=== PATIENT | male | born 1985 | race Caucasian/White ===

== ENCOUNTER 2019-12-31 04:04 | Emergency (ER) | payer MEDICAID, SELFPAY ==
[2019-12-31] VITALS (24 sets, daily range): BP systolic 90–131; BP diastolic 52–70; PULSE 65–123; RESP 12–20; TEMP 36.8; O2SAT 93–98; BMI 19.8
--- NOTE | 2019-12-31 04:14 | PC.NURSE ---
EMS report: patient was combative on scene. family and patient admitted to pcp use. patient aggressive on transport and transported in pd custody. no vs due to provider safety.
--- NOTE | 2019-12-31 04:25 | PC.NURSE ---
SECURITY AT BEDSIDE, PT WANDED TO CHECK FOR CONTRABAND NO CONTRABAND FOUND. PT CALM AT THIS TIME AWAITING MD ROSSI.
[2019-12-31] MEDS: Haloperidol Lactate 5 MG/ML VIAL IM (05:08)
[2019-12-31] MEDS: diphenhydrAMINE HCL 50 MG/ML VIAL IM (05:08)
[2019-12-31] MEDS: LORazepam 2 MG/ML VIAL IM (05:08)
--- NOTE | 2019-12-31 05:18 | ED.OVERDOSE ---
HPI - Overdose General Chief Complaint: ETOH/Substance Use Stated Complaint: CRISIS,? PCP USE Time Seen by Provider: 12/31/19 04:46 Source: EMS Mode of arrival: EMS Limitations: no limitations History of Present Illness HPI Narrative: This is a 34-year-old male who is brought in by EMS after they were called by patient's brother for patient taking PCP and being disruptive at his mother's house. On arrival, patient denies any shortness of breath, chest pain, GI symptoms such as nausea or vomiting, and denies any urinary symptoms. Otherwise, he is altered due to PCP intoxication. Related Data Allergies Allergy/AdvReac Type Severity Reaction Status Date / Time No Known Allergies Allergy Verified 12/31/19 05:48 Review of Systems Review of Systems: Pertinent positives and negatives as stated in HPI 10 point review systems is otherwise negative. PMFSH Past Medical History Source: nursing notes reviewed Medical History No known health problems Social History Social History Alcohol intake: unknown Smoking Status: Unknown if ever smoked Use of substances other than those prescribed or required for medical reasons: Yes Substance Use Type: Unknown Substance Use Type Other:: pcp Advance Directives: No Advance Directives Information Provided: No Physical Exam Vital Signs and I&O and Narrative: Vital Signs and I&O: Vital Signs Temp 98.2 F 12/31/19 04:20 Pulse 98 12/31/19 07:40 Resp 16 12/31/19 07:40 BP 97/56 L 12/31/19 06:41 Pulse Ox 98 12/31/19 06:41 Intake & Output 12/30/19 12/31/19 12/31/19 18:59 06:59 18:59 Weight 55.868 kg Body Mass Index 19.8 VITAL SIGNS: Reviewed. GENERAL: Well developed, well nourished, altered with aggression and yelling. HEAD: Normocephalic/atraumatic, EYES: PERRLA, EOMI intact without pain, no nystagmus/pallor/icterus noted EARS: Ext canals without abnormality, TMs non-bulging and non-erythematous NOSE: Nares patent bilateral OROPHARYNX: no oral lesions noted, posterior pharynx clear and non-erythematous without noted tonsillar enlargement/erythema/exudates NECK: Supple, no adenopathy LUNGS: Normal breath sounds. No adventitious sounds or accessory muscle use. SpO2< 98%> CARDIOVASCULAR: Regular rate and rhythm without noted murmurs, no JVD or lower extremity edema. ABDOMEN: Soft, non-tender, non-distended with bowel sounds. No rigidity. No guarding. No palpable masses or hernias noted MUSCULOSKELETAL: No tenderness, deformities, or effusions noted on gross inspection. EXTREMITIES: No cyanosis, clubbing or edema. SKIN: Inspection of the skin reveals no rashes, ulcerations, jaundice, pallor, or petechiae. NEUROLOGIC: Alert and oriented x 4. Strength and sensation to light touch were grossly intact x 4. Course Course Course Narrative: This is a 34-year-old male with history and clinical presentation consistent with drug intoxication and currently undergoing hallucinations that result in significant yelling with some physical attempts at leaving and not being cooperative with current plan for observation posing a harm to himself. 0508: Patient required medications to prevent potential harm to himself or staff members trying to help the patient. Repeated attempts were made to deescalate the situation by negotiating with beverages, food, as well as future plans of discharge. Unfortunately, despite best efforts the decision was made to administer chemical restraints with complete de-escalation of behavior. Reevaluation(s) Reevaluation #1: patient re-evaluated in a [id number] after having received chemical restraint and found to be in a calm state and no longer a risk of harm to himself or anyone else. Time: 06:08 Reevaluation #2: Patient is resting comfortably and may be discharged to home when clinically sober Discharge Plan Discharge Clinical Impression: PCP abuse Patient Disposition: Home, Self-Care Instructions: Polysubstance Abuse (ED) Additional Instructions: The patient and/or family acknowledge understanding of results (as applicable), diagnosis, treatment plan, need for follow up, and symptoms that should prompt a return to the emergency room. Referrals: Physician,Unknown [Primary Care Provider] - 2 days
--- NOTE | 2019-12-31 06:40 | MHC.PIE ---
P: Agitated and uncooperative to care upon arrival. I: Moved to close to nursing station, Food and drink given. verbal reassurance given. Staffs at bedside to de-escalate pt. Pt still agitated, and uncooperative to care. Per MD, medication restraint to be done. E: Haldol 5 mg, Ativan 2 mg, and Benadryl 50 mg IM at given at 0508 with good effect. VS monitored q15 minutes. Will continue to monitor. Pt currently sleeping. NAD.
--- NOTE | 2019-12-31 13:13 | PC.NURSE ---
PT AWAKE. AMBULATED TO BR WITH UNSTEADY GAIT. PT FED A HAM SANDWICH AND ORANGE JUICE. PT CURRENTLY REFUSING A CONSULT WITH A SUBSTANCE ABUSE COUNSELOR.
== END 2019-12-31 14:02 | disposition home or self-care (01) ==
PROVIDERS: Emergency Provider Student in an Organized Health Care Education/Training Program
DX: R44.3 Hallucinations, unspecified (principal); F16.10 Hallucinogen abuse, uncomplicated; Z71.51 Drug abuse counseling and surveillance of drug abuser
CPT/HCPCS: 96372; 99284; 99285; J1200; J2060

== ENCOUNTER 2020-09-26 13:55 | Emergency (ER) | payer MEDICAID, SELFPAY ==
[2020-09-26 14:33] VITALS: BP 113/76; PULSE 76; RESP 18; TEMP 36.6; O2SAT 99; BMI 20.7
--- NOTE | 2020-09-26 14:53 | ED.WOUNDLAC ---
HPI - Wound/Laceration General Chief Complaint: Wound/Laceration Stated Complaint: Check head Time Seen by Provider: 09/26/20 14:53 Source: patient and family Mode of arrival: ambulatory Limitations: no limitations History of Present Illness HPI narrative: 35-year-old male presenting to the ED with complaints of his old laceration to his scalp opening and having blood yesterday he is unsure if a pimple popped. Reports that he does not have any bleeding today. Denies any head injury or any other symptoms complaints or concerns at this time. Related Data Previous Rx's Medication Instructions Recorded cephalexin 500 mg PO BID 10 Days #20 cap 09/26/20 doxycycline monohydrate 100 mg PO BID 10 Days #20 cap 09/26/20 Allergies Allergy/AdvReac Type Severity Reaction Status Date / Time No Known Allergies Allergy Verified 12/31/19 05:48 Review of Systems Review of Systems: Constitutional : No Fever, No Chills, Cardiovascular : No Chest Pain, No SOB Respiratory : No Dyspnea Gastrointestinal : No abdominal pain Musculoskeletal : No Joint Swelling Skin : positive old healing scar, No lacerations, No Foreign bodies, No rash, No surrounding erythema Neuro : No Weakness, No Numbness/tingling Psych : No SI/HI/thoughts of self injury Yes all other systems are reviewed and are negative [facility] Past Medical History Attestation statement: The following information was validated with the patient. Medical History No known health problems Social History Social History Alcohol intake: unknown Substance Use Type: Unknown Advance Directives: No Advance Directives Information Provided: No Physical Exam Vital Signs: Vital Signs: Last Vital Signs Temp 98 F 09/26/20 14:33 Pulse 76 09/26/20 14:33 Resp 18 09/26/20 14:33 BP 113/76 09/26/20 14:33 Pulse Ox 99 09/26/20 14:33 Body Mass Index 20.7 vital signs have been reviewed as normal and appeared to be correct. Blood pressure normal. Heart rate normal. Respiration rate normal. Temperature normal. Oxygen saturation normal. Appearance: Alert. Oriented X3. No acute distress. Head: Normal external exam. Normocephalic. Atraumatic. No [place] signs noted. No raccoon eyes noted To scalp patient has an old scar with mild erythema and abrasion on top. Otherwise no foreign bodies /fluctuance/induration. Eyes: PERRLA. EOMI. Conjunctiva and sclera normal. Eyelids normal. ENT: Pharynx normal. Uvula midline. Moist mucous membranes. Neck: Normal inspection. Neck supple. FROM. No adenopathy. Thyroid Normal. No meningeal signs. No neck mass noted. CVS: Normal heart rate and rhythm. Respiratory: No respiratory distress. Painless inspiration. Back: Full range of motion noted. No rashes/lesion/induration/fluctuance or signs of infection noted. Skin: Skin warm and dry. Normal skin color. Normal skin turgor. No rashes/lesions/lacerations noted. Extremities: Extremities exhibit normal range of motion. Extremities nontender. Neuro: Oriented X 3. No motor deficit. No sensory deficit. Reflexes normal. Normal steady gait. No focal neuro deficits noted. Discharge Plan Discharge Clinical Impression: Abrasion, Cellulitis of head or scalp Patient Disposition: Home, Self-Care Instructions: Cellulitis (ED), Abrasion (ED) Prescriptions: New doxycycline monohydrate 100 mg capsule 100 mg PO BID 10 Days Qty: 20 RF: 0 cephalexin 500 mg capsule 500 mg PO BID 10 Days Qty: 20 RF: 0 Referrals: [facility] [Primary Care Provider] - 2 days Print Language: Georgian
== END 2020-09-26 15:03 | disposition home or self-care (01) ==
PROVIDERS: Emergency Provider Emergency Medicine
DX: S00.01XD Abrasion of scalp, subsequent encounter (principal); X58.XXXD Exposure to other specified factors, subsequent encounter; L03.811 Cellulitis of head [any part, except face]
CPT/HCPCS: 99283

== ENCOUNTER 2021-07-23 05:45 | Emergency (ER) | payer MEDICAID, SELFPAY ==
[2021-07-23] MEDS: diphenhydrAMINE HCL 25 MG TABLET 50 MG PO (06:12)
--- NOTE | 2021-07-23 06:18 | ED.OVERDOSE ---
HPI - Overdose General Stated Complaint: pt on pcp Time Seen by Provider: 07/23/21 05:58 Source: patient Mode of arrival: EMS History of Present Illness HPI Narrative: 35-year-old male was brought in by EMS and reportedly has used PCP. Patient initially wanting to go home and denies any acute complaints such as fever, chills, shortness of breath, chest pain/palpitations. Related Data Previous Rx's Medication Instructions Recorded cephalexin 500 mg capsule 500 mg PO BID 10 Days #20 cap 09/26/20 doxycycline monohydrate 100 mg 100 mg PO BID 10 Days #20 cap 09/26/20 capsule Allergies Allergy/AdvReac Type Severity Reaction Status Date / Time No Known Allergies Allergy Verified 12/31/19 05:48 Review of Systems Review of Systems: Pertinent positives and negatives as stated in HPI 10 point review of systems is otherwise negative. PMFSH Past Medical History Source: nursing notes reviewed Medical History No known health problems Social History Social History Alcohol intake: unknown Substance Use Type: Unknown Physical Exam Vital Signs: Vital Signs: VITAL SIGNS: Reviewed. GENERAL: Well developed, well nourished, in no acute distress. HEAD: Normocephalic/atraumatic EYES: PERRLA, EOMI EARS: Ext canals without abnormality OROPHARYNX: no oral lesions noted, posterior pharynx clear LUNGS: Normal breath sounds. CARDIOVASCULAR: Regular rate and rhythm without noted murmurs ABDOMEN: Soft, non-tender, non-distended with bowel sounds. SKIN: Inspection of the skin reveals no rashes NEUROLOGIC: Alert and oriented x 3. Strength and sensation to light touch were grossly intact x 4. PSYCH: Substance use Course Course Course Narrative: 35-year-old male with history and clinical presentation consistent with substance use, suspect PCP, redirectable and currently calm and cooperative. Will provide KAITLYN eval. Reevaluation(s) Reevaluation #1: Patient placed in physician observation because the patient needed more time for KAITLYN eval. At the time observation was started the patient's vital signs were stable, patient is alert and oriented but slightly agitated, neuro: Nonfocal, CV RRR, lungs clear Time: 06:26 Discharge Plan Discharge Clinical Impression: Substance use disorder Patient Disposition: Still a Patient Prescriptions: No Action doxycycline monohydrate 100 mg capsule 100 mg PO BID 10 Days Qty: 20 0RF cephalexin 500 mg capsule 500 mg PO BID 10 Days Qty: 20 0RF
[2021-07-23 06:23] VITALS: BP 101/68; PULSE 123; RESP 16; O2SAT 99; BMI 25.9
[2021-07-23] MEDS: LORazepam 2 MG/ML VIAL IM (06:42)
[2021-07-23] MEDS: OLANZapine 10 MG VIAL 5 MG IM (06:43)
[2021-07-23] MEDS: Haloperidol Lactate 5 MG/ML VIAL IM (06:58)
[2021-07-23] MEDS: LORazepam 2 MG/ML VIAL 1 MG IM (06:58)
[2021-07-23 08:00] VITALS: PULSE 77; RESP 16; O2SAT 99
[2021-07-23 10:00] VITALS: PULSE 83; RESP 12; O2SAT 99
--- NOTE | 2021-07-23 13:45 | MHC.RECOVSUP ---
Recovery Support note: Patient is a 35 year old Gambian speaking male who presented to [facility] ED due to altered mental status. Patient has a history of PCP use however tox screen has not been completed at this time. Patient denies all substance use however appears confused and is unable to engage in conversation. Patient attempted to get up from the bed and was very unsteady. Patient redirected to bed. Discussed case with ED provider. Recovery Team will attempt to re-engage with patient later today.
[2021-07-23 15:10] LABS: Amphetamine Screen Urine Not Detected (Not Detect); Barbiturates, Urine Not Detected (Not Detect); Benzodiazepines Screen Urine Not Detected (Not Detect); Cannabinoid Screen Urine POSITIVE (Not Detect); Cocaine Screen Urine Not Detected (Not Detect); Fentanyl, urine Not Detected (Not Detect); Opiate Screen Urine Not Detected (Not Detect); Phencyclidine Screen Urine POSITIVE (Not Detect)
== END 2021-07-23 17:39 | disposition home or self-care (01) ==
PROVIDERS: Emergency Provider Student in an Organized Health Care Education/Training Program
DX: F16.19 Hallucinogen abuse with unspecified hallucinogen-induced disorder (principal); Z79.899 Other long term (current) drug therapy
CPT/HCPCS: 80307; 96372; 99284; J2060; Q0163

== ENCOUNTER 2021-07-26 23:30 | Emergency (ER) | payer MEDICAID, SELFPAY ==
[2021-07-26 23:31] VITALS: BP 113/76; PULSE 73; O2SAT 97
[2021-07-26 23:36] VITALS: RESP 16; BMI 23.8
--- NOTE | 2021-07-26 23:45 | ED.ALCOHOL ---
HPI - Alcohol General Chief Complaint: ETOH/Substance Use Stated Complaint: pcp use Time Seen by Provider: 07/26/21 23:42 Source: patient Mode of arrival: EMS History of Present Illness HPI narrative: Patient drinking heavy using PCP with marijuana brought by EMS for altered sensorium no history of head injury or fall while in the ambulance patient was acting normally slightly intoxicated denies any suicidal ideation Related Data Home Medications Medication Instructions Recorded Confirmed No Known Home Meds 07/26/21 07/26/21 Allergies Allergy/AdvReac Type Severity Reaction Status Date / Time No Known Allergies Allergy Verified 12/31/19 05:48 Review of Systems Review of Systems: Yes all other systems are reviewed and are negative [facility] Past Medical History Medical History No known health problems Social History Social History Alcohol intake: unknown Use of substances other than those prescribed or required for medical reasons: Yes Substance Use Type: Other Substance Use Type Other:: pcp Substance Use Frequency: Chronic Longstanding Last Used Substance: Just Prior to Admission Advance Directives: No Physical Exam ED Vital Signs: Vital Signs - 24 hr 07/26/21 23:36 07/27/21 00:05 07/27/21 02:29 Temperature 97.8 F Pulse Rate 70 75 Respiratory Rate 16 18 18 Blood Pressure 123/80 105/70 Pulse Oximetry 98 98 BMI result Body Mass Index 23.8 Appearance: Alert. Oriented X3. No acute distress. etoh+ Eyes: PERRLA, No Nystagmus HEENT: Pharynx normal. Oral Mucosa moist atraumatic normocephalic Neck: Normal inspection. Neck supple. CVS: Normal heart rate and rhythm. Pulses normal. Respiratory: No respiratory distress. Equal air entry bilateral, no wheezing/rales/rhonchi Abdomen: Soft and nontender. Bowel sounds are present, no mass palpable, no CVA tenderness Skin: Skin warm and dry. Normal skin color. Normal skin turgor. Extremities: No lower extremity edema. No calf tenderness Neuro: Oriented X 3. No motor deficit. MDM - Alcohol MDM Narrative Medical decision making narrative: 4 am patient alert and awake ambulatory and steady gait does not want any detox home will discharge Lab Data Attestation: I reviewed the patient's lab results. Labs: Lab Results 07/27/21 07/27/21 07/27/21 Range/Units 00:14 00:14 00:14 Urine Opiates Screen Not Detected (Not Detect) Urine Fentanyl Screen Not Detected (Not Detect) Ur Barbiturates Screen Not Detected (Not Detect) Ur Phencyclidine Scrn POSITIVE H (Not Detect) Ur Amphetamines Screen Not Detected (Not Detect) U Benzodiazepines Scrn Not Detected (Not Detect) Urine Cocaine Screen POSITIVE H (Not Detect) U Marijuana (THC) Screen POSITIVE H (Not Detect) Ethyl Alcohol 92 mg/dL COVID-19 (TAD) Negative (Negative) COVID-19 Clin Com See Note Discharge Plan Discharge Clinical Impression: Alcoholic intoxication, Polysubstance abuse Patient Disposition: Home, Self-Care Instructions: Abuse of Alcohol (ED), Polysubstance Abuse (ED) Additional Instructions: Stop drinking alcohol stop using PCP and cocaine Follow-up with detox Prescriptions: No Action No Known Home Meds 0RF Interventions: ED Discharge Assessment Last Done: 07/27/21 04:13 Discharge Date/Time: 07/27/21 04:14
[2021-07-27 00:05] VITALS: BP 123/80; PULSE 70; RESP 18; TEMP 36.6; O2SAT 98
[2021-07-27 00:33] LABS: Ethanol 92 mg/dL
[2021-07-27 00:36] LABS: Amphetamine Screen Urine Not Detected (Not Detect); Barbiturates, Urine Not Detected (Not Detect); Benzodiazepines Screen Urine Not Detected (Not Detect); Cannabinoid Screen Urine POSITIVE (Not Detect); Cocaine Screen Urine POSITIVE (Not Detect); Fentanyl, urine Not Detected (Not Detect); Opiate Screen Urine Not Detected (Not Detect); Phencyclidine Screen Urine POSITIVE (Not Detect)
[2021-07-27 00:37] LABS: COVID-19 Test Negative (Negative); IDNOW Serial# 55D5AD1C
--- NOTE | 2021-07-27 01:39 | PC.NURSE ---
pt sleeping in HW bed. no behaviors or uncooperation on this shift
[2021-07-27 02:29] VITALS: BP 105/70; PULSE 75; RESP 18; O2SAT 98
== END 2021-07-27 04:14 | disposition home or self-care (01) ==
PROVIDERS: Emergency Provider Internal Medicine
DX: F10.129 Alcohol abuse with intoxication, unspecified (principal); Y90.4 Blood alcohol level of 80-99 mg/100 ml; F16.10 Hallucinogen abuse, uncomplicated; F12.10 Cannabis abuse, uncomplicated; Z20.822 Contact with and (suspected) exposure to COVID-19
CPT/HCPCS: 36415; 80307; 82077; 87635; 99283; 99285

== ENCOUNTER 2022-08-16 22:05 | Emergency (ER) | payer MEDICAID, SELFPAY ==
[2022-08-16 22:15] VITALS: BP 113/68; PULSE 110; O2SAT 100
[2022-08-16 22:19] VITALS: BP 124/80; PULSE 82; RESP 14; TEMP 36.5; O2SAT 97; BMI 23.8
--- NOTE | 2022-08-16 22:28 | MHC.EDTECH ---
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
[2022-08-16 22:30] VITALS: BP 124/80; PULSE 82; RESP 14; TEMP 36.5; O2SAT 97
--- NOTE | 2022-08-16 22:33 | PC.NURSE ---
Pt presented to ER by EMS after being found on the side of the road. Pt consumed an known amount of hard alcohol and endorses smoking marijuana. Pt is Alert and oriented but slightly confused with slurred words. Pt is calm and cooperative, did void 900mL of clear urine. Vitals were obtained and pt was positioned comfortably in bed at this time. Waiting ED provider.
--- NOTE | 2022-08-16 22:42 | ED_ITS ---
HPI - Alcohol General Chief Complaint: ETOH/Substance Use Stated Complaint: ETOH Time Seen by Provider: 08/16/22 22:38 Source: patient Mode of arrival: EMS Limitations: no limitations History of Present Illness HPI narrative: Previous history of PCP use and alcohol was found on the side of the road drunk says that he had too many drinks today no signs of injury ambulated in the ER history of same in the past Related Data Home Medications Medication Instructions Recorded Confirmed No Known Home Meds 07/26/21 07/26/21 Allergies Allergy/AdvReac Type Severity Reaction Status Date / Time No Known Allergies Allergy Verified 12/31/19 05:48 Review of Systems Review of Systems: Yes all other systems are reviewed and are negative [facility] Past Medical History Medical History No known health problems Social History Social History Alcohol intake: current Alcohol intake frequency: 3 or more drinks per day Use of substances other than those prescribed or required for medical reasons: Yes Substance Use Type: Marijuana Advance Directives: No Advance Directives Information Provided: Yes Physical Exam ED Vital Signs: Vital Signs - 24 hr 08/16/22 22:19 08/16/22 22:30 Temperature 97.7 F 97.7 F Pulse Rate 82 82 Respiratory Rate 14 14 Blood Pressure 124/80 124/80 Pulse Oximetry 97 97 Oxygen Delivery Method Room Air Room Air BMI result Body Mass Index 23.8 Appearance: Sleeping. No acute distress. Intoxicated Eyes: PERRLA, No Nystagmus ENT: Pharynx normal. Oral Mucosa moist AT NC Neck: Normal inspection. Neck supple. CVS: Normal heart rate and rhythm. Pulses normal. Respiratory: No respiratory distress. Equal air entry bilateral, no wheezing/rales/rhonchi Abdomen: Soft and nontender. Bowel sounds are present, Skin: Skin warm and dry. Normal skin color. Normal skin turgor. Extremities: No lower extremity edema. No calf tenderness Neuro: Intoxicated arousable to painful and verbal stimuli. No motor deficit. No sensory deficit Medical Decision Making Medical Decision Making [facility] Narrative: 0120 am patient more alert and awake having p.o. fluids still slightly intoxicated with PCP will discharge him home once sober patient refused any help Lab Data [facility] Lab Attestation statement: I reviewed the patient's lab results. Labs: Lab Results 08/16/22 08/16/22 Range/Units 22:57 22:57 Urine Color Yellow Urine Appearance Clear Urine pH 6.0 (5.0-9.0) Ur Specific [place] <= 1.005 (1.005-1.025) Urine Protein Negative (Neg-Trace) mg/dL Urine Glucose (UA) Negative (Negative) mg/dL Urine Ketones Negative (Negative) mg/dL Urine Blood Negative (Negative) Urine Nitrite Negative (Negative) Ur Leukocyte Esterase Negative (Negative) Urine Opiates Screen Not Detected (Not Detect) Urine Fentanyl Screen Not Detected (Not Detect) Ur Barbiturates Screen Not Detected (Not Detect) Ur Phencyclidine Scrn POSITIVE H (Not Detect) Ur Amphetamines Screen Not Detected (Not Detect) U Benzodiazepines Scrn Not Detected (Not Detect) Urine Cocaine Screen Not Detected (Not Detect) U Marijuana (THC) Screen Not Detected (Not Detect) Discharge Plan Discharge Clinical Impression: Alcoholic intoxication, PCP (phencyclidine) abuse Patient Disposition: Home, Self-Care Instructions: Polysubstance Abuse (ED) Additional Instructions: Stop drinking alcohol and using PCP Follow up detox Prescriptions: No Action No Known Home Meds
--- OUTSIDE RECORDS SUMMARY | 2022-08-16 22:43 | XMS_ITS | Continuity of Care Document ---
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 Role Phone Doyle DALY, Carol Ynu Primary Care Physician Encounter [facility] Date(s): 07/31/19 - 08/01/[address] [id number]- [facility] Encounter Diagnosis Drug intoxication(Final) - 07/31/19 Discharge Disposition: A-D/C Home Attending Physician: Cori Roy DO Admitting Physician: Cori Roy DO Referring Physician: Not on Staff, Referring MD Allergies, Adverse Reactions, Alerts No Known Medication Allergies Vital Signs Most recent to oldest [Reference Range]: 1 2 3 Oxygen Saturation [94-100 %] 98 % (07/31/19 11:35 PM) 97 % (07/31/19 8:57 PM) 100 % (07/31/19 8:07 PM) Pulse Rate [55-90 bpm] 85 bpm (07/31/19 11:35 PM) 85 bpm (07/31/19 8:57 PM) 128 bpm *H* (07/31/19 8:07 PM) Blood Pressure [90-138/55-84 mm Hg] 104/77mm Hg (07/31/19 11:35 PM) 104/61mm Hg (07/31/19 8:07 PM) 94/58mm Hg (07/31/19 5:57 PM) Respiratory Rate [16-30 br/min] 18 br/min (07/31/19 11:35 PM) 16 br/min (07/31/19 8:57 PM) 18 br/min (07/31/19 8:07 PM) Temperature [96.8-100.4 DegF] 98.4 DegF (07/31/19 11:35 PM) 98.8 DegF (07/31/19 4:27 PM) Mode of Delivery (Oxygen) Room air (07/31/19 11:35 PM) Room air (07/31/19 8:57 PM) Room air (07/31/19 8:07 PM) Blood pressure sites Arm, right (07/31/19 5:57 PM) Arm, right (07/31/19 4:27 PM) Temperature Route Oral (07/31/19 11:35 PM) Oral (07/31/19 4:27 PM)
[2022-08-16 23:20] LABS: Appearance Urine Clear; Color Urine Yellow; Glucose Urine UA Negative (Negative); Leukocyte Esterase Urine Negative (Negative); Nitrite Urine Negative (Negative); Specific Gravity - Urine <= 1.005 (1.005-1.025); Urine Blood Negative (Negative); Urine Ketones Negative (Negative); Urine Protein Negative (Neg-Trace)
[2022-08-16 23:22] LABS: Amphetamine Screen Urine Not Detected (Not Detect); Barbiturates, Urine Not Detected (Not Detect); Benzodiazepines Screen Urine Not Detected (Not Detect); Cannabinoid Screen Urine Not Detected (Not Detect); Cocaine Screen Urine Not Detected (Not Detect); Opiate Screen Urine Not Detected (Not Detect); Phencyclidine Screen Urine POSITIVE (Not Detect)
[2022-08-16 23:24] LABS: Fentanyl, urine Not Detected (Not Detect)
--- NOTE | 2022-08-17 01:27 | PC.NURSE ---
Pt awake and alert. Steady on his feet. I assisted pt with the urinal and gave a sandwich and water. Pt is sitting on the end of his bed at this time.
== END 2022-08-17 01:56 | disposition home or self-care (01) ==
PROVIDERS: Emergency Provider Internal Medicine
DX: F16.10 Hallucinogen abuse, uncomplicated (principal); F10.220 Alcohol dependence with intoxication, uncomplicated; Y90.9 Presence of alcohol in blood, level not specified
CPT/HCPCS: 80307; 81003; 99285

== ENCOUNTER 2022-12-28 15:05 | Emergency (ER) | payer MEDICAID, SELFPAY ==
[2022-12-28] VITALS (9 sets, daily range): BP systolic 92–135; BP diastolic 54–87; PULSE 61–140; RESP 12–22; TEMP 36.3–37.8; O2SAT 93–99; BMI 23.6
--- NOTE | 2022-12-28 15:19 | ED.PSYCH ---
HPI - Psych General Chief Complaint: ETOH/Substance Use Stated Complaint: NARCOTIC USE Time Seen by Provider: 12/28/22 15:19 Source: EMS and police Mode of arrival: EMS Limitations: altered mental status History of Present Illness HPI Narrative: 37-year-old male brought in by EMS and with [place] police for evaluation of change in mental status, continual use of PCP and other drug and protective custody for narcotic use. Information came from paramedics and the police apparently the family has been concerned that the patient was using drugs. The patient has been using PCP for at least 3 years. For the past 4 days he has been confused and today he was screaming in his room. The family called the police. Patient was altered, diaphoretic and uncooperative. The police were concerned that patient was using narcotics and placed him in protective custody for transport. The patient had to be restrained to the shipping assistant stretcher. The patient is not on a Section 12 for Section 35. On presentation the patient is diaphoretic, he is staring off into space, he is not answering questions, he was fighting the restraints in trying to get up the shipping assistant stretcher. Patient was brought to a room. We initially transferred him to a stretcher and try to redirect him and calling down however he refused to get undressed, he was trying to get off the stretcher, he then became combative and needed to be restrained by security, nursing on the police. At this time a concerned that the patient is experiencing psychosis from his drug use. He was also chemically restrained with Haldol 10 mg IM, Ativan 2 mg IM and Benadryl 50 mg IM. The patient has been seen here in the past and in reviewing his drug urine screen is, he has been positive for PCP, cocaine, marijuana. Related Data Home Medications Medication Instructions Recorded Confirmed No Known Home Meds 07/26/21 07/26/21 Allergies Allergy/AdvReac Type Severity Reaction Status Date / Time No Known Allergies Allergy Verified 12/31/19 05:48 Review of Systems Review of Systems: Yes Unobtainable due to mental status [facility] Past Medical History [facility] Narrative: Past medical history: Alcohol use disorder, polysubstance use disorder (PCP, cocaine, marijuana, alcohol) Medical History No known health problems Social History Social History Alcohol intake: current Alcohol intake frequency: 3 or more drinks per day Substance Use Type: Marijuana Advance Directives: No Advance Directives Information Provided: Yes Physical Exam Vital Signs: Vital Signs: Last Vital Signs Temp 97.4 F 12/28/22 18:00 Pulse 61 12/28/22 18:00 Resp 13 12/28/22 18:00 BP 111/63 12/28/22 18:00 Pulse Ox 98 12/28/22 18:00 O2 Del Method Room Air 12/28/22 18:00 O2 Flow Rate 2 12/28/22 16:40 BMI result Body Mass Index 23.6 Exam General: Awake, staring off into space, nonverbal, diaphoretic, uncooperative, refusing to stay on stretcher Head: Normocephalic, atraumatic EENT: PERRL, Lids normal, sclera normal, conjunctiva normal, nose normal , ears normal, throat without erythema or exudates Neck: Supple, no adenopathy, trachea midline and nontender Lung: breath sounds symmetric, no wheezing, rales or rhonchi Chest: symmetric movement, nontender Heart: Tachycardia with a regular rhythm, normal S1, S2 no murmurs or rubs Abdomen: soft, non-tender, nondistended, normal bowel sounds Extremities: no deformities, moves all extremities symmetrically Skin: no rashes, no lesion, normal color and warmth Neuro: Awake but staring off into space, does not follow simple commands, moves all extremities normally with good strength Medications Administered Discontinued Medications Generic Name Dose Route Start Last Admin Trade Name Brisa PRN Reason Stop Dose Admin Diphenhydramine HCl 50 mg 12/28/22 15:28 12/28/22 15:25 Diphenhydramine Hcl 50 Mg/Ml Vial IM 12/28/22 15:29 50 mg ONCE ONE Administration Haloperidol Lactate 10 mg 12/28/22 15:19 12/28/22 15:25 Haloperidol Lactate 5 Mg/Ml Vial IM 12/28/22 15:20 10 mg STAT STA Administration Sodium Chloride 1,000 mls @ 999 mls/hr 12/28/22 15:19 12/28/22 17:00 Ns IV 12/28/22 16:19 Infused .Q1H1M STA Infusion Sodium Chloride 1,000 mls @ 999 mls/hr 12/28/22 16:42 12/28/22 17:57 Ns IV 12/28/22 17:42 Infused .Q1H1M STA Infusion Lorazepam 2 mg 12/28/22 15:19 12/28/22 15:25 Lorazepam 2 Mg/Ml Vial IM 12/28/22 15:20 2 mg STAT STA Administration Medical Decision Making Medical Decision Making [facility] Narrative: 37-year-old male with a history of polysubstance abuse (alcohol, PCP, cocaine, marijuana) , according to paramedics is been using PCP for at least 4 days, today he was screaming in his room and this concerned the family so they called 911. Patient was altered, are cooperative and the police put the patient in protective custody possible narcotic use so that the patient could be transported to the emergency department. The patient needed to be transported in restraints. When he got to the emergency department the patient was uncooperative, he was trying to get off the stretcher, we were unable to redirect him therefore he needed to be placed in physical restraints and given chemical restraint with Haldol 10 mg IM, Benadryl 50 mg IM and Ativan 2 mg IM. I ordered the following evaluation: CBC, CMP, PT/INR, CK, troponin lipase, urinalysis, ethanol level, urine drug screen, COVID-19, influenza. Patient will also be given normal saline IV x1 L. 18:17 Start physician observation Patient's laboratory evaluation was unremarkable, urine tox screen is pending. The patient has been taken out of 4 point restraints, he is sleeping and resting comfortably. At the end of my shift, patient's care was turned over to my colleague, Dr. Monteiro. Differential Diagnosis Differential Diagnoses: The differential diagnosis associated with the presentation includes Differential diagnosis includes was not limited to psychosis secondary to polysubstance use, electrolyte abnormalities, anemia, rhabdomyolysis Admission/Observation Consideration of admission/observation: Escalation of care including admission/observation considered Lab Data [facility] Lab Attestation statement: I reviewed the patient's lab results. My interpretation patient's laboratory evaluation is as follows: CBC was normal. Coags were normal. CMP was normal except for elevated alk phos 124. CK minimally elevated 272. Troponin below detectable limits. Lipase normal. Alcohol was below detectable limits. COVID, influenza negative. 12/28/22 15:57 12/28/22 15:57 Labs: Lab Results 12/28/22 Range/Units 15:57 WBC 7.6 (4.8-10.8) X10*3/uL RBC 4.34 L (4.60-5.80) X10*6/uL Hgb 13.9 L (14.0-18.0) g/dl Hct 40.7 L (42.0-52.0) % MCV 93.8 (80.0-98.0) fL MCH 32.0 (27.0-33.0) pg MCHC 34.2 (31.0-36.0) g/dl RDW 12.8 (11.0-16.0) % Plt Count 251 (160-400) X10*3/uL MPV 10.4 (9.4-12.4) fL Immature Gran % (Auto) 0.3 (0.0-0.4) % Neut % (Auto) 81.9 H (45-73) % Lymph % (Auto) 12.8 L (20-40) % [place] % (Auto) 4.3 (2-11) % Eos % (Auto) 0.3 (0-4) % Baso % (Auto) 0.4 (0-2) % Lymph # (Auto) 1.0 L (1.2-4.9) X10*3/uL [place] # (Auto) 0.3 (0.1-1.2) X10*3/uL Eos # (Auto) 0.0 (0.0-0.4) X10*3/uL Baso # (Auto) 0.0 (0.0-0.2) X10*3/uL Abs Immat Gran (auto) 0.02 (0.00-0.03) X10*3/uL Absolute Neuts (auto) 6.3 (2.0-8.3) x10*3/uL Absolute Nucleated RBC 0.000 (0.0-0.012) X10*3/uL Nucleated RBC % (auto) 0.0 (0.0-0.2) /100WBC PT 12.0 (11.1-13.3) SEC INR 1.0 (0.9-1.1) APTT 24.7 L (26.0-36.4) SEC Sodium 142 (135-145) mmol/L Potassium 3.6 (3.3-5.1) mmol/L Chloride 109 H (96-108) mmol/L Carbon Dioxide 20 L (22-29) mmol/L Anion Gap 17 (12-20) BUN 13 (9-16) mg/dL Creatinine 1.07 (0.5-1.4) mg/dL Estim Creat Clear Calc 93.6 Estimated GFR > 60 Random Glucose 98 (60-115) mg/dL Calcium 9.3 (8.4-10.2) mg/dL Total Bilirubin 0.4 (0.0-1.0) mg/dL AST 17 (5-37) U/L ALT 13 (0-40) U/L Alkaline Phosphatase 124 H (39-117) U/L Total Creatine Kinase 272 H (38-174) U/L Troponin I High Sens < 2.7 (<3.5-35.0) ng/L Total Protein 6.9 (6.5-8.0) g/dL Albumin 4.3 (3.5-5.0) g/dL Lipase 10 (8-78) U/L Ethyl Alcohol < 10 mg/dL COVID-19 (TAD) Negative (Negative) COVID-19 Clin Com See Note Influenza Type A ([facility]) Negative (Negative) Influenza Type B ([facility]) Negative (Negative) Influenza A & B Note See Note Critical Care Time Critical Care Time Critical Care Time: Yes Total Critical Care Time: 30 Attestation: Critical Care: The patient was critically ill with a high probability of imminent or life threatening deterioration. I spent greater than 30 minutes of discontinuous time evaluating the patient,delivering critical care at the bedside, discussing and evaluating pertinent data with consultants. Critical care time does not include time spent performing separately billable procedures or teaching. Total time spent performing critical care was 30 minutes. Discharge Plan Discharge Clinical Impression: Delirium, Polysubstance (excluding opioids) dependence Patient Disposition: Still a Patient Prescriptions: No Action No Known Home Meds
--- NOTE | 2022-12-28 15:25 | PC.NURSE ---
pt alert but appears extremely altered/confused/not following simple commands/ attempting to escape from the ed family extremely concern for pt's well being, possible use of pcp pt physical restrained and chemically restrained per md orders
--- NOTE | 2022-12-28 16:10 | PC.NURSE ---
pt continuos on sleeping, respirations even and unlabored, but oxygen saturation dropped down to 89% on room air an pt put on 2l via nasal cannual and sating at 97% pt's right leg removed sitter in place
--- NOTE | 2022-12-28 16:25 | PC.NURSE ---
pt sleeping, calm and cooperative, left lower leg and right arm removed
--- NOTE | 2022-12-28 16:40 | PC.NURSE ---
all restrains removed at this time
[2022-12-29 00:30] VITALS: BP 96/52; PULSE 57; RESP 12; TEMP 36.7; O2SAT 96
[2022-12-29 00:54] VITALS: BP 97/60; PULSE 59; RESP 14; O2SAT 98
[2022-12-29 01:38] VITALS: BP 104/65; PULSE 62; RESP 10; O2SAT 97
--- NOTE | 2022-12-29 02:15 | PC.NURSE ---
Patient is awake, alert and oriented x5. VSS. Patient denies any pain at this time. CIWA score 0. Patient ambulated to the restroom with a steady gait. Urine specimen collected and sent to the lab for processing. Patient was given a ham sandwich with francisco shania, tolerated well, no nausea/vomiting. Patient requesting to be discharged. Dr. Villalta notified.
== END 2022-12-29 04:11 | disposition home or self-care (01) ==
PROVIDERS: Emergency Provider Emergency Medicine Emergency Medical Services
DX: F19.221 Other psychoactive substance dependence with intoxication delirium (principal); F91.8 Other conduct disorders; Z11.52 Encounter for screening for COVID-19; Z78.1 Physical restraint status
CPT/HCPCS: 36415; 80053; 80307; 81003; 82550; 83690; 84484; 85025; 85610; 85730; 87502; 87635; 93005; 96360; 96361; 96372; 99285; J1200; J2060

== ENCOUNTER 2023-03-21 15:46 | Emergency (ER) | payer MEDICAID, SELFPAY ==
[2023-03-21 16:00] VITALS: BP 115/90; PULSE 113; O2SAT 98
[2023-03-21 16:07] VITALS: BP 122/80; PULSE 93; RESP 16; TEMP 37.1; O2SAT 98; BMI 24.7
--- NOTE | 2023-03-21 16:12 | ED_ITS ---
HPI - General Adult General Chief complaint: General Medical Stated complaint: possible UI, patient is calm but confused Time Seen by Provider: 03/21/23 16:06 History of Present Illness HPI narrative: The patient was brought to the hospital by ambulance after he had been found roaming around the street and seemed confused. He was brought to the hospital for an evaluation of his health. The patient is awake but drowsy and denies any complaints. He says that he is here ?to check to make sure everybody hears okay. ?. He does not offer any other history or any other complaints. Patient has a history of previous visits for substance use and altered mental status related to substance use problems. He seems to have history of using PCP and cocaine. Related Data Home Medications Medication Instructions Recorded Confirmed No Known Home Meds 07/26/21 07/26/21 Allergies Allergy/AdvReac Type Severity Reaction Status Date / Time No Known Allergies Allergy Verified 12/31/19 05:48 Review of Systems 2 Review of Systems: Yes Unobtainable due to mental status PMFSH Past Medical History Medical History No known health problems Social History Social History Alcohol intake: current Alcohol intake frequency: 3 or more drinks per day Substance Use Type: Amphetamines Advance Directives: No Advance Directives Information Provided: No Physical Exam ED Vital Signs: Vital Signs - 24 hr 03/21/23 16:07 Temperature 98.7 F Pulse Rate 93 Respiratory Rate 16 Blood Pressure 122/80 Pulse Oximetry 98 Oxygen Delivery Method Room Air BMI result Body Mass Index 24.7 Const Other: The patient has the appearance of a not nearly healthy 37-year-old male. He is reasonably well groomed. He seems drowsy and has a very vague affect. When asked questions he just smiles are says that he is here to check on everybody also make sure everyone HENMT Other: Face is symmetrical. Mucous membranes moist. Airway clear. Eyes Other: Pupils are round equal, conjunctivae are clear, extraocular movements intact Neck Other: Moving his neck easily, no swelling, no stridor, no JVD Resp Other: Lungs are clear bilaterally, no signs of respiratory distress Cardio Other: The patient has regular rate and rhythm with no murmur. GI Other: Abdomen is soft nontender Skin Other: Skin is dry and unremarkable Neuro Other: The patient is awake but drowsy. He smiles easily. He does not seem up to 100 but he does seem intoxicated. Face is symmetrical. Speech is without dysarthria or aphasia. He moves his extremities symmetrically. No obvious focal finding. Extrem Other: No peripheral edema. Medical Decision Making Medical Decision Making MDM Narrative: The patient is a 37-year-old male who has a history of PCP use in the past. He was brought to the hospital after being found wandering around in a very vague manner. He seemed intoxicated but not on pleasantly so. He had a normal EKG. His vital signs were unremarkable. He was observed until he seemed more coherent at which point he requested discharge. He denies any suicidal or homicidal intent and was eager to be discharged. He said he would be going home after leaving the hospital. Lab Data 03/21/23 17:41 03/21/23 17:41 Discharge Plan Discharge Clinical Impression: PCP intoxication Patient Disposition: Home, Self-Care Additional Instructions: Please avoid any drugs or other intoxicating substances. Please follow-up with the [facility]. Return to the emergency room if worse. Prescriptions: No Action No Known Home Meds Referrals: [facility] [Primary Care Provider] - (PCP use) Interventions: ED Discharge Assessment Last Done: 03/21/23 18:31 Discharge Date/Time: 03/21/23 18:31
--- NOTE | 2023-03-21 16:28 | ECG_ITS ---
Test Reason : INGESTION Blood Pressure : / mmHG Vent. Rate : 098 BPM Atrial Rate : 098 BPM P-R Int : 128 ms QRS Dur : 078 ms QT Int : 342 ms P-R-T Axes : 075 073 067 degrees QTc Int : 436 ms Normal sinus rhythm with sinus arrhythmia Normal ECG When compared with ECG of 28-DEC-2022 15:49, No significant change was found Referred By: Caio Vinson Electronically Signed By:LIZ LOBATO
[2023-03-21 18:50] LABS: MANUAL DIFF FLAG NO
[2023-03-21 19:06] LABS: Alanine Aminotransferase 20 U/L (0-40); Albumin Level 4.7 g/dL (3.5-5.0); Alkaline Phosphatase 146 U/L (39-117); Anion Gap 13 (12-20); Aspartate Amino Transferase 17 U/L (5-37); Bilirubin Direct < 0.2 mg/dL (0.0-0.5); Bilirubin Total 0.2 mg/dL (0.0-1.0); Blood Urea Nitrogen 10 mg/dL (9-16); Calcium 9.4 mg/dL (8.4-10.2); Carbon Dioxide 26 mmol/L (22-29); Chloride 106 mmol/L (96-108); Creatinine Clr Calc Pharmacy 93.1; Estimated Glomerular Filt Rate > 60; Ethanol 82 mg/dL; Glucose Random 68 mg/dL (60-115); Potassium 3.4 mmol/L (3.3-5.1); Sodium 142 mmol/L (135-145); Total Protein 7.6 g/dL (6.5-8.0)
[2023-03-21 19:10] LABS: Basophils Absolute Auto 0.1 X10*3/uL (0.0-0.2); Basophils Percent Auto 0.5 % (0-2); Eosinophils Absolute Auto 0.1 X10*3/uL (0.0-0.4); Eosinophils Percent Auto 0.7 % (0-4); Hematocrit 44.2 % (42.0-52.0); Hemoglobin 15.1 g/dl (14.0-18.0); Imm Gran Abs Auto 0.04 X10*3/uL (0.00-0.03); Imm Gran Pct Auto 0.3 % (0.0-0.4); Lymphocytes Absolute Auto 1.5 X10*3/uL (1.2-4.9); Lymphocytes Percent Auto 11.8 % (20-40); Mean Corpuscular HGB Conc 34.2 g/dl (31.0-36.0); Mean Corpuscular Hemoglobin 31.9 pg (27.0-33.0); Mean Corpuscular Volume 93.4 fL (80.0-98.0); Mean Platelet Volume 10.6 fL (9.4-12.4); Monocytes Absolute Auto 0.7 X10*3/uL (0.1-1.2); Monocytes Percent Auto 5.6 % (2-11); Neutrophils Percent Auto 81.1 % (45-73); Platelet Count 272 X10*3/uL (160-400); Red Blood Count 4.73 X10*6/uL (4.60-5.80); Red Cell Distribution Width 13.2 % (11.0-16.0); White Blood Count 12.3 X10*3/uL (4.8-10.8)
== END 2023-03-21 18:31 | disposition home or self-care (01) ==
PROVIDERS: Emergency Provider Emergency Medicine
DX: F16.129 Hallucinogen abuse with intoxication, unspecified (principal); R41.0 Disorientation, unspecified
CPT/HCPCS: 36415; 80048; 80076; 80307; 85025; 93005; 99283

== ENCOUNTER → 2023-03-21 16:28 | Outpatient (BNV) | payer MEDICAID, SELFPAY | PROVIDERS: Emergency Provider Emergency Medicine; Visit Provider Internal Medicine | DX: F16.929 Hallucinogen use, unspecified with intoxication, unspecified (principal) | CPT/HCPCS: 93010 ==

== ENCOUNTER 2023-08-17 11:56 | Emergency (ER) | payer MEDICAID, SELFPAY ==
[2023-08-17 12:40] VITALS: BP 100/66; PULSE 74; RESP 16; TEMP 36.8; O2SAT 98; BMI 21.8
--- NOTE | 2023-08-17 12:42 | ED_ITS ---
HPI - General Adult General Chief complaint: Eye Problems Stated complaint: Swelling R eye Time Seen by Provider: 08/17/23 21:34 Source: patient Mode of arrival: ambulatory Limitations: no limitations History of Present Illness ED Provider: Dr. Andreas Rosas HPI narrative: 38-year-old male with no significant past medical history who presents emergency department for evaluation of right eye swelling and discharge. He states that on Friday (3 days prior to evaluation) he noticed and itchiness of his eye. He states the next day his eye was swollen. He states that today when he woke up his eye was crusted shut any had a discharge. He also states that his lower eyelid was swollen he had redness around the skin of his eye. The patient denied fever, chills, rhinorrhea, sore throat, cough or change in vision. Related Data Previous Rx's ?Medication ?Instructions ?Recorded amoxicillin 500 mg capsule 500 mg PO TID 5 days #15 caps 08/17/23 erythromycin 5 mg/gram (0.5 %) eye 0.5 inch ophthalmic (eye) TID 7 08/17/23 ointment days #3.5 grams prednisone 20 mg tablet 40 mg (2 x 20 mg) PO DAILY 5 days 08/17/23 #10 tabs Allergies Allergy/AdvReac Type Severity Reaction Status Date / Time No Known Allergies Allergy Verified 08/17/23 12:41 Review of Systems 2 Review of Systems: Yes all other systems are reviewed and are negative [facility] Past Medical History Medical History No known health problems Social History Social History Alcohol intake: current Alcohol intake frequency: 3 or more drinks per day Substance Use Type: Amphetamines Advance Directives: No Advance Directives Information Provided: No Physical Exam ED Vital Signs: Vital Signs - 24 hr 08/17/23 12:40 Temperature 98.3 F Pulse Rate 74 Respiratory Rate 16 Blood Pressure 100/66 Pulse Oximetry 98 Oxygen Delivery Method Room Air BMI result Body Mass Index 21.8 Vital signs were normal Exam: General: Awake, alert in no distress Head: Normocephalic, atraumatic EENT: Patient's pupils were equal round reactive light, the patient's right sclera and conjunctiva are injected and there is a clear discharge from his eye, the lower eyelid is swollen, he has periauricular redness with no increased warmth, there has no tenderness with palpation over the orbital rim Neck: Supple, no adenopathy Psych: Pleasant, cooperative Course Course Course Narrative: RME- 38-year-old male presents for evaluation of right eye redness, swelling and drainage. Symptoms started 2 days ago and he reports significantly were swelling today. On exam the patient has right periorbital edema with mild erythema and conjunctival injection. Pupils equal round reactive to light and accommodation. Extraocular motion intact Medical Decision Making Medical Decision Making [facility] Narrative: 38-year-old male with no significant past medical history presents emergency department for evaluation of 3 days of right eye swelling, discharge, periorbital erythema. Patient has had no other systemic symptoms and no change in his vision. Vital signs were normal. Physical examination revealed injected sclera and conjunctiva with clear discharge swelling of the lower lip and periorbital erythema with no significant tenderness with palpation over the orbital rim. Differential diagnosis: ?Includes but is not limited to conjunctivitis (bacterial, viral, allergic), periorbital cellulitis Patient was initially treated with the following: Amoxicillin 500 mg orall, prednisone 40 mg orally and erythromycin ophthalmic ointment Course: Patient's exam is consistent with right eye conjunctivitis with possible early periorbital cellulitis. Patient was given prescriptions for amoxicillin 500 mg 3 times a day for 5 days, prednisone 40 mg once a day for 5 days and erythromycin ophthalmic ointment 3 times a day for 7 days. He was given printed and verbal instructions and discharged home. My interpretation patient's laboratory evaluation is as follows: CBC was normal. CMP was normal. Lactic acid was elevated 2.6. Repeat lactic acid was elevated 2.3. Admission/Observation Consideration of admission/observation: Escalation of care including admission/observation considered Lab Data [facility] Lab Attestation statement: I reviewed the patient's lab results. 08/17/23 18:38 08/17/23 18:38 Labs: Lab Results 08/17/23 08/17/23 Range/Units 18:38 21:11 WBC 9.9 (4.8-10.8) X10*3/uL RBC 4.48 L (4.60-5.80) X10*6/uL Hgb 14.4 (14.0-18.0) g/dl Hct 43.2 (42.0-52.0) % MCV 96.4 (80.0-98.0) fL MCH 32.1 (27.0-33.0) pg MCHC 33.3 (31.0-36.0) g/dl RDW 13.8 (11.0-16.0) % Plt Count 239 (160-400) X10*3/uL MPV 10.9 (9.4-12.4) fL Immature Gran % (Auto) 0.4 (0.0-0.4) % Neut % (Auto) 69.1 (45-73) % Lymph % (Auto) 23.0 (20-40) % [place] % (Auto) 5.4 (2-11) % Eos % (Auto) 1.5 (0-4) % Baso % (Auto) 0.6 (0-2) % Lymph # (Auto) 2.3 (1.2-4.9) X10*3/uL [place] # (Auto) 0.5 (0.1-1.2) X10*3/uL Eos # (Auto) 0.2 (0.0-0.4) X10*3/uL Baso # (Auto) 0.1 (0.0-0.2) X10*3/uL Abs Immat Gran (auto) 0.04 H (0.00-0.03) X10*3/uL Absolute Neuts (auto) 6.9 (2.0-8.3) x10*3/uL Absolute Nucleated RBC 0.000 (0.0-0.012) X10*3/uL Nucleated RBC % (auto) 0.0 (0.0-0.2) /100WBC Sodium 142 (135-145) mmol/L Potassium 4.9 (3.3-5.1) mmol/L Chloride 103 (96-108) mmol/L Carbon Dioxide 30 H (22-29) mmol/L Anion Gap 14 (12-20) BUN 11 (9-16) mg/dL Creatinine 0.80 (0.5-1.4) mg/dL Estim Creat Clear Calc 100.8 Estimated GFR > 60 Random Glucose 84 (60-115) mg/dL Lactic Acid 2.6 H* (0.5-2.0) mmol/L Lactic Acid F/U @ 2Hr 2.3 H* (0.5-2.0) mmol/L Calcium 9.8 (8.4-10.2) mg/dL Prescription Management I considered prescription management with: Antibiotic and Other (Anti- inflammatory steroids) Discharge Plan Discharge Clinical Impression: Conjunctivitis of right eye Patient Disposition: Home, Self-Care Instructions: Conjunctivitis (ED) Additional Instructions: Your findings are consistent with pinkeye (conjunctivitis) of your right eye. This can sometimes be caused by a bacteria, a virus or reaction secondary to pollen. You also have redness around your eye which could be an infection of the skin surrounding your eye. Use the erythromycin eye ointment 3 times a day (every 6 hours while you are awake) for 1 week. Take prednisone 40 mg once a day for 5 days-this is an anti-inflammatory steroid that should reduce the inflammation and swelling around your eye. Take amoxicillin 500 mg pills, 1 pill 3 times a day (every 6 hours while you are awake) for 5 days. Follow-up with your doctor in 2 days. Please return to the emergency department if your symptoms get worse or if you develop any symptoms that are concerning to you. Your blood work was unremarkable. Prescriptions: New amoxicillin 500 mg capsule 500 mg PO TID 5 Days Qty: 15 0RF prednisone 20 mg tablet 40 mg PO DAILY 5 Days Qty: 10 0RF erythromycin 5 mg/gram (0.5 %) ointment 0.5 inch ophthalmic (eye) TID 7 Days Qty: 3.5 0RF Print Language: Vincentian
[2023-08-17 18:46] LABS: MANUAL DIFF FLAG NO
[2023-08-17 19:03] LABS: Anion Gap 14 (12-20); Basophils Absolute Auto 0.1 X10*3/uL (0.0-0.2); Basophils Percent Auto 0.6 % (0-2); Blood Urea Nitrogen 11 mg/dL (9-16); Calcium 9.8 mg/dL (8.4-10.2); Carbon Dioxide 30 mmol/L (22-29); Chloride 103 mmol/L (96-108); Creatinine Clr Calc Pharmacy 100.8; Eosinophils Absolute Auto 0.2 X10*3/uL (0.0-0.4); Eosinophils Percent Auto 1.5 % (0-4); Estimated Glomerular Filt Rate > 60; Glucose Random 84 mg/dL (60-115); Hematocrit 43.2 % (42.0-52.0); Hemoglobin 14.4 g/dl (14.0-18.0); Imm Gran Abs Auto 0.04 X10*3/uL (0.00-0.03); Imm Gran Pct Auto 0.4 % (0.0-0.4); Lymphocytes Absolute Auto 2.3 X10*3/uL (1.2-4.9); Mean Corpuscular HGB Conc 33.3 g/dl (31.0-36.0); Mean Corpuscular Hemoglobin 32.1 pg (27.0-33.0); Mean Corpuscular Volume 96.4 fL (80.0-98.0); Mean Platelet Volume 10.9 fL (9.4-12.4); Monocytes Absolute Auto 0.5 X10*3/uL (0.1-1.2); Monocytes Percent Auto 5.4 % (2-11); Neutrophils Absolute Auto 6.9 x10*3/uL (2.0-8.3); Neutrophils Percent Auto 69.1 % (45-73); Platelet Count 239 X10*3/uL (160-400); Potassium 4.9 mmol/L (3.3-5.1); Red Blood Count 4.48 X10*6/uL (4.60-5.80); Red Cell Distribution Width 13.8 % (11.0-16.0); Sodium 142 mmol/L (135-145); White Blood Count 9.9 X10*3/uL (4.8-10.8)
[2023-08-17 19:24] LABS: Lactic Acid 2.6 mmol/L (0.5-2.0)
[2023-08-17 20:44] LABS: Reflex Lactate? Lactic Acid Added
[2023-08-17 21:37] LABS: ~Lactic Acid-LAB USE ONLY 2.3 mmol/L (0.5-2.0)
[2023-08-17] MEDS: Amoxicillin 500 MG CAPSULE PO (21:56)
[2023-08-17] MEDS: predniSONE 20 MG TABLET 40 MG PO (21:56)
[2023-08-17] MEDS: Erythromycin Base 0.5% Oph Oin 1 GM TUBE 1 CM EYE-RIGHT (21:57)
[2023-08-17 21:59] VITALS: BP 96/67; PULSE 58; RESP 18; TEMP 36.6; O2SAT 99
[2023-08-17 23:14] LABS: Reflex Lactate? 2 Y
== END 2023-08-17 22:00 | disposition home or self-care (01) ==
PROVIDERS: Physician Assistant; Emergency Provider Emergency Medicine Emergency Medical Services
DX: H10.31 Unspecified acute conjunctivitis, right eye (principal); H02.842 Edema of right lower eyelid; L29.9 Pruritus, unspecified
CPT/HCPCS: 36415; 80048; 83605; 85025; 87040; 99282; 99283

== ENCOUNTER 2024-06-02 11:44 | Outpatient (REF) | payer MEDICAID, SELFPAY ==
--- OUTSIDE RECORDS SUMMARY | 2024-06-02 13:50 | XMS_ITS | Clinical Summary ---
Author Organization [employer] Address [address] [facility] 7[address] [place] [address] Care Team Providers Care Mobile Equipment Mechanic Name Role Phone Viri Reyes MD Primary Care Provider [phone] Allergies No known active allergies Medications amoxicillin (Amoxil) 500 MG capsule Take 1 capsule by mouth every 6 (six) hours during the day. 08/18/2023 Active erythromycin (Romycin) 5 MG/GM ophthalmic ointment APPLY 1/2 INCH INTO THE EYE(S) 3 TIMES A DAY FOR 7 DAYS 08/18/2023 Active predniSONE (Deltasone) 20 MG tablet Take 2 tablets by mouth Once per day. 08/18/2023 Active sertraline (Zoloft) 50 MG tablet Take 1 tablet (50 mg) by mouth Once per day. 90 tablet 1 06/02/2024 5 Active famotidine (Pepcid) 20 MG tablet Take 1 tablet (20 mg) by mouth 2 times daily. 180 tablet 3 06/02/2024 6 Active Active Problems Problem Noted Date Diagnosed Date Backache 10/04/2011 Depressive disorder 09/11/2011 Gastroesophageal reflux disease 09/11/2011 Otitis media 09/11/2011 Syncope and collapse 09/11/2011 Underweight 09/11/2011 Encounters Date Type Department Care Team Description 06/02/2024 11:00 AM EDT Office Visit [facility] [address] [place] [phone] Viri Reyes MD Gastroesophageal reflux disease, unspecified whether esophagitis present (Primary Dx); Overweight 06/02/2024 Travel 05/26/2024 Patient Outreach [facility] [address] [place] [address] Viri Reyes MD Pre-visit Planning ((Unable to reach for PVP screening, LVM)) 03/19/2024 Telephone [facility] [address] [place] [id number] Colin Kirkland MD New patient appt. from Last 3 Months Immunizations Name Administration Dates Next Due DTaP 11/14/1989, 7,09/28/1985,1985,03/31/1985 Hep B, Adolescent or Pediatric 2,12/19/1998,11/06/1995,1988 Hib (HbO) 01/27/2007,10/18/1988 IPV 11/14/1989, 7,08/29/1985,1985 Influenza injectable quadriv alent preservative free 03/04/2018,01/25/2016 Influenza, Split (incl. john paul fied surface antigen) 12/19/2011 MMR 11/06/1995,12/10/1985 TD (adult), 2 Lf tetanus tox oid, preservative free, adsorbed 08/08/2017 Tdap 02/19/2011 Social History Tobacco Use Types Packs/Day Years Used Date Smoking Tobacco: Every Day Cigarettes Smokeless Tobacco: Never Tobacco Cessation:Ready to Q uit: Not Asked; Counseling Given: Not Answered Alcohol Use Standard Drinks/Week Comments Yes 0 (1 standard drink = 0.6 oz pur e alcohol) socially Alcohol Answer Date Recorded How often do you have a drink containing alcohol ? 2 06/02/2024 How many drinks containing a lcohol do you have on a typical day when you are drinking? 1 06/02/2024 How often do you have six or more drinks on one occasion? 1 06/02/2024 Depression Answer Date Recorded Patient Health Questionnaire-9 Score 5 06/02/2024 Patient Health Questionnaire-9 Score 5 06/02/2024 Last PHQ-9: Questionnaire Data Not on file 0 06/02/2024 Housing Stability Answer Date Recorded What is your housing situation today? I have matt gonzalez 06/02/[address] you li ve. Do you have problems with any of the following? None of the above 06/02/2024 Food Insecurity Answer Date Recorded Within the past 12 months, y ou worried that your food would run out before you got money to buy more: Never True 06/02/2024 Within the past 12 months,th e food you bought just didn't last and you didn't have enough money to get more: Never True 02/2025 Transportation Answer Date Recorded In the past 12 months, has l ack of transportation kept you from medical appts, meetings, work or from getting things needed for daily living? No 06/02/2024 Utilities Answer Date Recorded In the past 12 months, has t he electric, gas, oil or water company threatened to shut off services in your home? No 06/02/2024 Depression Answer Date Recorded Patient Health Questionnaire-2 Score 4 06/02/2024 Internet Access Answer Date Recorded Internet Access Q1 Yes 06/02/2024 Internet Access Q2 Not on file 06/02/2024 Sex and Gender Information Value Date Recorded Sex Assigned at Male 01/21/2022 10:15 AM EDT Legal Sex Male 10:15 AM EDT Gender Identity Male 06/01/2024 10:51 AM EDT Sexual Orientation Don't know 06/01/2024 1: 58 PM EDT Last Filed Vital Signs Vital Sign Reading Time Taken Comments Blood Pressure 145/96 06/02/2024 10:37 AM EDT Pulse 100 06/02/2024 10:37 AM EDT Temperature 37.1 ??C (98.7 ??F) 06/02/2024 10:37 AM E DT Respiratory Rate 17 06/02/2024 10:37 AM EDT Oxygen Saturation 98% 06/02/2024 10:37 AM EDT Inhaled Oxygen Concentration - - Weight 78.9 kg (174 lb) 06/02/2024 10:37 AM EDT Height 167.4 cm (5' 5.91 ) 06/02/2024 10:37 AM E DT Body Mass Index 28.16 06/02/2024 10:37 AM EDT Plan of Treatment Upcoming Encounters Date Type Department Care Team (Late st Contact Info) Description 07/08/2024 1:30 PM EDT Office Visit [facility] [address] [place], [place] [phone] Luis Chase DDS [address] [place], [place] [phone] Health Maintenance Due Date Last Done Comments HIV Screening 1984 Lipid Panel 1984 Family Planning (PISQ) 08/14/1999 Hepatitis C Screening 2002 Pneumococcal Vaccine: Pediatrics (0 to 5 Years) and At-Risk Patients (6 to 49) Years) (1 of 2 - PCV) 08/14/2003 COVID-19 Vaccine (1 - 2023- season) 2023 Influenza Vaccine (#1) 2023 8, 01/25/2016, 12/19/2011 Alcohol/Substance Use Screening 06/02/2025 06/02/2024 Depression Screening 06/02/2025 06/02/2024, 06/03/19 SDOH Screening 06/02/2025 06/02/2024 Tobacco Screening 06/02/2025 06/02/2024 DTaP/Tdap/Td Vaccines (8 - Td or Tdap) 08/09/2027 08/08/2017, 02/19/2011, 11/14/1989, Additional history exists Zoster Vaccines (1 of 2) 2034 RSV Patients and Patients Aged 60 years or older (1 - 1-dose 75+ series) 08/14/2059 IPV Vaccines Completed 11/14/1989, 04/1986, 08/29/1985, Additional history exists Hepatitis B Vaccines Completed 10/23/2001, 12/19/1998, 11/06/1995, Additional history exists HIB Vaccines Completed 01/27/2007, 10/18/1988 HPV Vaccines Aged Out No longer eligi ble based on patient's age to complete this topic Hepatitis A Vaccines Aged Out No long er eligible based on patient's age to complete this topic Meningococcal Vaccine Aged Out No noreen paul eligible based on patient's age to complete this topic RSV under 20 months Aged Out No longe r eligible based on patient's age to complete this topic Rotavirus Vaccines Aged Out No longer eligible based on patient's age to complete this topic Insurance [facility] C3 [facility]ENT[facility] MEDICAID STAND ADULT Care Teams Mobile Equipment Mechanic Relationship Specialty Start Date End Date Viri Reyes MD [address] [place] [id number] PCP - General Family Medicine 06/02/24
--- OUTSIDE RECORDS SUMMARY | 2024-06-02 13:50 | XMS_ITS | Encounter Summary ---
Author Organization [employer] Address [address] [facility] [address] [place] [address] Care Team Providers Care Co Founder And Chief Strategy Officer Name Role Phone Viri Reyes MD Primary Care Provider [phone] Encounter Details Date Type Department Care Team (Latest Contact Info) Description 06/02/2024 Travel Social History Tobacco Use Types Packs/Day Years Used Date Smoking Tobacco: Every Day Cigarettes Smokeless Tobacco: Never Alcohol Use Standard Drinks/Week Comments Yes 0 [...] Don't know 06/01/2024 1: 58 PM EDT documented as of this encounter Plan of Treatment Upcoming Encounters Date Type Department Care Team (Late st Contact Info) Description 07/08/2024 1:30 PM EDT Office Visit [facility] [address] [place] [address] Luis Chase DDS [address] [place] [address] documented as of this encounter Visit Diagnoses Not on filedocumented in this encounter Additional Health Concerns Assessment Noted Time PHQ-9 Depression Total Score: 5 06/03/19 10:42 AM EDT documented as of this encounter Care Teams Co Founder And Chief Strategy Officer Relationship Specialty Start Date End Date Viri Reyes MD [address] [place] [address] PCP - General Family Medicine 06/02/24 documented as of this encounter
--- OUTSIDE RECORDS SUMMARY | 2024-06-02 13:50 | XMS_ITS | Encounter Summary ---
Author Organization [employer] [facility] Address [address] [facility] [address] [place] [address] Care Team Providers Care Chaplain Name Role Phone Unavailable Primary Care Provider Unavailabl e Reason for Visit * Reason Comments Pre-visit Planning (Unable to reach for PVP screening, LVM) Encounter Details Date Type Department Care Team (Late st Contact Info) Description 05/26/2024 Patient Outreach [facility] [address] [place] [address] Viri Reyes MD [address] [place] [address] Pre-visit Planning ((Unable to reach for PVP screening, LVM)) Social History Tobacco Use Types Packs/Day Years Used Date Smoking Tobacco: Never Assessed Sex and Gender Information Value Date Recorded Sex Assigned at Male 01/21/2022 10:15 AM EDT Legal Sex Male 10:15 AM EDT Gender Identity Male 06/01/2024 10:51 AM EDT Sexual Orientation Don't know 06/01/2024 1: 58 PM EDT documented as of this encounter Progress Notes * Verona Polk - 05/26/2024 10:18 AM EST NIKKI Rhoades. Placed outbound call to patient to complete pre-visit planning. No answer at this time. Patient name and were not confirmed. CC left voicemail requesting return call. Direct contact information provided. documented in this encounter Plan of Treatment Upcoming Encounters Date Type Department Care Team (Late st Contact Info) Description 07/08/2024 1:30 PM EDT Office Visit [facility] [address] [place] [address] Luis Chase, ELSA [address] [place] [address] documented as of this encounter Visit Diagnoses Not on filedocumented in this encounter
--- OUTSIDE RECORDS SUMMARY | 2024-06-02 13:50 | XMS_ITS | Encounter Summary ---
Author Organization [employer] Address [address] [facility] [address] [place] [address] Care Team Providers Care Manufacturing Baker Name Role Phone Viri Reyes MD Primary Care Provider [phone] Reason for Visit * Reason Comments New patient Encounter Details Date Type Department Care Team (Latest Contact Info) Description 06/02/2024 11:00 AM EDT Office Visit [facility] [address] [place], [place] [phone] Viri Reyes MD [address] [place] [address] Gastroesophageal reflux disease, unspecified whether esophagitis present (Primary Dx); Overweight Social History Tobacco Use Types Packs/Day Years [...] PM EDT documented as of this encounter Last Filed Vital Signs Vital Sign Reading [...] Mass Index 28.16 06/02/2024 10:37 AM EDT documented in this encounter Plan of Treatment Upcoming Encounters Date Type Department Care Team (Late st Contact Info) Description 07/08/2024 1:30 PM EDT Office Visit [facility] [address] [place] [address] Luis Chase DDS [address] [place] [address] Scheduled Orders Name Type Priority Associated Diagnoses Orde r Schedule Lipid Panel, Standard Lab Routine Overweight Expected: 06/02/2024 (Approximate), Expires: 06/02/2025 Comprehensive Metabolic Panel Lab Routine Overweight Expected: 06/02/2024 (Approximate), Expires: 06/02/2025 Hemoglobin A1c Lab Routine Overweight Expected: 06/02/2024 (Approximate), Expires: 06/02/2025 CBC auto differential Lab Routine Overweight Expected: 06/02/2024 (Approximate), Expires: 06/02/2025 documented as of this encounter Visit Diagnoses Diagnosis Gastroesophageal reflux disease, unspecified whether esophagitis present- Primary Overweight documented in this encounter Additional Health Concerns Assessment Noted Time PHQ-9 Depression Total Score: 5 06/03/19 25 10:42 AM EDT documented as of this encounter Care Teams Manufacturing Baker Relationship Specialty Start Date End Date Viri Reyes MD [address] [place] [address] PCP - General Family Medicine 06/02/24 documented as of this encounter
[2024-06-02 13:55] LABS: MANUAL DIFF FLAG NO
[2024-06-02 14:01] LABS: Basophils Percent Auto 0.5 % (0-2); Eosinophils Absolute Auto 0.2 X10*3/uL (0.0-0.4); Eosinophils Percent Auto 2.6 % (0-4); Hemoglobin 14.7 g/dl (14.0-18.0); Imm Gran Abs Auto 0.04 X10*3/uL (0.00-0.03); Imm Gran Pct Auto 0.5 % (0.0-0.4); Lymphocytes Absolute Auto 1.8 X10*3/uL (1.2-4.9); Lymphocytes Percent Auto 22.8 % (20-40); Mean Corpuscular HGB Conc 34.2 g/dl (31.0-36.0); Mean Corpuscular Hemoglobin 32.1 pg (27.0-33.0); Mean Corpuscular Volume 93.9 fL (80.0-98.0); Mean Platelet Volume 10.2 fL (9.4-12.4); Monocytes Absolute Auto 0.6 X10*3/uL (0.1-1.2); Monocytes Percent Auto 7.5 % (2-11); Neutrophils Absolute Auto 5.3 x10*3/uL (2.0-8.3); Neutrophils Percent Auto 66.1 % (45-73); Platelet Count 264 X10*3/uL (160-400); Red Blood Count 4.58 X10*6/uL (4.60-5.80); Red Cell Distribution Width 13.1 % (11.0-16.0)
[2024-06-02 14:25] LABS: Alanine Aminotransferase 23 U/L (0-40); Albumin Level 4.4 g/dL (3.5-5.0); Alkaline Phosphatase 149 U/L (39-117); Anion Gap 11 (12-20); Aspartate Amino Transferase 25 U/L (5-37); Bilirubin Total 0.5 mg/dL (0.0-1.0); Blood Urea Nitrogen 11 mg/dL (9-16); Calcium 9.2 mg/dL (8.4-10.2); Carbon Dioxide 25 mmol/L (22-29); Chloride 108 mmol/L (96-108); Cholesterol 187 mg/dL (<200); Estimated Glomerular Filt Rate > 60; Glucose Random 105 mg/dL (60-115); HDL Cholesterol 51 mg/dL (>40); LDL Cholesterol Calculated 116 mg/dL (<100); Potassium 4.2 mmol/L (3.3-5.1); Sodium 140 mmol/L (135-145); Total Protein 7.9 g/dL (6.5-8.0); Triglycerides 100 mg/dL (<150)
[2024-06-02 14:29] LABS: Estimated Average Glucose 120 mg/dL; Hemoglobin A1c % 5.8 % (<6.0); Total Hemoglobin (HGBA1C) 3872.5838 umol/L
== END 2024-06-02 11:45 | disposition home or self-care (01) ==
LOC: HO.HHCL 11:44
PROVIDERS: Visit Provider General Practice
DX: E66.3 Overweight (principal)
CPT/HCPCS: 36415; 80053; 80061; 83036; 85025

== ENCOUNTER 2024-06-30 21:17 | Emergency (ER) | payer MEDICAID, SELFPAY ==
[2024-06-30 21:27] VITALS: BP 124/85; BP 152/108; PULSE 118; PULSE 98; RESP 20; TEMP 36.4; O2SAT 98; O2SAT 99; BMI 22.5
--- NOTE | 2024-06-30 21:42 | ED_ITS ---
HPI - Overdose General Chief Complaint: ETOH/Substance Use Stated Complaint: OD, 4mg narcan given Time Seen by Provider: 06/30/24 21:23 Source: patient and EMS Mode of arrival: EMS Limitations: no limitations History of Present Illness ED Provider: Dr. Mary Villalta HPI Narrative: Patient comes to the emergency room by ambulance. Patient was found unresponsive in an alley by bystanders who gave him 4 mg of intranasal Narcan. Patient became awake and alert. Patient admits to using alcohol and smoke marijuana as well. Patient denies any falls, denies any pain. Patient is adamant that he is not suicidal or homicidal. At this time, patient states that he feels back to baseline. Related Data Previous Rx's ?Medication ?Instructions ?Recorded amoxicillin 500 mg capsule 500 mg PO TID 5 days #15 caps 08/17/23 erythromycin 5 mg/gram (0.5 %) eye 0.5 inch ophthalmic (eye) TID 7 08/17/23 ointment days #3.5 grams prednisone 20 mg tablet 40 mg (2 x 20 mg) PO DAILY 5 days 08/17/23 #10 tabs Allergies Allergy/AdvReac Type Severity Reaction Status Date / Time No Known Allergies Allergy Verified 06/30/24 21:30 Review of Systems Review of Systems: Constitutional : No Weight loss, No Fever, No Chills, No Night Sweats, No Fatigue, No Malaise ENT/Mouth : No Hearing loss, No Ear Pain, No Nasal Congestion, No Sinus Pain, No Hoarseness, No sore throat, No Rhinorrhea, No Swallowing Difficulty Eyes: No Eye Pain, No Swelling, No Redness, No Foreign Body, No Discharge, No Vision Changes Cardiovascular : No Chest Pain, No SOB, No Dyspnea on Exertion, No Orthopnea, No Edema, No Palpitations Respiratory : No Cough, No Sputum, No Wheezing, No Smoke Exposure, No Dyspnea Gastrointestinal : No Nausea, No Vomiting, No Diarrhea, No Constipation, No abdominal Pain, No Hematochezia, No Melena Genitourinary : no irregular bleeding, No Dysuria, No Urinary Frequency, No Hematuria, No Urinary Incontinence, No Urgency, No Flank Pain, No Urinary Flow Changes, No Hesitancy Musculoskeletal : No joint pain, No Myalgias, No Joint Swelling Skin : No Skin Lesions, No rash Neuro : No Weakness, No Numbness, No Paresthesias, No Loss of Consciousness, No Dizziness, No Headache Psych : No Anxiety/Panic, No Depression, No SI/HI/AH/VH, admits to polysubstance abuse and alcohol abuse Heme/Lymph: No Bruising, No Bleeding,No Lymphadenopathy Endocrine : No Polyuria, No Polydipsia, No Temperature Intolerance PMF Past Medical History Medical History (Updated 07/01/24 @ 00:00 by Mary Villalta MD) PCP (phencyclidine) abuse Alcohol abuse Polysubstance abuse Social History Social History Alcohol intake: current Alcohol intake frequency: 3 or more drinks per day Substance Use Type: Amphetamines Advance Directives: No Advance Directives Information Provided: No Physical Exam Vital Signs: Vital Signs: Last Vital Signs Temp 97.6 F 06/30/24 21:27 Pulse 98 06/30/24 21:27 Resp 20 06/30/24 21:27 BP 124/85 06/30/24 21:27 Pulse Ox 98 06/30/24 21:27 O2 Del Method Room Air 06/30/24 21:27 BMI result Body Mass Index 22.5 Const: Other: Appearance: Alert. Oriented X3. No acute distress. Eyes: Pupils equal, round and reactive to light. ENT: Pharynx normal. Neck: Normal inspection. Neck supple. No lymph nodes noted. No crepitus CVS: Normal heart rate and rhythm. Pulses normal. Normal S1 and S2 Respiratory: No respiratory distress. Breath sounds normal. No Wheezing. No rales Abdomen: Soft and nontender. No rigidity. No distention. Skin: Skin warm and dry. Normal skin color. Normal skin turgor. Extremities: No lower extremity edema. No Lacerations. No Rash Neuro: Oriented X 3. No motor deficit. No sensory deficit. Moving all extremities. No slurred speech. CN 2 through 12 grossly intact Psych: calm, cooperative, normal affect Course Course Course Narrative: On arrival, patient is awake, alert and oriented x3 calm and cooperative and coherent Vitals stable Plan: Observation and then if patient remains stable and clinically sober, patient may be discharged. Patient agrees with plan Medical Decision Making Medical Decision Making MDM Narrative: Patient remains awake, alert and oriented x3. By the time that patient was going to be discharged, patient reported chest pain. EKG and basic labs including troponin pending Differential Diagnosis Differential Diagnoses: The differential diagnosis associated with the presentation includes (Polysubstance abuse, alcohol abuse) Admission/Observation Consideration of admission/observation: Escalation of care including admission/observation considered (Patient is under physician observation, ) Discharge Plan Discharge Clinical Impression: Alcohol abuse, Atypical chest pain Patient Disposition: Still a Patient Prescriptions: No Action amoxicillin 500 mg capsule 500 mg PO TID 5 Days Qty: 15 0RF prednisone 20 mg tablet 40 mg PO DAILY 5 Days Qty: 10 0RF erythromycin 5 mg/gram (0.5 %) ointment 0.5 inch ophthalmic (eye) TID 7 Days Qty: 3.5 0RF Print Language: South Korean
--- NOTE | 2024-06-30 23:58 | ECG_ITS ---
Test Reason : CHEST PAIN Blood Pressure : */* mmHG Vent. Rate : 78 BPM Atrial Rate : 78 BPM P-R Int : 122 ms QRS Dur : 84 ms QT Int : 364 ms P-R-T Axes : 50 56 51 degrees QTcB Int : 414 ms Normal sinus rhythm Normal ECG When compared with ECG of 21-Mar-2023 16:49, No significant change was found Referred By: Mary Villalta Electronically Signed By: Duke Hernandez
[2024-07-01 00:09] VITALS: BP 121/79; PULSE 83; RESP 20; TEMP 36.8; O2SAT 95
[2024-07-01 00:28] LABS: MANUAL DIFF FLAG NO
[2024-07-01 00:31] LABS: Basophils Absolute Auto 0.1 X10*3/uL (0.0-0.2); Basophils Percent Auto 0.5 % (0-2); Eosinophils Absolute Auto 0.1 X10*3/uL (0.0-0.4); Eosinophils Percent Auto 0.7 % (0-4); Hematocrit 43.4 % (42.0-52.0); Imm Gran Abs Auto 0.15 X10*3/uL (0.00-0.03); Imm Gran Pct Auto 1.2 % (0.0-0.4); Lymphocytes Absolute Auto 1.1 X10*3/uL (1.2-4.9); Lymphocytes Percent Auto 9.1 % (20-40); Mean Corpuscular HGB Conc 34.6 g/dl (31.0-36.0); Mean Corpuscular Hemoglobin 32.9 pg (27.0-33.0); Mean Corpuscular Volume 95.2 fL (80.0-98.0); Mean Platelet Volume 9.9 fL (9.4-12.4); Monocytes Absolute Auto 0.4 X10*3/uL (0.1-1.2); Neutrophils Absolute Auto 10.7 x10*3/uL (2.0-8.3); Neutrophils Percent Auto 85.5 % (45-73); Platelet Count 263 X10*3/uL (160-400); Red Blood Count 4.56 X10*6/uL (4.60-5.80); Red Cell Distribution Width 14.3 % (11.0-16.0); White Blood Count 12.5 X10*3/uL (4.8-10.8)
[2024-07-01 00:42] LABS: Alanine Aminotransferase 64 U/L (0-40); Albumin Level 4.3 g/dL (3.5-5.0); Alkaline Phosphatase 151 U/L (39-117); Anion Gap 13 (12-20); Aspartate Amino Transferase 53 U/L (5-37); Bilirubin Total 0.2 mg/dL (0.0-1.0); Blood Urea Nitrogen 9 mg/dL (9-16); Calcium 9.5 mg/dL (8.4-10.2); Carbon Dioxide 26 mmol/L (22-29); Chloride 108 mmol/L (96-108); Creatinine Clr Calc Pharmacy 103.4; Estimated Glomerular Filt Rate > 60; Glucose Random 89 mg/dL (60-115); Potassium 4.3 mmol/L (3.3-5.1); Sodium 143 mmol/L (135-145); Total Protein 7.2 g/dL (6.5-8.0)
[2024-07-01 00:50] LABS: Troponin-I High Sensitivity < 2.7 ng/L (<3.5-35.0)
[2024-07-01 03:06] VITALS: BP 117/82; PULSE 78; RESP 14; TEMP 37; O2SAT 98
[2024-07-01 05:39] VITALS: BP 117/82; PULSE 78; RESP 14; TEMP 37; O2SAT 98
== END 2024-07-01 05:39 | disposition home or self-care (01) ==
PROVIDERS: Emergency Provider Emergency Medicine
DX: F10.10 Alcohol abuse, uncomplicated (principal); R40.4 Transient alteration of awareness; F12.10 Cannabis abuse, uncomplicated; R07.89 Other chest pain; Z79.899 Other long term (current) drug therapy
CPT/HCPCS: 36415; 80053; 84484; 85025; 93005; 99283; 99284

== ENCOUNTER → 2024-06-30 23:58 | Outpatient (BNV) | payer MEDICAID, SELFPAY | PROVIDERS: Emergency Provider Emergency Medicine; Visit Provider Internal Medicine Cardiovascular Disease | DX: R07.9 Chest pain, unspecified (principal) | CPT/HCPCS: 93010 ==

== ENCOUNTER 2024-09-27 20:52 | Emergency (ER) | payer MEDICAID, SELFPAY ==
--- NOTE | 2024-09-27 21:01 | ECG_ITS ---
Test Reason : TACHYCARDIA Blood Pressure : */* mmHG Vent. Rate : 121 BPM Atrial Rate : 121 BPM P-R Int : 114 ms QRS Dur : 86 ms QT Int : 318 ms P-R-T Axes : 55 52 58 degrees QTcB Int : 451 ms Sinus tachycardia Otherwise normal ECG When compared with ECG of 01-Jul-2024 00:08, Vent. rate has increased by 43 bpm Referred By: Mary Villalta Electronically Signed By: Duke Hernandez
[2024-09-27 21:02] VITALS: BP 130/76; PULSE 140; O2SAT 95
[2024-09-27 21:09] VITALS: BP 108/58; PULSE 122; RESP 14; TEMP 36.6; O2SAT 95; BMI 23.7
--- NOTE | 2024-09-27 21:11 | PC.NURSE ---
pt changed over by security into [facility] attire as unable to ask SI/HI questions at time of triage. pt is refusing to answer questions at this time. belongings secured by security. call [facility] within reach.
[2024-09-27 21:13] VITALS: BP 108/58; PULSE 131; RESP 20; O2SAT 95
--- NOTE | 2024-09-27 21:14 | ED_ITS ---
HPI - Psych General Chief Complaint: Behavioral Concerns Stated Complaint: intoxicated pcp intake, etoh , nonverbal Time Seen by Provider: 09/27/24 21:00 Source: EMS Mode of arrival: EMS Limitations: altered mental status History of Present Illness ED Provider: Dr. Mary Villalta HPI Narrative: Patient comes to the emergency room via EMS accompanied by police department. According to EMS, the family reported that patient has been drinking alcohol and patient is known to use PCP. According to EMS, they found the patient eating grass from the neighbor's backyard. Patient refusing to answer any questions. According to PD, they know the patient, they picked him up multiple times for PCP use and erratic behavior. Related Data Previous Rx's ?Medication ?Instructions ?Recorded amoxicillin 500 mg capsule 500 mg PO TID 5 days #15 ca ps 08/17/23 erythromycin 5 mg/gram (0.5 %) eye 0.5 inch ophthalmic (eye) TID 7 08/17/23 ointment days #3.5 grams prednisone 20 mg tablet 40 mg (2 x 20 mg) PO DAILY 5 days 08/17/23 #10 tabs Allergies Allergy/AdvReac Type Severity Reaction Status Date / Time No Known Allergies Allergy Verified 09/27/24 21:10 Review of Systems 2 Review of Systems: Yes Unobtainable due to mental status PMFSH Past Medical History Medical History PCP (phencyclidine) abuse Alcohol abuse Polysubstance abuse Social History Social History Alcohol intake: current Alcohol intake frequency: 3 or more drinks per day Smoked in Last 30 Days: Yes Use of substances other than those prescribed or required for medical reasons: Yes Substance Use Type: Amphetamines Substance Use Type Other:: pcp Advance Directives: No Advance Directives Information Provided: No Do you have a plan to hurt others: No Plan Physical Exam 2 Vital Signs: Vital Signs: Last Vital Signs Temp 98.3 F 09/27/24 22:27 Pulse 114 H 09/27/24 22:27 Resp 20 09/27/24 22:27 BP 116/79 09/27/24 22:27 Pulse Ox 95 09/27/24 22:27 O2 Del Method Room Air 09/27/24 22:27 BMI result Body Mass Index 23.7 Const: Other: Appearance: Somnolent, easily arousable but falls back asleep immediately. Eyes: Pupils equal, round and reactive to light. Bilateral conjunctival injection ENT: Pharynx normal. Neck: Normal inspection. Neck supple. No lymph nodes noted. No crepitus CVS: Normal heart rate and rhythm. Pulses normal. Normal S1 and S2 Respiratory: No respiratory distress. Breath sounds normal. No Wheezing. No rales Abdomen: Soft and nontender. No rigidity. No distention. Skin: Skin warm and dry. Normal skin color. Normal skin turgor. Extremities: No lower extremity edema. No Lacerations. No Rash Neuro: very somnolent to participating cranial nerve assessment Psych: calm, somnolent Medical Decision Making Medical Decision Making [facility] Narrative: My interpretation of labs: No significant abnormality in patient's hematology and chemistry, patient's ETOH 195. At this time, 01:14, patient is awake, alert, ambulating, still a bit confused, asking what happened. patient states that he is feeling much better and he would like to be discharged shortly. Patient declined any help for polysubstance abuse. physician observation being stopped at this time. Patient ready for discharge Differential Diagnosis Differential Diagnoses: The differential diagnosis associated with the presentation includes ( polysubstance abuse, alcohol abuse) Admission/Observation Consideration of admission/observation: Escalation of care including admission/observation considered ( given patient's initial presentation, observation was considered) Lab Data [facility] Lab Attestation statement: I reviewed the patient's lab results. 09/27/24 21:25 09/27/24 21:25 Labs: Lab Results 09/27/24 09/27/24 Range/Units 21:25 22:42 WBC 8.9 (4.8-10.8) X10*3/uL RBC 5.18 (4.60-5.80) X10*6/uL Hgb 16.9 (14.0-18.0) g/dl Hct 48.2 (42.0-52.0) % MCV 93.1 (80.0-98.0) fL MCH 32.6 (27.0-33.0) pg MCHC 35.1 (31.0-36.0) g/dl RDW 13.3 (11.0-16.0) % Plt Count 280 (160-400) X10*3/uL MPV 10.1 (9.4-12.4) fL Immature Gran % (Auto) 0.3 (0.0-0.4) % Neut % (Auto) 69.8 (45-73) % Lymph % (Auto) 22.2 (20-40) % Storey % (Auto) 5.7 (2-11) % Eos % (Auto) 1.3 (0-4) % Baso % (Auto) 0.7 (0-2) % Lymph # (Auto) 2.0 (1.2-4.9) X10*3/uL Storey # (Auto) 0.5 (0.1-1.2) X10*3/uL Eos # (Auto) 0.1 (0.0-0.4) X10*3/uL Baso # (Auto) 0.1 (0.0-0.2) X10*3/uL Abs Immat Gran (auto) 0.03 (0.00-0.03) X10*3/uL Absolute Neuts (auto) 6.2 (2.0-8.3) x10*3/uL Absolute Nucleated RBC 0.000 (0.0-0.012) X10*3/uL Nucleated RBC % (auto) 0.0 (0.0-0.2) /100WBC Sodium 140 (135-145) mmol/L Potassium 3.8 (3.3-5.1) mmol/L Chloride 105 (96-108) mmol/L Carbon Dioxide 17 L (22-29) mmol/L Anion Gap 22 H (12-20) BUN 12 (9-16) mg/dL Creatinine 1.09 (0.5-1.4) mg/dL Estim Creat Clear Calc 81.2 Estimated GFR > 60 Random Glucose 69 (60-115) mg/dL Calcium 9.0 (8.4-10.2) mg/dL Magnesium 2.6 (1.6-2.6) mg/dL Total Bilirubin 0.4 (0.0-1.0) mg/dL Direct Bilirubin 0.2 (0.0-0.5) mg/dL AST 28 (5-37) U/L ALT 31 (0-40) U/L Alkaline Phosphatase 182 H (39-117) U/L Troponin I High Sens < 2.7 (<3.5-35.0) ng/L Total Protein 7.8 (6.5-8.0) g/dL Albumin 4.8 (3.5-5.0) g/dL Urine Opiates Screen Not Detected (Not Detect) Ur Buprenorphine Scrn Not Detected (Not Detect) ng/mL Ur Oxycodone Screen Not Detected (Not Detect) ng/mL Urine Methadone Screen Not Detected (Not Detect) ng/mL Urine Fentanyl Screen Not Detected (Not Detect) Ur Barbiturates Screen Not Detected (Not Detect) Ur Phencyclidine Scrn POSITIVE H (Not Detect) Ur Amphetamines Screen Not Detected (Not Detect) U Benzodiazepines Scrn Not Detected (Not Detect) Urine Cocaine Screen Not Detected (Not Detect) U Marijuana (THC) Screen Not Detected (Not Detect) Ethyl Alcohol 195 mg/dL Critical Care Time Critical Care Time Critical Care Time: Yes Total Critical Care Time: 35 Attestation: I have personally provided critical care time. Time includes review of lab data, radiology results, discussion with consultants, and monitoring for potential decompensation. Intervention performed as documented. Discharge Plan Discharge Clinical Impression: Acute psychosis, PCP (phencyclidine) abuse, Alcohol abuse Patient Disposition: Home, Self-Care Instructions: Abuse of Alcohol (ED), Polysubstance Use Disorder (ED) Additional Instructions: Alcohol use disorder You were seen in the Emergency Department today for treatment of alcohol use disorder.? You may have been given medications to help with your withdrawal symptoms.? Please do not drink alcohol with them. This is very dangerous and can cause respiratory depression or other adverse reactions depending on the medication. If you would like to cut down or stop your alcohol use please consider calling our outpatient Addiction Treatment office:? [facility] (M-F [id number]) [address] ? You have also been given a list of treatment providers in the area that can assist as well.? If you experience seizures, vomiting blood, black stools, falls, severe headache, chest pain, fevers, trouble breathing, hallucinations or any other concerns you need to call 911 or seek immediate care. Please stay hydrated. Prescriptions: No Action amoxicillin 500 mg capsule 500 mg PO TID 5 Days Qty: 15 0RF prednisone 20 mg tablet 40 mg PO DAILY 5 Days Qty: 10 0RF erythromycin 5 mg/gram (0.5 %) ointment 0.5 inch ophthalmic (eye) TID 7 Days Qty: 3.5 0RF Print Language: Thai
[2024-09-27 21:38] LABS: MANUAL DIFF FLAG NO
[2024-09-27 21:55] LABS: Hematocrit 48.2 % (42.0-52.0); Hemoglobin 16.9 g/dl (14.0-18.0); Imm Gran Abs Auto 0.03 X10*3/uL (0.00-0.03); Imm Gran Pct Auto 0.3 % (0.0-0.4); Lymphocytes Absolute Auto 2.0 X10*3/uL (1.2-4.9); Mean Corpuscular HGB Conc 35.1 g/dl (31.0-36.0); Mean Corpuscular Hemoglobin 32.6 pg (27.0-33.0); Mean Corpuscular Volume 93.1 fL (80.0-98.0); NRBC Abs Auto 0.000 X10*3/uL (0.0-0.012); NRBC Pct Auto 0.0 /100WBC (0.0-0.2); Platelet Count 280 X10*3/uL (160-400); Red Blood Count 5.18 X10*6/uL (4.60-5.80); White Blood Count 8.9 X10*3/uL (4.8-10.8)
[2024-09-27 21:57] LABS: Alanine Aminotransferase 31 U/L (0-40); Albumin Level 4.8 g/dL (3.5-5.0); Alkaline Phosphatase 182 U/L (39-117); Anion Gap 22 (12-20); Aspartate Amino Transferase 28 U/L (5-37); Blood Urea Nitrogen 12 mg/dL (9-16); Calcium 9.0 mg/dL (8.4-10.2); Carbon Dioxide 17 mmol/L (22-29); Chloride 105 mmol/L (96-108); Creatinine Clr Calc Pharmacy 81.2; Estimated Glomerular Filt Rate > 60; Magnesium 2.6 mg/dL (1.6-2.6); Potassium 3.8 mmol/L (3.3-5.1); Sodium 140 mmol/L (135-145); Total Protein 7.8 g/dL (6.5-8.0)
[2024-09-27 22:04] LABS: Troponin-I High Sensitivity < 2.7 ng/L (<3.5-35.0)
[2024-09-27 22:27] VITALS: BP 116/79; PULSE 114; RESP 20; TEMP 36.8; O2SAT 95
--- NOTE | 2024-09-27 22:34 | PC.NURSE ---
pt is axox4 ambulated with steady gait to bathroom and back to room. provided urine sample. denies si/hi. pt stated he did not remember what happened prior to coming in and started laughing when explained. pt is pleasant calm/cooperative at this time. requested to leave but in agreement to stay at this time after speaking with MD Villalta.
[2024-09-27 23:19] LABS: Cannabinoid Screen Urine Not Detected (Not Detect)
--- NOTE | 2024-09-28 01:31 | PC.NURSE ---
Reviewed discharge instructions with pt, pt verbalized understanding,belonging returned to pt. Notified RN Maxi
[2024-09-28 01:40] VITALS: BP 116/79; PULSE 114; RESP 20; TEMP 36.8; O2SAT 95
== END 2024-09-28 01:41 | disposition home or self-care (01) ==
PROVIDERS: Emergency Provider Emergency Medicine
DX: F10.129 Alcohol abuse with intoxication, unspecified (principal); Y90.6 Blood alcohol level of 120-199 mg/100 ml; F23 Brief psychotic disorder; R00.0 Tachycardia, unspecified; F16.10 Hallucinogen abuse, uncomplicated; Z51.81 Encounter for therapeutic drug level monitoring; Z79.899 Other long term (current) drug therapy
CPT/HCPCS: 36415; 80048; 80076; 80307; 83735; 84484; 85025; 93005; 99284

== ENCOUNTER → 2024-09-27 21:01 | Outpatient (BNV) | payer MEDICAID, SELFPAY | PROVIDERS: Emergency Provider Emergency Medicine; Visit Provider Internal Medicine Cardiovascular Disease | DX: R00.0 Tachycardia, unspecified (principal) | CPT/HCPCS: 93010 ==

== ENCOUNTER 2024-10-13 09:47 | Inpatient (IN) | payer MEDICAID, SELFPAY ==
[2024-10-13] VITALS (10 sets, daily range): BP systolic 106–127; BP diastolic 62–91; PULSE 58–88; RESP 12–22; TEMP 36.4–36.9; O2SAT 96–100; BMI 21.2
--- NOTE | ~2024-10-13 | IR_ITS ---
PROCEDURE: IR INSERTION OF TUNNEL CATHETER CLINICAL INFORMATION: Permacath not needed. COMPARISON: None available. TECHNIQUE: Following explaining removal of permacatheter procedure, benefits and risk, a written consent was obtained. Patient was placed supine on angiography table and area around the right permacath insertion was cleaned and draped in usual sterile manner. 1% lidocaine was injected puncture site. Using blunt dissection the cuff around the permacath was loosened and pulled. The The entire 23 cm long permacath removed. The area was cleaned and aseptic manner and 3 0 absorbable sutures were placed and the suture was closed. Sterile dressing applied post procedure. Patient tolerated procedure well. No conscious sedation was utilized. All elements of maximal sterile barrier technique followed including use of cap, mask, sterile gown, sterile gloves, a sterile full body drape and hand hygiene. Also followed skin preparation with 2% chlorhexidine for cutaneous antisepsis, and sterile ultrasound preparation with sterile gel and probe cover when applicable. FINDINGS/ IR/IR cvc insert central tunnel IMPRESSION: Successful removal of right permacatheter under local anesthesia. There were no immediate complications. Electronically signed by: Matthew Tineo MD 10/27/2024 01:02 PM EDT
--- NOTE | ~2024-10-13 | US_ITS ---
EXAMINATION: US SCROTUM WITH DOPPLER COMPLETE HISTORY: scrotal swelling. COMPARISON: There are no prior studies available for comparison. FINDINGS: Real-time grayscale ultrasound imaging of the scrotum was performed. Color and spectral Doppler analysis was also performed. RIGHT TESTICLE: The right testis measures 4.1 x 3.0 x 3.2 cm and demonstrates normal homogeneous echotexture. No masses are seen. The right testis demonstrates normal arterial and venous color Doppler and spectral waveforms. RIGHT EPIDIDYMIS: Normal in size, shape, and vascularity. There is a 4 x 5 x 7 mm epididymal head cyst. LEFT TESTICLE: The left testis measures 4.2 x 3.2 x 3.2 cm and demonstrates normal homogeneous echotexture. No masses are seen. The left testis demonstrates normal arterial and venous color Doppler and spectral waveforms. LEFT EPIDIDYMIS: Normal in size, shape, and vascularity. VARICOCELE: None. HYDROCELE: No significant hydrocele is seen. OTHER COMMENTS: There is marked scrotal edema and skin thickening. US/US scrotum IMPRESSION: Marked scrotal edema and skin thickening. 7 mm right epididymal head cyst. Otherwise unremarkable scrotal ultrasound. Electronically signed by: Lebron Hernandez MD 10/18/2024 11:11 AM EDT
--- NOTE | ~2024-10-13 | US_ITS ---
EXAMINATION: US SCROTUM WITH DOPPLER COMPLETE HISTORY: scrotal swelling. COMPARISON: There are no prior studies available for comparison. FINDINGS: Real-time grayscale ultrasound imaging of the scrotum was performed. Color and spectral Doppler analysis was also performed. RIGHT TESTICLE: The right testis measures 4.1 x 3.0 x 3.2 cm and demonstrates normal homogeneous echotexture. No masses are seen. The right testis demonstrates normal arterial and venous color Doppler and spectral waveforms. RIGHT EPIDIDYMIS: Normal in size, shape, and vascularity. There is a 4 x 5 x 7 mm epididymal head cyst. LEFT TESTICLE: The left testis measures 4.2 x 3.2 x 3.2 cm and demonstrates normal homogeneous echotexture. No masses are seen. The left testis demonstrates normal arterial and venous color Doppler and spectral waveforms. LEFT EPIDIDYMIS: Normal in size, shape, and vascularity. VARICOCELE: None. HYDROCELE: No significant hydrocele is seen. OTHER COMMENTS: There is marked scrotal edema and skin thickening. US/US scrotum doppler IMPRESSION: Marked scrotal edema and skin thickening. 7 mm right epididymal head cyst. Otherwise unremarkable scrotal ultrasound. Electronically signed by: Lebron Hernandez MD 10/18/2024 11:11 AM EDT RP
--- NOTE | ~2024-10-13 | XR_ITS ---
EXAMINATION: XR SACRUM AND COCCYX CLINICAL INFORMATION: pain COMPARISON: None available. TECHNIQUE: AP and lateral views. FINDINGS: No acute cortical disruption. No gross lytic or blastic lesions. No gross malalignment. XR/XR sacrum coccyx min 2V IMPRESSION: No acute fracture. Electronically signed by: Elie Noel MD 10/13/2024 11:19 AM EDT
--- NOTE | ~2024-10-13 | IR_ITS ---
PROCEDURE: IR INSERTION OF CENTRAL VENOUS CATHETER CLINICAL INFORMATION: Acute renal failure COMPARISON: None available. TECHNIQUE: Following explaining ultrasound fluoroscopy guided placement of a right temporal dialysis catheter procedure, benefits and risk, a written consent was obtained from the patient. Within the ultrasound imaging was obtained through a right neck and optimal site was selected. The site was marked on the skin, cleaned and draped in usual sterile manner. 1% lidocaine was injected puncture site. Under sterile ultrasound guidance a singlewall needle was advanced and right jugular vein was punctured. After obtaining venous return a thin guidewire was advanced and needle withdrawn. Over the guidewire a 5 [place] dilator was inserted and guidewire removed. A 0.035 J-wire was inserted over the dilator under fluoroscopy and placed in IVC. The dilator was removed and tract was dilated with 8 Finnish and a 12 Finnish dilator. Dilator was removed and 12.5 [place] debris dialysis catheter was inserted over the guidewire. The needle was withdrawn and a single image was obtained or the chest documenting the tip of the needle in mid to distal SVC. The catheter was anchored to the skin with 230 nonabsorbable nylon sutures. Sterile dressing applied post procedure. Patient tolerated procedure extremely well. Conscious sedation was utilized during exam and patient monitored by IR nurse and IR radiologist during exam. All elements of maximal sterile barrier technique followed including use of cap, mask, sterile gown, sterile gloves, a sterile full body drape and hand hygiene. Also followed skin preparation with 2% chlorhexidine for cutaneous antisepsis, and sterile ultrasound preparation with sterile gel and probe cover when applicable. FINDINGS: On preliminary ultrasound imaging there is widely patent right jugular vein. A 12.5 [place] 20 cm long temporary dialysis catheter/Gustavokar was inserted through the right jugular vein with its tip in the distal SVC. The catheter is ready for dialysis use. IR/IR cvc insert non tunnel IMPRESSION: Successful ultrasound and fluoroscopy-guided placement of right talar temporary dialysis catheter with its tip in the SVC. Fluoroscopy time: 2 minutes. Dose: 2.968 mGy/cm. Sedation: 15 minutes Electronically signed by: Matthew Tineo MD 10/19/2024 05:09 PM EDT
--- NOTE | ~2024-10-13 | IR_ITS ---
EXAMINATION: Removal of tunneled central line placement. CLINICAL INDICATION: Right permacatheter not needed anymore. FINDINGS/ IR/IR cvc remov tunnel wo prt/pollution control chemist IMPRESSION: Following cleaning the entry site in aseptic manner, blunt dissection was performed around the entry site. Using hemostats the cuff around the catheter was loosened and the catheter was pulled out safely. No hemorrhage visualized. Simple dressing applied post procedure. No sedation was utilized. Electronically signed by: Matthew Tineo MD 11/10/2024 10:50 AM EDT
--- NOTE | ~2024-10-13 | CT_ITS ---
EXAMINATION: CT ABDOMEN PELVIS WITHOUT IV CONTRAST HISTORY: elevated kidney function COMPARISON: There are no prior studies available for comparison. TECHNIQUE: CT scan of the abdomen and pelvis was performed without contrast using standard departmental protocol. Coronal and sagittal reformatted images were generated and reviewed. Oral contrast material was not administered per department protocol. This CT exam was performed with one or more of the following dose reduction techniques: automated exposure control, adjustment of the mA and/or kV according to patient size, use of iterative reconstruction technique. DLP: 334 mGy-cm FINDINGS: The examination is limited by respiratory motion artifact. LOWER CHEST: The visualized lung bases are clear. There is no pleural effusion. CARDIOVASCULATURE: The heart is normal in size. There is no pericardial effusion. LIVER: The liver is normal in size and contour. The liver has an unremarkable unenhanced appearance. GALLBLADDER / BILE DUCTS: The gallbladder is unremarkable. There is no intra or extrahepatic biliary ductal dilatation. SPLEEN: The spleen is normal in size and has an unremarkable unenhanced appearance. PANCREAS: The pancreas has an unremarkable unenhanced appearance. ADRENAL GLANDS: Unremarkable. KIDNEYS/RETROPERITONEUM: No renal calculi are identified. There is no hydronephrosis. LYMPH NODES: No retroperitoneal lymphadenopathy is identified in the abdomen or pelvis. VASCULATURE: The abdominal aorta is normal in caliber. MESENTERY/PERITONEUM: No free fluid. No masses. There is no free intraperitoneal gas. STOMACH: The stomach is collapsed, limiting evaluation. SMALL BOWEL: The small bowel is normal in caliber. COLON: The colon is unremarkable. APPENDIX: The appendix is not seen, however no inflammatory changes are seen adjacent to the cecum. URINARY BLADDER/PELVIC ORGANS: The urinary bladder is collapsed, limiting evaluation. The prostate is normal in size. BONES / SOFT TISSUES: No suspicious bony or soft tissue abnormalities. CT/CT abdomen pelvis wo IV con IMPRESSION: Limited examination due to patient respiratory motion artifact. No evidence of nephrolithiasis or ureteral obstruction. Electronically signed by: Lebron Hernandez MD 10/13/2024 11:56 AM EDT
--- NOTE | ~2024-10-13 | XR_ITS ---
EXAMINATION: XR LUMBOSACRAL SPINE CLINICAL INFORMATION: pain COMPARISON: None available. TECHNIQUE: AP and lateral views FINDINGS: No acute cortical disruption or malalignment. No lytic or blastic lesions. Small marginal osteophyte formation and mild endplate sclerosis throughout the axial skeleton. Abundant stool without intestinal obstruction pattern. XR/XR lumbar spine 2-3V IMPRESSION: No acute fracture or listhesis. Electronically signed by: Elie Noel MD 10/13/2024 11:19 AM EDT
--- NOTE | 2024-10-13 09:59 | ED_ITS ---
HPI - General Adult General Chief complaint: General Medical Stated complaint: LIYA LOWER BACK PAIN Time Seen by Provider: 10/13/24 09:58 Source: patient and RN notes reviewed Mode of arrival: ambulatory Limitations: no limitations History of Present Illness ED Provider: Maddie Adams PA-C [facility] narrative: This is a 39-year-old male who presents emergency department with concerns of back pain that started approximately 3-4 days ago. No recent trauma, injury or heavy lifting. He has been taking ibuprofen without any relief. Last dose was yesterday. He also endorses some nausea. Denies any dizziness, lightheadedness, shortness of breath, chest pain. He denies any urinary urgency, frequency, hematuria, urinary retention or incontinence, bowel retention or incontinence. No saddle anesthesia. Patient denies any history of IVDA however patient has been here multiple times for polysubstance abuse, unable to appreciate history of IVDA on these visits. No other complaints or concerns at this time. MD complaint: Back pain Onset (ago): day(s) Quality: aching Pain Consistency: constant Relieving factors: none Exacerbating factors: none Associated symptoms: denies other symptoms Treatments prior to arrival: none Related Data Previous Rx's ?Medication ?Instructions ?Recorded amoxicillin 500 mg capsule 500 mg PO TID 5 days #15 ca ps 08/17/23 erythromycin 5 mg/gram (0.5 %) eye 0.5 inch ophthalmic (eye) TID 7 08/17/23 ointment days #3.5 grams prednisone 20 mg tablet 40 mg (2 x 20 mg) PO DAILY 5 days 08/17/23 #10 tabs Allergies Allergy/AdvReac Type Severity Reaction Status Date / Time No Known Allergies Allergy Verified 10/13/24 09:54 Review of Systems 2 Review of Systems: Yes all other systems are reviewed and are negative Constitutional: Constitutional: Reports as per [facility] Past Medical History Medical History PCP (phencyclidine) abuse Alcohol abuse Polysubstance abuse Social History Social History Alcohol intake: current Alcohol intake frequency: 3 or more drinks per day Alcohol type: beer and hard liquor Smoked in Last 30 Days: Yes Use of substances other than those prescribed or required for medical reasons: No Substance Use Type: Amphetamines Substance Use Type Other:: PCP Substance Use Frequency: Occasionally Advance Directives: No Advance Directives Information Provided: Yes Do you have a plan to hurt others: No Plan Physical Exam ED Vital Signs: Vital Signs - 24 hr 10/13/24 09:53 10/13/24 09:58 10/13/24 11:49 Temperature 98.5 F 98.5 F Pulse Rate 81 81 Respiratory Rate 16 16 20 Blood Pressure 127/79 127/79 Pulse Oximetry 99 99 Oxygen Delivery Method Room Air Room Air 10/13/24 12:18 Temperature Pulse Rate 88 Respiratory Rate 20 Blood Pressure 120/84 Pulse Oximetry 100 Oxygen Delivery Method Room Air BMI result Body Mass Index 21.2 Const General: cooperative, comfortable and no acute distress Orientation/consciousness: patient oriented x3 Limitations: no limitations HENMT Head: Yes normal to inspection, Yes normocephalic and Yes atraumatic Ears: hearing grossly normal bilaterally General nose exam: Normal external nose present Face and sinus: Yes normal facial exam Mouth: Normal oral and palatal mucosa present, oropharynx normal and moist mucous membranes Throat: Yes posterior oropharynx normal Eyes General: appearance normal, both eyes and all related structures Eyelids: Yes eyelids normal Conjunctivae: conjunctivae normal Sclerae: sclerae normal Pupils: Equal, round and reactive pupils present EOM: EOMs intact bilaterally Neck Neck: Yes normal visual inspection, Yes full ROM and Yes no lymphadenopathy Lymphatic: no lymphadenopathy noted Chest Chest palpation & inspection: normal inspection of the chest Resp Effort & Inspection: normal respiratory effort and able to speak in complete sentences Auscultation: clear to auscultation bilaterally, no crackles, no rales, no rhonchi and no wheezes Cardio Rate: regular rate Rhythm: regular rhythm Heart sounds: S1 normal heart sound present and S2 normal heart sound present GI Other: Abdomen is soft, nontender, nondistended Inspection: Yes normal to inspection Back/Spine/Pelvis Other: Tenderness palpation along the lumbar paraspinous muscles and midline spine tenderness. Negative straight leg raise. Skin General skin exam: no rashes or lesions noted Trauma: no lacerations or abrasions Wounds: no wounds Neuro General: patient oriented x3 and moves all extremities Cranial nerves: Yes Equal, round and reactive pupils present Extrem General: Yes normal to inspection Right upper extremity: normal to inspection Left upper extremity: normal to inspection Right lower extremity: normal to inspection Left lower extremity: normal to inspection Medications Administered Generic Name Dose Route Start Last Admin Trade Name Freq PRN Reason Stop Dose Admin Lactated Ringer's 1,000 mls @ 999 mls/hr 10/13/24 13:08 10/13/24 13:29 Lr IV 10/13/24 14:08 999 mls/hr .Q1H1M ONE Administration Discontinued Medications Generic Name Dose Route Start Last Admin Trade Name Freq PRN Reason Stop Dose Admin Acetaminophen 1,000 mg in 100 mls @ 400 mls/hr 10/13/24 10:15 10/13/24 10:57 Ofirmev IV 10/13/24 10:29 Infused ONCE ONE Infusion Sodium Chloride 1,000 mls @ 999 mls/hr 10/13/24 10:16 10/13/24 11:59 Ns IV 10/13/24 11:16 Infused .Q1H1M ONE Infusion Sodium Chloride 1,000 mls @ 999 mls/hr 10/13/24 11:22 10/13/24 11:49 Ns IV 10/13/24 12:22 999 mls/hr .Q1H1M ONE Administration Ketorolac Tromethamine 15 mg 10/13/24 10:15 10/13/24 10:38 Ketorolac Tromethamine 15 Mg/Ml Vial IVPUSH 10/13/24 10:16 15 mg ONCE ONE Administration Metoclopramide HCl 10 mg 10/13/24 11:34 10/13/24 11:49 Metoclopramide Hcl 10 Mg/2 Ml Vial IVPUSH 10/13/24 11:35 10 mg ONCE ONE Administration Morphine Sulfate 4 mg 10/13/24 11:34 10/13/24 11:49 Morphine Sulfate 4 Mg/Ml Cartridge IVPUSH 10/13/24 11:35 4 mg ONCE ONE Administration Protocol Ondansetron HCl 4 mg 10/13/24 10:15 10/13/24 10:38 Ondansetron Hcl 4 Mg/2 Ml Vial IVPUSH 10/13/24 10:16 4 mg ONCE ONE Administration Medical Decision Making Medical Decision Making MDM Narrative: This is a 39-year-old male who presents emergency department with complaints of back pain. No trauma, injury, or heavy lifting.On arrival, vital signs within normal limits, he is speaking full sentences under no acute distress. No red flag back symptoms. He does have a history of PCP abuse, listed as polysubstance abuse, he denies any history of IVDA. Will obtain labs, inflammatory markers. He is here with his mother. X-rays also ordered. Will medicate with IV Tylenol, Toradol, and IV fluids as well as IV antiemetics. Course 1101 - received critical creatinine of 8.85. Other labs returned, he has a leukocytosis at 11.9k, chemistry revealing low CO2, anion gap of 26, BUN of 57 creatinine of 8.85. Magnesium is elevated at 3.5. AST ALT elevated at 647, 175, alk phos of 124, CRP elevated at 2.8, ESR within normal limits. Given significantly elevated creatinine, he is receiving IV fluids - [address] L ordered[address] obtain [address] abdomen and pelvis to rule out any acute obstructive pathology. Also added on VBG, CPK, troponin, EKG. Given elevated LFTs, also ordered hepatitis panel. First troponin is 32.2. Will repeat. Discussed case with my attending physician, Dr. Rosas. 1238 - abdomen and pelvis CT revealing no evidence of nephrolithiasis or ureteral obstruction. 1328 - discussed case with Dr. De La Fuente who recommends IV bicarb 3 amps 1 L D5 at 150/hr. Discussed case with hospitalist, Dr. Correa, transfer of care initiated. 1335 - went to go update patient in regards to admission, patient breathing heavily, with for family members in the room, patient breathing quickly, his oxygen and vitals are within normal limits. Patient appears to be having panic attack, when family left room, T is speaking, he states that he is feeling very anxious. Will medicate with IV Versed. Differential Diagnosis Differential Diagnoses: The differential diagnosis associated with the presentation includes See above Admission/Observation Consideration of admission/observation: Escalation of care including admission/observation considered Consult Healthcare Provider Management of the patient was discussed with: Hospitalist and Motor[employer] Dr. De La Fuente Lab Data MDM Lab Attestation statement: I reviewed the patient's lab results. See MDM and course 10/13/24 10:26 10/13/24 10:26 Labs: Lab Results 10/13/24 10/13/24 10/13/24 Range/Units 10:26 11:57 12:04 WBC 11.9 H (4.8-10.8) X10*3/uL RBC 4.36 L (4.60-5.80) X10*6/uL Hgb 14.2 (14.0-18.0) g/dl Hct 40.5 L (42.0-52.0) % MCV 92.9 (80.0-98.0) fL MCH 32.6 (27.0-33.0) pg MCHC 35.1 (31.0-36.0) g/dl RDW 13.2 (11.0-16.0) % Plt Count 182 D (160-400) X10*3/uL MPV 10.5 (9.4-12.4) fL Immature Gran % (Auto) 0.5 H (0.0-0.4) % Neut % (Auto) 87.7 H (45-73) % Lymph % (Auto) 6.3 L (20-40) % [place] % (Auto) 5.0 (2-11) % Eos % (Auto) 0.2 (0-4) % Baso % (Auto) 0.3 (0-2) % Lymph # (Auto) 0.8 L (1.2-4.9) X10*3/uL [place] # (Auto) 0.6 (0.1-1.2) X10*3/uL Eos # (Auto) 0.0 (0.0-0.4) X10*3/uL Baso # (Auto) 0.0 (0.0-0.2) X10*3/uL Abs Immat Gran (auto) 0.06 H (0.00-0.03) X10*3/uL Absolute Neuts (auto) 10.4 H (2.0-8.3) x10*3/uL Absolute Nucleated RBC 0.000 (0.0-0.012) X10*3/uL Nucleated RBC % (auto) 0.0 (0.0-0.2) /100WBC ESR 14 (0-15) MM/HR VBG pH 7.22 L (7.32-7.43) VBG pCO2 15 mmHg VBG pO2 82 mmHg VBG HCO3 6 L (22-26) mmol/L VBG O2 Saturation 96.0 % VBG Base Excess -18.8 mmol/L Sodium 135 (135-145) mmol/L Potassium 4.1 (3.3-5.1) mmol/L Chloride 100 (96-108) mmol/L Carbon Dioxide 13 L (22-29) mmol/L Anion Gap 26 H (12-20) BUN 57 H (9-16) mg/dL Creatinine 8.85 H* (0.5-1.4) mg/dL Estim Creat Clear Calc 10.2 Estimated GFR 7 Random Glucose 85 (60-115) mg/dL Lactic Acid 0.6 (0.5-2.0) mmol/L Calcium 6.1 L D (8.4-10.2) mg/dL Magnesium 3.5 H* (1.6-2.6) mg/dL Total Bilirubin 0.2 (0.0-1.0) mg/dL Direct Bilirubin < 0.2 (0.0-0.5) mg/dL AST 647 H (5-37) U/L ALT 175 H (0-40) U/L Alkaline Phosphatase 124 H (39-117) U/L Total Creatine Kinase > 54559 H (38-174) U/L Troponin I High Sens 32.2 D (<3.5-35.0) ng/L C-Reactive Protein 2.84 H (< or = 0.50) mg/dL Total Protein 6.3 L (6.5-8.0) g/dL Albumin 3.8 (3.5-5.0) g/dL Urine Color Urine Appearance Urine pH (5.0-9.0) Ur Specific [place] (1.005-1.025) Urine Protein (Neg-Trace) mg/dL Urine Glucose (UA) (Negative) mg/dL Urine Ketones (Negative) mg/dL Urine Blood (Negative) Urine Nitrite (Negative) Ur Leukocyte Esterase (Negative) Urine RBC (0-2) /HPF Urine WBC (0-5) /HPF Ur Squamous Epith Cells (0-2) /HPF Urine Bacteria (None Seen) Hyaline Casts (0-2) /LPF Ur Random Sodium mmol/L Urine Creatinine mg/dL Urine Opiates Screen (Not Detect) Ur Buprenorphine Scrn (Not Detect) ng/mL Ur Oxycodone Screen (Not Detect) ng/mL Urine Methadone Screen (Not Detect) ng/mL Urine Fentanyl Screen (Not Detect) Ur Barbiturates Screen (Not Detect) Ur Phencyclidine Scrn (Not Detect) Ur Amphetamines Screen (Not Detect) U Benzodiazepines Scrn (Not Detect) Urine Cocaine Screen (Not Detect) U Marijuana (THC) Screen (Not Detect) Ethyl Alcohol < 10 mg/dL Hepatitis A IgM Ab Nonreactive (Nonreactive) Hep Bs Antigen Negative (Negative) Hep Bs Antibody REACTIVE (Nonreactive) Hep B Core Total Ab Nonreactive (Nonreactive) Hepatitis C Ab (EIA) Nonreactive (Nonreactive) 10/13/24 Range/Units 12:47 WBC (4.8-10.8) X10*3/uL RBC (4.60-5.80) X10*6/uL Hgb (14.0-18.0) g/dl Hct (42.0-52.0) % MCV (80.0-98.0) fL MCH (27.0-33.0) pg MCHC (31.0-36.0) g/dl RDW (11.0-16.0) % Plt Count (160-400) X10*3/uL MPV (9.4-12.4) fL Immature Gran % (Auto) (0.0-0.4) % Neut % (Auto) (45-73) % Lymph % (Auto) (20-40) % [place] % (Auto) (2-11) % Eos % (Auto) (0-4) % Baso % (Auto) (0-2) % Lymph # (Auto) (1.2-4.9) X10*3/uL [place] # (Auto) (0.1-1.2) X10*3/uL Eos # (Auto) (0.0-0.4) X10*3/uL Baso # (Auto) (0.0-0.2) X10*3/uL Abs Immat Gran (auto) (0.00-0.03) X10*3/uL Absolute Neuts (auto) (2.0-8.3) x10*3/uL Absolute Nucleated RBC (0.0-0.012) X10*3/uL Nucleated RBC % (auto) (0.0-0.2) /100WBC ESR (0-15) MM/HR VBG pH (7.32-7.43) VBG pCO2 mmHg VBG pO2 mmHg VBG HCO3 (22-26) mmol/L VBG O2 Saturation % VBG Base Excess mmol/L Sodium (135-145) mmol/L Potassium (3.3-5.1) mmol/L Chloride (96-108) mmol/L Carbon Dioxide (22-29) mmol/L Anion Gap (12-20) BUN (9-16) mg/dL Creatinine (0.5-1.4) mg/dL Estim Creat Clear Calc Estimated GFR Random Glucose (60-115) mg/dL Lactic Acid (0.5-2.0) mmol/L Calcium (8.4-10.2) mg/dL Magnesium (1.6-2.6) mg/dL Total Bilirubin (0.0-1.0) mg/dL Direct Bilirubin (0.0-0.5) mg/dL AST (5-37) U/L ALT (0-40) U/L Alkaline Phosphatase (39-117) U/L Total Creatine Kinase (38-174) U/L Troponin I High Sens (<3.5-35.0) ng/L C-Reactive Protein (< or = 0.50) mg/dL Total Protein (6.5-8.0) g/dL Albumin (3.5-5.0) g/dL Urine Color Yellow Urine Appearance Clear Urine pH 5.5 (5.0-9.0) Ur Specific [place] 1.015 (1.005-1.025) Urine Protein 300 (3+) H (Neg-Trace) mg/dL Urine Glucose (UA) 100 H (Negative) mg/dL Urine Ketones Trace (Negative) mg/dL Urine Blood Large (3+) H (Negative) Urine Nitrite Negative (Negative) Ur Leukocyte Esterase Negative (Negative) Urine RBC 0-2 (0-2) /HPF Urine WBC 0-5 (0-5) /HPF Ur Squamous Epith Cells 3-5 (0-2) /HPF Urine Bacteria None Seen (None Seen) Hyaline Casts 0-2 (0-2) /LPF Ur Random Sodium 64.0 mmol/L Urine Creatinine 142.09 mg/dL Urine Opiates Screen Not Detected (Not Detect) Ur Buprenorphine Scrn Not Detected (Not Detect) ng/mL Ur Oxycodone Screen Not Detected (Not Detect) ng/mL Urine Methadone Screen Not Detected (Not Detect) ng/mL Urine Fentanyl Screen Not Detected (Not Detect) Ur Barbiturates Screen Not Detected (Not Detect) Ur Phencyclidine Scrn POSITIVE H (Not Detect) Ur Amphetamines Screen Not Detected (Not Detect) U Benzodiazepines Scrn Not Detected (Not Detect) Urine Cocaine Screen Not Detected (Not Detect) U Marijuana (THC) Screen Not Detected (Not Detect) Ethyl Alcohol mg/dL Hepatitis A IgM Ab (Nonreactive) Hep Bs Antigen (Negative) Hep Bs Antibody (Nonreactive) Hep B Core Total Ab (Nonreactive) Hepatitis C Ab (EIA) (Nonreactive) Independent Interpretation I performed an independent interpretation of an: EKG Interpretation: EKG normal sinus rhythm, prolonged QT at 426/482, no STEMI. Radiology Impression Discussion of test interpretation with radiology: I have reviewed the radiologist's reading. Radiologist Impression: FINDINGS: No acute cortical disruption or malalignment. No lytic or blastic lesions. Small marginal osteophyte formation and mild endplate sclerosis throughout the axial skeleton. Abundant stool without intestinal obstruction pattern. XR/XR lumbar spine 2-3V IMPRESSION: No acute fracture or listhesis. Electronically signed by: Elie Noel MD 10/13/2024 11:19 AM EDT RP Dictated By: Elie Alfaro MD COMPARISON: None available. TECHNIQUE: AP and lateral views. FINDINGS: No acute cortical disruption. No gross lytic or blastic lesions. No gross malalignment. XR/XR sacrum coccyx min 2V IMPRESSION: No acute fracture. Electronically signed by: Elie oNel MD 10/13/2024 11:19 AM EDT RP Dictated By: Elie Alfaro MD FINDINGS: The examination is limited by respiratory motion artifact. LOWER CHEST: The visualized lung bases are clear. There is no pleural effusion. CARDIOVASCULATURE: The heart is normal in size. There is no pericardial effusion. LIVER: The liver is normal in size and contour. The liver has an unremarkable unenhanced appearance. GALLBLADDER / BILE DUCTS: The gallbladder is unremarkable. There is no intra or extrahepatic biliary ductal dilatation. SPLEEN: The spleen is normal in size and has an unremarkable unenhanced appearance. PANCREAS: The pancreas has an unremarkable unenhanced appearance. ADRENAL GLANDS: Unremarkable. KIDNEYS/RETROPERITONEUM: No renal calculi are identified. There is no hydronephrosis. LYMPH NODES: No retroperitoneal lymphadenopathy is identified in the abdomen or pelvis. VASCULATURE: The abdominal aorta is normal in caliber. MESENTERY/PERITONEUM: No free fluid. No masses. There is no free intraperitoneal gas. STOMACH: The stomach is collapsed, limiting evaluation. SMALL BOWEL: The small bowel is normal in caliber. COLON: The colon is unremarkable. APPENDIX: The appendix is not seen, however no inflammatory changes are seen adjacent to the cecum. URINARY BLADDER/PELVIC ORGANS: The urinary bladder is collapsed, limiting evaluation. The prostate is normal in size. BONES / SOFT TISSUES: No suspicious bony or soft tissue abnormalities. CT/CT abdomen pelvis wo IV con IMPRESSION: Limited examination due to patient respiratory motion artifact. No evidence of nephrolithiasis or ureteral obstruction. Electronically signed by: Lebron Hernandez MD 10/13/2024 11:56 AM EDT Dictated By: Lebron Hernandez MD Critical Care Time Critical Care Time Critical Care Time: Yes Total Critical Care Time: 72 Attestation: I have personally provided critical care time exclusive of time spent on separately billable procedures. Time includes review of lab data, radiology results, discussion with consultants, and monitoring for potential decompensation. Intervention performed as documented. Discharge Plan Discharge Clinical Impression: Acute renal failure, Rhabdomyolysis Patient Disposition: Admitted As Inpatient Print Language: [place]
[2024-10-13 10:33] LABS: MANUAL DIFF FLAG NO
[2024-10-13 10:35] LABS: Hematocrit 40.5 % (42.0-52.0); Hemoglobin 14.2 g/dl (14.0-18.0); Imm Gran Abs Auto 0.06 X10*3/uL (0.00-0.03); Imm Gran Pct Auto 0.5 % (0.0-0.4); Lymphocytes Absolute Auto 0.8 X10*3/uL (1.2-4.9); Mean Corpuscular HGB Conc 35.1 g/dl (31.0-36.0); Mean Corpuscular Hemoglobin 32.6 pg (27.0-33.0); Mean Corpuscular Volume 92.9 fL (80.0-98.0); NRBC Abs Auto 0.000 X10*3/uL (0.0-0.012); NRBC Pct Auto 0.0 /100WBC (0.0-0.2); Platelet Count 182 X10*3/uL (160-400); Red Blood Count 4.36 X10*6/uL (4.60-5.80); White Blood Count 11.9 X10*3/uL (4.8-10.8)
--- NOTE | 2024-10-13 10:54 | PC.NURSE ---
Pt was roomed and changed- VSS A&O X4 Pt c/o severe low back pain and nausea. No other complaints. Awaiting imaging.
[2024-10-13 10:56] LABS: Alanine Aminotransferase 175 U/L (0-40); Albumin Level 3.8 g/dL (3.5-5.0); Alkaline Phosphatase 124 U/L (39-117); Anion Gap 26 (12-20); Aspartate Amino Transferase 647 U/L (5-37); Blood Urea Nitrogen 57 mg/dL (9-16); Carbon Dioxide 13 mmol/L (22-29); Chloride 100 mmol/L (96-108); Potassium 4.1 mmol/L (3.3-5.1); Sodium 135 mmol/L (135-145); Total Protein 6.3 g/dL (6.5-8.0)
[2024-10-13 11:00] LABS: Calcium 6.1 mg/dL (8.4-10.2)
[2024-10-13 11:01] LABS: Creatinine Clr Calc Pharmacy 10.2; Estimated Glomerular Filt Rate 7
--- OUTSIDE RECORDS SUMMARY | 2024-10-13 11:20 | XMS_ITS | Clinical Summary ---
Author Organization [employer] Address [address] [place] [address] Care Team Providers Care Microbiological Analyst Name Role Phone Viri Reyes MD Primary Care Provider [phone] Allergies No known active allergies Medications amoxicillin (Amoxil) 500 MG capsule Take 1 capsule by mouth every 6 (six) hours during the day. 4 Active erythromycin (Romycin) 5 MG/GM ophthalmic ointment APPLY 1/2 INCH INTO THE EYE(S) 3 TIMES A DAY FOR 7 DAYS 4 Active predniSONE (Deltasone) 20 MG tablet Take 2 tablets by mouth Once per day. 4 Active sertraline (Zoloft) 50 MG tablet Take 1 tablet (50 mg) by mouth Once per day. 90 tablet 1 5 11/30/19 25 Active Additional Information Patient not taking.Reported on 08/20/2024 famotidine (Pepcid) 20 MG tablet Take 1 tablet (20 mg) by mouth 2 times daily. 180 tablet 3 5 06/03/19 26 Active Additional Information Patient not taking.Reported on 08/20/2024 Multiple Vitamins-Minera ls (PreserVision AREDS) tablet Take 1 tablet by mouth Once per day. 90 tablet 3 5 Active Additional Information Patient not taking.Reported on 08/20/2024 Active Problems Problem Noted Date Diagnosed Date Dental caries 08/20/2024 Tooth impaction 07/08/2024 Missing teeth, acquired 07/08/2024 Dental calculus 07/08/2024 Gingival recession, localized 07/08/2024 Overweight 06/02/2024 Backache 10/04/2011 Depressive disorder 09/11/2011 Gastroesophageal reflux disease 09/11/2011 Syncope and collapse 09/11/2011 Underweight 09/11/2011 Resolved Problems Problem Noted Date Diagnosed Date Resolved Date Otitis media 09/11/2011 06/02/2024 Encounters Date Type Department Care Team Description 08/20/2024 3:00 PM EDT Office Visit [facility] [address] [place] [address] Luis Chase DDS Dental caries (Primary Dx) from Last 3 Months Immunizations Immunization Administration Dates Next Due DTaP 11/14/1989, 7,09/28/1985,1985,03/31/1985 [...] Sign Reading Time Taken Comments Blood Pressure 116/68 08/20/2024 2:30 PM EDT Pulse 62 07/08/2024 1:43 PM EDT Temperature 37.1 C (98.7 F) 06/02/2024 10:37 AM EDT Respiratory Rate 17 06/02/2024 10:37 AM EDT Oxygen Saturation 98% 06/02/2024 10:37 AM EDT Inhaled Oxygen Concentration - - Weight 78.9 kg (174 lb) 06/02/2024 10:37 AM EDT Height 167.4 cm (5' 5.91 ) 06/02/2024 10:37 AM E DT Body Mass Index 28.16 06/02/2024 10:37 AM EDT Plan of Treatment Upcoming Encounters Date Type Department Care Team (Late st Contact Info) Description 01/06/2025 8:00 AM EDT Office Visit [facility] [address] [place] [address] Melanie Lyons Health Maintenance Due Date Last Done Comments HIV Screening 1984 Disability Screening 1984 HPV Vaccines (1 - Male 3-dose series) 08/14/1999 Hepatitis C Screening 2002 Pneumococcal Vaccine: Pediatrics (0 to 5 Years) and At-Risk Patients (6 to 49) Years (1 of 2 - PCV) 08/14/2003 Dental Prophylaxis 09/06/2008 03/07/2008 Dental Oral Exam 07/22/2013 01/20/2013 COVID-19 Vaccine ( - 2023- season) 2023 Influenza Vaccine (#1) 2024 8, 01/25/2016, 12/19/2011 Alcohol/Substance Use Screening 06/02/2025 06/02/2024 Depression Screening 06/02/2025 06/02/2024, 06/03/19 Diabetes: Hemoglobin A1C 06/02/2025 06/02/2024 Family Planning (PISQ) 06/02/2025 06/02/2024 SDOH Screening 06/02/2025 06/02/2024 Dental X-Ray: Bitewings 07/09/2025 07/08/2024 Tobacco Screening 08/20/2025 08/20/2024 Dental X-Ray: Full Mouth 07/10/2027 07/08/2024, 12/22 DTaP/Tdap/Td Vaccines (8 - Td or Tdap) 08/09/2027 08/08/2017, 02/19/2011, 11/14/1989, Additional history exists Lipid Panel 06/02/2029 06/02/2024 Zoster Vaccines (1 of 2) 2034 RSV Patients and Patients Aged 60 years or older (1 - 1-dose 75+ series) 08/14/2059 IPV Vaccines Completed 11/14/1989, 04/1986, 08/29/1985, Additional history exists Hepatitis B Vaccines Completed 10/23/2001, 12/19/1998, 11/06/1995, Additional history exists HIB Vaccines Completed 01/27/2007, 10/18/1988 Hepatitis A Vaccines Aged Out No long er eligible based on patient's age to complete this topic Meningococcal B Vaccine Aged Out No l onger eligible based on patient's age to complete this topic Meningococcal Vaccine Aged Out No noreen paul eligible based on patient's age to complete this topic RSV under 20 months Aged Out No longe r eligible based on patient's age to complete this topic Rotavirus Vaccines Aged Out No longer eligible based on patient's age to complete this topic Procedures Procedure Name Priority Date/Time Associated Diagnosis Comments SED RATE BY MODIFIED WESTERGREN Routine 10/13/2024 10:26 AM EDT C-REACTIVE PROTEIN Routine 10/13/2024 10 :26 AM EDT BASIC METABOLIC PANEL Routine 10/13/2024 10:26 AM EDT HEPATIC FUNCTION PANEL Routine 10/13/2024 10:26 AM EDT CBC WITH AUTO DIFFERENTIAL Routine 10/13/2024 10:26 AM EDT DRUG MONITOR, PANEL 1, SCREEN, URINE Routine 09/27/2024 10:42 PM EDT HIGH SENSITIVITY TROPONIN I Routine 09/27/2024 9:25 PM EDT ETHANOL Routine 09/27/2024 9:25 PM EDT MAGNESIUM Routine 09/27/2024 9:25 PM EDT BASIC METABOLIC PANEL Routine 09/27/2024 9:25 PM EDT HEPATIC FUNCTION PANEL Routine 09/27/2024 9:25 PM EDT CBC WITH AUTO DIFFERENTIAL Routine 09/27/2024 9:25 PM EDT CASE PRESENTATION, DETAILED AND EXTENSIVE TREATMENT PLANNING Routine 08/20/2024 3:00 PM EDT 7 L RESIN-BASED COMPOSITE - 1 SURF, ANTERIOR Routine 08/20/2024 3:00 PM EDT 14 M RESIN-BASED COMPOSITE - 1 SURF, POSTERIOR Routine 08/20/2024 3:00 PM EDT INTRAORAL - COMPLETE SERIES OF RADIOGRAPHIC IMAGES Routine 07/08/2024 1:30 PM EDT HEMOGLOBIN A1C Routine 06/02/2024 11:46 AM EDT Overweight LIPID PANEL, STANDARD Routine 06/02/2024 11:46 AM EDT Overweight PERIODIC ORAL EVALUATION - ESTABLISHED PATIENT Routine 01/20/2013 12:00 AM EDT PROPHYLAXIS - ADULT Routine 03/07/2008 1 2:00 AM EST from Last 3 Months or Most Recently Relevant to Health Maintenance Results * (ABNORMAL) CBC auto differential (10/13/2024 10:26 AM EDT) Only the most recent of2 resultswithin the time period is included. White Blood Count 11.9(H) 4.8 - 10.8 X10*3/uL [facility] Red Blood Count 4.36(L) 4.60 - 5.80 X10*6/uL [facility] Hemoglobin 14.2 14.0 - 18.0 g/dl [facility] Hematocrit 40.5(L) 42.0 - 52.0 % [facility] Mean Corpuscular Volume 92.9 80.0 - 98.0 fL [facility] Mean Corpuscular Hemoglobin 32.6 27.0 - 33.0 pg [facility] Mean Corpuscular HGB Conc 35.1 31.0 - 36.0 g/dl [facility] Red Cell Distribution Width 13.2 11.0 - 16.0 % [facility] Platelet Count 182 160 - 400 X10*3/uL [facility] Mean Platelet Volume 10.5 9.4 - 12.4 fL [facility] Neutrophils Percent Auto 87.7(H) 45 - 73 % [facility] Imm Gran Pct Auto 0.5(H) 0.0 - 0.4 % [facility] Lymphocytes Percent Auto 6.3(L) 20 - 40 % [facility] Monocytes Percent Auto 5.0 2 - 11 % [facility] Eosinophils Percent Auto 0.2 0 - 4 % [facility] Basophils Percent Auto 0.3 0 - 2 % [facility] NRBC Pct Auto 0.0 0.0 - 0.2 /100WBC [facility] Neutrophils Absolute Auto 10.4(H) 2.0 - 8.3 x10*3/uL [facility] Imm Gran Abs Auto 0.06(H) 0.00 - 0.03 X10*3/uL [facility] Lymphocytes Absolute Auto 0.8(L) 1.2 - 4.9 X10*3/uL [facility] Monocytes Absolute Auto 0.6 0.1 - 1.2 X10*3/uL [facility] Eosinophils Absolute Auto 0.0 0.0 - 0.4 X10*3/uL [facility] Basophils Absolute Auto 0.0 0.0 - 0.2 X10*3/uL [facility] NRBC Abs Auto 0.000 0.0 - 0.012 X10*3/uL [facility] 10/13/2024 10:2 6 AM EDT 10/13/2024 10:31 AM EDT us Generic External Data Provider LAB BLOOD ORDERAB LES Final Result Performing Organization Address City/[facility]/ZIP Co de Phone Number [facility] [address] [place] [phone] * Sed Rate by Modified Agueda (10/13/2024 10:26 AM EDT) Erythrocyte Sedimentation Rate 14 0 - 15 MM/HR [facility] Comment:Patients with polycy themia and many hemoglobin abnormalitiesmay have depressed sed rates whereas patients with anemiamay have elevated sed rates. 10/13/2024 10:2 6 AM EDT 10/13/2024 10:31 AM EDT us Generic External Data Provider LAB BLOOD ORDERAB LES Final Result Performing Organization Address [facility]/ZIP Co de Phone Number [facility] [address] [place] [phone] * (ABNORMAL) C-reactive Protein (10/13/2024 10:26 AM EDT) C Reactive Protein 2.84(H) < or = 0.50 mg/dL [facility] 10/13/2024 10:2 6 AM EDT 10/13/2024 10:31 AM EDT Generic External Data Provider LAB BLOOD ORDERAB LES Final Result Performing Organization Address City/[facility] Co de Phone Number [facility] [address] [place] [address] [phone] * (ABNORMAL) Hepatic Function Panel (10/13/2024 10:26 AM EDT) Only the most recent of2 resultswithin the time period is included. Bilirubin, Total 0.2 0.0 - 1.0 mg/dL [facility] Bilirubin, Direct <0.2 0.0 - 0.5 mg/dL [facility] Aspartate Amino Transferase 647(H) 5 - 37 U/L [facility] Alanine Aminotransferase 175(H) 0 - 40 U/L [facility] Total Protein 6.3(L) 6.5 - 8.0 g/dL [facility] Albumin Level 3.8 3.5 - 5.0 g/dL [facility] Alkaline Phosphatase 124(H) 39 - 117 U/L [facility] 10/13/2024 10:2 6 AM EDT 10/13/2024 10:31 AM EDT [employer] External Data Provider LAB BLOOD ORDERAB LES Final Result Performing Organization Address [facility] Co de Phone Number [facility] [address] [place] [address] [phone] * (ABNORMAL) Basic Metabolic Panel (10/13/2024 10:26 AM EDT) Only the most recent of2 resultswithin the time period is included. Sodium 135 135 - 145 mmol/L [facility] Potassium 4.1 3.3 - 5.1 mmol/L [facility] Chloride 100 96 - 108 mmol/L [facility] Carbon Dioxide 13(L) 22 - 29 mmol/L [facility] Anion Gap 26(H) 12 - 20 [facility] Urea Nitrogen (BUN) 57(H) 9 - 16 mg/dL [facility] Creatinine, Serum 8.85(HH) 0.5 - 1.4 mg/dL [facility] Comment:Critical value for C REAT: Results called to and read backby: KAELA Person calling: CANDIDO Date: 10/13/24 Time: 1101 Creatinine Clr Calc Pharmacy 10.2 [facility] Comment:eGFR (calculated fro m the MDRD study equation) and eCrCl(calculated from the Cockcroft-Gault equation) are based ondifferent parameters and may not yield comparable results.If eCrCl result is absurd, please check patient'sheight/weight. Estimated Glomerular Filt Rate 7 [facility] Comment:Chronic Kidney Disea se: Estimated GFR < 60 mL/min/1.94b2Npkkmt Kidney Disease: Estimated GFR < 15 mL/min/1.73m2 Glucose 85 60 - 115 mg/dL [facility] Calcium 6.1(L) 8.4 - 10.2 mg/dL [facility] 10/13/2024 10:2 6 AM EDT 10/13/2024 10:31 AM EDT us Generic External Data Provider LAB BLOOD ORDERAB LES Final Result [facility] [address] [place] [phone] * (ABNORMAL) Drug Monitoring, Panel 1, Screen, Urine (09/27/2024 10:42 PM EDT) Opiate Screen Urine Not Detected Not Detect [facility] Comment:Opiate cut-off is 30 0 ng/mL.Positive results are unconfirmed and should not be used fornon-medical purposes. Barbiturates, Urine Not Detected Not Detect [facility] Comment:Barbiturate cut-off is 200 ng/mL.Positive results are unconfirmed and should not be used fornon-medical purposes. Phencyclidine Screen Urine POSITIVE(A) Not Detect [facility] Comment:Phencyclidine cut-of f is 25 ng/mL.Positive results are unconfirmed and should not be used fornon-medical purposes. Amphetamine Screen Urine Not Detected Not Detect [facility] Comment:Amphetamine cut-off is 1000 ng/mL.Positive results are unconfirmed and should not be used fornon-medical purposes. Benzodiazepines Screen Urine Not Detected Not Detect [facility] Comment:Benzodiazepine cut-o ff is 200 ng/mL.Positive results are unconfirmed and should not be used fornon-medical purposes. Cocaine Screen Urine Not Detected Not Detect [facility] Comment:Cocaine cut-off is 3 00 ng/mL.Positive results are unconfirmed and should not be used fornon-medical purposes. Cannabinoid Screen Urine Not Detected Not Detect [facility] Comment:Cannabinoid cut-off is 50 ng/mL.Positive results are unconfirmed and should not be used fornon-medical purposes. Methadone Screen, Urine Not Detected Not Detect ng/mL [facility] Comment:Methadone cut-off is 300 ng/mL.Positive results are unconfirmed and should not be used fornon-medical purposes. FENTANYL URINE Not Detected Not Detect [facility] Comment:Fentanyl cut-off is 1 ng/mL.Positive results are unconfirmed and should not be used fornon-medical purposes. Oxycodone Urine Screen Not Detected Not Detect ng/mL [facility] Comment:Oxycodone cut-off is 100 ng/mL.Positive results are unconfirmed and should not be used fornon-medical purposes. Buprenorphine Screen Not Detected Not Detect ng/mL [facility] Comment:Buprenorphine cut-of f is 5 ng/mL.Positive results are unconfirmed and should not be used fornon-medical purposes. 09/27/2024 10:4 2 PM EDT 09/27/2024 11:06 PM EDT Generic External Data Provider LAB URINE ORDERAB LES Final Result Performing Organization Address [facility] de Phone Number [facility] [address] [place] [address] [phone] * High Sensitivity Troponin I (09/27/2024 9:25 PM EDT) TROPONIN I HIGH SENSITIVITY <2.7 <3.5 - 35.0 ng/L [facility] Comment:The Lee high sens itivity Troponin-I results should beused in conjunction with other diagnostic information suchas ECG, clinical observations and information, and patientsymptoms to aid in the diagnosis of [place]. 09/27/2024 9:25 PM EDT 09/27/2024 9:37 PM EDT Generic External Data Provider LAB BLOOD ORDERAB LES Final Result Performing Organization Address [facility] Phone Number [facility] [address] [place] [address] [phone] * Ethanol (09/27/2024 9:25 PM EDT) ETHANOL (MG/DL) IN SER/PLAS 195 mg/dL [facility] Comment:Serum/plasma ethanol results are to be used formedical/treatment purposes only. 09/27/2024 9:25 PM EDT 09/27/2024 9:37 PM EDT Generic External Data Provider LAB BLOOD ORDERAB LES Final Result Performing Organization Address [facility] de Phone Number [facility] [address] [place] [address] [phone] * Magnesium (09/27/2024 9:25 PM EDT) Magnesium 2.6 1.6 - 2.6 mg/dL [facility] 09/27/2024 9:25 PM EDT 09/27/2024 9:37 PM EDT us Generic External Data Provider LAB BLOOD ORDERAB LES Final Result Performing Organization Address [facility]/ZIP Co de Phone Number [facility] [address] [place] [address] [phone] * Hemoglobin A1c (06/02/2024 11:46 AM EDT) Hemoglobin A1c 5.8 <6.0 % [facility] Comment:Hemoglobin A1C Refer ence Range Adults: 4.8 - 6.0 % Non diabetic: < 6.0 % Goal: < 7.0 %Additional Action Suggested: > 8.0 %Note: Hemoglobin A1c results are invalid for patients with abnormal amounts of HbF. Blood transfusions may impact the HbA1c concentration in the patient sample. Estimated Average Glucose 120 mg/dL [facility] Comment:eAG = Estimated ave rage glucose which is %A1C expressed asaverage glucose, using the formula of the R0C-JkmozsuVmrfqlz Glucose study (ADAG), Diabetes Care, Vol.31,#8,Oct. 2007 Blood Venous blood specimen / Unknown 06/02/2024 11:46 AM EDT 06/02/2024 1:50 PM EDT us Viri Reyes MD LAB BLOOD ORDERABLES Final Res ult Performing Organization Address [facility]/ZIP Co de Phone Number [facility] [address] [place] [address] [phone] * (ABNORMAL) Lipid Panel, Standard (06/02/2024 11:46 AM EDT) Triglycerides 100 <150 mg/dL [facility] Comment:Desirable Triglyceri de: less than 150 mg/dLBorderline High Triglyceride 150-199 mg/dLHigh Triglyceride: 200-499 mg/dLVery High Triglyceride: greater than or equal to 5OO mg/dL Cholesterol 187 <200 mg/dL [facility] Comment:Desirable Cholestero l: less than 200 mg/dLBorderline High Cholesterol: 200-239 mg/dLHigh Cholesterol: greater than 239 mg/dL LDL Cholesterol Calculated 116(H) <100 mg/dL [facility] Comment:Desirable LDL: less than 100 mg/dLNear Optimal/Above Optimal LDL: 110- 129 mg/dLBorderline High LDL: 130-159 mg/dLHigh LDL: 160-189 mg/dLVery High LDL: greater than or equal to 190 mg/dL HDL Cholesterol 51 >40 mg/dL [facility] Comment:Desirable HDL: great er than 40 mg/dL Note: This HDL assay may give artificially low results in patients with liver disease. Blood Venous blood specimen / Unknown 06/02/2024 11:46 AM EDT 06/02/2024 1:50 PM EDT us Viri Reyes MD LAB BLOOD ORDERABLES Final Res ult [facility] [address] [place] [phone] from Last 3 Months or Most Recently Relevant to Health Maintenance [place] [place] [address] C[facility] MEDICAID STAND ADULT Care Teams Microbiological Analyst Relationship Specialty Start Date End Date Viri Reyes MD [address] [place] [phone] PCP - General Family Medicine 06/02/24
[2024-10-13 11:42] LABS: Magnesium 3.5 mg/dL (1.6-2.6)
--- NOTE | 2024-10-13 11:53 | ECG_ITS ---
Test Reason : drug use Blood Pressure : */* mmHG Vent. Rate : 79 BPM Atrial Rate : 79 BPM P-R Int : 130 ms QRS Dur : 82 ms QT Int : 432 ms P-R-T Axes : 87 65 71 degrees QTcB Int : 495 ms Normal sinus rhythm Prolonged QT Abnormal ECG When compared with ECG of 27-Sep-2024 20:58, Vent. rate has decreased by 42 bpm Referred By: Maddie Adams Electronically Signed By:
[2024-10-13 12:05] LABS: Venous Blood Gas Refer to POC result
[2024-10-13 12:08] LABS: VBG HCO3 6 mmol/L (22-26); VBG O2 % Saturation 96.0 %
[2024-10-13 12:25] LABS: Troponin-I High Sensitivity 32.2 ng/L (<3.5-35.0)
[2024-10-13 12:44] LABS: HBS Num1 764.42 mIU/mL (0-7.99); HBc Num1 0.08 S/CO (0.00-0.79); HBsAGNum1 0.87 S/CO (0.00-0.99); Hepatitis A Antibody IgM 0.17 Index (0-0.79); Hepatitis B Surface Antigen Negative (Negative); ~HepC Num1 0.06 S/CO (0.00-0.79); ~Hepatitis A Antibody IgM Nonreactive (Nonreactive); ~Hepatitis B Surface Antibody REACTIVE (Nonreactive); ~Hepatitis C Antibody Nonreactive (Nonreactive)
[2024-10-13 12:59] LABS: Appearance Urine Clear; Glucose Urine UA 100 mg/dL (Negative); PH 5.5 (5.0-9.0); Specific Gravity - Urine 1.015 (1.005-1.025); UMIC TRIGGER UACC YES
[2024-10-13 13:08] LABS: Cannabinoid Screen Urine Not Detected (Not Detect)
[2024-10-13] MEDS: Lactated Ringers 1,000 ML 999 ML IV (13:29)
--- NOTE | 2024-10-13 13:31 | ECG_ITS ---
Test Reason : unresponsive Blood Pressure : */* mmHG Vent. Rate : 75 BPM Atrial Rate : 75 BPM P-R Int : 122 ms QRS Dur : 86 ms QT Int : 424 ms P-R-T Axes : 72 60 65 degrees QTcB Int : 473 ms Normal sinus rhythm Normal ECG When compared with ECG of 13-Oct-2024 12:34, No significant change was found Referred By: Mary Loja Electronically Signed By: Duke Hernandez
--- NOTE | 2024-10-13 14:04 | PM.CNNEP ---
History of Present Illness Reason for Consult Consult date: 10/13/24 Chief Complaint Chief complaint: acute kidney injury, metabolic acidosis History of Present Illness Narrative: 39 y/o male with history of polysubstance use, known PCP use. He presented 10/13 with back pain x3-4 days, no recent trauma or heavy lifting. Has been taking ibuprofen regularly without relief. Nephrology consulted for WILL. Creatinine 8.85 (previous creatinine 1.09 ~2 weeks ago), serum bicarb is 13 CK >42,000 CRP 2.84, AST/ALT 647/175 patient is sedated at bedside- per ED PA at bedside, pt was just given versed for agitation/panic. Mother is at bedside as well. Review of Systems Review of Systems Yes Unobtainable due to mental status PMFSH Past Medical History Medical History PCP (phencyclidine) abuse Alcohol abuse Polysubstance abuse Social History Social History Alcohol intake: current Alcohol intake frequency: 3 or more drinks per day Alcohol type: beer and hard liquor Smoked in Last 30 Days: Yes Use of substances other than those prescribed or required for medical reasons: No Substance Use Type: Amphetamines Substance Use Type Other:: PCP Substance Use Frequency: Occasionally Advance Directives: No Advance Directives Information Provided: Yes Do you have a plan to hurt others: No Plan Meds Allergies Allergy/AdvReac Type Severity Reaction Status Date / Time No Known Allergies Allergy Verified 10/13/24 09:54 Active Medications: Current Medications Acetaminophen (Acetaminophen 325 Mg Tablet) 975 mg PO Q6H PRN PRN Reason: Pain, Mild 1-3,fever,headache Heparin Sodium (Porcine) (Heparin Sodium,Porcine 5,000 Unit/Ml Vial) 5,000 unit SUBCUT Q12H CHRISTOPHER Lactated Ringer's (Lr) 1,000 mls @ 999 mls/hr IV .Q1H1M ONE Stop: 10/13/24 14:08 Last Admin: 10/13/24 13:29 Dose: 999 mls/hr Sodium Bicarbonate 150 meq/ (Dextrose) 1,000 mls @ 150 mls/hr IV .Q6H40M ONE Stop: 10/13/24 19:59 Magnesium Hydroxide (Milk Of Magnesia 30 Ml Oral.Susp) 30 ml PO DAILY PRN PRN Reason: Constipation Melatonin (Melatonin 3 Mg Tablet) 6 mg PO BEDTIME PRN PRN Reason: Insomnia Sodium Chloride (0.9 % Sodium Chloride Flush 3 Ml Syringe) 3 ml IVFLUSH QSHIFT CHRISTOPHER Physical Exam Vital Signs: Last Vital Signs Temp 98.5 F 10/13/24 09:58 Pulse 88 10/13/24 12:18 Resp 20 10/13/24 12:18 BP 120/84 10/13/24 12:18 Pulse Ox 100 10/13/24 12:18 O2 Del Method Room Air 10/13/24 12:18 BMI result Body Mass Index 21.2 Const General: other (sedated, recently given versed for agitation) Resp Effort & Inspection: normal respiratory effort Auscultation: clear to auscultation bilaterally Cardio Rate: regular rate Rhythm: regular rhythm Heart sounds: S1 normal heart sound present and S2 normal heart sound present GI Palpation (GI): Soft to palpation and nontender Skin Rashes: no rashes Extrem General: No edema Results Lab Results 10/13/24 10:26 10/13/24 10:26 Lab results: Chemistry 10/13/24 10:26 Sodium 135 Potassium 4.1 Carbon Dioxide 13 L BUN 57 H Creatinine 8.85 H* Calcium 6.1 L D Hematology 10/13/24 10:26 WBC 11.9 H Hgb 14.2 Plt Count 182 D Urinalysis 10/13/24 12:47 Urine Color Yellow Urine Appearance Clear Urine pH 5.5 Ur Specific [place] 1.015 Urine Protein 300 (3+) H Urine Glucose (UA) 100 H Urine Ketones Trace Urine Blood Large (3+) H Urine Nitrite Negative Ur Leukocyte Esterase Negative Urine RBC 0-2 Urine WBC 0-5 Ur Squamous Epith Cells 3-5 Hyaline Casts 0-2 Urine Studies 10/13/24 12:47 Urine Osmolality 259 L Urine Creatinine 142.09 Assessment and Plan (1) Acute renal failure: Qualifiers: Acute renal failure type: unspecified Qualified Code(s): N17.9 - Acute kidney failure, unspecified Status: Acute (2) Rhabdomyolysis: Qualifiers: Rhabdomyolysis type: non-traumatic Qualified Code(s): M62.82 - Rhabdomyolysis Status: Acute Plan Acute renal failure likely secondary to rhabdomolysis from drug abuse. recommend switching IVF to sodium bicarb at 150ml/hr recommend avoiding nephrotoxins recommend daily renal function and electrolyte studies recommend close I&O mointoring no immediate indication for renal replacement at this time Discussed with Dr De La Fuente Procedures Date of Service Date of Service: 10/13/24
[2024-10-13] MEDS: Sodium Bicarbonate 8.4% 150 MEQ in Dextrose 5 % 850 ML IV (14:24)
--- NOTE | 2024-10-13 14:36 | PHA.MEDREC ---
Pharmacy Consult ? Medication Reconciliation Pharmacy has completed the medication reconciliation. pt states he takes no medications.
--- NOTE | 2024-10-13 15:38 | PM.IMHP ---
History of Present Illness Date of Service: 10/13/24 Attending physician on admission: Mary Loja Chief Complaint: Back pain Bert English is a 39 years old man with past medical history significant for PCP abuse presents to the emergency department complaining of lower back pain over the last 3 days associated with nausea and vomiting. He also has some shortness on breath. She denied headache, chest pain, fever, chills or diarrhea. Reported dark urine. She also drinks alcohol every day -5 nips hard liquor. Patient is family was at bedside. Patient denied taking medications everyday. However, ED provider commented that patient told her that he takes NSAIDs but they were not very specific about the quantity and how frequent. In the ED, he was found to have normal vital signs. Blood workup is remarkable for leukocytosis. There is no lactic acidosis. Hemoglobin is 14.2 and platelets 182. Creatinine is 8.85 and BUN 57 (per hour essentially normal). LFTs are elevated with normal bilirubin. Total CK is 42,607. Troponin is 32.2 and C-reactive protein 2.84. Urinalysis showed proteinuria 3+, glucosuria, blood 3+ with normal RBCs. WBC 0-5. Urine osmolarity is 259. Urine sodium and creatinine are 64 and 142.09, respectively. Urine drug screen is positive for PCP. ETOH level is <10. Hepatitis panel due for hep Bs antibody. Abdominal pelvis CT scan without contrast showed no evidence of nephrolithiasis or ureteral obstruction. Lumbar, sacrum and coccyx x-rays showed no fractures. ECG showed NSR, HR 75 bpm, without acute ischemic changes. NS: NS 2 L bolus, LR 1 L IV, morphine 4 mg IV, Ketorolac 15 mg IV, morphine 4 mg IV, acetaminophen 1 g IV, Zofran 4 mg IV, Versed 4 mg IV, bicarb IV infusion Review of Systems Review of Systems: All 12 systems were reviewed and normal except as noted in HPI. [facility] Medical History PCP (phencyclidine) abuse Alcohol abuse Polysubstance abuse Social History Alcohol intake: current Alcohol intake frequency: 3 or more drinks per day Alcohol type: beer and hard liquor Patient Tobacco Use Status: Current everyday Tobacco user Smoked in Last 30 Days: Yes Use of substances other than those prescribed or required for medical reasons: No Substance Use Type: Amphetamines Substance Use Type Other:: PCP Substance Use Frequency: Occasionally Advance Directives: No Advance Directives Information Provided: Yes Do you have a plan to hurt others: No Plan Meds Allergies Allergy/AdvReac Type Severity Reaction Status Date / Time No Known Allergies Allergy Verified 10/13/24 09:54 Active Medications: Current Medications Acetaminophen (Acetaminophen 325 Mg Tablet) 975 mg PO Q6H PRN PRN Reason: Pain, Mild 1-3,fever,headache Diazepam (Diazepam 10 Mg/2 Ml Cartridge) 5 mg IVPUSH Q6H PRN PRN Reason: Anxiety Folic Acid (Folic Acid 1 Mg Tablet) 1 mg PO DAILY CHRISTOPHER Heparin Sodium (Porcine) (Heparin Sodium,Porcine 5,000 Unit/Ml Vial) 5,000 unit SUBCUT Q12H CHRISTOPHER Hydromorphone HCl (Hydromorphone Hcl 0.5 Mg/0.5 Ml Syringe) 0.5 mg IVPUSH Q4H PRN; Protocol PRN Reason: Pain, Severe (Pain Scale 7-10) Sodium Bicarbonate 150 meq/ (Dextrose) 1,000 mls @ 150 mls/hr IV .Q6H40M ONE Stop: 10/13/24 19:59 Last Admin: 10/13/24 14:24 Dose: 150 mls/hr Thiamine HCl 100 mg/ Sodium (Chloride) 101 mls @ 202 mls/hr IV DAILY CHRISTOPHER Magnesium Hydroxide (Milk Of Magnesia 30 Ml Oral.Susp) 30 ml PO DAILY PRN PRN Reason: Constipation Melatonin (Melatonin 3 Mg Tablet) 6 mg PO BEDTIME PRN PRN Reason: Insomnia Sodium Chloride (0.9 % Sodium Chloride Flush 3 Ml Syringe) 3 ml IVFLUSH QSHIFT CHRISTOPHER Physical Exam Vital Signs and Narrative: Vital Signs: Last Vital Signs Temp 98.5 F 10/13/24 09:58 Pulse 83 10/13/24 14:47 Resp 18 10/13/24 14:47 BP 119/82 10/13/24 14:47 Pulse Ox 100 10/13/24 14:47 O2 Del Method Room Air 10/13/24 14:47 BMI result Body Mass Index 21.2 Constitutional - Awake and Alert. Looks in distress. HEENT - PERRLA, EOMI Heart - RRR, No murmurs Lungs - Normal lung expansion, Normal respiratory effort, No respiratory distress, CTA bilaterally Abdominal - NT / ND; +BS; No rebound or guarding Extremities - no calf tenderness bilaterally, no swelling Musculoskeletal - Normal inspection, normal ROM. Skin - Warm/Dry Neurological - Alert & oriented x3. Moving all extremities spontaneously. Repetitive speech. Bizarre behavior. Psychological - Appropriate affect Results Labs 10/13/24 10:26 10/13/24 10: Labs: Laboratory Results - last 24 hr 10/13/24 10/13/24 10/13/24 10: 11:57 12:04 MCV 92.9 MCH 32.6 MCHC 35.1 RDW 13.2 Plt Count 182 D MPV 10.5 Immature Gran % (Auto) 0.5 H Neut % (Auto) 87.7 H Lymph % (Auto) 6.3 L [place] % (Auto) 5.0 Eos % (Auto) 0.2 Baso % (Auto) 0.3 Lymph # (Auto) 0.8 L [place] # (Auto) 0.6 Eos # (Auto) 0.0 Baso # (Auto) 0.0 Abs Immat Gran (auto) 0.06 H Absolute Neuts (auto) 10.4 H Absolute Nucleated RBC 0.000 Nucleated RBC % (auto) 0.0 ESR 14 VBG pH 7.22 L VBG pCO2 15 VBG pO2 82 VBG HCO3 6 L VBG O2 Saturation 96.0 VBG Base Excess -18.8 Anion Gap 26 H Estim Creat Clear Calc 10.2 Estimated GFR 7 Random Glucose 85 Lactic Acid 0.6 Calcium 6.1 L D Magnesium 3.5 H* Total Bilirubin 0.2 Direct Bilirubin < 0.2 AST 647 H ALT 175 H Alkaline Phosphatase 124 H Total Creatine Kinase > 26210 H C-Reactive Protein 2.84 H Total Protein 6.3 L Albumin 3.8 Urine Color Urine Appearance Urine pH Ur Specific [place] Urine Protein Urine Glucose (UA) Urine Ketones Urine Blood Urine Nitrite Ur Leukocyte Esterase Urine RBC Urine WBC Ur Squamous Epith Cells Urine Bacteria Hyaline Casts Urine Osmolality Ur Random Sodium Urine Creatinine Urine Opiates Screen Ur Buprenorphine Scrn Ur Oxycodone Screen Urine Methadone Screen Urine Fentanyl Screen Ur Barbiturates Screen Ur Phencyclidine Scrn Ur Amphetamines Screen U Benzodiazepines Scrn Urine Cocaine Screen U Marijuana (THC) Screen Ethyl Alcohol < 10 Hepatitis A IgM Ab Nonreactive Hep Bs Antigen Negative Hep Bs Antibody REACTIVE Hep B Core Total Ab Nonreactive Hepatitis C Ab (EIA) Nonreactive 10/13/24 12:47 MCV MCH MCHC RDW Plt Count MPV Immature Gran % (Auto) Neut % (Auto) Lymph % (Auto) [place] % (Auto) Eos % (Auto) Baso % (Auto) Lymph # (Auto) [place] # (Auto) Eos # (Auto) Baso # (Auto) Abs Immat Gran (auto) Absolute Neuts (auto) Absolute Nucleated RBC Nucleated RBC % (auto) ESR VBG pH VBG pCO2 VBG pO2 VBG HCO3 VBG O2 Saturation VBG Base Excess Anion Gap Estim Creat Clear Calc Estimated GFR Random Glucose Lactic Acid Calcium Magnesium Total Bilirubin Direct Bilirubin AST ALT Alkaline Phosphatase Total Creatine Kinase C-Reactive Protein Total Protein Albumin Urine Color Yellow Urine Appearance Clear Urine pH 5.5 Ur Specific [place] 1.015 Urine Protein 300 (3+) H Urine Glucose (UA) 100 H Urine Ketones Trace Urine Blood Large (3+) H Urine Nitrite Negative Ur Leukocyte Esterase Negative Urine RBC 0-2 Urine WBC 0-5 Ur Squamous Epith Cells 3-5 Urine Bacteria None Seen Hyaline Casts 0-2 Urine Osmolality 259 L Ur Random Sodium 64.0 Urine Creatinine 142.09 Urine Opiates Screen Not Detected Ur Buprenorphine Scrn Not Detected Ur Oxycodone Screen Not Detected Urine Methadone Screen Not Detected Urine Fentanyl Screen Not Detected Ur Barbiturates Screen Not Detected Ur Phencyclidine Scrn POSITIVE H Ur Amphetamines Screen Not Detected U Benzodiazepines Scrn Not Detected Urine Cocaine Screen Not Detected U Marijuana (THC) Screen Not Detected Ethyl Alcohol Hepatitis A IgM Ab Hep Bs Antigen Hep Bs Antibody Hep B Core Total Ab Hepatitis C Ab (EIA) Imaging Radiologist's Impressions: Impressions Lumbar Spine X-Ray 10/13/24 10:09 IMPRESSION: No acute fracture or listhesis. Electronically signed by: Elie Noel MD 10/13/2024 11:19 AM EDT RP Sacrum and Coccyx X-Ray 10/13/24 10:10 IMPRESSION: No acute fracture. Electronically signed by: Elie Noel MD 10/13/2024 11:19 AM EDT RP Abdomen/Pelvis CT 07/23/25 10:34 IMPRESSION: Limited examination due to patient respiratory motion artifact. No evidence of nephrolithiasis or ureteral obstruction. Electronically signed by: Lebron Hernandez MD 10/13/2024 11:56 AM EDT Assessment and Plan (1) WILL (acute kidney injury): Status: Acute (2) Rhabdomyolysis: Qualifiers: Rhabdomyolysis type: non-traumatic Qualified Code(s): M62.82 - Rhabdomyolysis Status: Acute (3) High anion gap metabolic acidosis: Status: Acute Plan Bert English is a 39 y/o man admitted with: Acute kidney injury secondary to rhabdomyolysis due to PCP abuse, FeNa = 2.95% + high anion gap metabolic acidosis. Telemetry. Continue bicarb infusion. Received 3L bolus (NS/LR). Continue to monitor total CK, blood pH, CO2, electrolytes, AST/ALT/alk-phos. Check uric acid. Continue to monitor urine output. Avoid nephrotoxins. Nephrology and addiction medicine consult. Alcohol abuse. CIWA every 4 hours. Thiamine 100 mg IV now then daily. Folic acid and multivitamins. Social work consult. PCP abuse. Monitor for withdrawal symptoms. Valium 5 mg IV every 6 hour as needed anxiety/agitation Plan discussed with family and agreed. DVT prophylaxis: Heparin Code status: Full Patient with hospitalization for at least 2 midnights for continuous cardiac monitoring, bicarb IV infusion, close monitoring of electrolytes/blood pH and evaluation by subspecialty. Quality Stroke Does the patient have a stroke diagnosis?: No VTE Prior VTE?: No VTE Risk Level:: Medical - moderate - high VTE Device Contraindication: Treatment Not Indicated VTE Drug Contraindication: N/A - Med Ordered
[2024-10-13] MEDS: Thiamine HCL 100 MG in 0.9 % Sodium Chloride 100 ML 202 MG IV (17:31)
[2024-10-13] MEDS: diazePAM 10 MG/2 ML CARTRIDGE 5 MG IVPUSH ×2 (17:35→22:51)
[2024-10-13 19:52] LABS: VBG HCO3 23 mmol/L (22-26); VBG O2 % Saturation 92.0 %
[2024-10-13 19:53] LABS: Venous Blood Gas Refer to POC result
[2024-10-13 20:04] LABS: Magnesium 2.5 mg/dL (1.6-2.6); Uric Acid 15.4 mg/dL (3.4-7.0)
--- NOTE | 2024-10-13 20:24 | PM.EVENT ---
Event Note Date of Service: 10/13/24 Event Note: 8:16 PM - Contacted by lab notify critical results: Glucose 550, calcium 4.6, 7.69. I am suspecting these results are not accurate, especially, the glucose and calcium levels. Will check BG now and recheck labs from the arm that does not have the bicarb drip running and reject prior labs. Time Spent With Patient Time: Total time managing care of this patient today ____ minutes.
[2024-10-13 21:06] LABS: Alanine Aminotransferase 151 U/L (0-40); Albumin Level 3.2 g/dL (3.5-5.0); Alkaline Phosphatase 102 U/L (39-117); Anion Gap 20 (12-20); Aspartate Amino Transferase 475 U/L (5-37); Blood Urea Nitrogen 55 mg/dL (9-16); Calcium 5.4 mg/dL (8.4-10.2); Carbon Dioxide 17 mmol/L (22-29); Chloride 100 mmol/L (96-108); Creatinine Clr Calc Pharmacy 10.2; Estimated Glomerular Filt Rate 7; Potassium 3.9 mmol/L (3.3-5.1); Sodium 133 mmol/L (135-145); Total Protein 5.6 g/dL (6.5-8.0)
[2024-10-13] MEDS: Calcium Gluconate/NaCl,Iso-Osm 2 GM/100 ML PLAST..BAG IV (22:00)
--- NOTE | 2024-10-13 22:29 | PC.NURSE ---
per hospitalist, patient can get valium dose early
[2024-10-14] VITALS (10 sets, daily range): BP systolic 102–132; BP diastolic 65–86; PULSE 55–79; RESP 16–18; TEMP 36.3–36.7; O2SAT 96–99
[2024-10-14] MEDS: 0.9 % Sodium Chloride Flush 3 ML SYRINGE IVFLUSH ×2 (00:01→21:28)
[2024-10-14 04:48] LABS: MANUAL DIFF FLAG NO
[2024-10-14 04:49] LABS: Hematocrit 33.8 % (42.0-52.0); Hemoglobin 12.1 g/dl (14.0-18.0); Imm Gran Abs Auto 0.04 X10*3/uL (0.00-0.03); Imm Gran Pct Auto 0.4 % (0.0-0.4); Lymphocytes Absolute Auto 1.6 X10*3/uL (1.2-4.9); Mean Corpuscular HGB Conc 35.8 g/dl (31.0-36.0); Mean Corpuscular Hemoglobin 32.3 pg (27.0-33.0); Mean Corpuscular Volume 90.1 fL (80.0-98.0); NRBC Abs Auto 0.000 X10*3/uL (0.0-0.012); NRBC Pct Auto 0.0 /100WBC (0.0-0.2); Platelet Count 143 X10*3/uL (160-400); Red Blood Count 3.75 X10*6/uL (4.60-5.80); White Blood Count 9.8 X10*3/uL (4.8-10.8)
[2024-10-14 05:09] LABS: Alanine Aminotransferase 142 U/L (0-40); Albumin Level 3.1 g/dL (3.5-5.0); Alkaline Phosphatase 103 U/L (39-117); Anion Gap 20 (12-20); Aspartate Amino Transferase 383 U/L (5-37); Blood Urea Nitrogen 56 mg/dL (9-16); Calcium 5.8 mg/dL (8.4-10.2); Carbon Dioxide 18 mmol/L (22-29); Chloride 98 mmol/L (96-108); Creatinine Clr Calc Pharmacy 9.3; Estimated Glomerular Filt Rate 6; Magnesium 2.7 mg/dL (1.6-2.6); Potassium 3.4 mmol/L (3.3-5.1); Sodium 133 mmol/L (135-145); Total Protein 5.1 g/dL (6.5-8.0)
[2024-10-14 05:14] LABS: Parathyroid Hormone Intact 906.4 pg/mL (8.7-77.1)
--- NOTE | 2024-10-14 07:40 | HO.PM.IMPN ---
Subjective Subjective Date of Service: 10/14/24 Interval History: f/u on severe WILL due to Rhabdomylosis Cr is higher today, acidosis is better and he feels better than yesterday Physical Exam Vital Signs: Vital Signs: Last Vital Signs Temp 97.9 F 10/14/24 07:35 Pulse 67 10/14/24 07:35 Resp 18 10/14/24 07:35 BP 102/70 10/14/24 07:35 Pulse Ox 97 10/14/24 07:35 O2 Del Method Room Air 10/14/24 07:35 BMI result Body Mass Index 21.2 Const: Other: General: AO X 3, no acute distress Resp: CTA bilateral CVS: S1,S2,RRR GI: +BS, NT, no distention Skin: No rash Neuro: motor grossly intact Psych: appropriate affect Objective Data Active Medications Acetaminophen (Acetaminophen 325 Mg Tablet) 975 mg PO Q6H PRN PRN Reason: Pain, Mild 1-3,fever,headache Diazepam (Diazepam 10 Mg/2 Ml Cartridge) 5 mg IVPUSH Q6H PRN PRN Reason: Anxiety Last Admin: 10/13/24 22:51 Dose: 5 mg Documented By: LANA Folic Acid (Folic Acid 1 Mg Tablet) 1 mg PO DAILY [facility] Heparin Sodium (Porcine) (Heparin Sodium,Porcine 5,000 Unit/Ml Vial) 5,000 unit SUBCUT Q12H [facility] Last Admin: 10/13/24 21:57 Dose: 5,000 unit Documented By: LANA Hydromorphone HCl (Hydromorphone Hcl 0.5 Mg/0.5 Ml Syringe) 1 mg IVPUSH Q4H PRN; Protocol PRN Reason: Pain, Severe (Pain Scale 7-10) Thiamine HCl 100 mg/ Sodium (Chloride) 101 mls @ 202 mls/hr IV DAILY [facility] Last Infusion: 10/13/24 17:53 Dose: Infused Documented By: PAL Magnesium Hydroxide (Milk Of Magnesia 30 Ml Oral.Susp) 30 ml PO DAILY PRN PRN Reason: Constipation Melatonin (Melatonin 3 Mg Tablet) 6 mg PO BEDTIME PRN PRN Reason: Insomnia Sodium Chloride (0.9 % Sodium Chloride Flush 3 Ml Syringe) 3 ml IVFLUSH QSHIFT [facility] Last Admin: 10/14/24 00:01 Dose: 3 ml Documented By: MANSI Labs 10/14/24 04:36 10/14/24 04:36 Labs: Laboratory Results - last 24 hr 10/13/24 10/13/24 10/13/24 10:26 11:57 12:04 MCV 92.9 MCH 32.6 MCHC 35.1 RDW 13.2 Plt Count 182 D MPV 10.5 Immature Gran % (Auto) 0.5 H Neut % (Auto) 87.7 H Lymph % (Auto) 6.3 L [place] % (Auto) 5.0 Eos % (Auto) 0.2 Baso % (Auto) 0.3 Lymph # (Auto) 0.8 L [place] # (Auto) 0.6 Eos # (Auto) 0.0 Baso # (Auto) 0.0 Abs Immat Gran (auto) 0.06 H Absolute Neuts (auto) 10.4 H Absolute Nucleated RBC 0.000 Nucleated RBC % (auto) 0.0 ESR 14 VBG pH 7.22 L VBG pCO2 15 VBG pO2 82 VBG HCO3 6 L VBG O2 Saturation 96.0 VBG Base Excess -18.8 Anion Gap 26 H Estim Creat Clear Calc 10.2 Estimated GFR 7 Random Glucose 85 Lactic Acid 0.6 Uric Acid Calcium 6.1 L D Phosphorus Magnesium 3.5 H* Total Bilirubin 0.2 Direct Bilirubin < 0.2 AST 647 H ALT 175 H Alkaline Phosphatase 124 H Total Creatine Kinase > 24863 H C-Reactive Protein 2.84 H Total Protein 6.3 L Albumin 3.8 PTH Intact Urine Color Urine Appearance Urine pH Ur Specific Campus Urine Protein Urine Glucose (UA) Urine Ketones Urine Blood Urine Nitrite Ur Leukocyte Esterase Urine RBC Urine WBC Ur Squamous Epith Cells Urine Bacteria Hyaline Casts Urine Osmolality Ur Random Sodium Urine Creatinine Urine Opiates Screen Ur Buprenorphine Scrn Ur Oxycodone Screen Urine Methadone Screen Urine Fentanyl Screen Ur Barbiturates Screen Ur Phencyclidine Scrn Ur Amphetamines Screen U Benzodiazepines Scrn Urine Cocaine Screen U Marijuana (THC) Screen Ethyl Alcohol < 10 Hepatitis A IgM Ab Nonreactive Hep Bs Antigen Negative Hep Bs Antibody REACTIVE Hep B Core Total Ab Nonreactive Hepatitis C Ab (EIA) Nonreactive 10/13/24 10/13/24 10/13/24 12:47 19:44 19:48 MCV MCH MCHC RDW Plt Count MPV Immature Gran % (Auto) Neut % (Auto) Lymph % (Auto) [place] % (Auto) Eos % (Auto) Baso % (Auto) Lymph # (Auto) [place] # (Auto) Eos # (Auto) Baso # (Auto) Abs Immat Gran (auto) Absolute Neuts (auto) Absolute Nucleated RBC Nucleated RBC % (auto) ESR VBG pH 7.35 VBG pCO2 41 VBG pO2 64 VBG HCO3 23 VBG O2 Saturation 92.0 VBG Base Excess -1.7 Anion Gap Estim Creat Clear Calc Estimated GFR Random Glucose Lactic Acid Uric Acid 15.4 H Calcium Phosphorus 6.8 H Magnesium 2.5 Total Bilirubin Direct Bilirubin AST ALT Alkaline Phosphatase Total Creatine Kinase C-Reactive Protein Total Protein Albumin PTH Intact Urine Color Yellow Urine Appearance Clear Urine pH 5.5 Ur Specific Campus 1.015 Urine Protein 300 (3+) H Urine Glucose (UA) 100 H Urine Ketones Trace Urine Blood Large (3+) H Urine Nitrite Negative Ur Leukocyte Esterase Negative Urine RBC 0-2 Urine WBC 0-5 Ur Squamous Epith Cells 3-5 Urine Bacteria None Seen Hyaline Casts 0-2 Urine Osmolality 259 L Ur Random Sodium 64.0 Urine Creatinine 142.09 Urine Opiates Screen Not Detected Ur Buprenorphine Scrn Not Detected Ur Oxycodone Screen Not Detected Urine Methadone Screen Not Detected Urine Fentanyl Screen Not Detected Ur Barbiturates Screen Not Detected Ur Phencyclidine Scrn POSITIVE H Ur Amphetamines Screen Not Detected U Benzodiazepines Scrn Not Detected Urine Cocaine Screen Not Detected U Marijuana (THC) Screen Not Detected Ethyl Alcohol Hepatitis A IgM Ab Hep Bs Antigen Hep Bs Antibody Hep B Core Total Ab Hepatitis C Ab (EIA) 10/13/24 10/14/24 20:41 04:36 MCV 90.1 MCH 32.3 MCHC 35.8 RDW 12.9 Plt Count 143 L MPV 11.0 Immature Gran % (Auto) 0.4 Neut % (Auto) 74.3 H Lymph % (Auto) 16.3 L [place] % (Auto) 7.3 Eos % (Auto) 1.4 Baso % (Auto) 0.3 Lymph # (Auto) 1.6 [place] # (Auto) 0.7 Eos # (Auto) 0.1 Baso # (Auto) 0.0 Abs Immat Gran (auto) 0.04 H Absolute Neuts (auto) 7.3 Absolute Nucleated RBC 0.000 Nucleated RBC % (auto) 0.0 ESR VBG pH VBG pCO2 VBG pO2 VBG HCO3 VBG O2 Saturation VBG Base Excess Anion Gap 20 20 Estim Creat Clear Calc 10.2 9.3 Estimated GFR 7 6 Random Glucose 158 H 104 Lactic Acid Uric Acid Calcium 5.4 L* D 5.8 L* D Phosphorus 7.8 H Magnesium 2.7 H Total Bilirubin 0.2 0.2 Direct Bilirubin AST 475 H 383 H ALT 151 H 142 H Alkaline Phosphatase 102 103 Total Creatine Kinase C-Reactive Protein Total Protein 5.6 L 5.1 L Albumin 3.2 L 3.1 L PTH Intact 906.4 H Urine Color Urine Appearance Urine pH Ur Specific Campus Urine Protein Urine Glucose (UA) Urine Ketones Urine Blood Urine Nitrite Ur Leukocyte Esterase Urine RBC Urine WBC Ur Squamous Epith Cells Urine Bacteria Hyaline Casts Urine Osmolality Ur Random Sodium Urine Creatinine Urine Opiates Screen Ur Buprenorphine Scrn Ur Oxycodone Screen Urine Methadone Screen Urine Fentanyl Screen Ur Barbiturates Screen Ur Phencyclidine Scrn Ur Amphetamines Screen U Benzodiazepines Scrn Urine Cocaine Screen U Marijuana (THC) Screen Ethyl Alcohol Hepatitis A IgM Ab Hep Bs Antigen Hep Bs Antibody Hep B Core Total Ab Hepatitis C Ab (EIA) Assessment and Plan (1) WILL (acute kidney injury): Status: Acute (2) High anion gap metabolic acidosis: Status: Acute (3) Rhabdomyolysis: Status: Acute Plan 40/m with substance use here with WILL, rhabdom and metabolic acidosis WILL d/t pigment nephropathy from rhabdomylosis, Cr 8.8 -->9.67 3L of NS and 1 bicab yesterday IV fluid with Bicab Insert Stokes--if agreable Nephrology to further advise, may need dialysis Avoid Nephrotoxins Rhabdomylosis, CPK was > 42K, recheck IVF with Bicab as above Alcohol abuse. CIWA per protocol Thiamine 100 mg IV now then daily. Folic acid and multivitamins. Addiction med consult PCP abuse. Monitor for withdrawal symptoms. Valium 5 mg IV every 6 hour as needed anxiety/agitation DVT prophylaxis: Heparin Code status: Full Quality Stroke Does the patient have a stroke diagnosis?: No VTE Prior VTE?: No VTE Risk Level:: Medical - moderate - high VTE Device Contraindication: Treatment Not Indicated VTE Drug Contraindication: N/A - Med Ordered
[2024-10-14] MEDS: Sodium Bicarbonate 8.4% 150 MEQ in Dextrose 5 % 850 ML IV ×3 (08:57→21:23)
[2024-10-14] MEDS: Lactated Ringers 1,000 ML 200 ML IVCONT ×3 (08:57→21:11)
--- NOTE | 2024-10-14 09:44 | MHC.CM.PN ---
Patient lives in an apartment with his Mother. Patient's PCP is from [facility]. Patient is independent and home/self care is the goal. CM has initiated and will follow for dc planning.
[2024-10-14] MEDS: Thiamine HCL 100 MG in 0.9 % Sodium Chloride 100 ML 202 MG IV (09:56)
--- NOTE | 2024-10-14 10:05 | PM.PNNEP ---
Subjective Subjective Date of Service: 10/14/24 Interval history: following for acute renal failure in setting of rhabdomyolisis creatinine has increased to 9.67 from 8.84, UOP only 100mL since yesterday. fluids were stopped overnight. patient reports he is feeling better since yesterday- states lower back pain he has had for a few weeks has improved. Denies other concerns/complaints. Denies chest pain, shortness of breath, abdominal/flank pain, urinary symptoms, lower extremity swelling, rash. Denies pruritus, muscle cramping, nasuea/vomiting, confusion/brain fog. Physical Exam Vital Signs: Vital Signs: Last Vital Signs Temp 97.9 F 10/14/24 07:35 Pulse 67 10/14/24 07:35 Resp 18 10/14/24 07:35 BP 102/70 10/14/24 07:35 Pulse Ox 97 10/14/24 07:35 O2 Del Method Room Air 10/14/24 07:35 BMI result Body Mass Index 21.2 Const: General: no acute distress, alert and awake Resp: Effort & Inspection: normal respiratory effort and able to speak in complete sentences Auscultation: clear to auscultation bilaterally Cardio: Rate: regular rate Rhythm: regular rhythm Heart sounds: S1 normal heart sound present and S2 normal heart sound present GI: Palpation (GI): Soft to palpation and nontender : General: Yes no CVA tenderness Back/Spine/Pelvis: Back: no CVA tenderness Skin: Rashes: no rashes Neuro: Other: no asterixis, no tremor Extrem: General: No edema Objective Data Labs 10/14/24 04:36 10/14/24 04:36 Labs: Laboratory Results - last 24 hr 10/13/24 10/13/24 10/13/24 10:26 11:57 12:04 WBC 11.9 H RBC 4.36 L Hgb 14.2 Hct 40.5 L MCV 92.9 MCH 32.6 MCHC 35.1 RDW 13.2 Plt Count 182 D MPV 10.5 Immature Gran % (Auto) 0.5 H Neut % (Auto) 87.7 H Lymph % (Auto) 6.3 L [place] % (Auto) 5.0 Eos % (Auto) 0.2 Baso % (Auto) 0.3 Lymph # (Auto) 0.8 L [place] # (Auto) 0.6 Eos # (Auto) 0.0 Baso # (Auto) 0.0 Abs Immat Gran (auto) 0.06 H Absolute Neuts (auto) 10.4 H Absolute Nucleated RBC 0.000 Nucleated RBC % (auto) 0.0 ESR 14 VBG pH 7.22 L VBG pCO2 15 VBG pO2 82 VBG HCO3 6 L VBG O2 Saturation 96.0 VBG Base Excess -18.8 Sodium 135 Potassium 4.1 Chloride 100 Carbon Dioxide 13 L Anion Gap 26 H BUN 57 H Creatinine 8.85 H* Estim Creat Clear Calc 10.2 Estimated GFR 7 Random Glucose 85 Lactic Acid 0.6 Uric Acid Calcium 6.1 L D Phosphorus Magnesium 3.5 H* Total Bilirubin 0.2 Direct Bilirubin < 0.2 AST 647 H ALT 175 H Alkaline Phosphatase 124 H Total Creatine Kinase > 05234 H Troponin I High Sens 32.2 D C-Reactive Protein 2.84 H Total Protein 6.3 L Albumin 3.8 PTH Intact Urine Color Urine Appearance Urine pH Ur Specific [place] Urine Protein Urine Glucose (UA) Urine Ketones Urine Blood Urine Nitrite Ur Leukocyte Esterase Urine RBC Urine WBC Ur Squamous Epith Cells Urine Bacteria Hyaline Casts Urine Osmolality Ur Random Sodium Urine Creatinine Urine Opiates Screen Ur Buprenorphine Scrn Ur Oxycodone Screen Urine Methadone Screen Urine Fentanyl Screen Ur Barbiturates Screen Ur Phencyclidine Scrn Ur Amphetamines Screen U Benzodiazepines Scrn Urine Cocaine Screen U Marijuana (THC) Screen Ethyl Alcohol < 10 Hepatitis A IgM Ab Nonreactive Hep Bs Antigen Negative Hep Bs Antibody REACTIVE Hep B Core Total Ab Nonreactive Hepatitis C Ab (EIA) Nonreactive 10/13/24 10/13/24 10/13/24 12:47 19:44 19:48 WBC RBC Hgb Hct MCV MCH MCHC RDW Plt Count MPV Immature Gran % (Auto) Neut % (Auto) Lymph % (Auto) [place] % (Auto) Eos % (Auto) Baso % (Auto) Lymph # (Auto) [place] # (Auto) Eos # (Auto) Baso # (Auto) Abs Immat Gran (auto) Absolute Neuts (auto) Absolute Nucleated RBC Nucleated RBC % (auto) ESR VBG pH 7.35 VBG pCO2 41 VBG pO2 64 VBG HCO3 23 VBG O2 Saturation 92.0 VBG Base Excess -1.7 Sodium Potassium Chloride Carbon Dioxide Anion Gap BUN Creatinine Estim Creat Clear Calc Estimated GFR Random Glucose Lactic Acid Uric Acid 15.4 H Calcium Phosphorus 6.8 H Magnesium 2.5 Total Bilirubin Direct Bilirubin AST ALT Alkaline Phosphatase Total Creatine Kinase Troponin I High Sens C-Reactive Protein Total Protein Albumin PTH Intact Urine Color Yellow Urine Appearance Clear Urine pH 5.5 Ur Specific [place] 1.015 Urine Protein 300 (3+) H Urine Glucose (UA) 100 H Urine Ketones Trace Urine Blood Large (3+) H Urine Nitrite Negative Ur Leukocyte Esterase Negative Urine RBC 0-2 Urine WBC 0-5 Ur Squamous Epith Cells 3-5 Urine Bacteria None Seen Hyaline Casts 0-2 Urine Osmolality 259 L Ur Random Sodium 64.0 Urine Creatinine 142.09 Urine Opiates Screen Not Detected Ur Buprenorphine Scrn Not Detected Ur Oxycodone Screen Not Detected Urine Methadone Screen Not Detected Urine Fentanyl Screen Not Detected Ur Barbiturates Screen Not Detected Ur Phencyclidine Scrn POSITIVE H Ur Amphetamines Screen Not Detected U Benzodiazepines Scrn Not Detected Urine Cocaine Screen Not Detected U Marijuana (THC) Screen Not Detected Ethyl Alcohol Hepatitis A IgM Ab Hep Bs Antigen Hep Bs Antibody Hep B Core Total Ab Hepatitis C Ab (EIA) 10/13/24 10/14/24 20:41 04:36 WBC 9.8 RBC 3.75 L Hgb 12.1 L Hct 33.8 L MCV 90.1 MCH 32.3 MCHC 35.8 RDW 12.9 Plt Count 143 L MPV 11.0 Immature Gran % (Auto) 0.4 Neut % (Auto) 74.3 H Lymph % (Auto) 16.3 L [place] % (Auto) 7.3 Eos % (Auto) 1.4 Baso % (Auto) 0.3 Lymph # (Auto) 1.6 [place] # (Auto) 0.7 Eos # (Auto) 0.1 Baso # (Auto) 0.0 Abs Immat Gran (auto) 0.04 H Absolute Neuts (auto) 7.3 Absolute Nucleated RBC 0.000 Nucleated RBC % (auto) 0.0 ESR VBG pH VBG pCO2 VBG pO2 VBG HCO3 VBG O2 Saturation VBG Base Excess Sodium 133 L 133 L Potassium 3.9 3.4 Chloride 100 98 Carbon Dioxide 17 L 18 L Anion Gap 20 20 BUN 55 H 56 H Creatinine 8.84 H* 9.67 H* Estim Creat Clear Calc 10.2 9.3 Estimated GFR 7 6 Random Glucose 158 H 104 Lactic Acid Uric Acid Calcium 5.4 L* D 5.8 L* D Phosphorus 7.8 H Magnesium 2.7 H Total Bilirubin 0.2 0.2 Direct Bilirubin AST 475 H 383 H ALT 151 H 142 H Alkaline Phosphatase 102 103 Total Creatine Kinase > 60154 H Troponin I High Sens C-Reactive Protein Total Protein 5.6 L 5.1 L Albumin 3.2 L 3.1 L PTH Intact 906.4 H Urine Color Urine Appearance Urine pH Ur Specific [place] Urine Protein Urine Glucose (UA) Urine Ketones Urine Blood Urine Nitrite Ur Leukocyte Esterase Urine RBC Urine WBC Ur Squamous Epith Cells Urine Bacteria Hyaline Casts Urine Osmolality Ur Random Sodium Urine Creatinine Urine Opiates Screen Ur Buprenorphine Scrn Ur Oxycodone Screen Urine Methadone Screen Urine Fentanyl Screen Ur Barbiturates Screen Ur Phencyclidine Scrn Ur Amphetamines Screen U Benzodiazepines Scrn Urine Cocaine Screen U Marijuana (THC) Screen Ethyl Alcohol Hepatitis A IgM Ab Hep Bs Antigen Hep Bs Antibody Hep B Core Total Ab Hepatitis C Ab (EIA) Procedures Date of Service Date of Service: 10/14/24 Assessment & Plan Assessment and plan (1) Acute renal failure: Status: Acute (2) Rhabdomyolysis: Status: Acute Plan Acute renal failure secondary to rhabdomyolysis of unclear etiology, ?drug abuse. recommend re-starting fluids, IV sodium bicarb at 150ml/hr CK remains >42K Given oliguria, will get temporary HD line placement and initiate dialysis today- will run patient even. If his blood pressures are soft during or post HD, can give more fluid. Discussed with patient and his family (mother, girlfriend also at bedside). Patient and family are in agreement with catheter placement and dialysis for treatment of renal failure. recommend avoiding nephrotoxins recommend daily renal function and electrolyte studies recommend close I&O mointoring Discussed with Dr De La Fuente Time Spent With Patient Time: Total time managing care of this patient today ____ minutes. Progress Note: Quality Stroke Does the patient have a stroke diagnosis?: No
--- NOTE | 2024-10-14 11:47 | PC.NURSE ---
Received reprt and assumed care, no contact w/ pt. Pt currently at IR
--- NOTE | 2024-10-14 12:52 | PC.NURSE ---
Pt returned from IR, pt immediately to dialysis
[2024-10-15] MEDS: Lactated Ringers 1,000 ML 200 ML IVCONT ×3 (02:24→16:31)
[2024-10-15 03:13] VITALS: BP 133/80; PULSE 82; RESP 18; TEMP 36.6; O2SAT 95
[2024-10-15] MEDS: Sodium Bicarbonate 8.4% 150 MEQ in Dextrose 5 % 850 ML IV ×3 (04:07→21:07)
[2024-10-15 07:07] VITALS: BP 151/85; PULSE 76; RESP 18; TEMP 36.4; O2SAT 96
[2024-10-15 09:33] LABS: Hematocrit 34.4 % (42.0-52.0); Hemoglobin 12.4 g/dl (14.0-18.0); Mean Corpuscular HGB Conc 36.0 g/dl (31.0-36.0); Mean Corpuscular Hemoglobin 32.1 pg (27.0-33.0); Mean Corpuscular Volume 89.1 fL (80.0-98.0); NRBC Abs Auto 0.000 X10*3/uL (0.0-0.012); NRBC Pct Auto 0.0 /100WBC (0.0-0.2); Platelet Count 143 X10*3/uL (160-400); Red Blood Count 3.86 X10*6/uL (4.60-5.80); White Blood Count 7.8 X10*3/uL (4.8-10.8)
--- NOTE | 2024-10-15 09:52 | HO.PM.IMPN ---
Subjective Subjective Date of Service: 10/15/24 Interval History: f/u on severe WILL due to Rhabdomylosis Seen in dialysis, c/o generalized pain, CPK remains critically high, BMP pending Physical Exam Vital Signs: Vital Signs: Last Vital Signs Temp 97.5 F 10/15/24 07:07 Pulse 76 10/15/24 07:07 Resp 18 10/15/24 07:07 BP 151/85 H 10/15/24 07:07 Pulse Ox 96 10/15/24 07:07 O2 Del Method Room Air 10/15/24 07:07 BMI result Body Mass Index 21.2 Const: Other: General: AO X 3, no acute distress Resp: CTA bilateral CVS: S1,S2,RRR GI: +BS, NT, no distention Skin: no rash : scrotal edema Neuro: motor grossly intact Psych: appropriate affect Objective Data Active Medications Acetaminophen (Acetaminophen 325 Mg Tablet) 975 mg PO Q6H PRN PRN Reason: Pain, Mild 1-3,fever,headache Diazepam (Diazepam 10 Mg/2 Ml Cartridge) 5 mg IVPUSH Q6H PRN PRN Reason: Anxiety Last Admin: 10/13/24 22:51 Dose: 5 mg Documented By: LANA Folic Acid (Folic Acid 1 Mg Tablet) 1 mg PO DAILY [facility] Last Admin: 10/14/24 09:55 Dose: 1 mg Documented By: TERESE Heparin Sodium (Porcine) (Heparin Sodium,Porcine 5,000 Unit/Ml Vial) 5,000 unit SUBCUT Q12H [facility] Last Admin: 10/14/24 21:19 Dose: 5,000 unit Documented By: PAMELA Heparin Sodium (Porcine) (Heparin Sodium,Porcine 5,000 Unit/Ml Vial) 5,000 unit INTRACATH ONCE ONE Stop: 10/15/24 12:01 Heparin Sodium (Porcine) (Heparin Sodium,Porcine 5,000 Unit/Ml Vial) 5,000 unit INTRACATH ONCE ONE Stop: 10/16/24 12:01 Hydromorphone HCl (Hydromorphone Hcl 0.5 Mg/0.5 Ml Syringe) 1 mg IVPUSH Q4H PRN; Protocol PRN Reason: Pain, Severe (Pain Scale 7-10) Last Admin: 10/15/24 07:17 Dose: 1 mg Documented By: AGATHA Thiamine HCl 100 mg/ Sodium (Chloride) 101 mls @ 202 mls/hr IV DAILY [facility] Last Infusion: 10/14/24 10:30 Dose: Infused Documented By: EMMANUEL Lactated Ringer's (Lr) 1,000 mls @ 200 mls/hr IVCONT .Q5H [facility] Last Admin: 10/15/24 07:17 Dose: 200 mls/hr Documented By: AGATHA Sodium Bicarbonate 150 meq/ (Dextrose) 1,000 mls @ 150 mls/hr IV .Q6H40M [facility] Last Admin: 10/15/24 04:07 Dose: 150 mls/hr Documented By: EVENS-DESJOAQUINA Magnesium Hydroxide (Milk Of Magnesia 30 Ml Oral.Susp) 30 ml PO DAILY PRN PRN Reason: Constipation Melatonin (Melatonin 3 Mg Tablet) 6 mg PO BEDTIME PRN PRN Reason: Insomnia Sodium Chloride (0.9 % Sodium Chloride Flush 3 Ml Syringe) 3 ml IVFLUSH QSHIFT [facility] Last Admin: 10/15/24 07:18 Dose: Not Given Documented By: AGATHA Non-Admin Reason: IV Running Labs 10/15/24 09:16 10/16/24 06:12 Labs: Laboratory Results - last 24 hr 10/15/24 10/15/24 06:37 09:16 MCV 89.1 MCH 32.1 MCHC 36.0 RDW 12.7 Plt Count 143 L MPV 11.0 Absolute Nucleated RBC 0.000 Nucleated RBC % (auto) 0.0 Total Creatine Kinase > 80756 H Microbiology Microbiology Results: Microbiology 10/13/24 12:13 Blood Culture - Preliminary Blood - Venous No growth after 24 hours. 10/13/24 11:57 Blood Culture - Preliminary Blood - Venous No growth after 24 hours. Assessment and Plan (1) WILL (acute kidney injury): Status: Acute (2) High anion gap metabolic acidosis: Status: Acute (3) Rhabdomyolysis: Status: Acute Plan 39/m with substance use here with WILL, rhabdom and metabolic acidosis WILL d/t pigment nephropathy from rhabdomylosis, Cr 8.8 -->9.67-->7 continue IVF with Bic Dialysis per Nephrology Follow BMP daily Avoid Nephrotoxins Rhabdomylosis, CPK was > 42K, recheck IVF with Bicab as above Alcohol abuse. No sings of withdrawal CIWA per protocol Thiamine 100 mg IV now then daily. Folic acid and multivitamins. Addiction med consult PCP abuse. Monitor for withdrawal symptoms. Valium 5 mg IV every 6 hour as needed anxiety/agitation DVT prophylaxis: Heparin Code status: Full Quality Stroke Does the patient have a stroke diagnosis?: No VTE Prior VTE?: No VTE Risk Level:: Medical - moderate - high VTE Device Contraindication: Treatment Not Indicated VTE Drug Contraindication: N/A - Med Ordered
--- NOTE | 2024-10-15 10:36 | P.PNNPD_ITS ---
Subjective Subjective Date of Service: 10/15/24 This patient was seen during dialysis. Interval history: Here with rhabdomyolysis. Following for acute renal failure requiring dialysis. received dialysis yesterday, currently in second HD treatment this a.m. CK remains >42K this a.m., BMP pending. Patient reports he feels some improvement from yesterday, though he states ongoing back pain is worsening across lower back. Also reports swollen scrotum. No chest pain, shortness of breath or other new symptoms. Physical Exam Vital Signs: Vital Signs: Last Vital Signs Temp 97.5 F 10/15/24 07:07 Pulse 76 10/15/24 07:07 Resp 18 10/15/24 07:07 BP 151/85 H 10/15/24 07:07 Pulse Ox 96 10/15/24 07:07 O2 Del Method Room Air 10/15/24 07:07 BMI result Body Mass Index 21.2 Const: General: no acute distress, alert and awake Resp: Effort & Inspection: normal respiratory effort and able to speak in complete sentences Auscultation: clear to auscultation bilaterally Cardio: Rate: regular rate Rhythm: regular rhythm Heart sounds: S1 normal heart sound present and S2 normal heart sound present GI: Palpation (GI): Soft to palpation and nontender : General: Yes no CVA tenderness Back/Spine/Pelvis: Back: no CVA tenderness Skin: Rashes: no rashes Neuro: Other: no asterixis, no tremor Extrem: General: Yes edema (trace LE edema. scrotal edema. ) Assessment & Plan Assessment and plan (1) Acute renal failure: Status: Acute (2) Rhabdomyolysis: Status: Acute Plan Acute renal failure secondary to rhabdomyolysis of unclear etiology, ?drug abuse. CK remains >42K Right permcath in place and functioning well without erythema or drainage H&H 12.4 &34.4 - no indication for procrit at this time K is 2.9, pt is on 3K bath, replace with oral 40meq KCl x2 today. no metabolic acidosis creatinine has improved from 9.67 to 7.49; CK remains elevated at >42K, will dialyze again tomorrow calcium remains low though improved to 6.6 today from 5.8 yesterday; will do 3.0 Ca bath tomorrow patient will receive dialysis again tomorrow, 10/16, Friday off, then will re- evaluate need for repeat dialysis Friday recommend avoiding nephrotoxins recommend daily renal function and electrolyte studies recommend close I&O monitoring Discussed with Dr De La Fuente Time Spent With Patient Time: Total time managing care of this patient today ____ minutes. Procedures Date of Service Date of Service: 10/15/24
[2024-10-15 10:44] LABS: Anion Gap 15 (12-20); Blood Urea Nitrogen 37 mg/dL (9-16); Carbon Dioxide 30 mmol/L (22-29); Chloride 92 mmol/L (96-108); Sodium 134 mmol/L (135-145)
--- NOTE | 2024-10-15 10:46 | P.CDIM_ITS ---
PROVIDER RESPONSE TEXT: To clarify, the appropriate diagnosis supported by the clinical indicators: Acute renal failure QUERY TEXT: PHYSICIAN'S DOCUMENTATION REQUEST Date of Query: 10/15/2024 09:43 AM EDT Patient Name: Bert English Admit Date: 10/13/2024 Dear Zackary Dominguez MD, A review of the medical record indicates additional documentation may be needed. Please review below and update the documentation accordingly. Clinical Indicators: sodium urine 64.0 creatinine 9.67 Acute renal failure, oliguria Please clarify which of the following accurately represents the patient's renal status: Acute renal failure Acute renal failure with suspected ATN Acute renal failure with other pathology (medullary, papillary, or cortical necrosis) Acute renal failure (with type, appropriate) on Chronic Kidney Disease (CKD) Acute kidney injury (non-traumatic) CKD, please provide stage ESRD - CKD V now requiring permanent dialysis and/or transplant Other (explain) Clinically unable to determine (explain) Thank you, Lorelei Dubon RN Use of terms such as suspected, likely, concern for, or probable (associated with a specific diagnosis that is being evaluated, monitored, or treated as if it exists) are acceptable and can be coded in the inpatient setting, when documented at the time of discharge. Please use your independent medical judgment in providing your response. THIS QUERY IS PART OF THE PERMANENT MEDICAL RECORD
[2024-10-15 10:49] LABS: Creatinine Clr Calc Pharmacy 12.0; Estimated Glomerular Filt Rate 8; Potassium 2.9 mmol/L (3.3-5.1)
[2024-10-15 10:58] LABS: Calcium 6.6 mg/dL (8.4-10.2)
[2024-10-15] MEDS: Thiamine HCL 100 MG in 0.9 % Sodium Chloride 100 ML 202 MG IV (11:10)
[2024-10-15 11:17] VITALS: BP 131/92; PULSE 84; RESP 18; TEMP 36.7; O2SAT 94
[2024-10-15] MEDS: Potassium Chloride ER 20 MEQ TAB.ER.PRT 40 MEQ PO ×2 (13:51→21:30)
--- NOTE | 2024-10-15 14:22 | PC.NURSE ---
Contacted dr Dominguez re: pt swollen scrotum. Bladder scan 49mL, Stokes cath in place, pt not in pain but uncomfortable.
[2024-10-15 15:25] VITALS: BP 134/90; PULSE 84; RESP 18; TEMP 37.1; O2SAT 96
[2024-10-15 15:32] LABS: Calcium, Ionized 3.5 mg/dL (4.7-5.5)
[2024-10-15] MEDS: 0.9 % Sodium Chloride Flush 3 ML SYRINGE IVFLUSH (16:36)
--- NOTE | 2024-10-15 16:52 | MHC.CM.PN ---
EMR reviewed and per MD rounds, pt is not medically cleared for discharge due to management of WILL/rhabdomylosis.
[2024-10-15 19:45] VITALS: BP 147/86; PULSE 85; RESP 17; TEMP 37; O2SAT 96
[2024-10-16] VITALS (7 sets, daily range): BP systolic 131–166; BP diastolic 80–105; PULSE 73–90; RESP 16–18; TEMP 36.6–37.1; O2SAT 92–98
[2024-10-16] MEDS: 0.9 % Sodium Chloride Flush 3 ML SYRINGE IVFLUSH ×2 (00:45→16:54)
[2024-10-16] MEDS: Sodium Bicarbonate 8.4% 150 MEQ in Dextrose 5 % 850 ML IV (03:36)
[2024-10-16 07:56] LABS: Anion Gap 12 (12-20); Blood Urea Nitrogen 28 mg/dL (9-16); Calcium 7.2 mg/dL (8.4-10.2); Carbon Dioxide 33 mmol/L (22-29); Chloride 94 mmol/L (96-108); Creatinine Clr Calc Pharmacy 13.3; Estimated Glomerular Filt Rate 9; Potassium 3.4 mmol/L (3.3-5.1); Sodium 136 mmol/L (135-145)
[2024-10-16] MEDS: Thiamine HCL 100 MG in 0.9 % Sodium Chloride 100 ML 101 MG IV (08:40)
--- NOTE | 2024-10-16 11:30 | HO.PM.IMPN ---
Subjective Subjective Date of Service: 10/16/24 Interval History: CPK is down to 21K Creatine down to 6 He is very edematous everwhere but saysis he feels better in general Urine output is good Physical Exam Vital Signs: Vital Signs: Last Vital Signs Temp 98.4 F 10/16/24 06:59 Pulse 74 10/16/24 11:17 Resp 18 10/16/24 11:17 BP 166/105 H 10/16/24 11:17 Pulse Ox 95 10/16/24 06:59 O2 Del Method Room Air 10/16/24 06:59 BMI result Body Mass Index 21.2 Const: Other: General: AO X 3, no acute distress Resp: CTA bilateral CVS: S1,S2,RRR, generalized edema in hand legs, scrotum GI: +BS, NT, no distention Skin: no rash : scrotal edema Neuro: motor grossly intact Psych: appropriate affect Objective Data Active Medications Acetaminophen (Acetaminophen 325 Mg Tablet) 975 mg PO Q6H PRN PRN Reason: Pain, Mild 1-3,fever,headache Diazepam (Diazepam 10 Mg/2 Ml Cartridge) 5 mg IVPUSH Q6H PRN PRN Reason: Anxiety Last Admin: 10/13/24 22:51 Dose: 5 mg Documented By: LANA Folic Acid (Folic Acid 1 Mg Tablet) 1 mg PO DAILY [facility] Last Admin: 10/16/24 08:41 Dose: 1 mg Documented By: ABDULAZIZ Heparin Sodium (Porcine) (Heparin Sodium,Porcine 5,000 Unit/Ml Vial) 5,000 unit SUBCUT Q12H [facility] Last Admin: 10/16/24 08:40 Dose: 5,000 unit Documented By: ABDULAZIZ Heparin Sodium (Porcine) (Heparin Sodium,Porcine 5,000 Unit/Ml Vial) 5,000 unit INTRACATH ONCE ONE Stop: 10/16/24 12:01 Last Admin: 10/15/24 21:30 Dose: 5,000 unit Documented By: YOSHI Hydromorphone HCl (Hydromorphone Hcl 0.5 Mg/0.5 Ml Syringe) 1 mg IVPUSH Q4H PRN; Protocol PRN Reason: Pain, Severe (Pain Scale 7-10) Last Admin: 10/16/24 08:38 Dose: 1 mg Documented By: ABDULAZIZ Thiamine HCl 100 mg/ Sodium (Chloride) 101 mls @ 202 mls/hr IV DAILY [facility] Last Infusion: 10/16/24 09:10 Dose: 0 mls/hr Documented By: ABDULAZIZ Magnesium Hydroxide (Milk Of Magnesia 30 Ml Oral.Susp) 30 ml PO DAILY PRN PRN Reason: Constipation Melatonin (Melatonin 3 Mg Tablet) 6 mg PO BEDTIME PRN PRN Reason: Insomnia Sodium Chloride (0.9 % Sodium Chloride Flush 3 Ml Syringe) 3 ml IVFLUSH QSHIFT [facility] Last Admin: 10/16/24 09:03 Dose: Not Given Documented By: ABDULAZIZ Non-Admin Reason: IV Running Labs 10/15/24 09:16 10/16/24 06:12 Labs: Laboratory Results - last 24 hr 10/14/24 10/16/24 04:36 06:12 Hold Purple Top SEE NOTE Anion Gap 12 Estim Creat Clear Calc 13.3 Estimated GFR 9 Random Glucose 97 Calcium 7.2 L D Ionized Calcium 3.5 L Total Creatine Kinase 00547 H Microbiology Microbiology Results: Microbiology 10/13/24 12:13 Blood Culture - Preliminary Blood - Venous No growth after 48 hours. 10/13/24 11:57 Blood Culture - Preliminary Blood - Venous No growth after 48 hours. 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 No sings of withdrawal CIWA per protocol Thiamine 100 mg IV now then daily. Folic acid and multivitamins. Addiction med consult PCP abuse. Monitor for withdrawal symptoms. Valium 5 mg IV every 6 hour as needed anxiety/agitation DVT prophylaxis: Heparin Code status: Full Quality Stroke Does the patient have a stroke diagnosis?: No VTE Prior VTE?: No VTE Risk Level:: Medical - moderate - high VTE Device Contraindication: Treatment Not Indicated VTE Drug Contraindication: N/A - Med Ordered
[2024-10-17] MEDS: 0.9 % Sodium Chloride Flush 3 ML SYRINGE IVFLUSH ×4 (00:01→20:51)
[2024-10-17 03:46] VITALS: BP 163/97; PULSE 80; RESP 16; TEMP 36.8; O2SAT 95
[2024-10-17 07:09] VITALS: BP 162/98; PULSE 78; RESP 16; TEMP 36.7; O2SAT 95
[2024-10-17 07:58] LABS: Anion Gap 14 (12-20); Blood Urea Nitrogen 28 mg/dL (9-16); Calcium 7.9 mg/dL (8.4-10.2); Carbon Dioxide 29 mmol/L (22-29); Chloride 97 mmol/L (96-108); Creatinine Clr Calc Pharmacy 14.3; Estimated Glomerular Filt Rate 10; Potassium 3.8 mmol/L (3.3-5.1); Sodium 136 mmol/L (135-145)
[2024-10-17] MEDS: Thiamine HCL 100 MG in 0.9 % Sodium Chloride 100 ML 200 MG IV (07:59)
[2024-10-17] MEDS: Milk of Magnesia 30 ML ORAL.SUSP PO (08:09)
[2024-10-17 08:19] LABS: MANUAL DIFF FLAG NO
[2024-10-17 08:26] LABS: Hematocrit 36.4 % (42.0-52.0); Hemoglobin 12.6 g/dl (14.0-18.0); Imm Gran Abs Auto 0.10 X10*3/uL (0.00-0.03); Imm Gran Pct Auto 1.1 % (0.0-0.4); Lymphocytes Absolute Auto 1.1 X10*3/uL (1.2-4.9); Mean Corpuscular HGB Conc 34.6 g/dl (31.0-36.0); Mean Corpuscular Hemoglobin 32.0 pg (27.0-33.0); Mean Corpuscular Volume 92.4 fL (80.0-98.0); NRBC Abs Auto 0.000 X10*3/uL (0.0-0.012); NRBC Pct Auto 0.0 /100WBC (0.0-0.2); Platelet Count 153 X10*3/uL (160-400); Red Blood Count 3.94 X10*6/uL (4.60-5.80); White Blood Count 9.3 X10*3/uL (4.8-10.8)
--- NOTE | 2024-10-17 10:34 | HO.PM.IMPN ---
Subjective Subjective Date of Service: 10/17/24 Interval History: CPK is down to 9K from 21K yesterday Creatine slightly lower at 6.31 He is very edematous everywhere, including marked scrotal edema Urine output is improving Physical Exam Vital Signs: Vital Signs: Last Vital Signs Temp 98.0 F 10/17/24 07:09 Pulse 78 10/17/24 07:09 Resp 16 10/17/24 07:09 BP 162/98 H 10/17/24 07:09 Pulse Ox 95 10/17/24 07:09 O2 Del Method Room Air 10/17/24 07:09 BMI result Body Mass Index 21.2 Const: Other: General: AO X 3, no acute distress Resp: CTA bilateral CVS: S1,S2,RRR, generalized edema in hand legs, scrotum GI: +BS, NT, no distention Skin: no rash : scrotal edema Neuro: motor grossly intact Psych: appropriate affect Objective Data Active Medications Acetaminophen (Acetaminophen 325 Mg Tablet) 975 mg PO Q6H PRN PRN Reason: Pain, Mild 1-3,fever,headache Diazepam (Diazepam 10 Mg/2 Ml Cartridge) 5 mg IVPUSH Q6H PRN PRN Reason: Anxiety Last Admin: 10/13/24 22:51 Dose: 5 mg Documented By: LANA Folic Acid (Folic Acid 1 Mg Tablet) 1 mg PO DAILY [facility] Last Admin: 10/17/24 08:07 Dose: 1 mg Documented By: ABDULAZIZ Heparin Sodium (Porcine) (Heparin Sodium,Porcine 5,000 Unit/Ml Vial) 5,000 unit SUBCUT Q12H [facility] Last Admin: 10/17/24 09:35 Dose: 5,000 unit Documented By: ABDULAZIZ Hydromorphone HCl (Hydromorphone Hcl 0.5 Mg/0.5 Ml Syringe) 1 mg IVPUSH Q4H PRN; Protocol PRN Reason: Pain, Severe (Pain Scale 7-10) Last Admin: 10/17/24 08:08 Dose: 1 mg Documented By: ABDULAZIZ Thiamine HCl 100 mg/ Sodium (Chloride) 101 mls @ 202 mls/hr IV DAILY [facility] Last Infusion: 10/17/24 08:30 Dose: Infused Documented By: ABDULAZIZ Magnesium Hydroxide (Milk Of Magnesia 30 Ml Oral.Susp) 30 ml PO DAILY PRN PRN Reason: Constipation Last Admin: 10/17/24 08:09 Dose: 30 ml Documented By: ABDULAZIZ Magnesium Hydroxide (Milk Of Magnesia 30 Ml Oral.Susp) 30 ml PO DAILY PRN PRN Reason: Constipation Melatonin (Melatonin 3 Mg Tablet) 6 mg PO BEDTIME PRN PRN Reason: Insomnia Polyethylene Glycol (Polyethylene Glycol 3350 17 Gm Powd.Pack) 17 gm PO DAILY PRN PRN Reason: Constipation Sodium Chloride (0.9 % Sodium Chloride Flush 3 Ml Syringe) [facility] Last Admin: 10/17/24 09:40 Dose: 3 ml Documented By: ABDULAZIZ Labs 10/17/24 06:32 10/17/24 06:32 Labs: Laboratory Results - last 24 hr 10/17/24 06:32 MCV 92.4 MCH 32.0 MCHC 34.6 RDW 13.1 Plt Count 153 L MPV 11.3 Immature Gran % (Auto) 1.1 H Neut % (Auto) 73.7 H Lymph % (Auto) 12.2 L [place] % (Auto) 7.1 Eos % (Auto) 5.5 H Baso % (Auto) 0.4 Lymph # (Auto) 1.1 L [place] # (Auto) 0.7 Eos # (Auto) 0.5 H Baso # (Auto) 0.0 Abs Immat Gran (auto) 0.10 H Absolute Neuts (auto) 6.8 Absolute Nucleated RBC 0.000 Nucleated RBC % (auto) 0.0 Hold Purple Top SEE NOTE Anion Gap 14 Estim Creat Clear Calc 14.3 Estimated GFR 10 Random Glucose 86 Calcium 7.9 L D Total Creatine Kinase 9367 H Microbiology Microbiology Results: Microbiology 10/13/24 12:13 Blood Culture - Preliminary Blood - Venous No growth after 48 hours. 10/13/24 11:57 Blood Culture - Preliminary Blood - Venous No growth after 48 hours. 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 No sings of withdrawal CIWA per protocol Thiamine 100 and folic acid Addiction med consult PCP abuse. Monitor for withdrawal symptoms. Valium 5 mg IV every 6 hour as needed anxiety/agitation DVT prophylaxis: Heparin Code status: Full Quality Stroke Does the patient have a stroke diagnosis?: No VTE Prior VTE?: No VTE Risk Level:: Medical - moderate - high VTE Device Contraindication: Treatment Not Indicated VTE Drug Contraindication: N/A - Med Ordered
[2024-10-17 11:09] VITALS: BP 136/84; PULSE 86; RESP 18; TEMP 36.6; O2SAT 95
--- NOTE | 2024-10-17 14:46 | MHC.RECOVRN ---
Pt declined to meet with the ACS team.
[2024-10-17 15:17] VITALS: BP 150/100; PULSE 71; RESP 18; TEMP 36.6; O2SAT 95
[2024-10-17] MEDS: diazePAM 10 MG/2 ML CARTRIDGE 5 MG IVPUSH ×2 (15:48→22:22)
[2024-10-17 20:00] VITALS: PULSE 80; RESP 20; TEMP 36.9; O2SAT 97
[2024-10-17 23:58] VITALS: BP 150/99; PULSE 78; RESP 20; TEMP 36.5; O2SAT 96
[2024-10-18 03:49] VITALS: BP 155/99; PULSE 84; RESP 20; TEMP 36.8; O2SAT 96
[2024-10-18 07:04] VITALS: BP 146/91; PULSE 81; RESP 18; TEMP 36.6; O2SAT 95
[2024-10-18 07:42] LABS: Anion Gap 13 (12-20); Blood Urea Nitrogen 33 mg/dL (9-16); Calcium 8.0 mg/dL (8.4-10.2); Carbon Dioxide 27 mmol/L (22-29); Chloride 95 mmol/L (96-108); Creatinine Clr Calc Pharmacy 11.6; Estimated Glomerular Filt Rate 8; Potassium 3.9 mmol/L (3.3-5.1); Sodium 131 mmol/L (135-145)
--- NOTE | 2024-10-18 09:19 | PM.UROCN ---
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 patient refused Patient Tobacco Use Status: Current everyday Tobacco user Tobacco use type: Cigarette Cigarettes Per Day: 10 e-Cigarette/Vaping Use: Never Used Substance Use Type: Amphetamines service: No Meds Allergies Allergy/AdvReac Type Severity Reaction Status Date / Time No Known Allergies Allergy Verified 10/13/24 09:54 Active Medications: Current Medications Acetaminophen (Acetaminophen 325 Mg Tablet) 975 mg PO Q6H PRN PRN Reason: Pain, Mild 1-3,fever,headache Diazepam (Diazepam 10 Mg/2 Ml Cartridge) 5 mg IVPUSH Q6H PRN PRN Reason: Anxiety Last Admin: 10/17/24 22:22 Dose: 5 mg Folic Acid (Folic Acid 1 Mg Tablet) 1 mg PO DAILY [facility] Last Admin: 10/17/24 08:07 Dose: 1 mg Heparin Sodium (Porcine) (Heparin Sodium,Porcine 5,000 Unit/Ml Vial) 5,000 unit SUBCUT Q12H [facility] Last Admin: 10/17/24 20:36 Dose: 5,000 unit Hydromorphone HCl (Hydromorphone Hcl 0.5 Mg/0.5 Ml Syringe) 1 mg IVPUSH Q4H PRN; Protocol PRN Reason: Pain, Severe (Pain Scale 7-10) Last Admin: 10/18/24 04:25 Dose: 1 mg Magnesium Hydroxide (Milk Of Magnesia 30 Ml Oral.Susp) 30 ml PO DAILY PRN PRN Reason: Constipation Last Admin: 10/17/24 08:09 Dose: 30 ml Magnesium Hydroxide (Milk Of Magnesia 30 Ml Oral.Susp) 30 ml PO DAILY PRN PRN Reason: Constipation Melatonin (Melatonin 3 Mg Tablet) 6 mg PO BEDTIME PRN PRN Reason: Insomnia Polyethylene Glycol (Polyethylene Glycol 3350 17 Gm Powd.Pack) 17 gm PO DAILY PRN PRN Reason: Constipation Last Admin: 10/17/24 14:02 Dose: 17 gm Sodium Chloride (0.9 % Sodium Chloride Flush 3 Ml Syringe) 3 ml IVFLUSH QSHIFT [facility] Last Admin: 10/17/24 20:51 Dose: 3 ml Thiamine HCl (Thiamine Hcl 100 Mg Tablet) 100 mg PO DAILY [facility] Stop: 10/20/24 09:01 Physical Exam Vital Signs: Vital Signs: Last Vital Signs Temp 97.8 F 10/18/24 07:04 Pulse 81 10/18/24 07:04 Resp 18 10/18/24 07:04 BP 146/91 H 10/18/24 07:04 Pulse Ox 95 10/18/24 07:04 O2 Del Method Room Air 10/18/24 07:04 BMI result Body Mass Index 21.2 Results Labs 10/17/24 06:32 10/18/24 07:18 Labs: Abnormal lab results 10/18/24 Range/Units 07:18 Sodium 131 L (135-145) mmol/L Chloride 95 L (96-108) mmol/L BUN 33 H (9-16) mg/dL Creatinine 7.75 H* (0.5-1.4) mg/dL Calcium 8.0 L (8.4-10.2) mg/dL Total Creatine Kinase 4621 H (38-174) U/L BMP 10/18/24 07:18 Sodium 131 L Potassium 3.9 Chloride 95 L Carbon Dioxide 27 BUN 33 H Creatinine 7.75 H* Calcium 8.0 L Cardiac Enzymes 10/18/24 Range/Units 07:18 Total Creatine Kinase 4621 H (38-174) U/L Urine 10/13/24 Range/Units 12:47 Urine Color Yellow Urine Appearance Clear Urine pH 5.5 (5.0-9.0) Ur Specific [place] 1.015 (1.005-1.025) Urine Protein 300 (3+) H (Neg-Trace) mg/dL Urine Glucose (UA) 100 H (Negative) mg/dL All other labs normal. Assessment and Plan (1) Scrotal edema: Status: Acute Plan Scrotal US Procedures Date of Service Date of Service: 10/18/24
[2024-10-18] MEDS: 0.9 % Sodium Chloride Flush 3 ML SYRINGE IVFLUSH (09:32)
[2024-10-18 11:29] VITALS: BP 142/82; PULSE 79; RESP 16; TEMP 36.7; O2SAT 96
--- NOTE | 2024-10-18 12:03 | MHC.CM.PN ---
PER MD ROUNDS, PT NOT MEDICALLY CLEAR AND WILL LIKELY BE HERE SEVERAL DAYS DCP: HOME VIA PRIVATE TRANSPORT
--- NOTE | 2024-10-18 12:08 | P.PNNP_ITS ---
Subjective Subjective Date of Service: 10/18/24 Interval history: following for acute renal failure in setting of rhabdomyolisis creatinine remains signfiicantly elevated though urine output has improved, urine output improving- 450ml/last 24 hours. CK with significant improvement, now below 5,000. Pt denies shortness of breath today but reports he feels swelling in arms and legs. Denies other changes/new symptoms. Physical Exam 2 Vital Signs: Vital Signs: Last Vital Signs Temp 98.1 F 10/18/24 11:29 Pulse 79 10/18/24 11:29 Resp 16 10/18/24 11:29 BP 142/82 H 10/18/24 11:29 Pulse Ox 96 10/18/24 11:29 O2 Del Method Room Air 10/18/24 11:29 BMI result Body Mass Index 21.2 Const: General: no acute distress, alert and awake Resp: Effort & Inspection: normal respiratory effort and able to speak in complete sentences Auscultation: clear to auscultation bilaterally Cardio: Rate: regular rate Rhythm: regular rhythm Heart sounds: S1 normal heart sound present and S2 normal heart sound present GI: Palpation (GI): Soft to palpation and nontender : General: Yes no CVA tenderness Back/Spine/Pelvis: Back: no CVA tenderness Skin: Rashes: no rashes Neuro: Other: no asterixis, no tremor Extrem: General: Yes edema (+1 bilateral upper and lower extremity edema. ) Objective Data Labs 10/17/24 06:32 10/18/24 07:18 Labs: Laboratory Results - last 24 hr 10/18/24 07:18 Sodium 131 L Potassium 3.9 Chloride 95 L Carbon Dioxide 27 Anion Gap 13 BUN 33 H Creatinine 7.75 H* Estim Creat Clear Calc 11.6 Estimated GFR 8 Random Glucose 85 Calcium 8.0 L Total Creatine Kinase 4621 H Microbiology Microbiology Results: Microbiology 10/13/24 12:13 Blood - Venous Blood Culture - Preliminary No growth after 48 hours. 10/13/24 11:57 Blood - Venous Blood Culture - Preliminary No growth after 48 hours. Procedures Date of Service Date of Service: 10/18/24 Assessment & Plan Assessment and plan (1) Acute renal failure: Status: Acute (2) Rhabdomyolysis: Status: Acute Plan Acute renal failure secondary to rhabdomyolysis of unclear etiology, ?drug abuse. CK significantly improved, now just below 5,000. Urine output is improving, however, patient appears fluid overloaded today so will get additional session of HD today. Right permcath in place and functioning well without erythema or drainage H&H 12.6 &36 - no indication for procrit at this time K is 3.9 no metabolic acidosis calcium is improving, 8.0 today. no metabolic acidosis at this time recommend avoiding nephrotoxins recommend daily renal function and electrolyte studies recommend close I&O monitoring Discussed with Dr Post Time Spent With Patient Time: Total time managing care of this patient today ____ minutes. Progress Note: Quality Stroke Does the patient have a stroke diagnosis?: No
--- NOTE | 2024-10-18 13:38 | HO.PM.IMPN ---
Subjective Subjective Date of Service: 10/18/24 Interval History: CPK is down to 4K Creatine slightly lower at 6.31 Perssitent swelling everwhere Physical Exam Vital Signs: Vital Signs: Last Vital Signs Temp 98.1 F 10/18/24 11:29 Pulse 79 10/18/24 11:29 Resp 16 10/18/24 11:29 BP 142/82 H 10/18/24 11:29 Pulse Ox 96 10/18/24 11:29 O2 Del Method Room Air 10/18/24 11:29 BMI result Body Mass Index 21.2 Const: Other: General: AO X 3, no acute distress Resp: CTA bilateral CVS: S1,S2,RRR, generalized edema in hand legs, scrotum GI: +BS, NT, no distention Skin: no rash : scrotal edema Neuro: motor grossly intact Psych: appropriate affect Objective Data Active Medications Acetaminophen (Acetaminophen 325 Mg Tablet) 975 mg PO Q6H PRN PRN Reason: Pain, Mild 1-3,fever,headache Diazepam (Diazepam 10 Mg/2 Ml Cartridge) 5 mg IVPUSH Q6H PRN PRN Reason: Anxiety Last Admin: 10/17/24 22:22 Dose: 5 mg Documented By: FREDERIC Folic Acid (Folic Acid 1 Mg Tablet) 1 mg PO DAILY [facility] Last Admin: 10/18/24 09:32 Dose: 1 mg Documented By: JANINE Heparin Sodium (Porcine) (Heparin Sodium,Porcine 5,000 Unit/Ml Vial) 5,000 unit SUBCUT Q12H [facility] Last Admin: 10/18/24 09:33 Dose: 5,000 unit Documented By: JANINE Hydromorphone HCl (Hydromorphone Hcl 0.5 Mg/0.5 Ml Syringe) 1 mg IVPUSH Q4H PRN; Protocol PRN Reason: Pain, Severe (Pain Scale 7-10) Last Admin: 10/18/24 13:05 Dose: 1 mg Documented By: CHICA Magnesium Hydroxide (Milk Of Magnesia 30 Ml Oral.Susp) 30 ml PO DAILY PRN PRN Reason: Constipation Last Admin: 10/17/24 08:09 Dose: 30 ml Documented By: ABDULAZIZ Magnesium Hydroxide (Milk Of Magnesia 30 Ml Oral.Susp) 30 ml PO DAILY PRN PRN Reason: Constipation Melatonin (Melatonin 3 Mg Tablet) 6 mg PO BEDTIME PRN PRN Reason: Insomnia Polyethylene Glycol (Polyethylene Glycol 3350 17 Gm Powd.Pack) 17 gm PO DAILY PRN PRN Reason: Constipation Last Admin: 10/17/24 14:02 Dose: 17 gm Documented By: ABDULAZIZ Sodium Chloride (0.9 % Sodium Chloride Flush 3 Ml Syringe) 3 ml IVFLUSH QSHIFT [facility] Last Admin: 10/18/24 09:32 Dose: 3 ml Documented By: JANINE Thiamine HCl (Thiamine Hcl 100 Mg Tablet) 100 mg PO DAILY [facility] Stop: 10/20/24 09:01 Last Admin: 10/18/24 09:32 Dose: 100 mg Documented By: JANINE Labs 10/17/24 06:32 10/18/24 07:18 Labs: Laboratory Results - last 24 hr 10/18/24 07:18 Anion Gap 13 Estim Creat Clear Calc 11.6 Estimated GFR 8 Random Glucose 85 Calcium 8.0 L Total Creatine Kinase 4621 H Microbiology Microbiology Results: Microbiology 10/13/24 12:13 Blood Culture - Preliminary Blood - Venous No growth after 48 hours. 10/13/24 11:57 Blood Culture - Preliminary Blood - Venous No growth after 48 hours. 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 No sings of withdrawal CIWA per protocol Thiamine 100 and folic acid Addiction med consult Scrotal edema related to renal failure and IVF [place] in, conservative management uro consult elevated scrotum PCP abuse. Monitor for withdrawal symptoms. Valium 5 mg IV every 6 hour as needed anxiety/agitation DVT prophylaxis: Heparin Code status: Full Quality Stroke Does the patient have a stroke diagnosis?: No VTE Prior VTE?: No VTE Risk Level:: Medical - moderate - high VTE Device Contraindication: Treatment Not Indicated VTE Drug Contraindication: N/A - Med Ordered
--- NOTE | 2024-10-18 15:35 | P.CDIM_ITS ---
PROVIDER RESPONSE TEXT: To clarify, the appropriate diagnosis supported by the clinical indicators: Acute QUERY TEXT: PHYSICIAN'S DOCUMENTATION REQUEST Date of Query: 10/18/2024 01:45 PM EDT Patient Name: Bert English Admit Date: 10/13/2024 Dear Zackary Dominguez MD, A review of the medical record indicates additional documentation may be needed. Please review below and update the documentation accordingly. Clinical Indicators: metabolic acidosis per progress note treated for WILL and Rhabdo Clarify which of the following accurately represents the acuity of the (insert diagnosis). Possible options might include: Acute Acute on chronic Compensated Chronic stable condition Remission Other (explain) Clinically unable to determine (explain) Thank you, Lorelei Dubon RN Use of terms such as suspected, likely, concern for, or probable (associated with a specific diagnosis that is being evaluated, monitored, or treated as if it exists) are acceptable and can be coded in the inpatient setting, when documented at the time of discharge. Please use your independent medical judgment in providing your response. THIS QUERY IS PART OF THE PERMANENT MEDICAL RECORD
[2024-10-18 19:34] VITALS: BP 136/81; PULSE 86; RESP 16; TEMP 37.2; O2SAT 95
[2024-10-18] MEDS: diazePAM 10 MG/2 ML CARTRIDGE 5 MG IVPUSH (20:52)
[2024-10-18 23:17] VITALS: BP 139/79; PULSE 82; RESP 18; TEMP 36.9; O2SAT 96
[2024-10-19 03:24] VITALS: BP 146/87; PULSE 87; RESP 16; TEMP 36.7; O2SAT 96
[2024-10-19 07:00] VITALS: BP 133/85; PULSE 77; RESP 16; TEMP 36.7; O2SAT 96
[2024-10-19 07:51] LABS: Anion Gap 10 (12-20); Blood Urea Nitrogen 33 mg/dL (9-16); Calcium 7.9 mg/dL (8.4-10.2); Carbon Dioxide 29 mmol/L (22-29); Chloride 96 mmol/L (96-108); Creatinine Clr Calc Pharmacy 12.8; Estimated Glomerular Filt Rate 9; Potassium 4.2 mmol/L (3.3-5.1); Sodium 131 mmol/L (135-145)
[2024-10-19] MEDS: 0.9 % Sodium Chloride Flush 3 ML SYRINGE IVFLUSH (08:42)
[2024-10-19] MEDS: Milk of Magnesia 30 ML ORAL.SUSP PO (08:43)
[2024-10-19] MEDS: diazePAM 10 MG/2 ML CARTRIDGE 5 MG IVPUSH ×2 (08:56→20:45)
--- NOTE | 2024-10-19 10:17 | HO.PM.IMPN ---
Subjective Subjective Date of Service: 10/19/24 Interval History: CPK is down to 2K Creatine 7, essentially unchanged Perssitent swelling everwhere Physical Exam Vital Signs: Vital Signs: Last Vital Signs Temp 98.1 F 10/19/24 07:00 Pulse 77 10/19/24 07:00 Resp 16 10/19/24 07:00 BP 133/85 10/19/24 07:00 Pulse Ox 96 10/19/24 07:00 O2 Del Method Room Air 10/19/24 07:00 BMI result Body Mass Index 21.2 Const: Other: General: AO X 3, no acute distress, anasarca Resp: CTA bilateral CVS: S1,S2,RRR, generalized edema in hand legs, scrotum GI: +BS, NT, no distention Skin: no rash : scrotal edema Neuro: motor grossly intact Psych: appropriate affect Objective Data Active Medications Acetaminophen (Acetaminophen 325 Mg Tablet) 975 mg PO Q6H PRN PRN Reason: Pain, Mild 1-3,fever,headache Last Admin: 10/19/24 08:57 Dose: 975 mg Documented By: JORGE ALBERTO Diazepam (Diazepam 10 Mg/2 Ml Cartridge) 5 mg IVPUSH Q6H PRN PRN Reason: Anxiety Last Admin: 10/19/24 08:56 Dose: 5 mg Documented By: JORGE ALBERTO Comments: Folic Acid (Folic Acid 1 Mg Tablet) 1 mg PO DAILY [facility] Last Admin: 10/19/24 08:42 Dose: 1 mg Documented By: JORGE ALBERTO Heparin Sodium (Porcine) (Heparin Sodium,Porcine 5,000 Unit/Ml Vial) 5,000 unit SUBCUT Q12H [facility] Last Admin: 10/19/24 08:43 Dose: 5,000 unit Documented By: JORGE ALBERTO Magnesium Hydroxide (Milk Of Magnesia 30 Ml Oral.Susp) 30 ml PO DAILY PRN PRN Reason: Constipation Last Admin: 10/19/24 08:43 Dose: 30 ml Documented By: JORGE ALBERTO Magnesium Hydroxide (Milk Of Magnesia 30 Ml Oral.Susp) 30 ml PO DAILY PRN PRN Reason: Constipation Melatonin (Melatonin 3 Mg Tablet) 6 mg PO BEDTIME PRN PRN Reason: Insomnia Polyethylene Glycol (Polyethylene Glycol 3350 17 Gm Powd.Pack) 17 gm PO DAILY PRN PRN Reason: Constipation Last Admin: 10/17/24 14:02 Dose: 17 gm Documented By: ABDULAZIZ Sodium Chloride (0.9 % Sodium Chloride Flush 3 Ml Syringe) 3 ml IVFLUSH QSHIFT [facility] Last Admin: 10/19/24 08:42 Dose: 3 ml Documented By: JORGE ALBERTO Thiamine HCl (Thiamine Hcl 100 Mg Tablet) 100 mg PO DAILY [facility] Stop: 10/20/24 09:01 Last Admin: 10/19/24 08:43 Dose: 100 mg Documented By: JORGE ALBERTO Labs 10/17/24 06:32 10/19/24 06:46 Labs: Laboratory Results - last 24 hr 10/19/24 06:46 Anion Gap 10 L Estim Creat Clear Calc 12.8 Estimated GFR 9 Random Glucose 135 H Calcium 7.9 L Total Creatine Kinase 2758 H Microbiology Microbiology Results: Microbiology 10/13/24 12:13 Blood Culture - Final Blood - Venous No growth after 5 days. 10/13/24 11:57 Blood Culture - Final Blood - Venous No growth after 5 days. 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 No sings of withdrawal CIWA per protocol can be stopped Thiamine 100 and folic acid Addiction med consult Scrotal edema related to renal failure and IVF [place] in, conservative management uro consult elevated scrotum PCP abuse. Monitor for withdrawal symptoms. Valium 5 mg IV every 6 hour as needed anxiety/agitation DVT prophylaxis: Heparin Code status: Full Quality Stroke Does the patient have a stroke diagnosis?: No VTE Prior VTE?: No VTE Risk Level:: Medical - moderate - high VTE Device Contraindication: Treatment Not Indicated VTE Drug Contraindication: N/A - Med Ordered
[2024-10-19 11:18] VITALS: BP 125/80; PULSE 87; RESP 16; TEMP 36.8
--- NOTE | 2024-10-19 11:44 | P.PNNP_ITS ---
Subjective Subjective Date of Service: 10/19/24 Interval history: following for acute renal failure in setting of rhabdomyolisis creatinine remains significantly elevated though urine output continues to improve- 500ml/last 24 hours. CK with significant improvement, now 2758. Pt continues to have some swelling in extremities. Physical Exam 2 Vital Signs: Vital Signs: Last Vital Signs Temp 98.3 F 10/19/24 11:18 Pulse 87 10/19/24 11:18 Resp 16 10/19/24 11:18 BP 125/80 10/19/24 11:18 Pulse Ox 96 10/19/24 07:00 O2 Del Method Room Air 10/19/24 11:18 BMI result Body Mass Index 21.2 Const: General: no acute distress, alert and awake Resp: Effort & Inspection: normal respiratory effort and able to speak in complete sentences Auscultation: clear to auscultation bilaterally Cardio: Rate: regular rate Rhythm: regular rhythm Heart sounds: S1 normal heart sound present and S2 normal heart sound present GI: Palpation (GI): Soft to palpation and nontender : General: Yes no CVA tenderness Back/Spine/Pelvis: Back: no CVA tenderness Skin: Rashes: no rashes Neuro: Other: no asterixis, no tremor Extrem: General: Yes edema (+1 bilateral upper and lower extremity edema. ) Objective Data Labs 10/17/24 06:32 10/19/24 06:46 Labs: Laboratory Results - last 24 hr 10/19/24 06:46 Sodium 131 L Potassium 4.2 Chloride 96 Carbon Dioxide 29 Anion Gap 10 L BUN 33 H Creatinine 7.04 H* Estim Creat Clear Calc 12.8 Estimated GFR 9 Random Glucose 135 H Calcium 7.9 L Total Creatine Kinase 2758 H Microbiology Microbiology Results: Microbiology 10/13/24 12:13 Blood - Venous Blood Culture - Final No growth after 5 days. 10/13/24 11:57 Blood - Venous Blood Culture - Final No growth after 5 days. Procedures Date of Service Date of Service: 10/19/24 Assessment & Plan Assessment and plan (1) Acute renal failure: Status: Acute (2) Rhabdomyolysis: Status: Acute Plan Acute renal failure secondary to ATN from rhabdomyolysis of unclear etiology, ?drug abuse. CK significantly improved. Urine output is improving, however, patient appears fluid overloaded today and creatinine has not improved significantly since dialysis- will plan for HD tomorrow. Will check BMP pre and post dialysis to assess clearance Right permcath in place without erythema or drainage H&H 12.6 &36 - no indication for procrit at this time K is 4.2 no metabolic acidosis calcium 7.9 today. no metabolic acidosis at this time recommend avoiding nephrotoxins recommend daily renal function and electrolyte studies recommend close I&O monitoring Discussed with Dr Post Time Spent With Patient Time: Total time managing care of this patient today ____ minutes. Progress Note: Quality Stroke Does the patient have a stroke diagnosis?: No
[2024-10-19 15:23] VITALS: BP 127/89; PULSE 66; RESP 17; TEMP 36.7; O2SAT 97
[2024-10-19 19:14] VITALS: BP 138/93; PULSE 80; RESP 16; TEMP 37.1; O2SAT 97
[2024-10-20 03:10] VITALS: BP 132/86; PULSE 80; RESP 16; TEMP 36.5; O2SAT 94
[2024-10-20 07:15] LABS: Anion Gap 12 (12-20); Blood Urea Nitrogen 41 mg/dL (9-16); Calcium 8.1 mg/dL (8.4-10.2); Carbon Dioxide 27 mmol/L (22-29); Chloride 94 mmol/L (96-108); Creatinine Clr Calc Pharmacy 10.9; Estimated Glomerular Filt Rate 7; Potassium 4.4 mmol/L (3.3-5.1); Sodium 129 mmol/L (135-145)
[2024-10-20 10:16] VITALS: BP 134/81; PULSE 91; RESP 18; TEMP 36.4; O2SAT 97
--- NOTE | 2024-10-20 10:23 | HO.PM.IMPN ---
Subjective Subjective Date of Service: 10/20/24 Interval History: CPK is down to 2K Creatine is up to 8 from 7 prior day Perssitent swelling everwhere Physical Exam Vital Signs: Vital Signs: Last Vital Signs Temp 97.5 F 10/20/24 10:16 Pulse 91 10/20/24 10:16 Resp 18 10/20/24 10:16 BP 134/81 10/20/24 10:16 Pulse Ox 97 10/20/24 10:16 O2 Del Method Room Air 10/20/24 10:16 BMI result Body Mass Index 21.2 Const: Other: General: AO X 3, no acute distress, anasarca Resp: CTA bilateral CVS: S1,S2,RRR, generalized edema in hand legs, scrotum GI: +BS, NT, no distention Skin: no rash : scrotal edema Neuro: motor grossly intact Psych: appropriate affect Objective Data Active Medications Acetaminophen (Acetaminophen 325 Mg Tablet) 975 mg PO Q6H PRN PRN Reason: Pain, Mild 1-3,fever,headache Last Admin: 10/19/24 20:49 Dose: 975 mg Documented By: FRANCISCO Diazepam (Diazepam 10 Mg/2 Ml Cartridge) 5 mg IVPUSH Q6H PRN PRN Reason: Anxiety Last Admin: 10/19/24 20:45 Dose: 5 mg Documented By: FRANCISCO Folic Acid (Folic Acid 1 Mg Tablet) 1 mg PO DAILY [facility] Last Admin: 10/19/24 08:42 Dose: 1 mg Documented By: JORGE ALBERTO Heparin Sodium (Porcine) (Heparin Sodium,Porcine 5,000 Unit/Ml Vial) 5,000 unit SUBCUT Q12H [facility] Last Admin: 10/20/24 00:03 Dose: 5,000 unit Documented By: FRANCISCO Magnesium Hydroxide (Milk Of Magnesia 30 Ml Oral.Susp) 30 ml PO DAILY PRN PRN Reason: Constipation Last Admin: 10/19/24 08:43 Dose: 30 ml Documented By: JORGE ALBERTO Magnesium Hydroxide (Milk Of Magnesia 30 Ml Oral.Susp) 30 ml PO DAILY PRN PRN Reason: Constipation Melatonin (Melatonin 3 Mg Tablet) 6 mg PO BEDTIME PRN PRN Reason: Insomnia Last Admin: 10/19/24 20:48 Dose: 6 mg Documented By: FRANCISCO Polyethylene Glycol (Polyethylene Glycol 3350 17 Gm Powd.Pack) 17 gm PO DAILY PRN PRN Reason: Constipation Last Admin: 10/17/24 14:02 Dose: 17 gm Documented By: ABDULAZIZ Sodium Chloride (0.9 % Sodium Chloride Flush 3 Ml Syringe) 3 ml IVFLUSH QSHIFT [facility] Last Admin: 10/20/24 01:13 Dose: Not Given Documented By: FRANCISCO Non-Admin Reason: flushed RIJ with 10cc Labs 10/17/24 06:32 10/20/24 06:31 Labs: Laboratory Results - last 24 hr 10/20/24 06:31 Hold Purple Top SEE NOTE Anion Gap 12 Estim Creat Clear Calc 10.9 Estimated GFR 7 Random Glucose 83 Calcium 8.1 L Total Creatine Kinase 1810 H Microbiology Microbiology Results: Microbiology 10/13/24 12:13 Blood Culture - Final Blood - Venous No growth after 5 days. 10/13/24 11:57 Blood Culture - Final Blood - Venous No growth after 5 days. 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 No sings of withdrawal CIWA per protocol can be stopped Thiamine 100 and folic acid Addiction med consult Scrotal edema related to renal failure and IVF [place] in, conservative management uro consult elevated scrotum PCP abuse. Monitor for withdrawal symptoms. Valium 5 mg IV every 6 hour as needed anxiety/agitation DVT prophylaxis: Heparin Code status: Full Quality Stroke Does the patient have a stroke diagnosis?: No VTE Prior VTE?: No VTE Risk Level:: Medical - moderate - high VTE Device Contraindication: Treatment Not Indicated VTE Drug Contraindication: N/A - Med Ordered
[2024-10-20 10:30] LABS: Anion Gap 13 (12-20); Blood Urea Nitrogen 20 mg/dL (9-16); Calcium 8.0 mg/dL (8.4-10.2); Carbon Dioxide 28 mmol/L (22-29); Chloride 98 mmol/L (96-108); Creatinine Clr Calc Pharmacy 19.3; Estimated Glomerular Filt Rate 14; Potassium 3.6 mmol/L (3.3-5.1); Sodium 135 mmol/L (135-145)
[2024-10-20] MEDS: 0.9 % Sodium Chloride Flush 3 ML SYRINGE IVFLUSH ×2 (10:48→15:32)
[2024-10-20] MEDS: diazePAM 10 MG/2 ML CARTRIDGE 5 MG IVPUSH ×2 (10:49→23:45)
--- NOTE | 2024-10-20 11:55 | P.PNNP_ITS ---
Subjective Subjective Date of Service: 10/20/24 Interval history: following for acute renal failure in setting of rhabdomyolisis creatinine remains significantly elevated though urine output continues to improve- 500ml/last 24 hours. CK with significant improvement, now 1810. Pt continues to have some swelling in extremities. Dialysis this a.m., pt reports he feels ok but has significant swelling in his extremities. He states he has been drinking a lot of water. per girlfriend at bedside, pt was smoking embalming fluid prior to admission. Physical Exam 2 Vital Signs: Vital Signs: Last Vital Signs Temp 97.5 F 10/20/24 10:16 Pulse 91 10/20/24 10:16 Resp 18 10/20/24 10:16 BP 134/81 10/20/24 10:16 Pulse Ox 97 10/20/24 10:16 O2 Del Method Room Air 10/20/24 10:16 BMI result Body Mass Index 21.2 Const: General: no acute distress, alert and awake Resp: Effort & Inspection: normal respiratory effort and able to speak in complete sentences Auscultation: clear to auscultation bilaterally Cardio: Rate: regular rate Rhythm: regular rhythm Heart sounds: S1 normal heart sound present and S2 normal heart sound present GI: Palpation (GI): Soft to palpation and nontender : General: Yes no CVA tenderness Back/Spine/Pelvis: Back: no CVA tenderness Skin: Rashes: no rashes Neuro: Other: no asterixis, no tremor Extrem: General: Yes edema (+2 bilateral upper and lower extremity edema. ) Objective Data Labs 10/17/24 06:32 10/20/24 10:00 Labs: Laboratory Results - last 24 hr 10/20/24 10/20/24 06:31 10:00 Hold Purple Top SEE NOTE Sodium 129 L 135 Potassium 4.4 3.6 Chloride 94 L 98 Carbon Dioxide 27 28 Anion Gap 12 13 BUN 41 H 20 H Creatinine 8.27 H* 4.67 H* Estim Creat Clear Calc 10.9 19.3 Estimated GFR 7 14 Random Glucose 83 85 Calcium 8.1 L 8.0 L Total Creatine Kinase 1810 H Microbiology Microbiology Results: Microbiology 10/13/24 12:13 Blood - Venous Blood Culture - Final No growth after 5 days. 10/13/24 11:57 Blood - Venous Blood Culture - Final No growth after 5 days. Procedures Date of Service Date of Service: 10/20/24 Assessment & Plan Assessment and plan (1) Acute renal failure: Status: Acute (2) Rhabdomyolysis: Status: Acute Plan Acute renal failure secondary to ATN from rhabdomyolysis of unclear etiology, ?drug abuse- utox +PCP. CK significantly improved. Pt continues to make urine. However, patient appears fluid overloaded today and creatinine remains elevated- will plan for HD again on Friday, break over the weekend and will assess for permcath on Friday- will place order now for tentative permcath placement Friday. URR today is low at 43% Right temporary catheter in place without erythema or drainage H&H 12.6 &36 - no indication for procrit at this time K is 3.6 no metabolic acidosis calcium 8.0 today. no metabolic acidosis at this time Recommend low sodium diet and fluid restriction of 1.5L/24 hours- discussed with patient. recommend avoiding nephrotoxins recommend daily renal function and electrolyte studies recommend close I&O monitoring Discussed with Dr Post Time Spent With Patient Time: Total time managing care of this patient today ____ minutes. Progress Note: Quality Stroke Does the patient have a stroke diagnosis?: No
--- NOTE | 2024-10-20 15:03 | MHC.CM.PN ---
EMR REVIEWED, PER NEPHRO PLAN FOR HD AGAIN ON FRIDAY W/BREAK OVER W/E AND WILL REASSESS FOR PERMACATH ON FRIDAY, CM WILL CONT TO FOLLOW DC NEEDS.
[2024-10-20 15:28] VITALS: BP 119/71; PULSE 92; RESP 18; TEMP 36.4; O2SAT 95
[2024-10-20 19:26] VITALS: BP 128/82; PULSE 81; RESP 20; TEMP 36.7; O2SAT 96
[2024-10-20 23:59] VITALS: BP 131/86; PULSE 82; RESP 18; TEMP 36.6; O2SAT 97
[2024-10-21 03:36] VITALS: BP 136/85; PULSE 86; RESP 18; TEMP 36.5; O2SAT 97
[2024-10-21 07:15] LABS: Hematocrit 32.2 % (42.0-52.0); Hemoglobin 11.3 g/dl (14.0-18.0); Mean Corpuscular HGB Conc 35.1 g/dl (31.0-36.0); Mean Corpuscular Hemoglobin 32.1 pg (27.0-33.0); Mean Corpuscular Volume 91.5 fL (80.0-98.0); NRBC Abs Auto 0.000 X10*3/uL (0.0-0.012); NRBC Pct Auto 0.0 /100WBC (0.0-0.2); Platelet Count 154 X10*3/uL (160-400); Red Blood Count 3.52 X10*6/uL (4.60-5.80); White Blood Count 9.3 X10*3/uL (4.8-10.8)
[2024-10-21 07:24] VITALS: BP 124/77; PULSE 82; RESP 17; TEMP 36.4; O2SAT 97
[2024-10-21 07:31] LABS: Anion Gap 13 (12-20); Blood Urea Nitrogen 38 mg/dL (9-16); Calcium 8.0 mg/dL (8.4-10.2); Carbon Dioxide 27 mmol/L (22-29); Chloride 101 mmol/L (96-108); Creatinine Clr Calc Pharmacy 10.8; Estimated Glomerular Filt Rate 7; Potassium 4.7 mmol/L (3.3-5.1); Sodium 136 mmol/L (135-145)
--- NOTE | 2024-10-21 10:14 | P.PNIM_ITS ---
Subjective Subjective Date of Service: 10/21/24 Interval History: CPK is down to 1333 Creatine remains 8 Perssitent swelling everwhere Physical Exam 2 Vital Signs: Vital Signs: Last Vital Signs Temp 97.5 F 10/21/24 07:24 Pulse 82 10/21/24 07:24 Resp 17 10/21/24 07:24 BP 124/77 10/21/24 07:24 Pulse Ox 97 10/21/24 07:24 O2 Del Method Room Air 10/21/24 07:24 BMI result Body Mass Index 21.2 Const: Other: General: AO X 3, no acute distress, anasarca Resp: CTA bilateral CVS: S1,S2,RRR, generalized edema in hand legs, scrotum GI: +BS, NT, no distention Skin: no rash : scrotal edema Neuro: motor grossly intact Psych: appropriate affect Objective Data Active Medications Acetaminophen (Acetaminophen 325 Mg Tablet) 975 mg PO Q6H PRN PRN Reason: Pain, Mild 1-3,fever,headache Last Admin: 10/20/24 23:56 Dose: 975 mg Documented By: ROYA Diazepam (Diazepam 10 Mg/2 Ml Cartridge) 5 mg IVPUSH Q6H PRN PRN Reason: Anxiety Last Admin: 10/20/24 23:45 Dose: 5 mg Documented By: ROYA Folic Acid (Folic Acid 1 Mg Tablet) 1 mg PO DAILY [facility] Last Admin: 10/20/24 10:43 Dose: 1 mg Documented By: JORGE ALBERTO Heparin Sodium (Porcine) (Heparin Sodium,Porcine 5,000 Unit/Ml Vial) 5,000 unit SUBCUT Q12H [facility] Last Admin: 10/20/24 20:36 Dose: 5,000 unit Documented By: ROYA Heparin Sodium (Porcine) (Heparin Sodium,Porcine 5,000 Unit/Ml Vial) 5,000 unit INTRACATH ONCE ONE Stop: 10/22/24 10:01 Magnesium Hydroxide (Milk Of Magnesia 30 Ml Oral.Susp) 30 ml PO DAILY PRN PRN Reason: Constipation Last Admin: 10/19/24 08:43 Dose: 30 ml Documented By: JORGE ALBERTO Melatonin (Melatonin 3 Mg Tablet) 6 mg PO BEDTIME PRN PRN Reason: Insomnia Last Admin: 10/19/24 20:48 Dose: 6 mg Documented By: FRANCISCO Polyethylene Glycol (Polyethylene Glycol 3350 17 Gm Powd.Pack) 17 gm PO DAILY PRN PRN Reason: Constipation Last Admin: 10/17/24 14:02 Dose: 17 gm Documented By: ABDULAZIZ Sodium Chloride (0.9 % Sodium Chloride Flush 3 Ml Syringe) 3 ml IVFLUSH QSHIFT [facility] Last Admin: 10/21/24 00:00 Dose: Not Given Documented By: ROYA Non-Admin Reason: Flushed with 10mL NS Labs 10/21/24 06:52 10/21/24 06:52 Labs: Laboratory Results - last 24 hr 10/20/24 10/21/24 10:00 06:52 MCV 91.5 MCH 32.1 MCHC 35.1 RDW 13.7 Plt Count 154 L MPV 10.0 Absolute Nucleated RBC 0.000 Nucleated RBC % (auto) 0.0 Anion Gap 13 13 Estim Creat Clear Calc 19.3 10.8 Estimated GFR 14 7 Random Glucose 85 89 Calcium 8.0 L 8.0 L Phosphorus 4.4 Total Creatine Kinase 1333 H Microbiology Microbiology Results: Microbiology 10/13/24 12:13 Blood Culture - Final Blood - Venous No growth after 5 days. 10/13/24 11:57 Blood Culture - Final Blood - Venous No growth after 5 days. 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 No sings of withdrawal CIWA per protocol can be stopped Thiamine 100 and folic acid Addiction med consult Scrotal edema related to renal failure and IVF [place] in, conservative management uro consult elevated scrotum PCP abuse. Monitor for withdrawal symptoms. Valium 5 mg IV every 6 hour as needed anxiety/agitation DVT prophylaxis: Heparin Code status: Full Quality Stroke Does the patient have a stroke diagnosis?: No VTE Prior VTE?: No VTE Risk Level:: Medical - moderate - high VTE Device Contraindication: Treatment Not Indicated VTE Drug Contraindication: N/A - Med Ordered
--- NOTE | 2024-10-21 10:45 | P.PNNP_ITS ---
Subjective Subjective Date of Service: 10/21/24 Interval history: Following for WILL from rhabdo. Creatinine remains elevated, rising in between HD sessions. Patient reports he feels ok at bedside. His extremities remain swollen, though some improvement (now on fluid restriction). He is making urine, 1350 over previous 24 hours. Physical Exam 2 Vital Signs: Vital Signs: Last Vital Signs Temp 98.7 F 10/21/24 11:39 Pulse 75 10/21/24 11:39 Resp 18 10/21/24 11:39 BP 138/83 10/21/24 11:39 Pulse Ox 97 10/21/24 11:39 O2 Del Method Room Air 10/21/24 11:39 BMI result Body Mass Index 21.2 Const: General: no acute distress, alert and awake Resp: Effort & Inspection: normal respiratory effort and able to speak in complete sentences Auscultation: clear to auscultation bilaterally Cardio: Rate: regular rate Rhythm: regular rhythm Heart sounds: S1 normal heart sound present and S2 normal heart sound present GI: Palpation (GI): Soft to palpation and nontender : General: Yes no CVA tenderness Back/Spine/Pelvis: Back: no CVA tenderness Skin: Rashes: no rashes Neuro: Other: no asterixis, no tremor Extrem: General: Yes edema (+1 bilateral upper and lower extremity edema. ) Objective Data Labs 10/21/24 06:52 10/21/24 06:52 Labs: Laboratory Results - last 24 hr 10/21/24 06:52 WBC 9.3 RBC 3.52 L Hgb 11.3 L Hct 32.2 L MCV 91.5 MCH 32.1 MCHC 35.1 RDW 13.7 Plt Count 154 L MPV 10.0 Absolute Nucleated RBC 0.000 Nucleated RBC % (auto) 0.0 Sodium 136 Potassium 4.7 D Chloride 101 Carbon Dioxide 27 Anion Gap 13 BUN 38 H Creatinine 8.33 H* Estim Creat Clear Calc 10.8 Estimated GFR 7 Random Glucose 89 Calcium 8.0 L Phosphorus 4.4 Total Creatine Kinase 1333 H Microbiology Microbiology Results: Microbiology 10/13/24 12:13 Blood - Venous Blood Culture - Final No growth after 5 days. 10/13/24 11:57 Blood - Venous Blood Culture - Final No growth after 5 days. Procedures Date of Service Date of Service: 10/21/24 Assessment & Plan Assessment and plan (1) Acute renal failure: Status: Acute (2) Rhabdomyolysis: Status: Acute Plan Acute renal failure secondary to ATN from rhabdomyolysis of unclear etiology, ?drug abuse- utox +PCP. CK significantly improved. Pt continues to make urine. However, patient remains fluid overloaded and creatinine is still increasing significantly between HD treatments- will plan for HD again on Friday and order is in for permcath placement. Will start process of arranging for outpatient dialysis. Right temporary catheter in place without erythema or drainage H&H 11.3 &32.2 - no indication for procrit at this time K is 4.7 no metabolic acidosis calcium 8.0, phosphorous 4.4 no metabolic acidosis at this time Recommend low sodium diet and fluid restriction of 1.5L/24 hours- discussed with patient. recommend avoiding nephrotoxins recommend daily renal function and electrolyte studies recommend close I&O monitoring Discussed with Dr Post Time Spent With Patient Time: Total time managing care of this patient today ____ minutes. Progress Note: Quality Stroke Does the patient have a stroke diagnosis?: No
[2024-10-21 11:39] VITALS: BP 138/83; PULSE 75; RESP 18; TEMP 37.1; O2SAT 97
[2024-10-21] MEDS: 0.9 % Sodium Chloride Flush 3 ML SYRINGE IVFLUSH ×3 (11:51→23:55)
[2024-10-21 14:58] VITALS: BP 135/85; PULSE 88; RESP 18; TEMP 36.4; O2SAT 98
[2024-10-21 19:48] VITALS: BP 129/86; PULSE 97; RESP 18; TEMP 36.7; O2SAT 98
[2024-10-21 23:52] VITALS: BP 139/85; PULSE 87; RESP 16; TEMP 36.9; O2SAT 96
[2024-10-21] MEDS: diazePAM 10 MG/2 ML CARTRIDGE 5 MG IVPUSH (23:52)
[2024-10-22 04:00] VITALS: BP 148/64; PULSE 88; RESP 16; TEMP 36.8
[2024-10-22 07:15] VITALS: BP 130/79; PULSE 83; RESP 16; TEMP 36.8; O2SAT 95
[2024-10-22 08:26] LABS: Anion Gap 13 (12-20); Blood Urea Nitrogen 50 mg/dL (9-16); Calcium 8.2 mg/dL (8.4-10.2); Carbon Dioxide 27 mmol/L (22-29); Chloride 103 mmol/L (96-108); Creatinine Clr Calc Pharmacy 9.5; Estimated Glomerular Filt Rate 6; Potassium 5.1 mmol/L (3.3-5.1); Sodium 138 mmol/L (135-145)
[2024-10-22] MEDS: 0.9 % Sodium Chloride Flush 3 ML SYRINGE IVFLUSH ×3 (08:33→20:34)
--- NOTE | 2024-10-22 11:15 | P.PNIM_ITS ---
Subjective Subjective Date of Service: 10/22/24 Interval History: CPK has been signficantly down, yet Creatine is getting worse despite regular dialysis Persistent anasarca Physical Exam 2 Vital Signs: Vital Signs: Last Vital Signs Temp 98.2 F 10/22/24 07:15 Pulse 83 10/22/24 07:15 Resp 16 10/22/24 07:15 BP 130/79 10/22/24 07:15 Pulse Ox 95 10/22/24 07:15 O2 Del Method Room Air 10/22/24 07:15 O2 Flow Rate 98 10/22/24 04:00 BMI result Body Mass Index 21.2 Const: Other: General: AO X 3, no acute distress, anasarca Resp: CTA bilateral CVS: S1,S2,RRR, generalized edema in hand legs, scrotum GI: +BS, NT, no distention Skin: no rash : scrotal edema Neuro: motor grossly intact Psych: appropriate affect Objective Data Active Medications Acetaminophen (Acetaminophen 325 Mg Tablet) 975 mg PO Q6H PRN PRN Reason: Pain, Mild 1-3,fever,headache Last Admin: 10/21/24 23:51 Dose: 975 mg Documented By: PAMELA Diazepam (Diazepam 10 Mg/2 Ml Cartridge) 5 mg IVPUSH Q6H PRN PRN Reason: Anxiety Last Admin: 10/21/24 23:52 Dose: 5 mg Documented By: PAMELA Folic Acid (Folic Acid 1 Mg Tablet) 1 mg PO DAILY [facility] Last Admin: 10/22/24 08:24 Dose: 1 mg Documented By: SADAF Heparin Sodium (Porcine) (Heparin Sodium,Porcine 5,000 Unit/Ml Vial) 5,000 unit SUBCUT Q12H [facility] Last Admin: 10/22/24 08:25 Dose: 5,000 unit Documented By: SADAF Magnesium Hydroxide (Milk Of Magnesia 30 Ml Oral.Susp) 30 ml PO DAILY PRN PRN Reason: Constipation Last Admin: 10/19/24 08:43 Dose: 30 ml Documented By: JORGE ALBERTO Melatonin (Melatonin 3 Mg Tablet) 6 mg PO BEDTIME PRN PRN Reason: Insomnia Last Admin: 10/19/24 20:48 Dose: 6 mg Documented By: FRANCISCO Polyethylene Glycol (Polyethylene Glycol 3350 17 Gm Powd.Pack) 17 gm PO DAILY PRN PRN Reason: Constipation Last Admin: 10/17/24 14:02 Dose: 17 gm Documented By: ABDULAZIZ Sodium Chloride (0.9 % Sodium Chloride Flush 3 Ml Syringe) 3 ml IVFLUSH QSHIFT [facility] Last Admin: 10/22/24 08:33 Dose: 3 ml Documented By: TUYETCIAV Labs 10/21/24 06:52 10/22/24 07:15 Labs: Laboratory Results - last 24 hr 10/22/24 07:15 Hold Purple Top SEE NOTE Anion Gap 13 Estim Creat Clear Calc 9.5 Estimated GFR 6 Random Glucose 83 Calcium 8.2 L Microbiology Microbiology Results: Microbiology 10/13/24 12:13 Blood Culture - Final Blood - Venous No growth after 5 days. 10/13/24 11:57 Blood Culture - Final Blood - Venous No growth after 5 days. 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 No sings of withdrawal No need for CIWAS anymore Thiamine 100 and folic acid Addiction med consult Scrotal edema related to renal failure and IVF [place] in, conservative management uro consult elevated scrotum PCP abuse. Monitor for withdrawal symptoms. Valium 5 mg IV every 6 hour as needed anxiety/agitation DVT prophylaxis: Heparin Code status: Full Quality Stroke Does the patient have a stroke diagnosis?: No VTE Prior VTE?: No VTE Risk Level:: Medical - moderate - high VTE Device Contraindication: Treatment Not Indicated VTE Drug Contraindication: N/A - Med Ordered
--- NOTE | 2024-10-22 12:00 | P.PNNPD_ITS ---
Subjective Subjective Date of Service: 10/22/24 This patient was seen during dialysis. Interval history: CPK continues to trend down. Creatinine continues to rise significantly in between dialysis sessions. Patient is making good amount of urine- almost 2 liters over previous 24 hours. Patient is currently receiving treatment of dialysis. Denies new concerns/complaints. Physical Exam Vital Signs: Vital Signs: Last Vital Signs Temp 98.2 F 10/22/24 07:15 Pulse 83 10/22/24 07:15 Resp 16 10/22/24 07:15 BP 130/79 10/22/24 07:15 Pulse Ox 95 10/22/24 07:15 O2 Del Method Room Air 10/22/24 07:15 O2 Flow Rate 98 10/22/24 04:00 BMI result Body Mass Index 21.2 Const: General: no acute distress, alert and awake Resp: Effort & Inspection: normal respiratory effort and able to speak in complete sentences Auscultation: clear to auscultation bilaterally Cardio: Rate: regular rate Rhythm: regular rhythm Heart sounds: S1 normal heart sound present and S2 normal heart sound present GI: Palpation (GI): Soft to palpation and nontender : General: Yes no CVA tenderness Back/Spine/Pelvis: Back: no CVA tenderness Skin: Rashes: no rashes Neuro: Other: no asterixis, no tremor Extrem: General: Yes edema (+1 bilateral upper and lower extremity edema. ) Assessment & Plan Assessment and plan (1) Acute renal failure: Status: Acute (2) Rhabdomyolysis: Status: Acute Plan Acute renal failure secondary to ATN from rhabdomyolysis of unclear etiology, ?drug abuse- utox +PCP. Per significant other, pt smokes embalming fluid. CK significantly improved. Pt continues to make urine. However, patient remains fluid overloaded and creatinine is still increasing significantly between HD treatments- will need continued dialysis and outpatient placement. Plan for permcath placement on Friday. Plan to start outpatient treatment for HD at [facility] in [place]- referral placed. Pateint reports he does not have a car or other means of transportation to dialysis. Will place care management consultation, may coordinate with [facility] on [facility] in [place] (phone # [phone]). Right temporary catheter in place without erythema or drainage H&H 11.3 &32.2 - no indication for procrit at this time K is 5.1 no metabolic acidosis calcium 8.2, phosphorous 4.4 no metabolic acidosis at this time Recommend low sodium diet and fluid restriction of 1.5L/24 hours- discussed with patient. recommend avoiding nephrotoxins recommend daily renal function and electrolyte studies recommend close I&O monitoring Discussed with Dr Post Time Spent With Patient Time: Total time managing care of this patient today ____ minutes. Procedures Date of Service Date of Service: 10/22/24
[2024-10-22 13:25] VITALS: BP 134/86; PULSE 93; RESP 18; TEMP 36.8; O2SAT 98
--- NOTE | 2024-10-22 14:32 | MHC.CM.PN ---
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
[2024-10-22 15:38] VITALS: BP 127/76; PULSE 83; RESP 18; TEMP 36.7; O2SAT 98
[2024-10-22 19:32] VITALS: BP 130/82; PULSE 87; RESP 20; TEMP 37.4; O2SAT 97
[2024-10-22] MEDS: diazePAM 10 MG/2 ML CARTRIDGE 5 MG IVPUSH (23:24)
[2024-10-23] VITALS (7 sets, daily range): BP systolic 121–146; BP diastolic 67–82; PULSE 82–91; RESP 16–20; TEMP 36.3–37.2; O2SAT 96–98
[2024-10-23 08:30] LABS: Anion Gap 14 (12-20); Blood Urea Nitrogen 39 mg/dL (9-16); Calcium 8.2 mg/dL (8.4-10.2); Carbon Dioxide 27 mmol/L (22-29); Chloride 106 mmol/L (96-108); Creatinine Clr Calc Pharmacy 11.6; Estimated Glomerular Filt Rate 8; Potassium 4.7 mmol/L (3.3-5.1); Sodium 142 mmol/L (135-145)
[2024-10-23] MEDS: 0.9 % Sodium Chloride Flush 3 ML SYRINGE IVFLUSH ×3 (08:33→23:46)
--- NOTE | 2024-10-23 11:10 | P.PNIM_ITS ---
Subjective Subjective Date of Service: 10/23/24 Interval History: He feels better, swelling is going down in legs, arms and crotum Physical Exam 2 Vital Signs: Vital Signs: Last Vital Signs Temp 97.3 F 10/23/24 07:13 Pulse 89 10/23/24 07:13 Resp 18 10/23/24 07:13 BP 141/67 H 10/23/24 07:13 Pulse Ox 98 10/23/24 07:13 O2 Del Method Room Air 10/23/24 07:13 O2 Flow Rate 98 10/22/24 04:00 BMI result Body Mass Index 21.2 Const: Other: General: AO X 3, no acute distress, anasarca Resp: CTA bilateral CVS: S1,S2,RRR, generalized edema in hand legs, scrotum--overall better GI: +BS, NT, no distention Skin: no rash : scrotal edema Neuro: motor grossly intact Psych: appropriate affect Objective Data Active Medications Acetaminophen (Acetaminophen 325 Mg Tablet) 975 mg PO Q6H PRN PRN Reason: Pain, Mild 1-3,fever,headache Last Admin: 10/22/24 20:24 Dose: 975 mg Documented By: PAMELA Diazepam (Diazepam 10 Mg/2 Ml Cartridge) 5 mg IVPUSH Q6H PRN PRN Reason: Anxiety Last Admin: 10/22/24 23:24 Dose: 5 mg Documented By: PAMELA Folic Acid (Folic Acid 1 Mg Tablet) 1 mg PO DAILY [facility] Last Admin: 10/23/24 08:33 Dose: 1 mg Documented By: MARTINA Heparin Sodium (Porcine) (Heparin Sodium,Porcine 5,000 Unit/Ml Vial) 5,000 unit SUBCUT Q12H [facility] Last Admin: 10/23/24 08:34 Dose: 5,000 unit Documented By: AMRTINA Magnesium Hydroxide (Milk Of Magnesia 30 Ml Oral.Susp) 30 ml PO DAILY PRN PRN Reason: Constipation Last Admin: 10/19/24 08:43 Dose: 30 ml Documented By: JORGE ALBERTO Melatonin (Melatonin 3 Mg Tablet) 6 mg PO BEDTIME PRN PRN Reason: Insomnia Last Admin: 10/22/24 23:28 Dose: 6 mg Documented By: PAMELA Polyethylene Glycol (Polyethylene Glycol 3350 17 Gm Powd.Pack) 17 gm PO DAILY PRN PRN Reason: Constipation Last Admin: 10/17/24 14:02 Dose: 17 gm Documented By: ABDULAZIZ Sodium Chloride (0.9 % Sodium Chloride Flush 3 Ml Syringe) 3 ml IVFLUSH QSHIFT [facility] Last Admin: 10/23/24 08:33 Dose: 3 ml Documented By: MARTINA Labs 10/21/24 06:52 10/23/24 08:00 Labs: Laboratory Results - last 24 hr 10/23/24 08:00 Hold Purple Top SEE NOTE Anion Gap 14 Estim Creat Clear Calc 11.6 Estimated GFR 8 Random Glucose 88 Calcium 8.2 L Assessment and Plan (1) WILL (acute kidney injury): Status: Acute Plan 39/m with substance use here with WILL, rhabdom and metabolic acidosis 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 No sings of withdrawal No need for CIWAS anymore Thiamine 100 and folic acid Addiction med consult Scrotal edema related to renal failure and IVF Stokes in, conservative management uro consult elevated scrotum PCP abuse. Monitor for withdrawal symptoms. Valium 5 mg IV every 6 hour as needed anxiety/agitation DVT prophylaxis: Heparin Code status: Full Quality Stroke Does the patient have a stroke diagnosis?: No VTE Prior VTE?: No VTE Risk Level:: Medical - moderate - high VTE Device Contraindication: Treatment Not Indicated VTE Drug Contraindication: N/A - Med Ordered
[2024-10-23] MEDS: diazePAM 10 MG/2 ML CARTRIDGE 5 MG IVPUSH (23:44)
[2024-10-24 03:52] VITALS: BP 141/88; PULSE 81; RESP 20; TEMP 37; O2SAT 95
[2024-10-24 08:00] VITALS: BP 140/86; PULSE 84; RESP 16; TEMP 37.2; O2SAT 96
[2024-10-24] MEDS: 0.9 % Sodium Chloride Flush 3 ML SYRINGE IVFLUSH ×2 (08:15→19:34)
--- NOTE | 2024-10-24 09:25 | HO.PM.IMPN ---
Subjective Subjective Date of Service: 10/24/24 Interval History: Swelling continues to go down, mirza removed yesterday and voiding on his own labs pending this morning Physical Exam Vital Signs: Vital Signs: Last Vital Signs Temp 99 F 10/24/24 08:00 Pulse 84 10/24/24 08:00 Resp 16 10/24/24 08:00 BP 140/86 H 10/24/24 08:00 Pulse Ox 96 10/24/24 08:00 O2 Del Method Room Air 10/24/24 08:00 O2 Flow Rate 98 10/22/24 04:00 BMI result Body Mass Index 21.2 Const: Other: General: AO X 3, no acute distress, anasarca Resp: CTA bilateral CVS: S1,S2,RRR, generalized edema in hand legs, scrotum--overall better GI: +BS, NT, no distention Skin: no rash : scrotal edema Neuro: motor grossly intact Psych: appropriate affect Objective Data Active Medications Acetaminophen (Acetaminophen 325 Mg Tablet) 975 mg PO Q6H PRN PRN Reason: Pain, Mild 1-3,fever,headache Last Admin: 10/23/24 18:28 Dose: 975 mg Documented By: MARTINA Diazepam (Diazepam 10 Mg/2 Ml Cartridge) 5 mg IVPUSH Q6H PRN PRN Reason: Anxiety Last Admin: 10/23/24 23:44 Dose: 5 mg Documented By: MICHAEL Folic Acid (Folic Acid 1 Mg Tablet) 1 mg PO DAILY [facility] Last Admin: 10/24/24 08:14 Dose: 1 mg Documented By: JORGE ALBERTO Heparin Sodium (Porcine) (Heparin Sodium,Porcine 5,000 Unit/Ml Vial) 5,000 unit SUBCUT Q12H [facility] Last Admin: 10/24/24 08:14 Dose: 5,000 unit Documented By: JORGE ALBERTO Magnesium Hydroxide (Milk Of Magnesia 30 Ml Oral.Susp) 30 ml PO DAILY PRN PRN Reason: Constipation Last Admin: 10/19/24 08:43 Dose: 30 ml Documented By: JORGE ALBERTO Melatonin (Melatonin 3 Mg Tablet) 6 mg PO BEDTIME PRN PRN Reason: Insomnia Last Admin: 10/23/24 23:43 Dose: 6 mg Documented By: MICHAEL Polyethylene Glycol (Polyethylene Glycol 3350 17 Gm Powd.Pack) 17 gm PO DAILY PRN PRN Reason: Constipation Last Admin: 10/17/24 14:02 Dose: 17 gm Documented By: ABDULAZIZ Sodium Chloride (0.9 % Sodium Chloride Flush 3 Ml Syringe) 3 ml IVFLUSH QSHIFT [facility] Last Admin: 10/24/24 08:15 Dose: 3 ml Documented By: JORGE ALBERTO Labs 10/21/24 06:52 10/23/24 08:00 Labs: Laboratory Results - last 24 hr 10/24/24 08:27 Hold Purple Top SEE NOTE Assessment and Plan (1) WILL (acute kidney injury): Status: Acute Plan 39/m with substance use here with WILL, rhabdom and metabolic acidosis 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 No sings of withdrawal No need for CIWAS anymore Thiamine 100 and folic acid Addiction med consult Scrotal edema related to renal failure and IVF Mirza in, conservative management uro consult elevated scrotum PCP abuse. Monitor for withdrawal symptoms. Valium 5 mg IV every 6 hour as needed anxiety/agitation DVT prophylaxis: Heparin Code status: Full Quality Stroke Does the patient have a stroke diagnosis?: No VTE Prior VTE?: No VTE Risk Level:: Medical - moderate - high VTE Device Contraindication: Treatment Not Indicated VTE Drug Contraindication: N/A - Med Ordered
[2024-10-24 09:30] LABS: Anion Gap 15 (12-20); Blood Urea Nitrogen 45 mg/dL (9-16); Calcium 8.4 mg/dL (8.4-10.2); Carbon Dioxide 25 mmol/L (22-29); Chloride 109 mmol/L (96-108); Creatinine Clr Calc Pharmacy 11.2; Estimated Glomerular Filt Rate 7; Potassium 4.9 mmol/L (3.3-5.1); Sodium 144 mmol/L (135-145)
[2024-10-24 17:00] VITALS: BP 134/85; PULSE 90; RESP 20; TEMP 37.2; O2SAT 96
[2024-10-24 19:37] VITALS: BP 144/85; PULSE 83; RESP 18; TEMP 36.8; O2SAT 98
[2024-10-24] MEDS: diazePAM 10 MG/2 ML CARTRIDGE 5 MG IVPUSH (22:58)
[2024-10-25] VITALS (8 sets, daily range): BP systolic 127–160; BP diastolic 75–95; PULSE 60–89; RESP 14–19; TEMP 36.2–36.9; O2SAT 96–98
[2024-10-25 07:31] LABS: Anion Gap 13 (12-20); Blood Urea Nitrogen 44 mg/dL (9-16); Calcium 8.6 mg/dL (8.4-10.2); Carbon Dioxide 27 mmol/L (22-29); Chloride 110 mmol/L (96-108); Creatinine Clr Calc Pharmacy 11.8; Estimated Glomerular Filt Rate 8; Potassium 5.4 mmol/L (3.3-5.1); Sodium 145 mmol/L (135-145)
--- NOTE | 2024-10-25 08:24 | HO.PM.IMPN ---
Subjective Subjective Date of Service: 10/25/24 Interval History: Swelling continues to go down and he feels better, Creatine is slightly down today Physical Exam Vital Signs: Vital Signs: Last Vital Signs Temp 98.4 F 10/25/24 07:32 Pulse 87 10/25/24 07:32 Resp 15 10/25/24 07:32 BP 134/84 10/25/24 07:32 Pulse Ox 96 10/25/24 07:32 O2 Del Method Room Air 10/25/24 07:32 O2 Flow Rate 98 10/22/24 04:00 BMI result Body Mass Index 21.2 Const: Other: General: AO X 3, no acute distress, anasarca Resp: CTA bilateral CVS: S1,S2,RRR, generalized edema in hand legs, scrotum--better GI: +BS, NT, no distention Skin: no rash : scrotal edema Neuro: motor grossly intact Psych: appropriate affect Objective Data Active Medications Acetaminophen (Acetaminophen 325 Mg Tablet) 975 mg PO Q6H PRN PRN Reason: Pain, Mild 1-3,fever,headache Last Admin: 10/24/24 19:31 Dose: 975 mg Documented By: MIGUEL Diazepam (Diazepam 10 Mg/2 Ml Cartridge) 5 mg IVPUSH Q6H PRN PRN Reason: Anxiety Last Admin: 10/24/24 22:58 Dose: 5 mg Documented By: MIGUEL Folic Acid (Folic Acid 1 Mg Tablet) 1 mg PO DAILY [facility] Last Admin: 10/24/24 08:14 Dose: 1 mg Documented By: JORGE ALBERTO Heparin Sodium (Porcine) (Heparin Sodium,Porcine 5,000 Unit/Ml Vial) 5,000 unit SUBCUT Q12H [facility] Last Admin: 10/24/24 19:31 Dose: 5,000 unit Documented By: MIGUEL Magnesium Hydroxide (Milk Of Magnesia 30 Ml Oral.Susp) 30 ml PO DAILY PRN PRN Reason: Constipation Last Admin: 10/19/24 08:43 Dose: 30 ml Documented By: JORGE ALBERTO Melatonin (Melatonin 3 Mg Tablet) 6 mg PO BEDTIME PRN PRN Reason: Insomnia Last Admin: 10/23/24 23:43 Dose: 6 mg Documented By: MICHAEL Polyethylene Glycol (Polyethylene Glycol 3350 17 Gm Powd.Pack) 17 gm PO DAILY PRN PRN Reason: Constipation Last Admin: 10/17/24 14:02 Dose: 17 gm Documented By: ABDULAZIZ Sodium Chloride (0.9 % Sodium Chloride Flush 3 Ml Syringe) 3 ml IVFLUSH QSHIFT [facility] Last Admin: 10/24/24 19:34 Dose: 3 ml Documented By: MIGUEL Labs 10/21/24 06:52 10/25/24 05:33 Labs: Laboratory Results - last 24 hr 10/24/24 10/25/24 08:27 05:33 Hold Purple Top SEE NOTE SEE NOTE Anion Gap 15 13 Estim Creat Clear Calc 11.2 11.8 Estimated GFR 7 8 Random Glucose 85 78 Calcium 8.4 8.6 Phosphorus 5.4 H Assessment and Plan (1) WILL (acute kidney injury): Status: Acute Plan 39/m with substance use here with WILL, rhabdom and metabolic acidosis 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 No sings of withdrawal No need for CIWAS anymore Thiamine 100 and folic acid Addiction med consult Scrotal edema related to renal failure and IVF Stokes in, conservative management uro consult elevated scrotum PCP abuse. Monitor for withdrawal symptoms. Valium 5 mg IV every 6 hour as needed anxiety/agitation DVT prophylaxis: Heparin Code status: Full Quality Stroke Does the patient have a stroke diagnosis?: No VTE Prior VTE?: No VTE Risk Level:: Medical - moderate - high VTE Device Contraindication: Treatment Not Indicated VTE Drug Contraindication: N/A - Med Ordered
--- NOTE | 2024-10-25 12:51 | PM.PNNEP ---
Subjective Subjective Date of Service: 10/25/24 Interval history: Following for WILL from rhabdo. Creatinine remains elevated. Patient reports he feels ok at bedside. His extremities remain swollen, though some improvement (now on fluid restriction). He is making urine, over 2L daily. Physical Exam Vital Signs: Vital Signs: Last Vital Signs Temp 97.1 F 10/25/24 10:35 Pulse 64 10/25/24 10:35 Resp 15 10/25/24 10:35 BP 160/95 H 10/25/24 10:35 Pulse Ox 98 10/25/24 10:35 O2 Del Method Room Air 10/25/24 10:35 O2 Flow Rate 98 10/22/24 04:00 BMI result Body Mass Index 21.2 Const: General: no acute distress, alert and awake Resp: Effort & Inspection: normal respiratory effort and able to speak in complete sentences Auscultation: clear to auscultation bilaterally Cardio: Rate: regular rate Rhythm: regular rhythm Heart sounds: S1 normal heart sound present and S2 normal heart sound present GI: Palpation (GI): Soft to palpation and nontender : General: Yes no CVA tenderness Back/Spine/Pelvis: Back: no CVA tenderness Skin: Rashes: no rashes Neuro: Other: no asterixis, no tremor Extrem: General: Yes edema (+1 bilateral upper and lower extremity edema- improving.) Objective Data Labs 10/21/24 06:52 10/25/24 05:33 Labs: Laboratory Results - last 24 hr 10/25/24 05:33 Hold Purple Top SEE NOTE Sodium 145 Potassium 5.4 H Chloride 110 H Carbon Dioxide 27 Anion Gap 13 BUN 44 H Creatinine 7.61 H* Estim Creat Clear Calc 11.8 Estimated GFR 8 Random Glucose 78 Calcium 8.6 Phosphorus 5.4 H Microbiology Microbiology Results: Microbiology 10/13/24 12:13 Blood - Venous Blood Culture - Final No growth after 5 days. 10/13/24 11:57 Blood - Venous Blood Culture - Final No growth after 5 days. Procedures Date of Service Date of Service: 10/25/24 Assessment & Plan Assessment and plan (1) Acute renal failure: Status: Acute (2) Rhabdomyolysis: Status: Acute Plan Acute renal failure secondary to ATN from rhabdomyolysis of unclear etiology, ?drug abuse- utox +PCP. Per significant other, pt smokes embalming fluid. CK has normalized. Pt continues to make urine. However, patient remains fluid overloaded and creatinine trending up between treatments- will need continued dialysis and outpatient placement. Permcath placed today. Patient was referred to multiple [facility] locations but unfortunately they do not have chairs available. Have placed referral to [facility], waiting to hear back about availability. Patient reports he does not have a car or other means of transportation to dialysis. Consultation to care management placed as will need to coordinate transportation and other needs with dialysis facility- pt states he does not have a car. Right temporary catheter in place without erythema or drainage H&H 11.3 &32.2 - no indication for procrit at this time K is 5.4 no metabolic acidosis calcium 8.6, phosphorous 5.4 no metabolic acidosis at this time Recommend low sodium, low phosphorus, low potassium diet and fluid restriction of 1.5L/24 hours- discussed with patient. recommend avoiding nephrotoxins recommend daily renal function and electrolyte studies recommend close I&O monitoring Discussed with Dr Tam. Time Spent With Patient Time: Total time managing care of this patient today ____ minutes. Progress Note: Quality Stroke Does the patient have a stroke diagnosis?: No
--- NOTE | 2024-10-25 15:28 | MHC.CM.PN ---
per rounds pt will be ready in 1 to 2 days
[2024-10-26 03:25] VITALS: BP 137/81; PULSE 97; RESP 18; TEMP 36.4; O2SAT 96
[2024-10-26 06:45] LABS: Anion Gap 12 (12-20); Blood Urea Nitrogen 31 mg/dL (9-16); Calcium 8.5 mg/dL (8.4-10.2); Carbon Dioxide 28 mmol/L (22-29); Chloride 106 mmol/L (96-108); Creatinine Clr Calc Pharmacy 18.6; Estimated Glomerular Filt Rate 13; Potassium 4.8 mmol/L (3.3-5.1); Sodium 141 mmol/L (135-145)
[2024-10-26 07:10] VITALS: BP 115/81; PULSE 92; RESP 14; TEMP 36.7; O2SAT 96
--- NOTE | 2024-10-26 08:23 | P.PNIM_ITS ---
Subjective Subjective Date of Service: 10/26/24 Interval History: Swelling continues to go down and he feels better, Creatine is lowest since admission perm cath placed yesterday Physical Exam 2 Vital Signs: Vital Signs: Last Vital Signs Temp 98.1 F 10/26/24 07:10 Pulse 92 10/26/24 07:10 Resp 14 10/26/24 07:10 BP 115/81 10/26/24 07:10 Pulse Ox 96 10/26/24 07:10 O2 Del Method Room Air 10/26/24 07:10 O2 Flow Rate 98 10/22/24 04:00 BMI result Body Mass Index 21.2 Const: Other: General: AO X 3, no acute distress, anasarca Resp: CTA bilateral CVS: S1,S2,RRR, generalized edema is way better GI: +BS, NT, no distention Skin: no rash : scrotal edema Neuro: motor grossly intact Psych: appropriate affect Objective Data Active Medications Acetaminophen (Acetaminophen 325 Mg Tablet) 975 mg PO Q6H PRN PRN Reason: Pain, Mild 1-3,fever,headache Last Admin: 10/25/24 18:31 Dose: 975 mg Documented By: HUDSON Diazepam (Diazepam 10 Mg/2 Ml Cartridge) 5 mg IVPUSH Q6H PRN PRN Reason: Anxiety Last Admin: 10/24/24 22:58 Dose: 5 mg Documented By: MIGUEL Folic Acid (Folic Acid 1 Mg Tablet) 1 mg PO DAILY [facility] Last Admin: 10/25/24 11:06 Dose: 1 mg Documented By: HUDSON Heparin Sodium (Porcine) (Heparin Sodium,Porcine 5,000 Unit/Ml Vial) 5,000 unit SUBCUT Q12H [facility] Last Admin: 10/25/24 20:51 Dose: 5,000 unit Documented By: ARUNA Heparin Sodium (Porcine) (Heparin Sodium,Porcine 5,000 Unit/Ml Vial) 5,000 unit INTRACATH MOWEFR@1645 [facility] Last Admin: 10/25/24 17:57 Dose: Not Given Documented By: HUDSON Non-Admin Reason: for dialysis only Magnesium Hydroxide (Milk Of Magnesia 30 Ml Oral.Susp) 30 ml PO DAILY PRN PRN Reason: Constipation Last Admin: 10/19/24 08:43 Dose: 30 ml Documented By: JORGE ALBERTO Melatonin (Melatonin 3 Mg Tablet) 6 mg PO BEDTIME PRN PRN Reason: Insomnia Last Admin: 10/23/24 23:43 Dose: 6 mg Documented By: MICHAEL Polyethylene Glycol (Polyethylene Glycol 3350 17 Gm Powd.Pack) 17 gm PO DAILY PRN PRN Reason: Constipation Last Admin: 10/17/24 14:02 Dose: 17 gm Documented By: ABDULAZIZ Sodium Chloride (0.9 % Sodium Chloride Flush 3 Ml Syringe) 3 ml IVFLUSH QSHIFT [facility] Last Admin: 10/26/24 07:10 Dose: Not Given Documented By: TROY Non-Admin Reason: No Access Labs 10/21/24 06:52 10/26/24 05:33 Labs: Laboratory Results - last 24 hr 10/26/24 05:33 Hold Purple Top SEE NOTE Anion Gap 12 Estim Creat Clear Calc 18.6 Estimated GFR 13 Random Glucose 101 Calcium 8.5 Assessment and Plan (1) WILL (acute kidney injury): Status: Acute Plan 39/m with substance use here with WILL, rhabdom and metabolic acidosis 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 No sings of withdrawal No need for CIWAS anymore Thiamine 100 and folic acid Addiction med consult Scrotal edema related to renal failure and IVF Stokes in, conservative management uro consult elevated scrotum PCP abuse. Monitor for withdrawal symptoms. Valium 5 mg IV every 6 hour as needed anxiety/agitation DVT prophylaxis: Heparin Code status: Full Quality Stroke Does the patient have a stroke diagnosis?: No VTE Prior VTE?: No VTE Risk Level:: Medical - moderate - high VTE Device Contraindication: Treatment Not Indicated VTE Drug Contraindication: N/A - Med Ordered
--- NOTE | 2024-10-26 09:43 | PM.PNNEP ---
Subjective Subjective Date of Service: 10/26/24 Interval history: Following for WILL from rhabdo. Creatinine remains elevated but seems to be improving. Patient reports he feels ok at bedside. His extremity swelling is resolving. He is making urine, over 2L daily. Physical Exam Vital Signs: Vital Signs: Last Vital Signs Temp 98.1 F 10/26/24 07:10 Pulse 92 10/26/24 07:10 Resp 14 10/26/24 07:10 BP 115/81 10/26/24 07:10 Pulse Ox 96 10/26/24 07:10 O2 Del Method Room Air 10/26/24 07:10 O2 Flow Rate 98 10/22/24 04:00 BMI result Body Mass Index 21.2 Const: General: no acute distress, alert and awake Resp: Effort & Inspection: normal respiratory effort and able to speak in complete sentences Auscultation: clear to auscultation bilaterally Cardio: Rate: regular rate Rhythm: regular rhythm Heart sounds: S1 normal heart sound present and S2 normal heart sound present GI: Palpation (GI): Soft to palpation and nontender : General: Yes no CVA tenderness Back/Spine/Pelvis: Back: no CVA tenderness Skin: Rashes: no rashes Neuro: Other: no asterixis, no tremor Extrem: General: No edema Objective Data Labs 10/21/24 06:52 10/26/24 05:33 Labs: Laboratory Results - last 24 hr 10/26/24 05:33 Hold Purple Top SEE NOTE Sodium 141 Potassium 4.8 Chloride 106 Carbon Dioxide 28 Anion Gap 12 BUN 31 H Creatinine 4.85 H* Estim Creat Clear Calc 18.6 Estimated GFR 13 Random Glucose 101 Calcium 8.5 Microbiology Microbiology Results: Microbiology 10/13/24 12:13 Blood - Venous Blood Culture - Final No growth after 5 days. 10/13/24 11:57 Blood - Venous Blood Culture - Final No growth after 5 days. Procedures Date of Service Date of Service: 10/26/24 Assessment & Plan Assessment and plan (1) Acute renal failure: Status: Acute (2) Rhabdomyolysis: Status: Acute Plan Acute renal failure secondary to ATN from rhabdomyolysis of unclear etiology, ?drug abuse- utox +PCP. Per significant other, pt smokes embalming fluid. CK has normalized. Pt continues to make urine. Creatinine seems to be improving. Will get labs tomorrow morning, may hold off on HD depending on creatinine level- HD RN aware. Patient was referred to multiple [facility] locations but unfortunately they do not have chairs available. Have placed referral to [facility], waiting to hear back about availability. Patient reports he does not have a car or other means of transportation to dialysis. Consultation to care management placed as will need to coordinate transportation and other needs with dialysis facility- pt states he does not have a car. Permcath in place without erythema or drainage H&H 11.3 &32.2 - no indication for procrit at this time K is 4.8 no metabolic acidosis calcium 8.6, phosphorous 5.4 no metabolic acidosis at this time Recommend low sodium, low phosphorus, low potassium diet and fluid restriction of 1.5L/24 hours- discussed with patient. recommend avoiding nephrotoxins recommend daily renal function and electrolyte studies recommend close I&O monitoring Discussed with Dr Tam. Time Spent With Patient Time: Total time managing care of this patient today ____ minutes. Progress Note: Quality Stroke Does the patient have a stroke diagnosis?: No
[2024-10-26 15:00] VITALS: BP 128/77; PULSE 88; RESP 14; TEMP 36.6; O2SAT 96
--- NOTE | 2024-10-26 17:00 | HO.WOUND ---
Wound Consult: Initial 39yr old?male admitted to [facility] on 10/13/24 - See progress notes and H&P for detailed history.? Wound consult placed for Right Neck and Right Forearm.? Patient agreeable to assessment and photo documentation.? Right Neck old IJ site with dermabond observed in place - no drainage noted mild erythema around the sites small amount of slough noted to the suture sites. Recommend monitoring for resolution and improvement and not worsening. If s/s of infection develop recommend provider assessment. Right Forearm is MARSI (Medical Adhesive Related Skin Injury) small resolving intact blister noted - recommend skin prep prior to adhesive use in the future. Re-consult wound care Nurse for wound deterioration or wound changes.
[2024-10-26 19:17] VITALS: BP 144/82; PULSE 74; RESP 18; TEMP 36.7; O2SAT 98
[2024-10-27 03:36] VITALS: BP 133/79; PULSE 87; RESP 18; TEMP 36.9; O2SAT 96
[2024-10-27 06:43] LABS: Hematocrit 35.8 % (42.0-52.0); Hemoglobin 12.1 g/dl (14.0-18.0); Mean Corpuscular HGB Conc 33.8 g/dl (31.0-36.0); Mean Corpuscular Hemoglobin 32.1 pg (27.0-33.0); Mean Corpuscular Volume 95.0 fL (80.0-98.0); NRBC Abs Auto 0.000 X10*3/uL (0.0-0.012); NRBC Pct Auto 0.0 /100WBC (0.0-0.2); Platelet Count 161 X10*3/uL (160-400); Red Blood Count 3.77 X10*6/uL (4.60-5.80); White Blood Count 8.0 X10*3/uL (4.8-10.8)
[2024-10-27 06:50] VITALS: BP 129/73; PULSE 95; RESP 16; TEMP 36.6; O2SAT 97
[2024-10-27 06:54] LABS: Anion Gap 15 (12-20); Blood Urea Nitrogen 41 mg/dL (9-16); Calcium 8.8 mg/dL (8.4-10.2); Carbon Dioxide 23 mmol/L (22-29); Chloride 108 mmol/L (96-108); Creatinine Clr Calc Pharmacy 18.3; Estimated Glomerular Filt Rate 13; Potassium 5.2 mmol/L (3.3-5.1); Sodium 141 mmol/L (135-145)
[2024-10-27 07:01] LABS: Parathyroid Hormone Intact 349.8 pg/mL (8.7-77.1)
--- NOTE | 2024-10-27 08:45 | PM.PNNEP ---
Subjective Subjective Date of Service: 10/27/24 Interval history: Following for WILL from rhabdo. Creatinine remains elevated, remains relatively stable today from yesterday. K 5.2 from 4.8 yesterday. Patient reports he feels ok at bedside. His extremity swelling has resolved. He is making urine, over 2L daily. Physical Exam Vital Signs: Vital Signs: Last Vital Signs Temp 98 F 10/27/24 06:50 Pulse 95 10/27/24 06:50 Resp 16 10/27/24 06:50 BP 129/73 10/27/24 06:50 Pulse Ox 97 10/27/24 06:50 O2 Del Method Room Air 10/27/24 06:50 O2 Flow Rate 98 10/22/24 04:00 BMI result Body Mass Index 21.2 Const: General: no acute distress, alert and awake Resp: Effort & Inspection: normal respiratory effort and able to speak in complete sentences Auscultation: clear to auscultation bilaterally Cardio: Rate: regular rate Rhythm: regular rhythm Heart sounds: S1 normal heart sound present and S2 normal heart sound present GI: Palpation (GI): Soft to palpation and nontender : General: Yes no CVA tenderness Back/Spine/Pelvis: Back: no CVA tenderness Skin: Rashes: no rashes Neuro: Other: no asterixis, no tremor Extrem: General: No edema Objective Data Labs 10/27/24 05:25 10/27/24 05:25 Labs: Laboratory Results - last 24 hr 10/27/24 05:25 WBC 8.0 RBC 3.77 L Hgb 12.1 L Hct 35.8 L MCV 95.0 MCH 32.1 MCHC 33.8 RDW 14.7 Plt Count 161 MPV 10.0 Absolute Nucleated RBC 0.000 Nucleated RBC % (auto) 0.0 Sodium 141 Potassium 5.2 H Chloride 108 Carbon Dioxide 23 Anion Gap 15 BUN 41 H Creatinine 4.93 H* Estim Creat Clear Calc 18.3 Estimated GFR 13 Random Glucose 92 Calcium 8.8 Phosphorus 5.8 H PTH Intact 349.8 H Microbiology Microbiology Results: Microbiology 10/13/24 12:13 Blood - Venous Blood Culture - Final No growth after 5 days. 10/13/24 11:57 Blood - Venous Blood Culture - Final No growth after 5 days. Procedures Date of Service Date of Service: 10/27/24 Assessment & Plan Assessment and plan (1) Acute renal failure: Status: Acute (2) Rhabdomyolysis: Status: Acute Plan Acute renal failure secondary to ATN from rhabdomyolysis of unclear etiology, ?drug abuse. CK has normalized. utox +PCP. Per significant other, pt smokes embalming fluid. Pt continues to make adequate urine. Creatinine seems to be improving- will hold dialysis for today and assess renal function again tomorrow. extremity swelling has resolved, today remains euvolemic potassium level is ok, no need for lokelma at this time- may give PRN lokelma if potassium is greater than or equal to 6.0. Patient was referred to multiple [facility] locations but unfortunately they do not have chairs available. Have placed referral to [facility], waiting to hear back about availability in the event patient continues to need an outpatient HD spot. Patient reports he does not have a car or other means of transportation to dialysis. Consultation to care management placed as will need to coordinate transportation and other needs with dialysis facility- pt states he does not have a car. Permcath in place without erythema or drainage H&H 12.1 &35.8 - no indication for procrit at this time K is 5.2 no need for lokelma at this time- may give PRN lokelma if potassium is greater than or equal to 6.0. no metabolic acidosis calcium 8.8, phosphorous 5.8 no metabolic acidosis at this time pt appears euvolemic today Recommend low sodium, low phosphorus, low potassium diet and fluid restriction of 1.5L/24 hours- discussed with patient. recommend avoiding nephrotoxins recommend daily renal function and electrolyte studies recommend close I&O monitoring Discussed with Dr Post. Time Spent With Patient Time: Total time managing care of this patient today ____ minutes. Progress Note: Quality Stroke Does the patient have a stroke diagnosis?: No
[2024-10-27 15:03] VITALS: BP 132/79; PULSE 90; RESP 18; TEMP 36.4; O2SAT 97
--- NOTE | 2024-10-27 15:34 | HO.PM.IMPN ---
Subjective Subjective Date of Service: 10/27/24 Interval History: 39 year old male with history of PCP and EtOH abuse, presents to hospital with complaints of acute severe lower back pain, admitted with acute WILL in the setting of non-traumatic rhabdomyolysis suspected to be caused by PCP use, noted to be anemic as well, requiring emergency Haemodialysis. The patient has no new complaitns currently. Eating and drinking well. Stabilizing creatinine currently to around 4.5. Urinary output is present. Nephrology is planning outpatient HD as well, with tentative recovery of CrCl. Review of Systems Review of Systems: Yes all other systems are reviewed and are negative Physical Exam Exam: Exam: General: A&O x3, oriented to time place person and siutaion, comfortable, no pain Cardiac: S1, S2 auscultated with no S3/4, no MRG. Well perfused. Respiratory: Normal breath sounds auscultated throughout all lung zones, without wheezing, rales. Normal rate. GI/ : No abdominal pain on palpation, no masses or distentions. MSK: Normal ambulation without pain at bony prominences or musculature. Permacath noted on the right subclavicle; healing well, no swelling or fluctuance, bleeding. Neurological: Normal neurological examination on overview, without obvious CN II-XII abnormalities. Vital Signs: Vital Signs: Last Vital Signs Temp 97.6 F 10/27/24 15:03 Pulse 90 10/27/24 15:03 Resp 18 10/27/24 15:03 BP 132/79 10/27/24 15:03 Pulse Ox 97 10/27/24 15:03 O2 Del Method Room Air 10/27/24 15:03 O2 Flow Rate 98 10/22/24 04:00 BMI result Body Mass Index 21.2 Objective Data Active Medications Acetaminophen (Acetaminophen 325 Mg Tablet) 975 mg PO Q6H PRN PRN Reason: Pain, Mild 1-3,fever,headache Last Admin: 10/27/24 07:15 Dose: 975 mg Documented By: DABA Diazepam (Diazepam 10 Mg/2 Ml Cartridge) 5 mg IVPUSH Q6H PRN PRN Reason: Anxiety Last Admin: 10/24/24 22:58 Dose: 5 mg Documented By: BUSSIEL Folic Acid (Folic Acid 1 Mg Tablet) 1 mg PO DAILY [facility] Last Admin: 10/27/24 07:15 Dose: 1 mg Documented By: TROY Heparin Sodium (Porcine) (Heparin Sodium,Porcine 5,000 Unit/Ml Vial) 5,000 unit SUBCUT Q12H [facility] Last Admin: 10/27/24 10:25 Dose: 5,000 unit Documented By: TROY Heparin Sodium (Porcine) (Heparin Sodium,Porcine 5,000 Unit/Ml Vial) 5,000 unit INTRACATH MOWEFR@1645 [facility] Last Admin: 10/27/24 15:17 Dose: Not Given Documented By: TROY Non-Admin Reason: not in dialysis Magnesium Hydroxide (Milk Of Magnesia 30 Ml Oral.Susp) 30 ml PO DAILY PRN PRN Reason: Constipation Last Admin: 10/19/24 08:43 Dose: 30 ml Documented By: JORGE ALBERTO Melatonin (Melatonin 3 Mg Tablet) 6 mg PO BEDTIME PRN PRN Reason: Insomnia Last Admin: 10/27/24 00:26 Dose: 6 mg Documented By: ARUNA Polyethylene Glycol (Polyethylene Glycol 3350 17 Gm Powd.Pack) 17 gm PO DAILY PRN PRN Reason: Constipation Last Admin: 10/17/24 14:02 Dose: 17 gm Documented By: ABDULAZIZ Sodium Chloride (0.9 % Sodium Chloride Flush 3 Ml Syringe) 3 ml IVFLUSH QSHIFT [facility] Last Admin: 10/27/24 14:53 Dose: Not Given Documented By: TROY Non-Admin Reason: No Access Labs 10/27/24 05:25 10/27/24 05:25 Labs: Laboratory Results - last 24 hr 10/27/24 05:25 MCV 95.0 MCH 32.1 MCHC 33.8 RDW 14.7 Plt Count 161 MPV 10.0 Absolute Nucleated RBC 0.000 Nucleated RBC % (auto) 0.0 Anion Gap 15 Estim Creat Clear Calc 18.3 Estimated GFR 13 Random Glucose 92 Calcium 8.8 Phosphorus 5.8 H PTH Intact 349.8 H Assessment and Plan (1) Rhabdomyolysis: Status: Acute Assessment and Plan: Resolved currently. Etiology suspected to be due to PCP use; however unknown etiology. Currently cleared systemically. Continue with HD and IV hydration. Encourage PO intake and hydration. (2) WILL (acute kidney injury): Status: Acute Assessment and Plan: ATN due to rhabdomyolysis of unknown etiology. Nephrology following. Required emergent HD Permacath in place without complication. Nephrology reccomending: - Fluid restrict 1.5L - Low potassium diet - Low sodium diet (3) High anion gap metabolic acidosis: Status: Acute Assessment and Plan: Resolved currently. In the setting of WILL and rhabdomyolysis. (4) Renal anasarca: Status: Acute Assessment and Plan: Resolved. In the setting of ATN. HD resolved volume overload in the setting of renal failure. Fluid restriction and low sodium diet encouraged by renal team. (5) Alcohol abuse: Status: Acute Assessment and Plan: Counselled on EtOH cessation. Patient agreeable to stopping (6) PCP (phencyclidine) abuse: Status: Acute Assessment and Plan: Counselled on PCP use cessation. Uses daily. Patient agreeable to stopping Consider referral to outpatient addiction medicine Total time managing care of this patient today: 35 minutes. Quality Stroke Does the patient have a stroke diagnosis?: No VTE Prior VTE?: No VTE Risk Level:: Medical - moderate - high VTE Device Contraindication: Treatment Not Indicated VTE Drug Contraindication: N/A - Med Ordered
[2024-10-27 18:58] VITALS: BP 128/79; PULSE 82; RESP 18; TEMP 36.7; O2SAT 97
[2024-10-27 21:44] LABS: Proteinase 3 PR3 Antibodies <1.0 AI
[2024-10-27 23:05] LABS: Appearance Urine Clear; Glucose Urine UA Negative (Negative); PH 7.0 (5.0-9.0); Specific Gravity - Urine 1.010 (1.005-1.025); UMIC TRIGGER UA YES
[2024-10-28 03:33] VITALS: BP 123/74; PULSE 87; RESP 18; TEMP 36.4; O2SAT 97
[2024-10-28 06:23] LABS: Alanine Aminotransferase 29 U/L (0-40); Albumin Level 4.1 g/dL (3.5-5.0); Alkaline Phosphatase 120 U/L (39-117); Anion Gap 15 (12-20); Aspartate Amino Transferase 24 U/L (5-37); B Type Natriuretic Peptide 91 pg/mL (<100); Blood Urea Nitrogen 49 mg/dL (9-16); Calcium 9.1 mg/dL (8.4-10.2); Carbon Dioxide 22 mmol/L (22-29); Chloride 109 mmol/L (96-108); Creatinine Clr Calc Pharmacy 21.6; Estimated Glomerular Filt Rate 16; Potassium 5.4 mmol/L (3.3-5.1); Sodium 141 mmol/L (135-145); Total Protein 7.1 g/dL (6.5-8.0)
[2024-10-28 07:02] VITALS: BP 125/71; PULSE 86; RESP 16; TEMP 36.2; O2SAT 96
--- NOTE | 2024-10-28 10:05 | P.PNNP_ITS ---
Subjective Subjective Date of Service: 10/28/24 Interval history: Following for WILL from rhabdo. Creatinine remains elevated, remains relatively stable today from yesterday. K 5.2 from 4.8 yesterday. Patient reports he feels ok at bedside. His extremity swelling has resolved. He is making urine, over 2L daily. Physical Exam 2 Vital Signs: Vital Signs: Last Vital Signs Temp 97.1 F 10/28/24 07:02 Pulse 86 10/28/24 07:02 Resp 16 10/28/24 07:02 BP 125/71 10/28/24 07:02 Pulse Ox 96 10/28/24 07:02 O2 Del Method Room Air 10/28/24 07:02 O2 Flow Rate 98 10/22/24 04:00 BMI result Body Mass Index 21.2 Objective Data Labs 10/27/24 05:25 10/28/24 05:45 Labs: Laboratory Results - last 24 hr 10/22/24 10/27/24 10/28/24 07:15 22:14 05:45 Hold Purple Top SEE NOTE Sodium 141 Potassium 5.4 H Chloride 109 H Carbon Dioxide 22 Anion Gap 15 BUN 49 H Creatinine 4.17 H* Estim Creat Clear Calc 21.6 Estimated GFR 16 Random Glucose 90 Calcium 9.1 Total Bilirubin 0.2 AST 24 ALT 29 Alkaline Phosphatase 120 H B-Natriuretic Peptide 91 Total Protein 7.1 Albumin 4.1 Urine Color Yellow Urine Appearance Clear Urine pH 7.0 Ur Specific [place] 1.010 Urine Protein Trace Urine Glucose (UA) Negative Urine Ketones Negative Urine Blood Trace H Urine Nitrite Negative Ur Leukocyte Esterase Trace H Urine RBC 0-2 Urine WBC 0-5 Ur Squamous Epith Cells 0-2 Urine Bacteria None Seen Hyaline Casts 0-2 Proteinase 3 (PR3) Ab <1.0 Myeloperoxidase Ab <1.0 Microbiology Microbiology Results: Microbiology 10/13/24 12:13 Blood - Venous Blood Culture - Final No growth after 5 days. 10/13/24 11:57 Blood - Venous Blood Culture - Final No growth after 5 days. Procedures Date of Service Date of Service: 10/28/24 Assessment & Plan Assessment and plan (1) Acute renal failure: Status: Acute (2) Rhabdomyolysis: Status: Acute Plan Acute renal failure secondary to ATN from rhabdomyolysis of unclear etiology, ?drug abuse. CK has normalized. utox +PCP. Per significant other, pt smokes embalming fluid. Pt continues to make adequate urine, 1600mL in last 24 hours. Creatinine is improving. Last dialysis Friday, 10/25, creatinine 4.93 yesterday, today creatinine 4.17. extremity swelling has resolved, today remains euvolemic potassium level at 5.4 is ok, no need for lokelma at this time- may give PRN lokelma if potassium is greater than or equal to 6.0. Patient was referred for outpatient dialysis, however, now referrals on hold- will see what creatinine is tomorrow, if below 4.0, will remove permcath and d/c home with close outpatient nephrology follow up. Permcath in place without erythema or drainage H&H 12.1 &35.8 - no indication for procrit at this time K is 5.4 no need for lokelma at this time- may give PRN lokelma if potassium is greater than or equal to 6.0. no metabolic acidosis calcium 9.1, phosphorous 5.8 no metabolic acidosis at this time pt appears euvolemic today Recommend low sodium, low phosphorus, low potassium diet and fluid restriction of 1.5L/24 hours- discussed with patient. recommend avoiding nephrotoxins recommend daily renal function and electrolyte studies recommend close I&O monitoring Discussed with Dr Tam. Time Spent With Patient Time: Total time managing care of this patient today ____ minutes. Progress Note: Quality Stroke Does the patient have a stroke diagnosis?: No
--- NOTE | 2024-10-28 15:11 | HO.PM.IMPN ---
Subjective Subjective Date of Service: 10/28/24 Interval History: 39 year old male with history of PCP and EtOH abuse, presents to hospital with complaints of acute severe lower back pain, admitted with acute WILL in the setting of non-traumatic rhabdomyolysis suspected to be caused by PCP use, noted to be anemic as well, requiring emergency Haemodialysis. The patient's creatinine has been improving, and is currently 4.1 (4.9) The patient has no new complaints today. Eating and drinking well Urinating and stooling well. No other issues reported by patient. Eager to be discharged Review of Systems All 12 systems were reviewed and normal except as noted in HPI. Review of Systems: Yes all other systems are reviewed and are negative Constitutional Constitutional: Reports as per HPI Physical Exam Exam: Exam: General: A&O x3, oriented to time place person and siutaion, comfortable, no pain Cardiac: S1, S2 auscultated with no S3/4, no MRG. Well perfused. Respiratory: Normal breath sounds auscultated throughout all lung zones, without wheezing, rales. Normal rate. GI/ : No abdominal pain on palpation, no masses or distentions. MSK: Normal ambulation without pain at bony prominences or musculature. Permacath noted on the right subclavicle; healing well, no swelling or fluctuance, bleeding. Neurological: Normal neurological examination on overview, without obvious CN II-XII abnormalities. Vital Signs: Vital Signs: Last Vital Signs Temp 97.1 F 10/28/24 07:02 Pulse 86 10/28/24 07:02 Resp 16 10/28/24 07:02 BP 125/71 10/28/24 07:02 Pulse Ox 96 10/28/24 07:02 O2 Del Method Room Air 10/28/24 07:02 O2 Flow Rate 98 10/22/24 04:00 BMI result Body Mass Index 21.2 Const: Other: General: AO X 3, no acute distress, anasarca Resp: CTA bilateral CVS: S1,S2,RRR, generalized edema is way better GI: +BS, NT, no distention Skin: no rash : scrotal edema Neuro: motor grossly intact Psych: appropriate affect General: cooperative, comfortable, no acute distress, alert, awake and other (sedated, recently given versed for agitation) Orientation/consciousness: patient oriented x3 Limitations: no limitations HEENT: Head: Yes normal to inspection, Yes normocephalic and Yes atraumatic Ears: hearing grossly normal bilaterally General nose exam: Normal external nose present Face and sinus: Yes normal facial exam Mouth: Normal oral and palatal mucosa present, oropharynx normal and moist mucous membranes Throat: Yes posterior oropharynx normal Eyes: General: appearance normal, both eyes and all related structures Eyelids: Yes eyelids normal Conjunctivae: conjunctivae normal Sclerae: sclerae normal Pupils: Equal, round and reactive pupils present EOM: EOMs intact bilaterally Neck: Neck: Yes normal visual inspection, Yes full ROM and Yes no lymphadenopathy Lymphatic: no lymphadenopathy noted Chest: Chest palpation & inspection: normal inspection of the chest Resp: Effort & Inspection: normal respiratory effort and able to speak in complete sentences Auscultation: clear to auscultation bilaterally, no crackles, no rales, no rhonchi and no wheezes Cardio: Rate: regular rate Rhythm: regular rhythm Heart sounds: S1 normal heart sound present and S2 normal heart sound present GI: Other: Abdomen is soft, nontender, nondistended Inspection: Yes normal to inspection Palpation (GI): Soft to palpation and nontender : General: Yes no CVA tenderness Back/Spine/Pelvis: Other: Tenderness palpation along the lumbar paraspinous muscles and midline spine tenderness. Negative straight leg raise. Back: no CVA tenderness Skin: General skin exam: no rashes or lesions noted Rashes: no rashes Trauma: no lacerations or abrasions Wounds: no wounds Neuro: Other: no asterixis, no tremor General: patient oriented x3 and moves all extremities Cranial nerves: Yes Equal, round and reactive pupils present Extrem: General: Yes normal to inspection and No edema Right upper extremity: normal to inspection Left upper extremity: normal to inspection Right lower extremity: normal to inspection Left lower extremity: normal to inspection Objective Data Active Medications Acetaminophen (Acetaminophen 325 Mg Tablet) 975 mg PO Q6H PRN PRN Reason: Pain, Mild 1-3,fever,headache Last Admin: 10/28/24 09:14 Dose: 975 mg Documented By: TROY Diazepam (Diazepam 10 Mg/2 Ml Cartridge) 5 mg IVPUSH Q6H PRN PRN Reason: Anxiety Last Admin: 10/24/24 22:58 Dose: 5 mg Documented By: HO.BUSSIEL Folic Acid (Folic Acid 1 Mg Tablet) 1 mg PO DAILY [facility] Last Admin: 10/28/24 09:11 Dose: 1 mg Documented By: TROY Heparin Sodium (Porcine) (Heparin Sodium,Porcine 5,000 Unit/Ml Vial) 5,000 unit SUBCUT Q12H [facility] Last Admin: 10/28/24 09:15 Dose: Not Given Documented By: TROY Non-Admin Reason: Patient Refused Heparin Sodium (Porcine) (Heparin Sodium,Porcine 5,000 Unit/Ml Vial) 5,000 unit INTRACATH MOWEFR@1645 [facility] Last Admin: 10/27/24 15:17 Dose: Not Given Documented By: TROY Non-Admin Reason: not in dialysis Magnesium Hydroxide (Milk Of Magnesia 30 Ml Oral.Susp) 30 ml PO DAILY PRN PRN Reason: Constipation Last Admin: 10/19/24 08:43 Dose: 30 ml Documented By: JORGE ALBERTO Melatonin (Melatonin 3 Mg Tablet) 6 mg PO BEDTIME PRN PRN Reason: Insomnia Last Admin: 10/27/24 22:53 Dose: 6 mg Documented By: ARUNA Polyethylene Glycol (Polyethylene Glycol 3350 17 Gm Powd.Pack) 17 gm PO DAILY PRN PRN Reason: Constipation Last Admin: 10/17/24 14:02 Dose: 17 gm Documented By: ABDULAZIZ Sodium Chloride (0.9 % Sodium Chloride Flush 3 Ml Syringe) 3 ml IVFLUSH QSHIFT [facility] Last Admin: 10/28/24 09:12 Dose: Not Given Documented By: TROY Non-Admin Reason: No Access Labs 10/27/24 05:25 10/28/24 05:45 Labs: Laboratory Results - last 24 hr 10/22/24 10/27/24 10/28/24 07:15 22:14 05:45 Hold Purple Top SEE NOTE Anion Gap 15 Estim Creat Clear Calc 21.6 Estimated GFR 16 Random Glucose 90 Calcium 9.1 Total Bilirubin 0.2 AST 24 ALT 29 Alkaline Phosphatase 120 H B-Natriuretic Peptide 91 Total Protein 7.1 Albumin 4.1 Urine Color Yellow Urine Appearance Clear Urine pH 7.0 Ur Specific [place] 1.010 Urine Protein Trace Urine Glucose (UA) Negative Urine Ketones Negative Urine Blood Trace H Urine Nitrite Negative Ur Leukocyte Esterase Trace H Urine RBC 0-2 Urine WBC 0-5 Ur Squamous Epith Cells 0-2 Urine Bacteria None Seen Hyaline Casts 0-2 Proteinase 3 (PR3) Ab <1.0 Myeloperoxidase Ab <1.0 Assessment and Plan (1) Rhabdomyolysis: Status: Acute Assessment and Plan: Resolved currently. Etiology suspected to be due to PCP use; however unknown etiology. Currently cleared systemically. Continue with HD and IV hydration. Encourage PO intake and hydration. (2) WILL (acute kidney injury): Status: Acute Assessment and Plan: ATN due to rhabdomyolysis of unknown etiology. Nephrology following. Required emergent HD Permacath in place without complication. Nephrology reccomending: - Fluid restrict 1.5L - Low potassium diet - Low sodium diet (3) High anion gap metabolic acidosis: Status: Acute Assessment and Plan: Resolved currently. In the setting of WILL and rhabdomyolysis. (4) Renal anasarca: Status: Acute Assessment and Plan: Resolved. In the setting of ATN. HD resolved volume overload in the setting of renal failure. Fluid restriction and low sodium diet encouraged by renal team. (5) Alcohol abuse: Status: Acute Assessment and Plan: Counselled on EtOH cessation. Patient agreeable to stopping (6) PCP (phencyclidine) abuse: Status: Acute Assessment and Plan: Counselled on PCP use cessation. Uses daily. Patient agreeable to stopping Consider referral to outpatient addiction medicine Total time managing care of this patient today: 35 minutes. Quality Stroke Does the patient have a stroke diagnosis?: No VTE Prior VTE?: No VTE Risk Level:: Medical - moderate - high VTE Device Contraindication: Treatment Not Indicated VTE Drug Contraindication: N/A - Med Ordered (heparin 5000 TID )
[2024-10-28 15:31] VITALS: BP 121/71; PULSE 84; RESP 18; TEMP 37.1; O2SAT 97
[2024-10-28 19:51] VITALS: BP 136/84; PULSE 83; RESP 18; TEMP 36.8; O2SAT 97
[2024-10-28] MEDS: Triamcinolone Acet 0.1 % Cream 15 GM TUBE 1 APPL TOPICAL (21:43)
[2024-10-29 01:06] VITALS: RESP 16
[2024-10-29 03:08] VITALS: BP 126/65; PULSE 83; RESP 18; TEMP 36.3; O2SAT 96
--- NOTE | 2024-10-29 04:25 | PC.NURSE ---
Handoff report given to oncoming RN at 03:45.
[2024-10-29 07:06] LABS: Anion Gap 16 (12-20); Blood Urea Nitrogen 55 mg/dL (9-16); Calcium 9.0 mg/dL (8.4-10.2); Carbon Dioxide 21 mmol/L (22-29); Chloride 108 mmol/L (96-108); Creatinine Clr Calc Pharmacy 24.7; Estimated Glomerular Filt Rate 19; Potassium 5.5 mmol/L (3.3-5.1); Sodium 139 mmol/L (135-145)
[2024-10-29 07:48] VITALS: BP 125/72; PULSE 82; RESP 16; TEMP 36.2; O2SAT 96
--- NOTE | 2024-10-29 09:11 | P.PNNP_ITS ---
Subjective Subjective Date of Service: 10/29/24 Interval history: Following for WILL from rhabdo. Creatinine remains elevated, remains relatively stable today from yesterday. K 5.5 today, 5.4 yesterday. Patient reports he feels ok at bedside. His extremity swelling has resolved. He is making urine, 1900ml over last 24 hours. Physical Exam 2 Vital Signs: Vital Signs: Last Vital Signs Temp 97.2 F 10/29/24 07:48 Pulse 82 10/29/24 07:48 Resp 16 10/29/24 07:48 BP 125/72 10/29/24 07:48 Pulse Ox 96 10/29/24 07:48 O2 Del Method Room Air 10/29/24 07:48 O2 Flow Rate 98 10/22/24 04:00 BMI result Body Mass Index 21.2 Const: General: no acute distress, alert and awake Resp: Effort & Inspection: normal respiratory effort and able to speak in complete sentences Auscultation: clear to auscultation bilaterally Cardio: Rate: regular rate Rhythm: regular rhythm Heart sounds: S1 normal heart sound present and S2 normal heart sound present GI: Palpation (GI): Soft to palpation and nontender : General: Yes no CVA tenderness Back/Spine/Pelvis: Back: no CVA tenderness Skin: Rashes: no rashes Extrem: General: No edema Objective Data Labs 10/27/24 05:25 10/29/24 06:21 Labs: Laboratory Results - last 24 hr 10/29/24 06:21 Hold Purple Top SEE NOTE Sodium 139 Potassium 5.5 H Chloride 108 Carbon Dioxide 21 L Anion Gap 16 BUN 55 H Creatinine 3.65 H Estim Creat Clear Calc 24.7 Estimated GFR 19 Random Glucose 91 Calcium 9.0 Microbiology Microbiology Results: Microbiology 10/13/24 12:13 Blood - Venous Blood Culture - Final No growth after 5 days. 10/13/24 11:57 Blood - Venous Blood Culture - Final No growth after 5 days. Procedures Date of Service Date of Service: 10/29/24 Assessment & Plan Assessment and plan (1) Acute renal failure: Status: Acute (2) Rhabdomyolysis: Status: Acute Plan Acute renal failure secondary to ATN from rhabdomyolysis of unclear etiology, ?drug abuse. CK has normalized. utox +PCP. Per significant other, pt smokes embalming fluid. Pt continues to make adequate urine, 1900mL in last 24 hours. Creatinine is improving. Last dialysis Friday, 10/25, creatinine has been trending down since, 3.65 today. extremity swelling has resolved, today remains euvolemic potassium level at 5.5 is ok, no need for lokelma at this time Patient no longer needs dialysis. Will remove permcath today. H&H 12.1 &35.8 - no indication for procrit at this time K is 5.5 no need for lokelma at this time- may give PRN lokelma if potassium is greater than or equal to 6.0. We will re-check his labs early next week as outpatient. no metabolic acidosis calcium 9.1, phosphorous 5.8 no metabolic acidosis at this time pt appears euvolemic today Recommend low sodium, low phosphorus, low potassium diet and fluid restriction of 1.5L/24 hours- discussed with patient. recommend avoiding nephrotoxins recommend daily renal function and electrolyte studies recommend close I&O monitoring Discussed with Dr Post. Time Spent With Patient Time: Total time managing care of this patient today ____ minutes. Progress Note: Quality Stroke Does the patient have a stroke diagnosis?: No
--- NOTE | 2024-10-29 15:33 | PM.DS ---
DS: Providers Provider Date of Service: 10/13/24 Date of admission: 10/13/24 13:25 Date of discharge: 10/29/24 Primary care physician: [facility] Consults: 10/13/24 15:37 Addiction Medicine Provider Routine Consulting Provider: [facility] Reason for consultation: PCP abuse Has provider been notified: No 10/13/24 15:38 Consult to Nephrology Routine Consulting Provider: Jose De La Fuente Reason for consultation: WILL, rhabdomyolysis Has provider been notified: Yes 10/17/24 10:21 Consult to Urology Routine Consulting Provider: [facility] Reason for consultation: Scrotal edema 10/22/24 10:15 Consult to Wound Care Routine Reason for consultation: blisters R neck / R forearm Attending physician on discharge: Jennifer Luevano DS: Diagnosis Discharge Diagnosis (1) Acute renal failure: Status: Acute (2) Rhabdomyolysis: Status: Acute (3) PCP (phencyclidine) abuse: Status: Acute (4) Alcohol abuse: Status: Acute DS: Summary Hospital Course Hospital Course: 39 year old male with history of PCP and EtOH abuse, presents to hospital with complaints of acute severe lower back pain, admitted with acute WILL in the setting of non-traumatic rhabdomyolysis suspected to be caused by PCP use, noted to be anemic as well, requiring emergency Haemodialysis. Creatinine elevated at 7 requiring multiple rounds of emegrency HD. Eventual and gradual improvement in creaitnine as well as acute onset anasarca due to anuria. The patient's CK has resolved, currently producing urine normally. Creatinine has resolved and now <4. UA has resolved. Admitted with HAGMA; now resolved; secondary to acute rhabdo & severe WILL. Patient was counselled in depth regarding PCP and EtOH use. Status at Discharge Cognitive/behavioral status at discharge: At baseline Functional status at discharge: independent ambulation Overall status at discharge: patient is back to baseline Time Attestation Total time managing care of this patient today: 35 mintues. Discharge Coordination Time (in mins): 35 Quality: Safe Use of Opioids Does Pt have an Active Cancer Diagnosis on the Problem List?: No Quality: Stroke Does the patient have a stroke diagnosis?: No Physical Exam Exam: Exam: General: A&O x3, oriented to time place person and situation, comfortable, no pain Cardiac: S1, S2 auscultated with no S3/4, no MRG. Well perfused. Respiratory: Normal breath sounds auscultated throughout all lung zones, without wheezing, rales. Normal rate. GI/ : No abdominal pain on palpation, no masses or distentions. MSK: Normal ambulation without pain at bony prominences or musculature Neurological: Normal neurological examination on overview, without obvious CN II-XII abnormalities. Vital Signs: Vital Signs: Last Vital Signs Temp 97.2 F 10/29/24 07:48 Pulse 82 10/29/24 07:48 Resp 16 10/29/24 07:48 BP 125/72 10/29/24 07:48 Pulse Ox 96 10/29/24 07:48 O2 Del Method Room Air 10/29/24 07:48 O2 Flow Rate 98 10/22/24 04:00 BMI result Body Mass Index 21.2 DS: Data Data Completed and Pending Labs on day of discharge: Laboratory Results - last 24 hr 10/29/24 06:21 Hold Purple Top SEE NOTE Sodium 139 Potassium 5.5 H Chloride 108 Carbon Dioxide 21 L Anion Gap 16 BUN 55 H Creatinine 3.65 H Estim Creat Clear Calc 24.7 Estimated GFR 19 Random Glucose 91 Calcium 9.0 Discharge Plan Discharge Anticipated Discharge Date/Time: 10/29/24 15:39 Patient Disposition: Home, Self-Care Discharge Diagnosis: acute rhabdomyolysis with severe anuric WILL s/p emergency HD, now recovered renal function back to baseline in the setting of PCP & EtOH abuse Referrals: [facility] [Primary Care Provider, Medical] - 1 Week Discharge Orders: Discharge Order (Routine); Ordered 10/29/24 Ordered By: Jennifer Luevano Diet: Low sodium & potassium Activity on Discharge: As tolerated Stand Alone Forms: Patient Portal Discharge page Print Language: Jamaican Care Plan Goals: - Stop PCP use - Stop EtOH use - Encourage follow up with Renal outpatient - FU with PCP within 1-2 weeks of discharge Health Concerns: as above Plan of Treatment: - Stop PCP use - Stop EtOH use - Encourage follow up with Renal outpatient - FU with PCP within 1-2 weeks of discharge Assessment: At baseline currently. Monitor for clinical changes in urination. The patient is overall back to baseline by time of discharge without active issues.
[2024-10-29 16:00] VITALS: BP 126/82; PULSE 85; RESP 16; TEMP 36.4; O2SAT 98
--- NOTE | 2024-10-29 16:31 | MHC.CM.PN ---
PT TO [place] HOME TODAY VIA PRIVATE TRANSPORT
[2024-10-29 16:56] VITALS: BP 119/80; PULSE 91; RESP 16; TEMP 36.3; O2SAT 98
== END 2024-10-29 18:19 | disposition home or self-care (01) | DRG 812 ==
LOC: HO.ED 13:29 → HO.EDOVER 14:07 → HO.IMC 10-14 13:26 → HO.S3 10-24 15:23
PROVIDERS: Internal Medicine; Nurse Practitioner Family; Physician Assistant Medical; Radiology Diagnostic Radiology; Admitting Provider Internal Medicine; Emergency Provider Emergency Medicine; Visit Provider Hospitalist
PROC: 02HV33Z Insertion of Infusion Device into Superior Vena Cava, Percutaneous Approach (ICD-10-PCS; principal; 2024-10-14 11:30)
DX: T40.991A Poisoning by other psychodysleptics [hallucinogens], accidental (unintentional), initial encounter (principal); N17.0 Acute kidney failure with tubular necrosis; M62.82 Rhabdomyolysis; E87.5 Hyperkalemia; E87.21 Acute metabolic acidosis; F17.210 Nicotine dependence, cigarettes, uncomplicated; D64.9 Anemia, unspecified; F10.10 Alcohol abuse, uncomplicated; F16.10 Hallucinogen abuse, uncomplicated; Z71.6 Tobacco abuse counseling; Z71.41 Alcohol abuse counseling and surveillance of alcoholic; Z79.899 Other long term (current) drug therapy
CPT/HCPCS: 36415; 36556; 36558; 36589; 72100; 72220; 74176; 76870; 80048; 80053; 80076; 80307; 81001; 82330; 82550; 82570; 82803; 83605; 83735; 83880; 83935; 83970; 84100; 84300; 84484; 84550; 85025; 85027; 85652; 86021; 86140; 86704; 86706; 86709; 86803; 87040; 87340; 90999; 93005; 93975; 99285; C1750; J0131; J0613; J0690; J1171; J1644; J1885; J2003; J2250; J2270; J2405; J2765; J3010; J3360; J3411; J7120

== ENCOUNTER → 2024-10-13 10:16 | Outpatient (BNV) | payer MEDICAID, SELFPAY | PROVIDERS: Emergency Provider Emergency Medicine; Visit Provider Radiology Diagnostic Radiology | DX: R94.4 Abnormal results of kidney function studies (principal); M51.360 Other intervertebral disc degeneration, lumbar region with discogenic back pain only; M54.18 Radiculopathy, sacral and sacrococcygeal region | CPT/HCPCS: 72100; 72220; 74176 ==

== ENCOUNTER 2024-10-13 13:25 | Outpatient (BNV) | payer MEDICAID, SELFPAY | END 2024-10-29 13:30 | PROVIDERS: Admitting Provider Internal Medicine; Emergency Provider Emergency Medicine; Visit Provider Radiology Diagnostic Radiology | DX: Z45.2 Encounter for adjustment and management of vascular access device (principal) | CPT/HCPCS: 36589 ==

== ENCOUNTER 2024-10-13 13:25 | Outpatient (BNV) | payer MEDICAID, SELFPAY | END 2024-10-14 09:10 | PROVIDERS: Admitting Provider Internal Medicine; Emergency Provider Emergency Medicine; Visit Provider Radiology Diagnostic Radiology | DX: N17.9 Acute kidney failure, unspecified (principal) | CPT/HCPCS: 36556; 76937; 77001; 99152 ==

== ENCOUNTER 2024-10-13 13:25 | Outpatient (BNV) | payer MEDICAID, SELFPAY | END 2024-10-18 10:11 | PROVIDERS: Admitting Provider Internal Medicine; Emergency Provider Emergency Medicine; Visit Provider Radiology Diagnostic Radiology | DX: N50.3 Cyst of epididymis (principal); N50.89 Other specified disorders of the male genital organs | CPT/HCPCS: 93975 ==

== ENCOUNTER 2024-10-13 13:25 | Outpatient (BNV) | payer MEDICAID, SELFPAY | END 2024-10-25 10:00 | PROVIDERS: Admitting Provider Internal Medicine; Emergency Provider Emergency Medicine; Visit Provider Radiology Diagnostic Radiology | DX: N17.9 Acute kidney failure, unspecified (principal) | CPT/HCPCS: 36558; 76937 ==

== ENCOUNTER 2024-10-13 13:25 | Outpatient (BNV) | payer MEDICAID, SELFPAY | END 2024-10-13 13:31 | PROVIDERS: Admitting Provider Internal Medicine; Emergency Provider Emergency Medicine; Visit Provider Internal Medicine Cardiovascular Disease | DX: R46.4 Slowness and poor responsiveness (principal) | CPT/HCPCS: 93010 ==

== ENCOUNTER → 2024-10-13 13:25 | Outpatient (BNV) | payer MEDICAID, SELFPAY | PROVIDERS: Admitting Provider Internal Medicine; Emergency Provider Emergency Medicine; Visit Provider Nurse Practitioner Family | DX: N17.9 Acute kidney failure, unspecified (principal); M62.82 Rhabdomyolysis | CPT/HCPCS: 99222; 99233 ==

== ENCOUNTER → 2024-10-13 13:25 | Outpatient (BNV) | payer MEDICAID, SELFPAY | PROVIDERS: Admitting Provider Internal Medicine; Emergency Provider Emergency Medicine; Visit Provider Internal Medicine | DX: N17.9 Acute kidney failure, unspecified (principal); E87.29 Other acidosis; M62.82 Rhabdomyolysis | CPT/HCPCS: 99223; 99232; 99233; 99499 ==

== ENCOUNTER → 2024-10-13 13:25 | Outpatient (BNV) | payer MEDICAID, SELFPAY | PROVIDERS: Admitting Provider Internal Medicine; Emergency Provider Emergency Medicine; Visit Provider Urology | DX: N50.89 Other specified disorders of the male genital organs (principal) | CPT/HCPCS: 99222 ==

== ENCOUNTER 2024-11-04 11:19 | Outpatient (REF) | payer MEDICAID, SELFPAY ==
--- OUTSIDE RECORDS SUMMARY | 2024-11-04 12:28 | XMS_ITS | Clinical Summary ---
Author Organization [employer] Address 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 Role Phone Viri Reeys MD Primary Care Provider Allergies No known active allergies Medications amoxicillin [...] Encounters Date Type Department Care Team Description 11/03/2024 Patient Outreach [facility] [address] [place] [address] Viri Reyes MD Transition Of Care (Tcm) (HDF unscheduled) 11/03/2024 Telephone [facility] [address], [place] [phone] Viri Reyes MD Hospital Follow-up 10/13/2024 Orders Only [facility] External Provider, [facility] 08/20/2024 3:00 PM EDT Office Visit [facility] [address], [place] [phone] Luis Chase DDS Dental caries (Primary Dx) from Last 3 Months Immunizations Immunization Administration Dates Next Due DTaP 11/14/1989, 7,09/28/1985,1985,03/31/1985 Hep B, Adolescent or Pediatric 2,12/19/1998,11/06/1995,1988 Hib (HbOC) 01/27/2007,10/18/1988 IPV 11/14/1989, 7,08/29/1985,1985 Influenza injectable quadriv [...] Care Team (Late st Contact Info) Description 11/08/2024 1:30 PM EDT Office Visit [facility] [address], [place] [phone] Jody Malone MD [address] [place], [place] [phone] 01/06/2025 8:00 AM EDT Office Visit [facility] [address], [place] [phone] Melanie Lyons Health Maintenance Due Date Last Done Comments HIV Screening 1985 Disability Screening 1985 HPV Vaccines (1 - Male 3-dose series) 08/14/1999 Pneumococcal Vaccine: Pediatrics (0 to 5 Years) and At-Risk Patients (6 to 49) Years (1 of 2 - PCV) 08/14/2003 Dental Prophylaxis 09/06/2008 03/07/2008 Dental Oral Exam 07/22/2013 01/20/2013 COVID-19 Vaccine ( - season) 2023 Influenza Vaccine (#1) 2024 8, 01/25/2016, 12/19/2011 Alcohol/Substance Use Screening 06/02/2025 06/02/2024 Depression Screening 06/02/2025 06/02/2024, 06/03/19 25 Diabetes: Hemoglobin A1C 06/02/2025 06/02/2024 Family Planning [...] 75+ series) 08/14/2059 IPV Vaccines Completed 11/14/1989, 1004/1986, 08/29/1985, Additional history exists Hepatitis B Vaccines Completed 10/23/2001, 12/19/1998, 11/06/1995, Additional history exists HIB Vaccines Completed 01/27/2007, 10/18/1988 Hepatitis C Screening Completed 10/13/2024 Hepatitis A Vaccines Aged Out No long [...] Procedure Name Priority Date/Time Associated Diagnosis Comments IR CVC INSERT CENTRAL TUNNEL Routine 10/25/2024 9:00 AM EDT US SCROTUM Routine 10/18/2024 10:11 AM EDT US SCROTUM DOPPLER Routine 10/18/2024 10 :11 AM EDT IR CVC INSERT NON TUNNEL Routine 10/14/2024 10:15 AM EDT OSMOLALITY (U) Routine 10/13/2024 12:47 PM EDT SODIUM W/O CREATININE, RANDOM URINE Routine 10/13/2024 12:47 PM EDT CREATININE, RANDOM URINE Routine 10/13/2024 12:47 PM EDT DRUG MONITOR, PANEL 1, SCREEN, URINE Routine 10/13/2024 12:47 PM EDT URINALYSIS, COMPLETE, WITH REFLEX TO CULTURE Routine 10/13/2024 12:47 PM EDT VENOUS BLOOD GAS Routine 10/13/2024 12:0 4 PM EDT HEPATITIS PANEL, GENERAL Routine 10/13/2024 11:57 AM EDT LACTIC ACID Routine 10/13/2024 11:[address] ABDOMEN PELVIS WO CONTRAST Routine 10/13/2024 10:34 AM EDT CREATINE KINASE, TOTAL Routine 10/13/2024 10:26 AM EDT HIGH SENSITIVITY TROPONIN I Routine 10/13/2024 10:26 AM EDT ETHANOL Routine 10/13/2024 10:26 AM EDT MAGNESIUM Routine 10/13/2024 10:26 AM EDT SED RATE BY MODIFIED WESTERGREN Routine 10/13/2024 10:26 AM EDT C-REACTIVE PROTEIN Routine 10/13/2024 10 :26 AM EDT BASIC METABOLIC PANEL Routine 10/13/2024 10:26 AM EDT HEPATIC FUNCTION PANEL Routine 10/13/2024 10:26 AM EDT CBC WITH AUTO DIFFERENTIAL Routine 10/13/2024 10:26 AM EDT XR SACRUM COCCYX 2+ VIEWS Routine 10/13/2024 10:10 AM EDT XR LUMBAR SPINE 2-3 VIEWS Routine 10/13/2024 10:09 AM EDT DRUG MONITOR, PANEL 1, SCREEN, [...] Recently Relevant to Health Maintenance Results * IR CVC Insert Central Tunnel (10/25/2024 9:00 AM EDT) Anatomical Region Laterality Modality Body X-Ray Angiograph y 10/25/2024 9:00 AM EDT Narrative 10/27/2024 1:04 PM EDT [place] [address] Interventional Radiology Rpt Signed Patient: Bert English MR#: [id number] 358 : 1985 Acct:[id number] Age/Sex: 39 / M ADM Date: 10/13/24 Loc: HO.S3 351-[address]: Jennifer Luevano MD Ordering Physician: Brenna Qureshi DNP, FNP-BC Date of Service: 10/25/24 Procedure(s): IR cvc insert central tunnel Accession Number(s): [id number] cc: [facility]; Brenna Qureshi DNP, [facility] PROCEDURE: IR INSERTION OF TUNNEL CATHETER CLINICAL INFORMATION: Permacath not needed. COMPARISON: None available. TECHNIQUE: Following explaining removal of permacatheter procedure, benefits and risk, a written consent was obtained. Patient was placed supine on angiography table and area around the right permacath insertion was cleaned and draped in usual sterile manner. 1% lidocaine was injected puncture site. Using blunt dissection the cuff around the permacath was loosened and pulled. The The entire 23 cm long permacath removed. The area was cleaned and aseptic manner and 3 0 absorbable sutures were placed and the suture was closed. Sterile dressing applied post procedure. Patient tolerated procedure well. No conscious sedation was utilized. All elements of maximal sterile barrier technique followed including use of cap, mask, sterile gown, sterile gloves, a sterile full body drape and hand hygiene. Also followed skin preparation with 2% chlorhexidine for cutaneous antisepsis, and sterile ultrasound preparation with sterile gel and probe cover when applicable. FINDINGS/ IR/IR cvc insert central tunnel IMPRESSION: Successful removal of right permacatheter under local anesthesia. There were no immediate complications. Electronically signed by: Matthew Tineo MD 10/27/2024 01:02 PM EDT Dictated By: Matthew Tineo MD Signed By: <Electronically signed by Matthew Tineo MD in OV> 10/27/24 1302 DD/ 0900 TD/TT: 10/25/24 1047 Antisqueak Filler: [facility] Procedure Note Donotuseinterpreter, Image - 10/27/2024 [place] [address] Interventional Radiology Rpt Signed Patient: Rogelio English#: [id number] 358 : 1985Acct:[id number] Age/Sex: 39 / MADM Date: 10/13/24 Loc: .S3 351-[address]: Jennifer Luevano MD Ordering Physician: Brenna Qureshi DNP, FNP- Date of Service: 10/25/24 Procedure(s): IR cvc insert central tunnel Accession Number(s): [id number] cc: [facility]; Brenna Qureshi DNP [facility] PROCEDURE: IR INSERTION OF TUNNEL CATHETER CLINICAL INFORMATION: Permacath not needed. COMPARISON: None available. TECHNIQUE: Following explaining removal of permacatheter procedure, benefits and risk, a written consent was obtained. Patient was placed supine on angiography table and area around the right permacath insertion was cleaned and draped in usual sterile manner. 1% lidocaine was injected puncture site. Using blunt dissection the cuff around the permacath was loosened and pulled. The The entire 23 cm long permacath removed. The area was cleaned and aseptic manner and 3 0 absorbable sutures were placed and the suture was closed. Sterile dressing applied post procedure. Patient tolerated procedure well. No conscious sedation was utilized. All elements of maximal sterile barrier technique followed including use of cap, mask, sterile gown, sterile gloves, a sterile full body drape and hand hygiene. Also followed skin preparation with 2% chlorhexidine for cutaneous antisepsis, and sterile ultrasound preparation with sterile gel and probe cover when applicable. FINDINGS/ IR/IR cvc insert central tunnel IMPRESSION: Successful removal of right permacatheter under local anesthesia. There were no immediate complications. Electronically signed by: Matthew Tineo MD 10/27/2024 01:02 PM EDT Dictated By: Matthew Tineo MD Signed By: <Electronically signed by Matthew Tineo MD in OV> 10/27/24 1302 DD/ 0900 TD/TT: 10/25/24 1047 Antisqueak Filler: SANDRO us [facility] External Provider IMG IR PROCEDURES Final Result * US SCROTUM DOPPLER (10/18/2024 10:11 AM EDT) Anatomical Region Laterality Modality Abdomen Ultrasound 10/18/2024 10:1 1 AM EDT Narrative 10/18/2024 11:13 AM EDT [address] [address] Ultrasound Report Signed Patient: Bert English MR#: [id number] 358 : 1985 Acct:[id number] Age/Sex: 39 / M ADM Date: 10/13/24 Loc: [facility] 468-[address]: Zackary Dominguez MD Ordering Physician: Narayan Hyatt MD Date of Service: 10/18/24 Procedure(s): US scrotum doppler Accession Number(s): [id number] cc: Narayan Hyatt MD; [facility] EXAMINATION: US SCROTUM WITH DOPPLER COMPLETE HISTORY: scrotal swelling. COMPARISON: There are no prior studies available for comparison. FINDINGS: Real-time grayscale ultrasound imaging of the scrotum was performed. Color and spectral Doppler analysis was also performed. RIGHT TESTICLE: The right testis measures 4.1 x 3.0 x 3.2 cm and demonstrates normal homogeneous echotexture. No masses are seen. The right testis demonstrates normal arterial and venous color Doppler and spectral waveforms. RIGHT EPIDIDYMIS: Normal in size, shape, and vascularity. There is a 4 x 5 x 7 mm epididymal head cyst. LEFT TESTICLE: The left testis measures 4.2 x 3.2 x 3.2 cm and demonstrates normal homogeneous echotexture. No masses are seen. The left testis demonstrates normal arterial and venous color Doppler and spectral waveforms. LEFT EPIDIDYMIS: Normal in size, shape, and vascularity. VARICOCELE: None. HYDROCELE: No significant hydrocele is seen. OTHER COMMENTS: There is marked scrotal edema and skin thickening. US/US scrotum doppler IMPRESSION: Marked scrotal edema and skin thickening. 7 mm right epididymal head cyst. Otherwise unremarkable scrotal ultrasound. Electronically signed by: Lebron Hernandez MD 10/18/2024 11:11 AM EDT RP Dictated By: Lebron Hernandez MD Signed By: <Electronically signed by Lebron Hernandez MD in OV> 10/22/24 1149 DD/ 1011 TD/TT: 10/18/24 1021 Antisqueak Filler: Procedure Note Donotuseinterpreter, Image - 10/22/[address] [address] Ultrasound Report Signed Patient: Rogelio English#: [id number] 358 : 1985Acct:[id number] Age/Sex: 39 / MADM Date: 10/13/24 Loc: [facility] 468-[address]: Zackary Dominguez MD Ordering Physician: Narayan Hyatt MD Date of Service: 10/18/24 Procedure(s): US scrotum doppler Accession Number(s): [id number] cc: Narayan Hyatt MD; [facility] EXAMINATION: US SCROTUM WITH DOPPLER COMPLETE HISTORY: scrotal swelling. COMPARISON: There are no prior studies available for comparison. FINDINGS: Real-time grayscale ultrasound imaging of the scrotum was performed. Color and spectral Doppler analysis was also performed. RIGHT TESTICLE: The right testis measures 4.1 x 3.0 x 3.2 cm and demonstrates normal homogeneous echotexture. No masses are seen. The right testis demonstrates normal arterial and venous color Doppler and spectral waveforms. RIGHT EPIDIDYMIS: Normal in size, shape, and vascularity. There is a 4 x 5 x 7 mm epididymal head cyst. LEFT TESTICLE: The left testis measures 4.2 x 3.2 x 3.2 cm and demonstrates normal homogeneous echotexture. No masses are seen. The left testis demonstrates normal arterial and venous color Doppler and spectral waveforms. LEFT EPIDIDYMIS: Normal in size, shape, and vascularity. VARICOCELE: None. HYDROCELE: No significant hydrocele is seen. OTHER COMMENTS: There is marked scrotal edema and skin thickening. US/US scrotum doppler IMPRESSION: Marked scrotal edema and skin thickening. 7 mm right epididymal head cyst. Otherwise unremarkable scrotal ultrasound. Electronically signed by: Lebron Hernandez MD 10/18/2024 11:11 AM EDT RP Dictated By: Lebron Hernandez MD Signed By: <Electronically signed by Lebron Hernandez MD in OV> 10/22/24 1149 DD/ 1011 TD/TT: 10/18/24 1021 Antisqueak Filler: us [facility] External Provider IMG US PROCEDURES Edited Result - Final * US Scrotum (10/18/2024 10:11 AM EDT) Anatomical Region Laterality Modality Body Ultrasound 10/18/2024 10:1 1 AM EDT Narrative 10/22/2024 11:52 AM EDT [place] [address] Ultrasound Report Signed Patient: Bert English MR#: [id number] 358 : 1985 Acct:[id number] Age/Sex: 39 / M ADM Date: 10/13/24 Loc: [facility] 468-[address]: Zackary Dominguez MD Ordering Physician: Narayan Hyatt MD Date of Service: 10/18/24 Procedure(s): US scrotum Accession Number(s): [id number] cc: Narayan Hyatt MD; [facility] EXAMINATION: US SCROTUM WITH DOPPLER COMPLETE HISTORY: scrotal swelling. COMPARISON: There are no prior studies available for comparison. FINDINGS: Real-time grayscale ultrasound imaging of the scrotum was performed. Color and spectral Doppler analysis was also performed. RIGHT TESTICLE: The right testis measures 4.1 x 3.0 x 3.2 cm and demonstrates normal homogeneous echotexture. No masses are seen. The right testis demonstrates normal arterial and venous color Doppler and spectral waveforms. RIGHT EPIDIDYMIS: Normal in size, shape, and vascularity. There is a 4 x 5 x 7 mm epididymal head cyst. LEFT TESTICLE: The left testis measures 4.2 x 3.2 x 3.2 cm and demonstrates normal homogeneous echotexture. No masses are seen. The left testis demonstrates normal arterial and venous color Doppler and spectral waveforms. LEFT EPIDIDYMIS: Normal in size, shape, and vascularity. VARICOCELE: None. HYDROCELE: No significant hydrocele is seen. OTHER COMMENTS: There is marked scrotal edema and skin thickening. US/US scrotum IMPRESSION: Marked scrotal edema and skin thickening. 7 mm right epididymal head cyst. Otherwise unremarkable scrotal ultrasound. Electronically signed by: Lebron Hernandez MD 10/18/2024 11:11 AM EDT RP Dictated By: Lebron Hernandez MD Signed By: <Electronically signed by Lebron Hernandez MD in OV> 10/22/24 1149 DD/ 1011 TD/TT: 10/18/24 1021 Antisqueak Filler: Procedure Note Donotuseinterpreter, Image - 10/22/2024 [place] [address] Ultrasound Report Signed Patient: Rogelio English#: [id number] 358 : 1985Acct:[id number] Age/Sex: 39 / MADM Date: 10/13/24 Loc: [facility] 468-[address]: Zackary Dominguez MD Ordering Physician: Narayan Hyatt MD Date of Service: 10/18/24 Procedure(s): US scrotum Accession Number(s): [id number] cc: Narayan Hyatt MD; [facility] EXAMINATION: US SCROTUM WITH DOPPLER COMPLETE HISTORY: scrotal swelling. COMPARISON: There are no prior studies available for comparison. FINDINGS: Real-time grayscale ultrasound imaging of the scrotum was performed. Color and spectral Doppler analysis was also performed. RIGHT TESTICLE: The right testis measures 4.1 x 3.0 x 3.2 cm and demonstrates normal homogeneous echotexture. No masses are seen. The right testis demonstrates normal arterial and venous color Doppler and spectral waveforms. RIGHT EPIDIDYMIS: Normal in size, shape, and vascularity. There is a 4 x 5 x 7 mm epididymal head cyst. LEFT TESTICLE: The left testis measures 4.2 x 3.2 x 3.2 cm and demonstrates normal homogeneous echotexture. No masses are seen. The left testis demonstrates normal arterial and venous color Doppler and spectral waveforms. LEFT EPIDIDYMIS: Normal in size, shape, and vascularity. VARICOCELE: None. HYDROCELE: No significant hydrocele is seen. OTHER COMMENTS: There is marked scrotal edema and skin thickening. US/US scrotum IMPRESSION: Marked scrotal edema and skin thickening. 7 mm right epididymal head cyst. Otherwise unremarkable scrotal ultrasound. Electronically signed by: Lebron Hernandez MD 10/18/2024 11:11 AM EDT Dictated By: Lebron Hernandez MD Signed By: <Electronically signed by Lebron Hernandez MD in OV> 10/22/24 1149 DD/ 1011 TD/TT: 10/18/24 1021 Antisqueak Filler: us [facility] External Provider IMG US PROCEDURES Final Result * IR cvc insert non tunnel (10/14/2024 10:15 AM EDT) Anatomical Region Laterality Modality X-Ray Angiograph y 10/14/2024 10:1 5 AM EDT Narrative 10/19/2024 5:12 PM EDT [place] [address] Interventional Radiology Rpt Signed Patient: Bert English MR#: [id number] 358 : 1985 Acct:[id number] Age/Sex: 39 / M ADM Date: 10/13/24 Loc: [facility] 468-[address]: Zackary Dominguez MD Ordering Physician: Brenna Qureshi BONI CHONG Date of Service: 10/14/24 Procedure(s): IR cvc insert non tunnel Accession Number(s): [id number] cc: [facility]; Brenna Qureshi BONI CHONG PROCEDURE: IR INSERTION OF CENTRAL VENOUS CATHETER CLINICAL INFORMATION: Acute renal failure COMPARISON: None available. TECHNIQUE: Following explaining ultrasound fluoroscopy guided placement of a right temporal dialysis catheter procedure, benefits and risk, a written consent was obtained from the patient. Within the ultrasound imaging was obtained through a right neck and optimal site was selected. The site was marked on the skin, cleaned and draped in usual sterile manner. 1% lidocaine was injected puncture site. Under sterile ultrasound guidance a singlewall needle was advanced and right jugular vein was punctured. After obtaining venous return a thin guidewire was advanced and needle withdrawn. Over the guidewire a 5 Hong [place]er dilator was inserted and guidewire removed. A 0.035 J-wire was inserted over the dilator under fluoroscopy and placed in IVC. The dilator was removed and tract was dilated with 8 Hong Konger and a 12 Hong Konger dilator. Dilator was removed and 12.5 Hong [place]er debris dialysis catheter was inserted over the guidewire. The needle was withdrawn and a single image was obtained or the chest documenting the tip of the needle in mid to distal SVC. The catheter was anchored to the skin with 230 nonabsorbable nylon sutures. Sterile dressing applied post procedure. Patient tolerated procedure extremely well. Conscious sedation was utilized during exam and patient monitored by IR nurse and IR radiologist during exam. All elements of maximal sterile barrier technique followed including use of cap, mask, sterile gown, sterile gloves, a sterile full body drape and hand hygiene. Also followed skin preparation with 2% chlorhexidine for cutaneous antisepsis, and sterile ultrasound preparation with sterile gel and probe cover when applicable. FINDINGS: On preliminary ultrasound imaging there is widely patent right jugular vein. A 12.5 [place]er 20 cm long temporary dialysis catheter/Mahurkar was inserted through the right jugular vein with its tip in the distal SVC. The catheter is ready for dialysis use. IR/IR cvc insert non tunnel IMPRESSION: Successful ultrasound and fluoroscopy-guided placement of right talar temporary dialysis catheter with its tip in the SVC. Fluoroscopy time: 2 minutes. Dose: 2.968 mGy/cm. Sedation: 15 minutes Electronically signed by: Matthew Tineo MD 10/19/2024 05:09 PM EDT Dictated By: Matthew Tineo MD Signed By: <Electronically signed by Matthew Tineo MD in OV> 10/19/24 1709 DD/ 1015 TD/TT: 10/14/24 1249 Antisqueak Filler: [facility] Procedure Note Donotuseinterpreter, Image - 10/19/2024 [place] [address] Interventional Radiology Rpt Signed Patient: Rogelio English#: [id number] 358 : 1985Acct:[id number] Age/Sex: 39 / MADM Date: 10/13/24 Loc: [facility] 468-[address]: Zackary Dominguez MD Ordering Physician: Brenna Qureshi DNP, FNP-BC Date of Service: 10/14/24 Procedure(s): IR cvc insert non tunnel Accession Number(s): [id number] cc: [facility]; Brenna Qureshi DNP, FNP-BC PROCEDURE: IR INSERTION OF CENTRAL VENOUS CATHETER CLINICAL INFORMATION: Acute renal failure COMPARISON: None available. TECHNIQUE: Following explaining ultrasound fluoroscopy guided placement of a right temporal dialysis catheter procedure, benefits and risk, a written consent was obtained from the patient. Within the ultrasound imaging was obtained through a right neck and optimal site was selected. The site was marked on the skin, cleaned and draped in usual sterile manner. 1% lidocaine was injected puncture site. Under sterile ultrasound guidance a singlewall needle was advanced and right jugular vein was punctured. After obtaining venous return a thin guidewire was advanced and needle withdrawn. Over the guidewire a 5 Hong Konger dilator was inserted and guidewire removed. A 0.035 J-wire was inserted over the dilator under fluoroscopy and placed in IVC. The dilator was removed and tract was dilated with 8 Hong Konger and a 12 Hong Konger dilator. Dilator was removed and 12.5 Hong Konger debris dialysis catheter was inserted over the guidewire. The needle was withdrawn and a single image was obtained or the chest documenting the tip of the needle in mid to distal SVC. The catheter was anchored to the skin with 230 nonabsorbable nylon sutures. Sterile dressing applied post procedure. Patient tolerated procedure extremely well. Conscious sedation was utilized during exam and patient monitored by IR nurse and IR radiologist during exam. All elements of maximal sterile barrier technique followed including use of cap, mask, sterile gown, sterile gloves, a sterile full body drape and hand hygiene. Also followed skin preparation with 2% chlorhexidine for cutaneous antisepsis, and sterile ultrasound preparation with sterile gel and probe cover when applicable. FINDINGS: On preliminary ultrasound imaging there is widely patent right jugular vein. A 12.5 Hong Konger 20 cm long temporary dialysis catheter/Mahurkar was inserted through the right jugular vein with its tip in the distal SVC. The catheter is ready for dialysis use. IR/IR cvc insert non tunnel IMPRESSION: Successful ultrasound and fluoroscopy-guided placement of right talar temporary dialysis catheter with its tip in the SVC. Fluoroscopy time: 2 minutes. Dose: 2.968 mGy/cm. Sedation: 15 minutes Electronically signed by: Matthew Tineo MD 10/19/2024 05:09 PM EDT Dictated By: Matthew Tineo MD Signed By: <Electronically signed by Matthew Tineo MD in OV> 10/19/24 1709 DD/ 1015 TD/TT: 10/14/24 1249 Antisqueak Filler: SANDRO [facility] External Provider IMG IR PROCEDURES Final Result * (ABNORMAL) Urinalysis, Complete, with Reflex to Culture (10/13/2024 12:47 PM EDT) Color Urine Yellow [facility] Appearance Urine Clear [facility] PH 5.5 5.0 - 9.0 [facility] Glucose Urine UA 100(A) Negative mg/dL [facility] Urine Blood Large (3+)(A) Negative [facility] Specific [place] - Urine 1.015 1.005 - 1.025 [facility] Urine Protein 300 (3+)(A) Neg-Trace mg/dL [facility] Urine Ketones Trace Negative mg/dL [facility] Nitrite Urine Negative Negative [facility] Leukocyte Esterase Urine Negative Negative [facility] RBC Urine 0-2 0 - 2 /HPF [facility] Urine WBC 0-5 0 - 5 /HPF [facility] Urine Squamous Epithelial Cell 3-5 0 - 2 /HPF [facility] Urine Bacteria None Seen None Seen [facility] Hyaline Casts, Urine 0-2 0 - 2 /LPF [facility] 10/13/2024 12:4 7 PM EDT 10/13/2024 12:55 PM EDT Narrative [facility] - 10/13/2024 1:07 PM EDT [id number], [employer] us Generic External Data Provider LAB URINE ORDERAB LES Final Result [facility] [address] [place] [phone] * (ABNORMAL) Drug Monitoring, Panel 1, Screen, Urine (10/13/2024 12:47 PM EDT) Only the most recent of2 resultswithin the time period is included. Opiate Screen Urine Not Detected Not Detect [facility] Comment:Opiate cut-off is 30 0 ng/mL.Positive results are unconfirmed and should not be used fornon-medical purposes. Barbiturates, Urine Not Detected Not Detect [facility] Comment:Barbiturate cut-off is 200 ng/mL.Positive results are unconfirmed and should not be used fornon-medical purposes. Phencyclidine Screen Urine POSITIVE(A) Not Detect [facility] Comment:Phencyclidine cut-of f is 25 ng/mL.Positive results are unconfirmed and should not be used fornon-medical purposes. Amphetamine Screen Urine Not Detected Not Detect [facility] LABS Comment:Amphetamine cut-off is 1000 ng/mL.Positive results are unconfirmed and should not be used fornon-medical purposes. Benzodiazepines Screen Urine Not Detected Not Detect [facility] Comment:Benzodiazepine cut-o ff is 200 ng/mL.Positive results are unconfirmed and should not be used fornon-medical purposes. Cocaine Screen Urine Not Detected Not Detect [facility] Comment:Cocaine cut-off is 3 00 ng/mL.Positive results are unconfirmed and should not be used fornon-medical purposes. Cannabinoid Screen Urine Not Detected Not Detect [facility] Comment:Cannabinoid cut-off is 50 ng/mL.Positive results are unconfirmed and should not be used fornon-medical purposes. Methadone Screen, Urine Not Detected Not Detect ng/mL [facility] Comment:Methadone cut-off is 300 ng/mL.Positive results are unconfirmed and should not be used fornon-medical purposes. FENTANYL URINE Not Detected Not Detect [facility] Comment:Fentanyl cut-off is 1 ng/mL.Positive results are unconfirmed and should not be used fornon-medical purposes. Oxycodone Urine Screen Not Detected Not Detect ng/mL [facility] Comment:Oxycodone cut-off is 100 ng/mL.Positive results are unconfirmed and should not be used fornon-medical purposes. Buprenorphine Screen Not Detected Not Detect ng/mL [facility] Comment:Buprenorphine cut-of f is 5 ng/mL.Positive results are unconfirmed and should not be used fornon-medical purposes. 10/13/2024 12:4 7 PM EDT 10/13/2024 12:55 PM EDT Generic External Data Provider LAB URINE ORDERAB LES Final Result [facility] [address] [place] [phone] * Sodium Without creatinine, Random Urine (10/13/2024 12:47 PM EDT) Sodium Urine Random 64.0 mmol/L [facility] 10/13/2024 12:4 7 PM EDT 10/13/2024 12:55 PM EDT Generic External Data Provider LAB BLOOD ORDERAB LES Final Result Performing Organization Address [facility] Co de Phone Number [facility] [address] [place] [phone] * (ABNORMAL) Osmolality, Urine (10/13/2024 12:47 PM EDT) OSMOLALITY URINE 259(L) 373 - 1,093 mosm/kg [facility] 10/13/2024 12:4 7 PM EDT 10/13/2024 12:55 PM EDT Generic External Data Provider LAB URINE ORDERAB LES Final Result Performing Organization Address [facility] de Phone Number [facility] [address] [place] [phone] * Creatinine, Random Urine (10/13/2024 12:47 PM EDT) Creatinine, Urine 142.09 mg/dL [facility] 10/13/2024 12:4 7 PM EDT 10/13/2024 12:55 PM EDT Generic External Data Provider LAB URINE ORDERAB LES Final Result Performing Organization Address [facility] de Phone Number [facility] [address] [place] [phone] * (ABNORMAL) VENOUS BLOOD GAS (10/13/2024 12:04 PM EDT) VBG pH 7.22(L) 7.32 - 7.43 [facility] Comment:METER #: [id number] additional_comment: Cb omoruna VBG PCO2 15 mmHg [facility] Comment:METER #: [id number] additional_comment: Cb omoruna VBG PO2 82 mmHg [facility] Comment:METER #: [id number] additional_comment: Cb omoruna VBG Base Excess -18.8 mmol/L [facility] Comment:METER #: [id number] additional_comment: Tyler perez VBG HCO3 6(L) 22 - 26 mmol/L [facility] Comment:METER #: [id number] additional_comment: Tyler perez O2 Sat, Gerald 96.0 % [facility] Comment:METER #: [id number] additional_comment: Tyler perez 10/13/2024 12:0 4 PM EDT 10/13/2024 12:08 PM EDT us Generic External Data Provider LAB BLOOD ORDERAB LES Final Result Performing Organization Address City/[facility]/ZIP Co de Phone Number [facility] [address] [place] [phone] * Hepatitis Panel, General (10/13/2024 11:57 AM EDT) Hepatitis A IgM Nonreactive Nonreactive [facility] Comment:IgM antibodies to CHAPMAN V not detected; does not exclude earlyacute or recovered HAV infection. ~Hepatitis B Surface Antibody REACTIVE Nonreactive [facility] Comment:REACTIVE: > 11.99 mI U/mL Hepatitis B Core Antibody Nonreactive Nonreactive [facility] Hepatitis C Antibody Nonreactive Nonreactive [facility] Comment:Antibodies to HCV no t detected; does not exclude early acuteHCV infection. Hepatitis B Surface Ag Negative Negative [facility] 10/13/2024 11:5 7 AM EDT 10/13/2024 12:02 PM EDT us Generic External Data Provider LAB BLOOD ORDERAB LES Final Result Performing Organization Address City/[facility]/ZIP Co de Phone Number [facility] [address] [place] [phone] * Lactic Acid (10/13/2024 11:57 AM EDT) Lactic Acid 0.6 0.5 - 2.0 mmol/L [facility] 10/13/2024 11:5 7 AM EDT 10/13/2024 12:02 PM EDT us Generic External Data Provider LAB BLOOD ORDERAB LES Final Result [facility] [address] [place] [phone] * CT Abdomen Pelvis w/o Contrast (10/13/2024 10:34 AM EDT) Anatomical Region Laterality Modality Body, Pelvis, Abdomen Computed T omography 10/13/2024 10:3 4 AM EDT Narrative 10/13/2024 11:59 AM EDT [address] [address] [address] Scan Report Signed Patient: Bert English MR#: [id number] 358 : 1985 Acct:[id number] Age/Sex: 39 / M ADM Date: 10/13/24 Loc: HO.ED Attending Dr: Ordering Physician: Maddie Nava Date of Service: 10/13/24 Procedure(s): CT abdomen pelvis wo IV con Accession Number(s): [id number] cc: [facility]; Maddie Nava Report Number: [id number]: Total DLP = 334.00 mGy-cm EXAMINATION: CT ABDOMEN PELVIS WITHOUT IV CONTRAST HISTORY: elevated kidney function COMPARISON: There are no prior studies available for comparison. TECHNIQUE: CT scan of the abdomen and pelvis was performed without contrast using standard departmental protocol. Coronal and sagittal reformatted images were generated and reviewed. Oral contrast material was not administered per department protocol. This CT exam was performed with one or more of the following dose reduction techniques: automated exposure control, adjustment of the mA and/or kV according to patient size, use of iterative reconstruction technique. DLP: 334 mGy-cm FINDINGS: The examination is limited by respiratory motion artifact. LOWER CHEST: The visualized lung bases are clear. There is no pleural effusion. CARDIOVASCULATURE: The heart is normal in size. There is no pericardial effusion. LIVER: The liver is normal in size and contour. The liver has an unremarkable unenhanced appearance. GALLBLADDER / BILE DUCTS: The gallbladder is unremarkable. There is no intra or extrahepatic biliary ductal dilatation. SPLEEN: The spleen is normal in size and has an unremarkable unenhanced appearance. PANCREAS: The pancreas has an unremarkable unenhanced appearance. ADRENAL GLANDS: Unremarkable. KIDNEYS/RETROPERITONEUM: No renal calculi are identified. There is no hydronephrosis. LYMPH NODES: No retroperitoneal lymphadenopathy is identified in the abdomen or pelvis. VASCULATURE: The abdominal aorta is normal in caliber. MESENTERY/PERITONEUM: No free fluid. No masses. There is no free intraperitoneal gas. STOMACH: The stomach is collapsed, limiting evaluation. SMALL BOWEL: The small bowel is normal in caliber. COLON: The colon is unremarkable. APPENDIX: The appendix is not seen, however no inflammatory changes are seen adjacent to the cecum. URINARY BLADDER/PELVIC ORGANS: The urinary bladder is collapsed, limiting evaluation. The prostate is normal in size. BONES / SOFT TISSUES: No suspicious bony or soft tissue abnormalities. CT/CT abdomen pelvis wo IV con IMPRESSION: Limited examination due to patient respiratory motion artifact. No evidence of nephrolithiasis or ureteral obstruction. Electronically signed by: Lebron Hernandez MD 10/13/2024 11:56 AM EDT Dictated By: Lebron Hernandez MD Signed By: <Electronically signed by Lebron Hernandez MD in OV> 10/13/24 1156 DD/ 1034 TD/TT: 10/13/24 1145 Antisqueak Filler: Procedure Note Donotuseinterpreter, Image - 10/13/[address] [address] [address] Scan Report Signed Patient: Rogelio English#: [id number] 358 : 1985Acct:[id number] Age/Sex: 39 / MADM Date: 10/13/24 Loc: .ED Attending Dr: Ordering Physician: Maddie Nava Date of Service: 10/13/24 Procedure(s): CT abdomen pelvis wo IV con Accession Number(s): [id number] cc: [facility]; Maddie Nava NICO Report Number: [id number]: Total DLP = 334.00 mGy-cm EXAMINATION: CT ABDOMEN PELVIS WITHOUT IV CONTRAST HISTORY: elevated kidney function COMPARISON: There are no prior studies available for comparison. TECHNIQUE: CT scan of the abdomen and pelvis was performed without contrast using standard departmental protocol. Coronal and sagittal reformatted images were generated and reviewed. Oral contrast material was not administered per department protocol. This CT exam was performed with one or more of the following dose reduction techniques: automated exposure control, adjustment of the mA and/or kV according to patient size, use of iterative reconstruction technique. DLP: 334 mGy-cm FINDINGS: The examination is limited by respiratory motion artifact. LOWER CHEST: The visualized lung bases are clear. There is no pleural effusion. CARDIOVASCULATURE: The heart is normal in size. There is no pericardial effusion. LIVER: The liver is normal in size and contour. The liver has an unremarkable unenhanced appearance. GALLBLADDER / BILE DUCTS: The gallbladder is unremarkable. There is no intra or extrahepatic biliary ductal dilatation. SPLEEN: The spleen is normal in size and has an unremarkable unenhanced appearance. PANCREAS: The pancreas has an unremarkable unenhanced appearance. ADRENAL GLANDS: Unremarkable. KIDNEYS/RETROPERITONEUM: No renal calculi are identified. There is no hydronephrosis. LYMPH NODES: No retroperitoneal lymphadenopathy is identified in the abdomen or pelvis. VASCULATURE: The abdominal aorta is normal in caliber. MESENTERY/PERITONEUM: No free fluid. No masses. There is no free intraperitoneal gas. STOMACH: The stomach is collapsed, limiting evaluation. SMALL BOWEL: The small bowel is normal in caliber. COLON: The colon is unremarkable. APPENDIX: The appendix is not seen, however no inflammatory changes are seen adjacent to the cecum. URINARY BLADDER/PELVIC ORGANS: The urinary bladder is collapsed, limiting evaluation. The prostate is normal in size. BONES / SOFT TISSUES: No suspicious bony or soft tissue abnormalities. CT/CT abdomen pelvis wo IV con IMPRESSION: Limited examination due to patient respiratory motion artifact. No evidence of nephrolithiasis or ureteral obstruction. Electronically signed by: Lebron Hernandez MD 10/13/2024 11:56 AM EDT Dictated By: Lebron Hernandez MD Signed By: <Electronically signed by Lebron Hernandez MD in OV> 10/13/24 1156 DD/ 1034 TD/TT: 10/13/24 1145 Antisqueak Filler: [facility] External Provider IMG CT PROCEDURES Final Result * High Sensitivity Troponin I (10/13/2024 10:26 AM EDT) Only the most recent of2 resultswithin the time period is included. TROPONIN I HIGH SENSITIVITY 32.2 <3.5 - 35.0 ng/L [facility] Comment:The Lee high sens itivity Troponin-I results should beused in conjunction with other diagnostic information suchas ECG, clinical observations and information, and patientsymptoms to aid in the diagnosis of [place]. 10/13/2024 10:2 6 AM EDT 10/13/2024 12:05 PM EDT Generic External Data Provider LAB BLOOD ORDERAB LES Final Result Performing Organization Address [facility] de Phone Number [facility] [address] [place] [phone] * Ethanol (10/13/2024 10:26 AM EDT) Only the most recent of2 resultswithin the time period is included. ETHANOL (MG/DL) IN SER/PLAS <10 mg/dL [facility] Comment:Serum/plasma ethanol results are to be used formedical/treatment purposes only. 10/13/2024 10:2 6 AM EDT 10/13/2024 10:31 AM EDT Generic External Data Provider LAB BLOOD ORDERAB LES Final Result Performing Organization Address [facility]/ZIP Co de Phone Number [facility] [address] [place] [phone] * (ABNORMAL) CBC auto differential (10/13/2024 10:26 AM EDT) Only the most recent of2 resultswithin the time period is included. White Blood Count 11.9(H) 4.8 - 10.8 X10*3/uL [facility] Red Blood Count 4.36(L) 4.60 - 5.80 X10*6/uL [facility] Hemoglobin 14.2 14.0 - 18.0 g/dl [facility] Hematocrit 40.5(L) 42.0 - 52.0 % [facility] Mean Corpuscular Volume 92.9 80.0 - 98.0 fL [facility] Mean Corpuscular Hemoglobin 32.6 27.0 - 33.0 pg [facility] Mean Corpuscular HGB Conc 35.1 31.0 - 36.0 g/dl [facility] Red Cell Distribution Width 13.2 11.0 - 16.0 % [facility] Platelet Count 182 160 - 400 X10*3/uL [facility] Mean Platelet Volume 10.5 9.4 - 12.4 fL [facility] Neutrophils Percent Auto 87.7(H) 45 - 73 % [facility] Imm Gran Pct Auto 0.5(H) 0.0 - 0.4 % [facility] Lymphocytes Percent Auto 6.3(L) 20 - 40 % [facility] Monocytes Percent Auto 5.0 2 - 11 % [facility] Eosinophils Percent Auto 0.2 0 - 4 % [facility] Basophils Percent Auto 0.3 0 - 2 % [facility] NRBC Pct Auto 0.0 0.0 - 0.2 /100WBC [facility] Neutrophils Absolute Auto 10.4(H) 2.0 - 8.3 x10*3/uL [facility] Imm Gran Abs Auto 0.06(H) 0.00 - 0.03 X10*3/uL [facility] Lymphocytes Absolute Auto 0.8(L) 1.2 - 4.9 X10*3/uL [facility] Monocytes Absolute Auto 0.6 0.1 - 1.2 X10*3/uL [facility] Eosinophils Absolute Auto 0.0 0.0 - 0.4 X10*3/uL [facility] Basophils Absolute Auto 0.0 0.0 - 0.2 X10*3/uL [facility] NRBC Abs Auto 0.000 0.0 - 0.012 X10*3/uL [facility] 10/13/2024 10:2 6 AM EDT 10/13/2024 10:31 AM EDT us Generic External Data Provider LAB BLOOD ORDERAB LES Final Result Performing Organization Address [facility] Co de Phone Number [facility] [address] [place] [phone] * Sed Rate by Thomas Romeo (10/13/2024 10:26 AM EDT) Erythrocyte Sedimentation Rate 14 0 - 15 MM/HR [facility] Comment:Patients with polycy themia and many hemoglobin abnormalitiesmay have depressed sed rates whereas patients with anemiamay have elevated sed rates. 10/13/2024 10:2 6 AM EDT 10/13/2024 10:31 AM EDT us Generic External Data Provider LAB BLOOD ORDERAB LES Final Result Performing Organization Address [facility] Co de Phone Number [facility] [address] [place] [phone] * (ABNORMAL) C-reactive Protein (10/13/2024 10:26 AM EDT) C Reactive Protein 2.84(H) < or = 0.50 mg/dL [facility] 10/13/2024 10:2 6 AM EDT 10/13/2024 10:31 AM EDT us Generic External Data Provider LAB BLOOD ORDERAB LES Final Result Performing Organization Address City/[facility] Co de Phone Number [facility] [address] [place] [phone] * (ABNORMAL) Magnesium (10/13/2024 10:26 AM EDT) Only the most recent of2 resultswithin the time period is included. Magnesium 3.5(HH) 1.6 - 2.6 mg/dL [facility] Comment:Critical value for M AG: Results called to and read back by:LAKEISHA Person calling: CANDIDO Date: 10/13/24 Time: 1141 10/13/2024 10:2 6 AM EDT 10/13/2024 10:31 AM EDT Generic External Data Provider LAB BLOOD ORDERAB LES Final Result Performing Organization Address City/[facility]/ZIP Co de Phone Number [facility] [address] [place] [address] [phone] * (ABNORMAL) Creatine Kinase, Total (10/13/2024 10:26 AM EDT) Pathologist [facility] Creatine Kinase Total >42,670(H) 38 - 174 U/L [facility] Comment:Verified by dilution 10/13/2024 10:2 6 AM EDT 10/13/2024 10:31 AM EDT Generic External Data Provider LAB BLOOD ORDERAB LES Final Result Performing Organization Address City/[facility]/ZIP Co de Phone Number [facility] [address] [place] [phone] * (ABNORMAL) Hepatic Function Panel (10/13/2024 10:26 AM EDT) Only the most recent of2 resultswithin the time period is included. Bilirubin, Total 0.2 0.0 - 1.0 mg/dL [facility] Bilirubin, Direct <0.2 0.0 - 0.5 mg/dL [facility] Aspartate Amino Transferase 647(H) 5 - 37 U/L [facility] Alanine Aminotransferase 175(H) 0 - 40 U/L [facility] Total Protein 6.3(L) 6.5 - 8.0 g/dL [facility] Albumin Level 3.8 3.5 - 5.0 g/dL [facility] Alkaline Phosphatase 124(H) 39 - 117 U/L [facility] 10/13/2024 10:2 6 AM EDT 10/13/2024 10:31 AM EDT us Generic External Data Provider LAB BLOOD ORDERAB LES Final Result [facility] [address] [place] [phone] * (ABNORMAL) Basic Metabolic Panel (10/13/2024 10:26 AM EDT) Only the most recent of2 resultswithin the time period is included. Sodium 135 135 - 145 mmol/L [facility] Potassium 4.1 3.3 - 5.1 mmol/L [facility] Chloride 100 96 - 108 mmol/L [facility] Carbon Dioxide 13(L) 22 - 29 mmol/L [facility] Anion Gap 26(H) 12 - 20 [facility] Urea Nitrogen (BUN) 57(H) 9 - 16 mg/dL [facility] Creatinine, Serum 8.85(HH) 0.5 - 1.4 mg/dL [facility] Comment:Critical value for C REAT: Results called to and read siay: KAELA Person calling: CANDIDO Date: 10/13/24 Time: 1101 Creatinine Clr Calc Pharmacy 10.2 [facility] Comment:eGFR (calculated fro m the MDRD study equation) and eCrCl(calculated from the Cockcroft-Gault equation) are based ondifferent parameters and may not yield comparable results.If eCrCl result is absurd, please check patient'sheight/weight. Estimated Glomerular Filt Rate 7 [facility] Comment:Chronic Kidney Disea se: Estimated GFR < 60 mL/min/1.51k5Dsieao Kidney Disease: Estimated GFR < 15 mL/min/1.73m2 Glucose 85 60 - 115 mg/dL [facility] Calcium 6.1(L) 8.4 - 10.2 mg/dL [facility] 10/13/2024 10:2 6 AM EDT 10/13/2024 10:31 AM EDT us Generic External Data Provider LAB BLOOD ORDERAB LES Final Result Performing Organization Address City/State/[facility] Co de Phone Number [facility] [address] [place] [phone] * XR Sacrum Coccyx 2+ Views (10/13/2024 10:10 AM EDT) Anatomical Region Laterality Modality Sacrum, Coccyx Radiographic Mariya ging 10/13/2024 10:1 0 AM EDT Narrative 10/13/2024 11:22 AM EDT [address] [address] XRay Report Signed Patient: Bert English MR#: [id number] 358 : 1985 Acct:[id number] Age/Sex: 39 / M ADM Date: 10/13/24 Loc: .ED Attending Dr: Ordering Physician: Maddie Nava Date of Service: 10/13/24 Procedure(s): XR sacrum coccyx min 2V Accession Number(s): [id number] cc: [facility]; Maddie Nava EXAMINATION: XR SACRUM AND COCCYX CLINICAL INFORMATION: pain COMPARISON: None available. TECHNIQUE: AP and lateral views. FINDINGS: No acute cortical disruption. No gross lytic or blastic lesions. No gross malalignment. XR/XR sacrum coccyx min 2V IMPRESSION: No acute fracture. Electronically signed by: Elie Noel MD 10/13/2024 11:19 AM EDT RP Dictated By: Elie Alfaro MD Signed By: <Electronically signed by Elie Mendoza MD in OV> 10/13/24 1119 DD/ 1010 TD/TT: 10/13/24 1115 Antisqueak Filler: Procedure Note Donotuseinterpreter, Image - 10/13/[address] [address] XRay Report Signed Patient: Rogelio English#: [id number] 358 : 1985Acct:[id number] Age/Sex: 39 / MADM Date: 10/13/24 Loc: HO.ED Attending Dr: Ordering Physician: Maddie Nava Date of Service: 10/13/24 Procedure(s): XR sacrum coccyx min 2V Accession Number(s): [id number] cc: [facility]; Maddie Nava EXAMINATION: XR SACRUM AND COCCYX CLINICAL INFORMATION: pain COMPARISON: None available. TECHNIQUE: AP and lateral views. FINDINGS: No acute cortical disruption. No gross lytic or blastic lesions. No gross malalignment. XR/XR sacrum coccyx min 2V IMPRESSION: No acute fracture. Electronically signed by: Elie Noel MD 10/13/2024 11:19 AM EDT Dictated By: Elie Alfaro MD Signed By: <Electronically signed by Elie Mendoza MDin OV> 10/13/24 1119 DD/ 1010 TD/TT: 10/13/24 111 Antisqueak Filler: us [facility] External Provider IMG XR PROCEDURES Final Result * XR Lumbar Spine 2-3 Views (10/13/2024 10:09 AM EDT) Anatomical Region Laterality Modality Spine, L-spine Radiographic Mariya ging 10/13/2024 10:0 9 AM EDT Narrative 10/13/2024 11:22 AM EDT [address] [address] XRay Report Signed Patient: Bert English MR#: [id number] 358 : 1985 Acct:[id number] Age/Sex: 39 / M ADM Date: 10/13/24 Loc: HO.ED Attending Dr: Ordering Physician: Maddie Nava Date of Service: 10/13/24 Procedure(s): XR lumbar spine 2-3V Accession Number(s): [id number] cc: [facility]; Maddie Nava EXAMINATION: XR LUMBOSACRAL SPINE CLINICAL INFORMATION: pain COMPARISON: None available. TECHNIQUE: AP and lateral views FINDINGS: No acute cortical disruption or malalignment. No lytic or blastic lesions. Small marginal osteophyte formation and mild endplate sclerosis throughout the axial skeleton. Abundant stool without intestinal obstruction pattern. XR/XR lumbar spine 2-3V IMPRESSION: No acute fracture or listhesis. Electronically signed by: Elie Noel MD 10/13/2024 11:19 AM EDT RP Dictated By: Elie Alfaro MD Signed By: <Electronically signed by Elie Mendoza MD in OV> 10/13/24 1119 DD/ 1009 TD/TT: 10/13/24 1115 Antisqueak Filler: Procedure Note Donotuseinterpreter, Image - 10/13/2024 [place] [address] XRay Report Signed Patient: Rogelio English#: [id number] 358 : 1985Acct:[id number] Age/Sex: 39 / MADM Date: 10/13/24 Loc: HO.ED Attending Dr: Ordering Physician: Maddie Nava Date of Service: 10/13/24 Procedure(s): XR lumbar spine 2-3V Accession Number(s): [id number] cc: [facility]; Maddie Nava EXAMINATION: XR LUMBOSACRAL SPINE CLINICAL INFORMATION: pain COMPARISON: None available. TECHNIQUE: AP and lateral views FINDINGS: No acute cortical disruption or malalignment. No lytic or blastic lesions. Small marginal osteophyte formation and mild endplate sclerosis throughout the axial skeleton. Abundant stool without intestinal obstruction pattern. XR/XR lumbar spine 2-3V IMPRESSION: No acute fracture or listhesis. Electronically signed by: Elie Noel MD 10/13/2024 11:19 AM EDT RP Dictated By: Elie Alfaro MD Signed By: <Electronically signed by Elie Mendoza MDin OV> 10/13/24 1119 DD/ 1009 TD/TT: 10/13/24 1115 Antisqueak Filler: us [facility] External Provider IMG XR PROCEDURES Final Result * Hemoglobin A1c (06/02/2024 11:46 AM EDT) Hemoglobin A1c 5.8 <6.0 % [facility] Comment:Hemoglobin A1C Refer ence Range Adults: 4.8 - 6.0 % Non diabetic: < 6.0 % Goal: < 7.0 %Additional Action Suggested: > 8.0 %Note: Hemoglobin A1c results are invalid for patients with abnormal amounts of HbF. Blood transfusions may impact the HbA1c concentration in the patient sample. Estimated Average Glucose 120 mg/dL [facility] Comment:eAG = Estimated ave rage glucose which is %A1C expressed asaverage glucose, using the formula of the J1D-FyphmvaUwxoqmk Glucose study (ADAG), Diabetes Care, Vol.31,#8,Oct. 2007 Blood Venous blood specimen / Unknown 06/02/2024 11:46 AM EDT 06/02/2024 1:50 PM EDT Viri Reyes MD LAB BLOOD ORDERABLES Final Res ult [facility] [address] [place] [phone] * (ABNORMAL) Lipid Panel, Standard (06/02/2024 11:46 AM EDT) Triglycerides 100 <150 mg/dL [facility] Comment:Desirable Triglyceri de: less than 150 mg/dLBorderline High Triglyceride 150-199 mg/dLHigh Triglyceride: 200-499 mg/dLVery High Triglyceride: greater than or equal to 5OO mg/dL Cholesterol 187 <200 mg/dL [facility] Comment:Desirable Cholestero l: less than 200 mg/dLBorderline High Cholesterol: 200-239 mg/dLHigh Cholesterol: greater than 239 mg/dL LDL Cholesterol Calculated 116(H) <100 mg/dL [facility] Comment:Desirable LDL: less than 100 mg/dLNear Optimal/Above Optimal LDL: 110- 129 mg/dLBorderline High LDL: 130-159 mg/dLHigh LDL: 160-189 mg/dLVery High LDL: greater than or equal to 190 mg/dL HDL Cholesterol 51 >40 mg/dL [facility] Comment:Desirable HDL: great er than 40 mg/dL Note: This HDL assay may give artificially low results in patients with liver disease. 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
[2024-11-04 12:33] LABS: Anion Gap 12 (12-20); Blood Urea Nitrogen 48 mg/dL (9-16); Calcium 9.2 mg/dL (8.4-10.2); Carbon Dioxide 20 mmol/L (22-29); Chloride 111 mmol/L (96-108); Estimated Glomerular Filt Rate 34; Potassium 4.2 mmol/L (3.3-5.1); Sodium 139 mmol/L (135-145)
[2024-11-04 13:10] LABS: Parathyroid Hormone Intact 133.4 pg/mL (8.7-77.1)
== END 2024-11-04 11:20 | disposition home or self-care (01) ==
LOC: HO.LAB 11:19
PROVIDERS: PCP General Practice; Visit Provider Nurse Practitioner Family
DX: N17.9 Acute kidney failure, unspecified (principal); N18.30 Chronic kidney disease, stage 3 unspecified; M62.82 Rhabdomyolysis
CPT/HCPCS: 36415; 80048; 83970; 84100; 99212

== ENCOUNTER 2024-11-04 13:45 | Outpatient (AMB) | payer MEDICAID, SELFPAY ==
--- NOTE | 2024-11-04 12:41 | HO.NEPHOV_ITS ---
Vital Signs 11/04/24 13:47 Height 5 ft 9 in Weight 145 lb BMI 21.4 BP 108/60 Blood Pressure Location Rt brachial Position Sitting Pulse 81 Pulse Source Pulse Oximeter Pulse Oximetry (%) 97 Oxygen Delivery Method Room Air Intake Visit Reasons: [facility] HFU [employer] Man Required: No Accompanied by: Girlfriend Allergies No Known Allergies Allergy (Verified 11/04/24 13:50) HPI Comments Details: Bert is a 39 y/o male with a medical history of alcohol and PCP abuse who presents for hospital follow up for which he sustained acute renal failure requiring dialysis from rhabdomyolysis secondary to drug abuse. Was at [facility] 10/13/24 through 10/29/24. He presented with lower back pain, nausea and vomiting x3 days, and shortness of breath. Creatinine 8.85 on presentation, 2 weeks prior was 1.09. Patient had CK>42,000. Urine tox was positive for PCP. Partner at bedside relayed that patient has a recent history of smoking embalming fluid. Patient was oliguric, did not respond to IVF, creatinine continued to rise. Patient was initiated on dialysis, last session was on 10/26, urine output normalized and creatinine trended downward. Initial plans for outpatient dialysis were canceled and permcath was removed. creatinine has continued to trend downward with outpatient labs. creatinine 2.14 on 11/04, down from 3.65 on 10/29 (discharge). Pt reports he has not smoked cigarettes since discharge but is wondering if it is safe for him to smoke cigarettes again. Patient continues to make urine. Denies chest pain, shortness of breath, abdominal/flank pain, urinary symptoms, extremity swelling, fatigue. [facility] Medical History (Updated 10/27/24 @ 15:44 by Jennifer Luevano MD) PCP (phencyclidine) abuse Alcohol abuse Polysubstance abuse Social History Household Members: Family Household Members Other:: mother Housing: Apartment Do you presently have visiting nurse or other home services: No Alcohol intake: current Alcohol intake frequency: 3 or more drinks per day Alcohol type: beer and hard liquor Comment: Reinforced rationale for safety protocols. patient refused Patient Tobacco Use Status: Current everyday Tobacco user Tobacco use type: Cigarette Cigarettes Per Day: 10 e-Cigarette/Vaping Use: Never Used Substance Use Type: Amphetamines service: No Review of Systems Const All systems reviewed & are unremarkable except as noted in HPI and below Physical Exam Const General: no acute distress, alert and awake Resp Effort & Inspection: normal respiratory effort and able to speak in complete sentences Auscultation: clear to auscultation bilaterally Cardio Rate: regular rate Rhythm: regular rhythm Heart sounds: S1 normal heart sound present and S2 normal heart sound present GI Palpation (GI): Soft to palpation and nontender General: Yes no CVA tenderness Back/Spine/Pelvis Back: no CVA tenderness Skin Rashes: no rashes Extrem General: No edema Results Reviewed Nephrology Results: Hgb, (14.0-18.0) 12.1 g/dl L 10/27/24 WBC, (4.8-10.8) 8.0 X10*3/uL 10/27/24 Plt Count, (160-400) 161 X10*3/uL 10/27/24 Sodium, (135-145) 139 mmol/L Today Potassium, (3.3-5.1) 4.2 mmol/L Δ Today Chloride, (96-108) 111 mmol/L H Today Carbon Dioxide, (22-29) 20 mmol/L L Today BUN, (9-16) 48 mg/dL H Today Creatinine, (0.5-1.4) 2.14 mg/dL H Today Calcium, (8.4-10.2) 9.2 mg/dL Today Phosphorus, (2.7-4.5) 3.5 mg/dL Today PTH Intact, (8.7-77.1) 133.4 pg/mL H Today Urine Protein, (Neg-Trace) Trace mg/dL 10/27/24 Urine Creatinine 142.09 mg/dL 10/13/24 Assessment & Plan Assessment & Plan (1) Acute renal failure: Code(s): N17.9 - Acute kidney failure, unspecified Category: Medical Qualifiers: Acute renal failure type: unspecified Qualified Code(s): N17.9 - Acute kidney failure, unspecified (2) WILL (acute kidney injury): Code(s): N17.9 - Acute kidney failure, unspecified Category: Medical Plan Patient with acute renal failure from rhabdomyolisis - improving. patient remains off dialysis and renal function continues to slowly recover. discussed avoiding drugs is of the utmost importance- discussed any resumption in drug use may cause another episode of renal failure, which could lead to permanent dialysis and/or . Discussed the importance of avoiding NSAIDs, hydration, healthy diet low in salt, regular physical acitivty and maintaining a healthy body weight. Advised to continue to avoid smoking cigarettes for long-term health- encouraged partner, who lives with him and smokes, to stop smoking as well as this is hindering patient's ability to remain cigarette-free. He will follow up with Dr De La Fuente in 3-4 weeks, labs prior. Coding Level of Care Code Est Pt Level 3 (82436) Diagnoses Acute renal failure, unspecified acute renal failure type N17.9 Acute renal failure type: unspecified WILL (acute kidney injury) N17.9
[2024-11-04 13:47] VITALS: BP 108/60; PULSE 81; O2SAT 97; BMI 21.4
== END 2024-11-04 14:13 | disposition home or self-care (01) ==
LOC: HO.HKA 13:46
PROVIDERS: Visit Provider Nurse Practitioner Family
DX: N17.9 Acute kidney failure, unspecified (principal)
CPT/HCPCS: 99213

== ENCOUNTER 2024-11-26 12:30 | Outpatient (REF) | payer MEDICAID, SELFPAY ==
--- OUTSIDE RECORDS SUMMARY | 2024-11-26 12:52 | XMS_ITS | Clinical Summary ---
Author Organization [employer] Address [address] [facility] [address] [place] [address] Care Team Providers Care Inner Tube Inserter Name Role Phone Viri Reyes MD Primary Care Provider [phone] Allergies No known active allergies Medications * This document contains information received from the source organization and may not represent a complete record from that organization. sertraline (Zoloft) 50 MG tablet Take 1 tablet (50 mg) by mouth Once per day. 90 tablet 1 06/03/19 25 025 Active famotidine (Pepcid) 20 MG tablet Take 1 tablet (20 mg) by mouth 2 times daily. 180 tablet 3 06/03/19 25 026 Active Multiple Vitamins-[place] als (PreserVision AREDS 2) capsule Take 1 capsule by mouth Once per day. 11/04/19 25 Active traZODone (Desyrel) 50 MG tablet Take 1 tablet (50 mg) by mouth at bedtime. 30 tablet 11/09/19 25 025 Active nicotine polacrilex (Nicorette) 4 MG gum Chew 1 each (4 mg) if needed for smoking cessation. 100 each 11/09/19 25 025 Active amoxicillin (Amoxil) 500 MG capsule Take 1 capsule by mouth every 6 (six) hours during the day. 08/18/19 24 025 Discontinued(Me d list cleanup (will not trigger notification to Pharmacy)) erythromycin (Romycin) 5 MG/GM ophthalmic ointment APPLY 1/2 INCH INTO THE EYE(S) 3 TIMES A DAY FOR 7 DAYS 08/18/19 24 025 Discontinued(Me d list cleanup (will not trigger notification to Pharmacy)) predniSONE (Deltasone) 20 MG tablet Take 2 tablets by mouth Once per day. 08/18/19 24 025 Discontinued(Me d list cleanup (will not trigger notification to Pharmacy)) Multiple Vitamins-[place] als (PreserVision AREDS) tablet Take 1 tablet by mouth Once per day. 90 tablet 3 06/03/19 25 025 Discontinued(Me d list cleanup (will not trigger notification to Pharmacy)) Active Problems Problem Noted Date Diagnosed Date WILL (acute kidney injury) 11/08/2024 Assessment & Plan (11/09/2024 2:44 PM EDT): Secondary to rhabdomyolysis, improved status post IVF plus emergency hemodialysis, doing much better. No need for additional hemodialysis at this time, right supraclavicular suture removed (supraclavicular catheter/HD site) Follow-up closely with renal in 2 weeks Advised importance of proper hydration, avoid NSAIDs use, smoking and use of alcohol or recreational substances Non-traumatic rhabdomyolysis 11/08/2024 Assessment & Plan (11/09/2024 2:47 PM EDT): Secondary to PCP use, CPK came down from 42K to 200 last week. Advised against using recreational substances or alcohol, increase p.o. water intake and follow-up closely with renal Phencyclidine (PCP) use disorder, mild, abuse Assessment & Plan (11/08/2024 2:40 PM EDT): Sober since admission Advised to avoid using rec substances. 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 Cigarette nicotine dependenc e with nicotine-induced disorder 11/08/2024 Assessment & Plan (11/09/2024 2:47 PM EDT): Discussed importance of cutting down on cigarette smoking, he agreed to start on nicotine gum He will follow-up with PCP in 4 to 6 weeks Dental caries 08/20/2024 Tooth impaction 07/08/2024 Missing teeth, acquired 07/08/2024 Dental calculus 07/08/2024 Gingival recession, localized 07/08/2024 Overweight 06/02/2024 Backache 10/04/2011 Depressive disorder 09/11/2011 Assessment & Plan (11/09/2024 2:46 PM EDT): Doing well on sertraline during hospitalization, advised importance of taking medication daily. He wants to be seen at [facility] where he used to see his therapist in the past. I will send a referral to our program to follow-up closely with him. Continue sertraline 50 mg and start trazodone 50-100 mg nightly, he may call for refills if symptoms improved. Patient is able to reach out for safety to his mother and girlfriend, he feels safe at home. Follow-up with PCP in 4 to 6 weeks Advised against using recreational substances or alcohol Advised to use nicotine gum as needed to cut down on smoking Gastroesophageal reflux disease 09/11/2011 Syncope and collapse 09/11/2011 Underweight 09/11/2011 Resolved Problems Problem Noted Date Diagnosed Date Resolved Date Otitis media 09/11/2011 06/02/2024 Encounters * This document contains information received from the source organization and may not represent a complete record from that organization. Date Type Department Care Team Description 11/08/2024 1:30 PM EDT Office Visit [facility] [address] [place] [phone] Jody Malone MD WILL (acute kidney injury) (CMS/HCC) (Primary Dx); Non-traumatic rhabdomyolysis; Depressive disorder; Phencyclidine (PCP) use disorder, mild, abuse (CMS/HCC); Cigarette nicotine dependence with nicotine-induced disorder 11/08/2024 Travel 11/05/2024 Telephone [facility] [address] [place] [phone] Viri Reyes MD Chart Prep 11/04/2024 Orders Only GENERIC EXTERNAL DATA DEPARTMENT Provider, Generic External Data 11/03/2024 Patient Outreach [facility] [address], [place] [phone] Viri Reyes MD Transition Of Care (Tcm) (HDF unscheduled) 11/03/2024 Telephone [facility] [address] [place] [address] Viri Reyes MD Hospital Follow-up 10/13/2024 Orders Only [facility] External Provider, [facility] from Last 3 Months Immunizations Immunization Administration [...] Types Packs/Day Years Used Date Smoking Tobacco: Some Days Cigarettes Smokeless Tobacco: Never Tobacco Cessation:Ready to [...] Sign Reading Time Taken Comments Blood Pressure 138/92 11/08/2024 1:29 PM EDT Pulse 100 11/08/2024 1:29 PM EDT Temperature 36.4 C (97.6 F) 11/08/2024 1:29 PM EDT Respiratory Rate 20 11/08/2024 1:29 PM EDT Oxygen Saturation 97% 11/08/2024 1:29 PM EDT Inhaled Oxygen Concentration - - Weight 66.6 kg (146 lb 12.8 oz) 11/08/2024 1:29 PM EDT Height 165.1 cm (5' 5 ) 11/08/2024 1:29 PM EDT Body Mass Index 24.43 11/08/2024 1:29 PM EDT Plan of Treatment Upcoming Encounters Date Type Department Care Team (Late st Contact Info) Description 01/06/2025 8:00 AM EDT Office Visit [facility] [address] [place] [address] Melanie Lyons 01/07/2025 2:30 PM EDT Office Visit [facility] [address] [place] [address] Viri Reyes MD [address] [place] [address] Health Maintenance Due Date Last Done Comments HIV Screening 1985 HPV Vaccines (1 - Male [...] 06/02/2025 06/02/2024 Dental X-Ray: Bitewings 07/09/2025 07/08/2024 Disability Screening 11/08/2025 11/08/2024 Tobacco Screening 11/08/2025 11/08/2024 Dental X-Ray: Full Mouth 07/10/2027 07/08/2024, 12/22 [...] Procedure Name Priority Date/Time Associated Diagnosis Comments PHOSPHATE ( PHOSPHORUS) Routine 11/04/2024 11:33 AM EDT BASIC METABOLIC PANEL Routine 11/04/2024 11:33 AM EDT IR CVC REMOV TUNNEL WO PRT/ASSISTANT ASSOCIATE FULL PROFESSOR Routine 10/29/2024 1:30 PM EDT IR CVC INSERT CENTRAL TUNNEL Routine 10/25/2024 [...] AUTO DIFFERENTIAL Routine 09/27/2024 9:25 PM EDT INTRAORAL - COMPLETE SERIES OF [...] Recently Relevant to Health Maintenance Results * Phosphate (As Phosphorus) (11/04/2024 11:33 AM EDT) Phosphorus 3.5 2.7 - 4.5 mg/dL [facility] 11/04/2024 11:3 3 AM EDT 11/04/2024 11:33 AM EDT us Generic External Data Provider LAB BLOOD ORDERAB LES Final Result [facility] [address] [place] [phone] * (ABNORMAL) Basic Metabolic Panel (11/04/2024 11:33 AM EDT) Only the most recent of3 resultswithin the time period is included. Sodium 139 135 - 145 mmol/L [facility] Potassium 4.2 3.3 - 5.1 mmol/L [facility] Chloride 111(H) 96 - 108 mmol/L [facility] Carbon Dioxide 20(L) 22 - 29 mmol/L [facility] Anion Gap 12 12 - 20 [facility] Urea Nitrogen (BUN) 48(H) 9 - 16 mg/dL [facility] Creatinine, Serum 2.14(H) 0.5 - 1.4 mg/dL [facility] Estimated Glomerular Filt Rate 34 [facility] Comment:Chronic Kidney Disea se: Estimated GFR < 60 mL/min/1.53w7Aubqme Kidney Disease: Estimated GFR < 15 mL/min/1.73m2 Glucose 112 60 - 115 mg/dL [facility] Calcium 9.2 8.4 - 10.2 mg/dL [facility] 11/04/2024 11:3 3 AM EDT 11/04/2024 11:33 AM EDT us Generic External Data Provider LAB BLOOD ORDERAB LES Final Result Performing Organization Address City/State/[facility] Co de Phone Number [facility] [address] [place] [address] [phone] * IR CVC REMOV TUNNEL WO PRT/PM (10/29/2024 1:30 PM EDT) Anatomical Region Laterality Modality X-Ray Angiograph y 10/29/2024 1:30 PM EDT Narrative 11/10/2024 10:53 AM EDT [place] [address] Interventional Radiology Rpt Signed Patient: Bert English MR#: [id number] 358 : 1985 Acct:[id number] Age/Sex: 39 / M ADM Date: 10/13/24 Loc: .S3 351-[address]: Jennifer Luevano MD Ordering Physician: Brenna Qureshi DNP, FNP-BC Date of Service: 10/29/24 Procedure(s): IR cvc remov tunnel wo prt/finishing supervisor Accession Number(s): [id number] cc: [facility]; Brenna Qureshi DNP, FNP-BC EXAMINATION: Removal of tunneled central line placement. CLINICAL INDICATION: Right permacatheter not needed anymore. FINDINGS/ IR/IR cvc remov tunnel wo prt/finishing supervisor IMPRESSION: Following cleaning the entry site in aseptic manner, blunt dissection was performed around the entry site. Using hemostats the cuff around the catheter was loosened and the catheter was pulled out safely. No hemorrhage visualized. Simple dressing applied post procedure. No sedation was utilized. Electronically signed by: Matthwe Tineo MD 11/10/2024 10:50 AM EDT RP Dictated By: Matthew Tineo MD Signed By: <Electronically signed by Matthew Tineo MD in OV> 11/10/24 1050 DD/ 1330 TD/TT: 10/29/24 1550 Clinical Data Abstractor: [facility] Procedure Note Donotuseinterpreter, Image - 11/10/2024 [place] [address] Interventional Radiology Rpt Signed Patient: Rogelio English#: [id number] 358 : 1985Acct:[id number] Age/Sex: 39 / MADM Date: 10/13/24 Loc: .S3 351-[address]: Jennifer Luevano MD Ordering Physician: Brenna Qureshi DNP, TITLE LAW[employer]ER- Date of Service: 10/29/24 Procedure(s): IR cvc remov tunnel wo prt/finishing supervisor Accession Number(s): [id number] cc: [facility]; Brenna Qureshi DNP, TITLE LAWYER- EXAMINATION: Removal of tunneled central line placement. CLINICAL INDICATION: Right permacatheter not needed anymore. FINDINGS/ IR/IR cvc remov tunnel wo prt/finishing supervisor IMPRESSION: Following cleaning the entry site in aseptic manner, blunt dissection was performed around the entry site. Using hemostats the cuff around the catheter was loosened and the catheter was pulled out safely. No hemorrhage visualized. Simple dressing applied post procedure. No sedation was utilized. Electronically signed by: Matthew Tineo MD 11/10/2024 10:50 AM EDT RP Dictated By: Matthew Tineo MD Signed By: <Electronically signed by Matthew Tineo MD in OV> 11/10/24 1050 DD/ 1330 TD/TT: 10/29/24 1550 Clinical Data Abstractor: SANDRO us [facility] External Provider IMG IR PROCEDURES Final Result * IR CVC Insert Central Tunnel (10/25/2024 9:00 AM EDT) Anatomical Region Laterality Modality Body X-Ray Angiograph y 10/25/2024 9:00 AM EDT Narrative 10/27/2024 1:04 PM EDT [address] [address] Interventional Radiology Rpt Signed Patient: Bert English MR#: [id number] 358 : 1985 Acct:[id number] Age/Sex: 39 / M ADM Date: 10/13/24 Loc: .S3 351-[address]: Jennifer Luevano MD Ordering Physician: Brenna Qureshi DNP, FNP-BC Date of Service: 10/25/24 Procedure(s): IR cvc insert central tunnel Accession Number(s): [id number] cc: [facility]; Brenna Qureshi DNP, FNP-BC PROCEDURE: IR INSERTION OF TUNNEL CATHETER CLINICAL [...] Matthew Tineo MD 10/27/2024 01:02 PM EDT RP Dictated By: Matthew Tineo MD Signed By: <Electronically signed by Matthew Tineo MD in OV> 10/27/24 1302 DD/ 0900 TD/TT: 10/25/24 1047 Clinical Data Abstractor: [facility] Procedure Note Donotuseinterpreter, Image - 10/27/2024 [place] [address] Interventional Radiology Rpt Signed Patient: Rogelio English#: [id number] 358 : 1985Acct:[id number] Age/Sex: 39 / MADM Date: 10/13/24 [facility]: Jennifer Luevano MD Ordering Physician: Brenna Qureshi DNP, FNP-BC Date of Service: 10/25/24 Procedure(s): IR cvc insert central tunnel Accession Number(s): [id number] cc: [facility]; Brenna Qureshi DNP, FNP-BC PROCEDURE: IR INSERTION OF TUNNEL CATHETER CLINICAL [...] Matthew Tineo MD 10/27/2024 01:02 PM EDT RP Dictated By: Matthew Tineo MD Signed By: <Electronically signed by Matthew Tineo MD in OV> 10/27/24 1302 DD/ 0900 TD/TT: 10/25/24 1047 Clinical Data Abstractor: SANDRO [facility] External Provider IMG IR PROCEDURES Final Result * US SCROTUM DOPPLER (10/18/2024 10:11 AM EDT) Anatomical Region Laterality Modality Abdomen Ultrasound 10/18/2024 10:1 1 AM EDT Narrative 10/18/2024 11:13 AM EDT [place] [address] Ultrasound Report Signed Patient: Bert English MR#: [id number] 358 : 1985 Acct:[id number] Age/Sex: 39 / M ADM Date: 10/13/24 Loc: [facility] 468-[address]: Zackary Dominguez MD Ordering Physician: Narayan Hyatt MD Date of Service: 10/18/24 Procedure(s): US scrotum doppler Accession Number(s): [id number] cc: Narayan Hyatt MD; [facility] EXAMINATION: US SCROTUM WITH DOPPLER COMPLETE HISTORY: [...] 10/22/24 1149 DD/ 1011 TD/TT: 10/18/24 1021 Clinical Data Abstractor: Procedure Note Donotuseinterpreter, Image - 10/22/2024 [place] [address] Ultrasound Report Signed Patient: Rogelio English#: [id number] 358 : 1985Acct:[id number] Age/Sex: 39 / MADM Date: 10/13/24 Loc: [facility] 468-[address]: Zackary Dominguez MD Ordering Physician: Narayan Hyatt MD Date of Service: 10/18/24 Procedure(s): US scrotum doppler Accession Number(s): [id number] cc: Narayan Hyatt MD; [facility] EXAMINATION: US SCROTUM WITH DOPPLER COMPLETE HISTORY: [...] 10/22/24 1149 DD/ 1011 TD/TT: 10/18/24 1021 Clinical Data Abstractor: us [facility] External Provider IMG US PROCEDURES Edited Result - Final * US Scrotum (10/18/2024 10:11 AM EDT) Anatomical Region Laterality Modality Body Ultrasound 10/18/2024 10:1 1 AM EDT Narrative 10/22/2024 11:52 AM EDT [address] [address] Ultrasound Report Signed Patient: Bert English MR#: [id number] 358 : 1985 Acct:[id number] Age/Sex: 39 / M ADM Date: 10/13/24 Loc: [facility] 468-[address]: Zackary Dominguez MD Ordering Physician: Narayan Hyatt MD Date of Service: 10/18/24 Procedure(s): US scrotum Accession Number(s): [id number] cc: Narayan Hyatt MD; [facility] EXAMINATION: US SCROTUM WITH DOPPLER COMPLETE HISTORY: [...] 10/22/24 1149 DD/ 1011 TD/TT: 10/18/24 1021 Clinical Data Abstractor: Procedure Note Donotuseinterpreter, Image - 10/22/2024 [place] [address] Ultrasound Report Signed Patient: Rogelio English#: [id number] 358 : 1985Acct:[id number] Age/Sex: 39 / MADM Date: 10/13/24 Loc: [facility] 468-[address]: Zackary Dominguez MD Ordering Physician: Narayan Hyatt MD Date of Service: 10/18/24 Procedure(s): US scrotum Accession Number(s): [id number] cc: Narayan Hyatt MD; [facility] EXAMINATION: US SCROTUM WITH DOPPLER COMPLETE HISTORY: [...] 10/22/24 1149 DD/ 1011 TD/TT: 10/18/24 1021 Clinical Data Abstractor: [facility] External Provider IM US PROCEDURES Final Result * IR cvc insert non tunnel (10/14/2024 10:15 AM EDT) Anatomical Region Laterality Modality X-Ray Angiograph y 10/14/2024 10:1 5 AM EDT Narrative 10/19/2024 5:12 PM EDT [place] [address] Interventional Radiology Rpt Signed Patient: Bert English MR#: [id number] 358 : 1985 Acct:[id number] Age/Sex: 39 / M ADM Date: 10/13/24 Loc: [facility] 468-[address]: Zackary Dominguez MD Ordering Physician: Brenna Qureshi DNP, FNP-BC Date of Service: 10/14/24 Procedure(s): IR cvc insert non tunnel Accession Number(s): [id number] cc: [facility]; Brenna Qureshi DNP, FNP-BC PROCEDURE: IR INSERTION [...] needle withdrawn. Over the guidewire a 5 Lao dilator was inserted and guidewire removed. A 0.035 J-wire was inserted over the dilator under fluoroscopy and placed in IVC. The dilator was removed and tract was dilated with 8 Lao and a 12 Lao dilator. Dilator was removed and 12.5 Lao debris dialysis catheter was inserted over the [...] widely patent right jugular vein. A 12.5 Lao 20 cm long temporary dialysis catheter/Mahurkar was [...] Matthew Tineo MD 10/19/2024 05:09 PM EDT RP Dictated By: Matthew Tineo MD Signed By: <Electronically signed by Matthew Tineo MD in OV> 10/19/24 1709 DD/ 1015 TD/TT: 10/14/24 1249 Clinical Data Abstractor: [facility] Procedure Note Donotuseinterpreter, Image - 10/19/2024 [place] [address] Interventional Radiology Rpt Signed Patient: Rogelio English#: [id number] 358 : 1985Acct:[id number] Age/Sex: 39 / MADM Date: 10/13/24 Loc: [facility] 468-[address]: Zackary Dominguez MD Ordering Physician: Brenna Qureshi DNP, FNP-BC Date of Service: 10/14/24 Procedure(s): IR cvc insert non tunnel Accession Number(s): [id number] cc: [facility]; Brenna Qureshi DNP, FNP-BC PROCEDURE: IR INSERTION [...] needle withdrawn. Over the guidewire a 5 Lao dilator was inserted and guidewire removed. A 0.035 J-wire was inserted over the dilator under fluoroscopy and placed in IVC. The dilator was removed and tract was dilated with 8 Lao and a 12 Lao dilator. Dilator was removed and 12.5 Lao debris dialysis catheter was inserted over the [...] widely patent right jugular vein. A 12.5 Lao 20 cm long temporary dialysis catheter/Gustavokar was inserted through the right jugular vein [...] MD Signed By: <Electronically signed by Matthew Tinoe MD in OV> 10/19/24 1709 DD/ 1015 TD/TT: 10/14/24 1249 Clinical Data Abstractor: SANDRO [facility] External Provider IMG IR PROCEDURES Final Result * (ABNORMAL) Urinalysis, Complete, with Reflex to Culture (10/13/2024 12:47 PM EDT) Color Urine Yellow [facility] Appearance Urine Clear [facility] PH 5.5 5.0 - 9.0 [facility] Glucose Urine UA 100(A) Negative mg/dL [facility] Urine Blood Large (3+)(A) Negative [facility] Specific [place] - Urine 1.015 1.005 - 1.025 [facility] Urine Protein 300 (3+)(A) Neg-Trace mg/dL [facility] Urine Ketones Trace Negative mg/dL [facility] Nitrite Urine Negative Negative [facility] Leukocyte Esterase Urine Negative Negative [facility] RBC Urine 0-2 0 - 2 /HPF [facility] Urine WBC 0-5 0 - 5 /HPF [facility] Urine Squamous Epithelial Cell 3-5 0 - 2 /HPF [facility] Urine Bacteria None Seen None Seen [facility] Hyaline Casts, Urine 0-2 0 - 2 /LPF [facility] 10/13/2024 12:4 7 PM EDT 10/13/2024 12:55 PM EDT Narrative [facility] - 10/13/2024 1:07 PM EDT [id number], [employer] Generic External Data Provider LAB URINE ORDERAB LES Final Result [facility] [address] [place] [address] [phone] * (ABNORMAL) Drug Monitoring, Panel 1, Screen, Urine (10/13/2024 12:47 PM EDT) Only the most recent of2 resultswithin the time period is included. Opiate Screen Urine Not Detected Not Detect [facility] Comment:Opiate cut-off is 30 0 ng/mL.Positive results are unconfirmed and should not be used fornon-medical purposes. Barbiturates, Urine Not Detected Not Detect [facility] Comment:Barbiturate cut-off is 200 ng/mL.Positive results are unconfirmed and should not be used fornon-medical purposes. Phencyclidine Screen Urine POSITIVE(A) Not Detect [facility] Comment:Phencyclidine cut-of f is 25 ng/mL.Positive results are unconfirmed and should not be used fornon-medical purposes. Amphetamine Screen Urine Not Detected Not Detect [facility] Comment:Amphetamine cut-off is 1000 ng/mL.Positive results are unconfirmed and should not be used fornon-medical purposes. Benzodiazepines Screen Urine Not Detected Not Detect [facility] Comment:Benzodiazepine cut-o ff is 200 ng/mL.Positive results are unconfirmed and should not be used fornon-medical purposes. Cocaine Screen Urine Not Detected Not Detect [facility] Comment:Cocaine cut-off is 3 00 ng/mL.Positive results are unconfirmed and should not be used fornon-medical purposes. Cannabinoid Screen Urine Not Detected Not Detect [facility] Comment:Cannabinoid cut-off is 50 ng/mL.Positive results are unconfirmed and should not be used fornon-medical purposes. Methadone Screen, Urine Not Detected Not Detect ng/mL [facility] Comment:Methadone cut-off is 300 ng/mL.Positive results are unconfirmed and should not be used fornon-medical purposes. FENTANYL URINE Not Detected Not Detect [facility] Comment:Fentanyl cut-off is 1 ng/mL.Positive results are unconfirmed and should not be used fornon-medical purposes. Oxycodone Urine Screen Not Detected Not Detect ng/mL [facility] Comment:Oxycodone cut-off is 100 ng/mL.Positive results are unconfirmed and should not be used fornon-medical purposes. Buprenorphine Screen Not Detected Not Detect ng/mL [facility] Comment:Buprenorphine cut-of f is 5 ng/mL.Positive results are unconfirmed and should not be used fornon-medical purposes. 10/13/2024 12:4 7 PM EDT 10/13/2024 12:55 PM EDT us Generic External Data Provider LAB URINE ORDERAB LES Final Result Performing Organization Address [facility] Co de Phone Number [facility] [address] [place] [address] [phone] * Sodium Without creatinine, Random Urine (10/13/2024 12:47 PM EDT) Sodium Urine Random 64.0 mmol/L [facility] 10/13/2024 12:4 7 PM EDT 10/13/2024 12:55 PM EDT us Generic External Data Provider LAB BLOOD ORDERAB LES Final Result Performing Organization Address [facility] de Phone Number [facility] [address] [place] [phone] * (ABNORMAL) Osmolality, Urine (10/13/2024 12:47 PM EDT) OSMOLALITY URINE 259(L) 373 - 1,093 mosm/kg [facility] 10/13/2024 12:4 7 PM EDT 10/13/2024 12:55 PM EDT us Generic External Data Provider LAB URINE ORDERAB LES Final Result Performing Organization Address [facility] de Phone Number [facility] [address] [place] [address] [phone] * Creatinine, Random Urine (10/13/2024 12:47 PM EDT) Creatinine, Urine 142.09 mg/dL [facility] 10/13/2024 12:4 7 PM EDT 10/13/2024 12:55 PM EDT us Generic External Data Provider LAB URINE ORDERAB LES Final Result Performing Organization Address [facility] Co de Phone Number [facility] [address] [place] [address] [phone] * (ABNORMAL) VENOUS BLOOD GAS (10/13/2024 12:04 PM EDT) Pathologist [facility] VBG pH 7.22(L) 7.32 - 7.43 [facility] Comment:METER #: [id number] additional_comment: Cb omoruna VBG PCO2 15 mmHg [facility] Comment:METER #: [id number] additional_comment: Cb omoruna VBG PO2 82 mmHg [facility] Comment:METER #: [id number] additional_comment: Cb om[facility]una VBG Base Excess -18.8 mmol/L [facility] Comment:METER #: [id number] additional_comment: Cb om[facility]una VBG HCO3 6(L) 22 - 26 mmol/L [facility] Comment:METER #: [id number] additional_comment: Cb omoruna O2 Sat, Gerald 96.0 % [facility] Comment:METER #: [id number] additional_comment: Cb omoruna 10/13/2024 12:0 4 PM EDT 10/13/2024 12:08 PM EDT us Generic External Data Provider LAB BLOOD ORDERAB LES Final Result [facility] [address] [place] [address] [phone] * Hepatitis Panel, General (10/13/2024 11:57 AM EDT) Pathologist [facility] Hepatitis A IgM Nonreactive Nonreactive [facility] Comment:IgM antibodies to CHAPMAN V not detected; does not exclude earlyacute or recovered HAV infection. ~Hepatitis B Surface Antibody REACTIVE Nonreactive [facility] Comment:REACTIVE: > 11.99 mI U/mL Hepatitis B Core Antibody Nonreactive Nonreactive [facility] Hepatitis C Antibody Nonreactive Nonreactive [facility] Comment:Antibodies to HCV no t detected; does not exclude early acuteHCV infection. Hepatitis B Surface Ag Negative Negative [facility] 10/13/2024 11:5 7 AM EDT 10/13/2024 12:02 PM EDT Generic External Data Provider LAB BLOOD ORDERAB LES Final Result Performing Organization Address [facility] de Phone Number [facility] [address] [place] [phone] Lactic Acid (10/13/2024 11:57 AM EDT) Lactic Acid 0.6 0.5 - 2.0 mmol/L [facility] 10/13/2024 11:5 7 AM EDT 10/13/2024 12:02 PM EDT Generic External Data Provider LAB BLOOD ORDERAB LES Final Result Performing Organization Address [facility] de Phone Number [facility] [address] [place] [phone] * CT Abdomen Pelvis w/o Contrast (10/13/2024 10:34 AM EDT) Anatomical Region Laterality Modality Body, Pelvis, Abdomen Computed T omography 10/13/2024 10:3 4 AM EDT Narrative 10/13/2024 11:59 AM EDT [address] [address] [address] Scan Report Signed Patient: Bert English MR#: [id number] 358 : 1985 Acct:[id number] Age/Sex: 39 / M ADM Date: 10/13/24 Loc: HO.ED Attending Dr: Ordering Physician: Maddie Nava Date of Service: 10/13/24 Procedure(s): CT abdomen pelvis wo IV con Accession Number(s): [id number] cc: [facility]; Maddie Nava Report Number: [id number]: Total DLP = 334.00 mGy-cm EXAMINATION: CT [...] 10/13/24 1156 DD/ 1034 TD/TT: 10/13/24 1145 Clinical Data Abstractor: Procedure Note Donotuseinterpreter, Image - 10/13/[address] [address] [address] Scan Report Signed Patient: Rogelio English#: [id number] 358 : 1985Acct:[id number] Age/Sex: 39 / MADM Date: 10/13/24 Loc: HO.ED Attending Dr: Ordering Physician: Maddie Nava Date of Service: 10/13/24 Procedure(s): CT abdomen pelvis wo IV con Accession Number(s): [id number] cc: [facility]; Maddie Nava Report Number: [id number]: Total DLP = 334.00 mGy-cm EXAMINATION: CT [...] 10/13/24 1156 DD/ 1034 TD/TT: 10/13/24 1145 Clinical Data Abstractor: [facility] External Provider IMG CT PROCEDURES Final Result * High Sensitivity Troponin I (10/13/2024 10:26 AM EDT) Only the most recent of2 resultswithin the time period is included. TROPONIN I HIGH SENSITIVITY 32.2 <3.5 - 35.0 ng/L [facility] Comment:The Lee high sens itivity Troponin-I results should beused in conjunction with other diagnostic information suchas ECG, clinical observations and information, and patientsymptoms to aid in the diagnosis of [place]. 10/13/2024 10:2 6 AM EDT 10/13/2024 12:05 PM EDT Generic External Data Provider LAB BLOOD ORDERAB LES Final Result [facility] [address] [place] [phone] * Ethanol (10/13/2024 10:26 AM EDT) Only the most recent of2 resultswithin the time period is included. ETHANOL (MG/DL) IN SER/PLAS <10 mg/dL [facility] Comment:Serum/plasma ethanol results are to be used formedical/treatment purposes only. 10/13/2024 10:2 6 AM EDT 10/13/2024 10:31 AM EDT us Generic External Data Provider LAB BLOOD ORDERAB LES Final Result [facility] [address] [place] [phone] * (ABNORMAL) CBC auto differential (10/13/2024 10:26 AM EDT) Only the most recent of2 resultswithin the time period is included. Pathologist [facility] White Blood Count 11.9(H) 4.8 - 10.8 X10*3/uL [facility] Red Blood Count 4.36(L) 4.60 - 5.80 X10*6/uL [facility] Hemoglobin 14.2 14.0 - 18.0 g/dl [facility] Hematocrit 40.5(L) 42.0 - 52.0 % [facility] Mean Corpuscular Volume 92.9 80.0 - 98.0 fL [facility] Mean Corpuscular Hemoglobin 32.6 27.0 - 33.0 pg [facility] Mean Corpuscular HGB Conc 35.1 31.0 - 36.0 g/dl [facility] Red Cell Distribution Width 13.2 11.0 - 16.0 % [facility] Platelet Count 182 160 - 400 X10*3/uL [facility] Mean Platelet Volume 10.5 9.4 - 12.4 fL [facility] Neutrophils Percent Auto 87.7(H) 45 - 73 % [facility] Imm Gran Pct Auto 0.5(H) 0.0 - 0.4 % [facility] Lymphocytes Percent Auto 6.3(L) 20 - 40 % [facility] Monocytes Percent Auto 5.0 2 - 11 % [facility] Eosinophils Percent Auto 0.2 0 - 4 % [facility] Basophils Percent Auto 0.3 0 - 2 % [facility] NRBC Pct Auto 0.0 0.0 - 0.2 /100WBC [facility] Neutrophils Absolute Auto 10.4(H) 2.0 - 8.3 x10*3/uL [facility] Imm Gran Abs Auto 0.06(H) 0.00 - 0.03 X10*3/uL [facility] Lymphocytes Absolute Auto 0.8(L) 1.2 - 4.9 X10*3/uL [facility] Monocytes Absolute Auto 0.6 0.1 - 1.2 X10*3/uL [facility] Eosinophils Absolute Auto 0.0 0.0 - 0.4 X10*3/uL [facility] Basophils Absolute Auto 0.0 0.0 - 0.2 X10*3/uL [facility] NRBC Abs Auto 0.000 0.0 - 0.012 X10*3/uL [facility] 10/13/2024 10:2 6 AM EDT 10/13/2024 10:31 AM EDT us Generic External Data Provider LAB BLOOD ORDERAB LES Final Result Performing Organization Address [facility]/ZIP Co de Phone Number [facility] [address] [place] [phone] * Sed Rate by Modified Adrienren (10/13/2024 10:26 AM EDT) Erythrocyte Sedimentation Rate 14 0 - 15 MM/HR [facility] Comment:Patients with polycy themia and many hemoglobin abnormalitiesmay have depressed sed rates whereas patients with anemiamay have elevated sed rates. 10/13/2024 10:2 6 AM EDT 10/13/2024 10:31 AM EDT us Generic External Data Provider LAB BLOOD ORDERAB LES Final Result [facility] [address] [place] [phone] * (ABNORMAL) C-reactive Protein (10/13/2024 10:26 AM EDT) Pathologist [facility] C Reactive Protein 2.84(H) < or = 0.50 mg/dL [facility] 10/13/2024 10:2 6 AM EDT 10/13/2024 10:31 AM EDT us Generic External Data Provider LAB BLOOD ORDERAB LES Final Result Performing Organization Address [facility] Co de Phone Number [facility] [address] [place] [phone] * (ABNORMAL) Magnesium (10/13/2024 10:26 AM EDT) Only the most recent of2 resultswithin the time period is included. [facility] Magnesium 3.5(HH) 1.6 - 2.6 mg/dL [facility] Comment:Critical value for M AG: Results called to and read back by:LAKEISHA Person calling: CANDIDO Date: 10/13/24 Time: 1141 10/13/2024 10:2 6 AM EDT 10/13/2024 10:31 AM EDT us Generic External Data Provider LAB BLOOD ORDERAB LES Final Result Performing Organization Address [facility]/ZIP Co de Phone Number [facility] [address] [place] [phone] * (ABNORMAL) Creatine Kinase, Total (10/13/2024 10:26 AM EDT) [facility] Creatine Kinase Total >42,670(H) 38 - 174 U/L [facility] Comment:Verified by dilution 10/13/2024 10:2 6 AM EDT 10/13/2024 10:31 AM EDT us Generic External Data Provider LAB BLOOD ORDERAB LES Final Result Performing Organization Address [facility] de Phone Number [facility] [address] [place] [address] [phone] * (ABNORMAL) Hepatic Function Panel (10/13/2024 10:26 AM EDT) Only the most recent of2 resultswithin the time period is included. Bilirubin, Total 0.2 0.0 - 1.0 mg/dL [facility] Bilirubin, Direct <0.2 0.0 - 0.5 mg/dL [facility] Aspartate Amino Transferase 647(H) 5 - 37 U/L [facility] Alanine Aminotransferase 175(H) 0 - 40 U/L [facility] Total Protein 6.3(L) 6.5 - 8.0 g/dL [facility] Albumin Level 3.8 3.5 - 5.0 g/dL [facility] Alkaline Phosphatase 124(H) 39 - 117 U/L [facility] 10/13/2024 10:2 6 AM EDT 10/13/2024 10:31 AM EDT Generic External Data Provider LAB BLOOD ORDERAB LES Final Result Performing Organization Address [facility] de Phone Number [facility] [address] [place] [address] [phone] * XR Sacrum Coccyx 2+ Views (10/13/2024 10:10 AM EDT) Anatomical Region Laterality Modality Sacrum, Coccyx Radiographic Mariya ging 10/13/2024 10:1 0 AM EDT Narrative 10/13/2024 11:22 AM EDT [address] [address] XRay Report Signed Patient: Bert English MR#: [id number] 358 : 1985 Acct:[id number] Age/Sex: 39 / M ADM Date: 10/13/24 Loc: HO.ED Attending Dr: Ordering Physician: Maddie Nava Date of Service: 10/13/24 Procedure(s): XR sacrum coccyx min 2V Accession Number(s): [id number] cc: [facility]; Maddie Nava EXAMINATION: XR SACRUM AND COCCYX [...] 10/13/24 1119 DD/ 1010 TD/TT: 10/13/24 1115 Clinical Data Abstractor: Procedure Note Donotuseinterpreter, Image - 10/13/2024 [place] [address] XRay Report Signed Patient: Rogelio English#: [id number] 358 : 1985Acct:[id number] Age/Sex: 39 / MADM Date: 10/13/24 Loc: .ED Attending Dr: Ordering Physician: Maddie Nava Date of Service: 10/13/24 Procedure(s): XR sacrum coccyx min 2V Accession Number(s): [id number] cc: [facility]; Maddie Nava EXAMINATION: XR SACRUM AND COCCYX [...] 10/13/24 1119 DD/ 1010 TD/TT: 10/13/24 1115 Clinical Data Abstractor: us [facility] External Provider IMG XR PROCEDURES Final Result * XR Lumbar Spine 2-3 Views (10/13/2024 10:09 AM EDT) Anatomical Region Laterality Modality Spine, L-spine Radiographic Mariya ging 10/13/2024 10:0 9 AM EDT Narrative 10/13/2024 11:22 AM EDT [place] [address] XRay Report Signed Patient: Bert English MR#: [id number] 358 : 1985 Acct:[id number] Age/Sex: 39 / M ADM Date: 10/13/24 Loc: HO.ED Attending Dr: Ordering Physician: Maddie Nava Date of Service: 10/13/24 Procedure(s): XR lumbar spine 2-3V Accession Number(s): [id number] cc: [facility]; Maddie Nava EXAMINATION: XR LUMBOSACRAL SPINE CLINICAL [...] 10/13/24 1119 DD/ 1009 TD/TT: 10/13/24 1115 Clinical Data Abstractor: Procedure Note Donotuseinterpreter, Image - 10/13/[address] [address] XRay Report Signed Patient: Rogelio English#: [id number] 358 : 1985Acct:[id number] Age/Sex: 39 / MADM Date: 10/13/24 Loc: HO.ED Attending Dr: Ordering Physician: Maddie Nava Date of Service: 10/13/24 Procedure(s): XR lumbar spine 2-3V Accession Number(s): [id number] cc: [facility]; Maddie Nava EXAMINATION: XR LUMBOSACRAL SPINE CLINICAL [...] 10/13/24 1119 DD/ 1009 TD/TT: 10/13/24 1115 Clinical Data Abstractor: [facility] External Provider IMG XR PROCEDURES Final Result * Hemoglobin A1c (06/02/2024 11:46 AM EDT) Hemoglobin A1c 5.8 <6.0 % [facility] Comment:Hemoglobin A1C Refer ence Range Adults: 4.8 - 6.0 % Non diabetic: < 6.0 % Goal: < 7.0 %Additional Action Suggested: > 8.0 %Note: Hemoglobin A1c results are invalid for patients with abnormal amounts of HbF. Blood transfusions may impact the HbA1c concentration in the patient sample. Estimated Average Glucose 120 mg/dL [facility] Comment:eAG = Estimated ave rage glucose which is %A1C expressed asaverage glucose, using the formula of the A9B-QcwydhlXcwwpju Glucose study (ADAG), Diabetes Care, Vol.31,#8,2007 Blood Venous blood specimen / Unknown 06/02/2024 11:46 AM EDT 06/02/2024 1:50 PM EDT Viri Reyes MD LAB BLOOD ORDERABLES Final Res ult Performing Organization Address [facility] Co de Phone Number [facility] [address] [place] [phone] * (ABNORMAL) Lipid Panel, Standard (06/02/2024 11:46 AM EDT) Triglycerides 100 <150 mg/dL [facility] Comment:Desirable Triglyceri de: less than 150 mg/dLBorderline High Triglyceride 150-199 mg/dLHigh Triglyceride: 200-499 mg/dLVery High Triglyceride: greater than or equal to 5OO mg/dL Cholesterol 187 <200 mg/dL [facility] Comment:Desirable Cholestero l: less than 200 mg/dLBorderline High Cholesterol: 200-239 mg/dLHigh Cholesterol: greater than 239 mg/dL LDL Cholesterol Calculated 116(H) <100 mg/dL [facility] Comment:Desirable LDL: less than 100 mg/dLNear Optimal/Above Optimal LDL: 110- 129 mg/dLBorderline High LDL: 130-159 mg/dLHigh LDL: 160-189 mg/dLVery High LDL: greater than or equal to 190 mg/dL HDL Cholesterol 51 >40 mg/dL [facility] Comment:Desirable HDL: great er than 40 mg/dL Note: This HDL assay may give artificially low results in patients with liver disease. Blood Venous blood specimen / Unknown 06/02/2024 11:46 AM EDT 06/02/2024 1:50 PM EDT Viri Reyes MD LAB BLOOD ORDERABLES Final Res ult Performing Organization Address [facility]/ZIP Co de Phone Number [facility] [address] [place] [phone] from Last 3 Months or Most Recently Relevant to Health Maintenance Insurance [facility] C3 DENTAL-[facility] MEDICAID STAND ADULT Care Teams Inner Tube Inserter Relationship Specialty Start Date End Date Viri Reyes MD [address] [place] [id number] PCP - General Family Medicine 06/02/24
[2024-11-26 13:18] LABS: Anion Gap 12 (12-20); Blood Urea Nitrogen 26 mg/dL (9-16); Calcium 9.1 mg/dL (8.4-10.2); Carbon Dioxide 25 mmol/L (22-29); Chloride 107 mmol/L (96-108); Estimated Glomerular Filt Rate > 60; Potassium 4.0 mmol/L (3.3-5.1); Sodium 140 mmol/L (135-145)
== END 2024-11-26 12:31 | disposition home or self-care (01) ==
LOC: HO.LAB 12:30
PROVIDERS: PCP General Practice; Visit Provider Nurse Practitioner Family
DX: N17.9 Acute kidney failure, unspecified (principal); F17.210 Nicotine dependence, cigarettes, uncomplicated
CPT/HCPCS: 36415; 80048; 99212

== ENCOUNTER 2024-11-26 13:41 | Outpatient (AMB) | payer MEDICAID, SELFPAY ==
--- NOTE | 2024-11-26 13:22 | HO.NEPHOV ---
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 He required about 2 weeks of dialysis, after which point his creatinine has been steadily trending down. His creatinine today is nearing his baseline at 1.27. Most recent creatinine prior to this visit was 2.14 on 11/04. Patient continues to make urine. Denies chest pain, shortness of breath, abdominal/flank pain, urinary symptoms, extremity swelling, fatigue. [facility] Medical History (Updated 11/06/24 @ 00:03 by Haris Botello) PCP (phencyclidine) abuse Alcohol abuse Polysubstance abuse Surgical History (Updated 11/26/24 @ 13:57 by Kenia Mendoza MA) History of appendectomy Social History Household Members: Family Household Members Other:: mother Housing: Apartment Do you presently have visiting nurse or other home services: No Alcohol intake: current Alcohol intake frequency: 3 or more drinks per day Alcohol type: beer and hard liquor Comment: Reinforced rationale for safety protocols. patient refused Patient Tobacco Use Status: Current everyday Tobacco user Tobacco use type: Cigarette Cigarettes Per Day: 10 e-Cigarette/Vaping Use: Never Used Substance Use Type: Amphetamines service: No Review of Systems Const All systems reviewed & are unremarkable except as noted in HPI and below Physical Exam Const General: no acute distress, alert and awake Resp Effort & Inspection: normal respiratory effort and able to speak in complete sentences Auscultation: clear to auscultation bilaterally Cardio Rate: regular rate Rhythm: regular rhythm Heart sounds: S1 normal heart sound present and S2 normal heart sound present GI Palpation (GI): Soft to palpation and nontender General: Yes no CVA tenderness Back/Spine/Pelvis Back: no CVA tenderness Skin Rashes: no rashes Extrem General: No edema Results Reviewed Nephrology Results: Hgb, (14.0-18.0) 12.1 g/dl L 10/27/24 WBC, (4.8-10.8) 8.0 X10*3/uL 10/27/24 Plt Count, (160-400) 161 X10*3/uL 10/27/24 Sodium, (135-145) 140 mmol/L Today Potassium, (3.3-5.1) 4.0 mmol/L Today Chloride, (96-108) 107 mmol/L Today Carbon Dioxide, (22-29) 25 mmol/L Today BUN, (9-16) 26 mg/dL H Today Creatinine, (0.5-1.4) 1.27 mg/dL Today Calcium, (8.4-10.2) 9.1 mg/dL Today Phosphorus, (2.7-4.5) 3.5 mg/dL 11/04/24 PTH Intact, (8.7-77.1) 133.4 pg/mL H 11/04/24 Urine Protein, (Neg-Trace) Trace mg/dL 10/27/24 Urine Creatinine 142.09 mg/dL 10/13/24 Assessment & Plan Assessment & Plan (1) Acute renal failure: Code(s): N17.9 - Acute kidney failure, unspecified Category: Medical Qualifiers: Acute renal failure type: unspecified Qualified Code(s): N17.9 - Acute kidney failure, unspecified (2) WILL (acute kidney injury): Code(s): N17.9 - Acute kidney failure, unspecified Category: Medical Plan Patient with acute renal failure from rhabdomyolisis requiring dialysis- resolved. discussed avoiding drugs is of the utmost importance- discussed any resumption in drug use may cause another episode of renal failure, which could lead to permanent dialysis and/or . Discussed the importance of avoiding NSAIDs, hydration, healthy diet low in salt, regular physical acitivty and maintaining a healthy body weight. Advised to continue to avoid smoking cigarettes for long-term health- encouraged partner, who lives with him and smokes, to stop smoking as well as this is hindering patient's ability to remain cigarette-free. sutures from permcath remain in place, skin has grown over them. IR who placed line was contacted but did not provide appointment for patient to have sutures removed. Patient made appt with PCP to have sutures removed, at that point skin had grown over and PCP was not able to remove, placed gauze over sutured area. There does not appear to be any inflammation or infect- no redness, swelling, or drainage. Unfortunately we do not have a suture removing kit or other necessary tools in this office to remove the sutures. Advised patient to go to urgent care or the ED to have the sutures removed, as he states they continue to itch and bother him. He will follow up with Dr De La Fuente in 6 months, labs prior. Orders: Orders Basic Metabolic Panel 6 Months N17.9 - Acute kidney failure, unspecified, N18.30 - Chronic kidney disease, stage 3 unspecified Coding Level of Care Code Est Pt Level 3 (08799) Diagnoses Acute renal failure, unspecified acute renal failure type N17.9 Acute renal failure type: unspecified WILL (acute kidney injury) N17.9
[2024-11-26 13:59] VITALS: BP 114/70; PULSE 87; O2SAT 97; BMI 22.7
== END 2024-11-26 14:09 | disposition home or self-care (01) ==
LOC: HO.HKA 13:42
PROVIDERS: PCP General Practice; Visit Provider Nurse Practitioner Family
DX: N17.9 Acute kidney failure, unspecified (principal)
CPT/HCPCS: 99213

== ENCOUNTER 2025-01-05 10:58 | Outpatient (AMB) | payer MEDICAID, SELFPAY ==
--- NOTE | 2025-01-05 11:01 | A.OFFVIS_ITS ---
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 Pt c/o; sutures placed 10/13/2024 Howard, ? stitches overgrown area of stitches. 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 He had a PermCath placed last November, because of acute renal failure from rhabdomyolysis. He had undergone dialysis twice but he says that this PermCath has been removed. He says he has good urinary output now. He mentioned to his primary care physician that he thought he he had a stitch on the previous PermCath site so was referred to me. 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 patient refused Patient Tobacco Use Status: Current everyday Tobacco user Tobacco use type: Cigarette Cigarettes Per Day: 10 e-Cigarette/Vaping Use: Never Used Substance Use Type: Amphetamines service: No Review of Systems Const Denies chills and Denies fever(s) Card Denies chest pain, Denies dyspnea and Denies dyspnea on exertion Resp Denies cough, Denies dyspnea and Denies dyspnea on exertion GI Denies hematochezia and Denies change in bowel habits Denies hematuria and Denies difficulty urinating Musc Denies back pain and Denies limited range of motion Neuro Denies focal weakness and Denies convulsions Psych Denies depression and Denies mood swings Physical Exam Vital Signs: BMI result Body Mass Index 22.7 Const General: comfortable and no acute distress Orientation/consciousness: patient oriented x3 Neck Neck: Yes no lymphadenopathy Chest Other: Scar noted on the old PermCath site without any visible stitch, mass, or lesion Resp Auscultation: clear to auscultation bilaterally Cardio Rhythm: regular rhythm GI Palpation (GI): Soft to palpation, nontender and no guarding Neuro General: patient oriented x3 Assessment & Plan Assessment & Plan (1) Scar condition and fibrosis of skin: Code(s): L90.5 - Scar conditions and fibrosis of skin Category: Medical Plan: I do not see any stitch or any hypergranulation. The PermCath site has healed well. There is note of some scar formation He does not require any surgical intervention He can follow up on a p.r.n. basis. Coding Level of Care Code New Pt Level 3 (16438) Diagnoses Scar condition and fibrosis of skin L90.5
[2025-01-05 11:05] VITALS: BMI 22.7
--- OUTSIDE RECORDS SUMMARY | 2025-01-05 13:27 | XMS_ITS | Clinical Summary ---
Author Organization [employer] Address [address] [facility] 7[address] [place] [address] Care Team Providers Care Master Tax Advisor Name Role Phone Viri Reyes MD Primary Care Provider [phone] Allergies No known active allergies Medications * This document contains information received from the source organization and may not represent a complete record from that organization. sertraline (Zoloft) 50 MG tablet Take 1 tablet (50 mg) by mouth Once per day. 90 tablet 1 06/02/2024 Active famotidine (Pepcid) 20 MG tablet Take 1 tablet (20 mg) by mouth 2 times daily. 180 tablet 3 06/02/2024 Active Multiple Vitamins-Minera ls (PreserVision AREDS 2) capsule Take 1 capsule by mouth Once per day. 11/03/2024 Active nicotine polacrilex (Nicorette) 4 MG gum Chew 1 each (4 mg) if needed for smoking cessation. 100 each 11/08/2024 Active traZODone (Desyrel) 50 MG tablet TAKE 1 TABLET BY MOUTH AT BEDTIME 60 tablet 12/01/2024 Active Active Problems Problem Noted Date Diagnosed [...] renal Phencyclidine (PCP) use disorder, mild, abuse (C MS/HCC) 11/08/2024 Assessment & Plan (11/08/2024 2:40 PM EDT): Sober since admission Advised to avoid using rec substances. 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 He wants to be seen at [facility] where he used to see his therapist [...] organization. Date Type Department Care Team Description 12/01/[address] [address] Jody Malone MD 11/29/2024 3:40 PM EDT Office Visit [facility] [address] [place] [phone] Shelly Reyes FNP Extrusion of suture, subsequent encounter (Primary Dx) 11/29/2024 Travel 11/29/[address] [address] Viri Reyes MD suture removal 11/26/2024 Orders Only GENERIC EXTERNAL DATA DEPARTMENT Provider, Generic External Data 11/08/2024 1:30 PM EDT Office Visit [address] [address] Jody Malone MD WILL (acute kidney injury) (CMS/HCC) (Primary Dx); Non-traumatic rhabdomyolysis; Depressive disorder; Phencyclidine (PCP) use disorder, mild, abuse (CMS/HCC); Cigarette nicotine dependence with nicotine-induced disorder 11/08/2024 Travel 11/05/[address] [address] Viri Reyes MD Chart Prep 11/04/2024 Orders Only GENERIC EXTERNAL DATA DEPARTMENT Provider, Generic External Data 11/03/2024 Patient Outreach [facility] [address] [place], [place] [phone] Viri Reyes MD Transition Of Care (Tcm) (HDF unscheduled) 11/03/[address] [address] Viri Reyes MD Hospital Follow-up 10/13/2024 Orders Only [facility] External Provider, [facility] from Last 3 Months Immunizations Immunization Administration [...] t he electric, gas, oil or water [employer] threatened to shut off services in your [...] Sign Reading Time Taken Comments Blood Pressure 120/78 11/29/2024 3:11 PM EDT Pulse 80 11/29/2024 3:11 PM EDT Temperature 37 C (98.6 F) 11/29/2024 3:11 PM EDT Respiratory Rate 16 11/29/2024 3:11 PM EDT Oxygen Saturation 98% 11/29/2024 3:11 PM EDT Inhaled Oxygen Concentration - - Weight 69.9 kg (154 lb) 11/29/2024 3:11 PM EDT Height 165.1 cm (5' 5 ) 11/08/2024 1:29 PM EDT Body Mass Index 25.63 11/08/2024 1:29 PM EDT Plan of Treatment Upcoming Encounters Date Type Department Care Team (Late st Contact Info) Description 01/06/2025 8:00 AM EDT Office Visit [facility] [address] [place] [address] Melanie Lyons 01/07/2025 2:30 PM EDT Office Visit [facility] [address] [place] [address] Viri Reyes MD [address] [place] [address] Health Maintenance Due Date Last Done Comments HIV Screening 1985 HPV Vaccines (1 - Male 3-dose series) 08/14/1999 Pneumococcal Vaccine: Pediatrics (0 to 5 Years) and At-Risk Patients (6 to 49) Years (1 of 2 - PCV) 08/14/2003 Dental Prophylaxis 09/06/2008 03/07/2008 Dental Oral Exam 07/22/2013 01/20/2013 COVID-19 Vaccine ( season) 2024 Influenza Vaccine (#1) 2024 8, 01/25/2016, 12/19/2011 Alcohol/Substance Use Screening 06/02/2025 06/02/2024 Depression Screening 06/02/2025 06/02/2024, 06/03/19 Diabetes: Hemoglobin A1C 06/02/2025 06/02/2024 Family Planning (PISQ) 06/02/2025 06/02/2024 SDOH Screening 06/02/2025 06/02/2024 Dental X-Ray: Bitewings 07/09/2025 07/08/2024 Disability Screening 11/08/2025 11/08/2024 Tobacco Screening 11/29/2025 11/29/2024 Dental X-Ray: Full Mouth 07/10/2027 07/08/2024, 12/22 [...] Procedure Name Priority Date/Time Associated Diagnosis Comments BASIC METABOLIC PANEL Routine 11/26/2024 12:39 PM EDT PHOSPHATE ( PHOSPHORUS) Routine 11/04/2024 11:33 AM EDT BASIC METABOLIC PANEL Routine 11/04/2024 11:33 AM EDT IR CVC REMOV TUNNEL WO PRT/PARACHUTE FOLDER Routine 10/29/2024 1:30 PM EDT IR CVC [...] 2-3 VIEWS Routine 10/13/2024 10:09 AM EDT INTRAORAL - COMPLETE SERIES OF RADIOGRAPHIC [...] Relevant to Health Maintenance Results * (ABNORMAL) Basic Metabolic Panel (11/26/2024 12:39 PM EDT) Only the most recent of3 resultswithin the time period is included. Sodium 140 135 - 145 mmol/L [facility] Potassium 4.0 3.3 - 5.1 mmol/L [facility] Chloride 107 96 - 108 mmol/L [facility] Carbon Dioxide 25 22 - 29 mmol/L [facility] Anion Gap 12 12 - 20 [facility] Urea Nitrogen (BUN) 26(H) 9 - 16 mg/dL [facility] Creatinine, Serum 1.27 0.5 - 1.4 mg/dL [facility] Estimated Glomerular Filt Rate >60 [facility] Comment:Chronic Kidney Disea se: Estimated GFR < 60 mL/min/1.68m2Dgmqgw Kidney Disease: Estimated GFR < 15 mL/min/1.73m2 Glucose 92 60 - 115 mg/dL [facility] Calcium 9.1 8.4 - 10.2 mg/dL [facility] 11/26/2024 12:3 9 PM EDT 11/26/2024 12:39 PM EDT us Generic External Data Provider LAB BLOOD ORDERAB LES Final Result Performing Organization Address City/[facility]/ZIP Co de Phone Number [facility] [address] [place] [phone] * Phosphate (As Phosphorus) (11/04/2024 11:33 AM EDT) Phosphorus 3.5 2.7 - 4.5 mg/dL [facility] 11/04/2024 11:3 3 AM EDT 11/04/2024 11:33 AM EDT Generic External Data Provider LAB BLOOD ORDERAB LES Final Result Performing Organization Address [facility] Co de Phone Number [facility] [address] [place] [phone] * IR CVC REMOV TUNNEL WO PRT/PM (10/29/2024 1:30 PM EDT) Anatomical Region Laterality Modality X-Ray Angiograph y 10/29/2024 1:30 PM EDT Narrative 11/10/2024 10:53 AM EDT [address] [address] Interventional Radiology Rpt Signed Patient: Bert English MR#: [id number] 358 : 1985 Acct:[id number] Age/Sex: 39 / M ADM Date: 10/13/24 Loc: HO.S3 351-[address]: Jennifer Luevano MD Ordering Physician: Brenna Qureshi DNP, GUITAR REPAIRER-BC Date of Service: 10/29/24 Procedure(s): IR cvc remov tunnel wo prt/geological e logger Accession Number(s): [id number] cc: [facility]; Brenna Qureshi DNP, GUITAR REPAIRER- EXAMINATION: Removal of tunneled central line placement. CLINICAL INDICATION: Right permacatheter not needed anymore. FINDINGS/ IR/IR cvc remov tunnel wo prt/geological e logger IMPRESSION: Following cleaning the entry site in aseptic manner, blunt dissection was performed around the entry site. Using hemostats the cuff around the catheter was loosened and the catheter was pulled out safely. No hemorrhage visualized. Simple dressing applied post procedure. No sedation was utilized. Electronically signed by: Matthew Tineo MD 11/10/2024 10:50 AM EDT Dictated By: Matthew Tineo MD Signed By: <Electronically signed by Matthew Tineo MD in OV> 11/10/24 1050 DD/ 1330 TD/TT: 10/29/24 1550 Political Science Professor: [facility] Procedure Note Donotuseinterpreter, Image - 11/10/[address] [address] Interventional Radiology Rpt Signed Patient: Rogelio English#: [id number] 358 : 1985Acct:[id number] Age/Sex: 39 / MADM Date: 10/13/24 Loc: HO.S3 351-[address]: Jennifer Luevano MD Ordering Physician: Brenna Qureshi DNP, GUITAR REPAIRER- Date of Service: 10/29/24 Procedure(s): IR cvc remov tunnel wo prt/geological e logger Accession Number(s): [id number] cc: [facility]; Brenna Qureshi DNP, [facility]- EXAMINATION: Removal of tunneled central line placement. CLINICAL INDICATION: Right permacatheter not needed anymore. FINDINGS/ IR/IR cvc remov tunnel wo prt/geological e logger IMPRESSION: Following cleaning the entry site in aseptic manner, blunt dissection was performed around the entry site. Using hemostats the cuff around the catheter was loosened and the catheter was pulled out safely. No hemorrhage visualized. Simple dressing applied post procedure. No sedation was utilized. Electronically signed by: Matthew Tineo MD 11/10/2024 10:50 AM EDT Dictated By: Matthew Tineo MD Signed By: <Electronically signed by Matthew Tineo MD in OV> 11/10/24 1050 DD/ 1330 TD/TT: 10/29/24 1550 Political Science Professor: SANDRO [facility] External Provider IMG IR PROCEDURES Final Result * IR CVC Insert Central Tunnel (10/25/2024 9:00 AM EDT) Anatomical Region Laterality Modality Body X-Ray Angiograph y 10/25/2024 9:00 AM EDT Narrative 10/27/2024 1:04 PM EDT [place] [address] Interventional Radiology Rpt Signed Patient: Bert English MR#: [id number] 358 : 1985 Acct:[id number] Age/Sex: 39 / M ADM Date: 10/13/24 Loc: .S3 351-[address]: Jennifer Luevano MD Ordering Physician: Brenna Qureshi DNP, GUITAR REPAIRER- Date of Service: 10/25/24 Procedure(s): IR cvc insert central tunnel Accession Number(s): [id number] cc: [facility]; Brenna Qureshi DNP, FNP-BC PROCEDURE: [...] 10/27/24 1302 DD/ 0900 TD/TT: 10/25/24 1047 Political Science Professor: [facility] Procedure Note Donotuseinterpreter, Image - 10/27/[address] [address] Interventional Radiology Rpt Signed Patient: Rogelio English#: [id number] 358 : 1985Acct:[id number] Age/Sex: 39 / MADM Date: 10/13/24 Loc: HO.S3 351-[address]: Jennifer Luevano MD Ordering Physician: Brenna Qureshi DNP, FNP-BC Date of Service: 10/25/24 Procedure(s): IR cvc insert central tunnel Accession Number(s): [id number] cc: [facility]; Brenna Qureshi ARLETTE, LUISA-VINAY PROCEDURE: IR INSERTION OF TUNNEL CATHETER CLINICAL [...] MD Signed By: <Electronically signed by Matthew Tnieo MD in OV> 10/27/24 1302 DD/ 0900 TD/TT: 10/25/24 1047 Political Science Professor: SANDRO us [facility] External Provider IMG IR PROCEDURES Final Result * US SCROTUM DOPPLER (10/18/2024 10:11 AM EDT) Anatomical Region Laterality Modality Abdomen Ultrasound 10/18/2024 10:1 1 AM EDT Narrative 10/18/2024 11:13 AM EDT [address] [address] Ultrasound Report Signed Patient: Bert English MR#: [id number] 358 : 1985 Acct:[id number] Age/Sex: 39 / M ADM Date: 10/13/24 Loc: [facility] [address] 468-[address]: Zackary Dominguez MD Ordering Physician: Narayan Hyatt MD Date of Service: 10/18/24 Procedure(s): US scrotum doppler Accession Number(s): [id number] cc: Narayan Hyatt MD; [facility] EXAMINATION: US SCROTUM WITH DOPPLER [...] 10/22/24 1149 DD/ 1011 TD/TT: 10/18/24 1021 Political Science Professor: Procedure Note Donotuseinterpreter, Image - 10/22/2024 [place] [address] Ultrasound Report Signed Patient: Rogelio English#: [id number] 358 : 1985Acct:[id number] Age/Sex: 39 / MADM Date: 10/13/24 Loc: [facility] [address]: Zackary Dominguez MD Ordering Physician: Narayan Hyatt MD Date of Service: 10/18/24 Procedure(s): US scrotum doppler Accession Number(s): [id number] cc: Narayan Hyatt MD; [facility] EXAMINATION: US SCROTUM WITH DOPPLER [...] 10/22/24 1149 DD/ 1011 TD/TT: 10/18/24 1021 Political Science Professor: us [facility] External Provider IMG US PROCEDURES Edited Result - Final * US Scrotum (10/18/2024 10:11 AM EDT) Anatomical Region Laterality Modality Body Ultrasound 10/18/2024 10:1 1 AM EDT Narrative 10/22/2024 11:52 AM EDT [place] [address] Ultrasound Report Signed Patient: Bert English MR#: [id number] 358 : 1985 Acct:[id number] Age/Sex: 39 / M ADM Date: 10/13/24 Loc: [facility] 468-[address]: Zackary Dominguez MD Ordering Physician: Narayan Hyatt MD Date of Service: 10/18/24 Procedure(s): US scrotum Accession Number(s): [id number] cc: Narayan Hyatt MD; [facility] EXAMINATION: US SCROTUM WITH DOPPLER [...] 10/22/24 1149 DD/ 1011 TD/TT: 10/18/24 1021 Political Science Professor: Procedure Note Donotuseinterpreter, Image - 10/22/2024 [place] [address] Ultrasound Report Signed Patient: Rogelio English#: [id number] 358 : 1985Acct:[id number] Age/Sex: 39 / MADM Date: 10/13/24 Loc: [facility] 468-[address]: Zackary Dominguez MD Ordering Physician: Narayan Hyatt MD Date of Service: 10/18/24 Procedure(s): US scrotum Accession Number(s): [id number] cc: Narayan Hyatt MD; [facility] EXAMINATION: US SCROTUM WITH DOPPLER [...] 10/22/24 1149 DD/ 1011 TD/TT: 10/18/24 1021 Political Science Professor: us [facility] External Provider IMG US PROCEDURES Final Result * IR cvc insert non tunnel (10/14/2024 10:15 AM EDT) Anatomical Region Laterality Modality X-Ray Angiograph y 10/14/2024 10:1 5 AM EDT Narrative 10/19/2024 5:12 PM EDT [place] [address] Interventional Radiology Rpt Signed Patient: Bert English MR#: [id number] 358 : 1985 Acct:[id number] Age/Sex: 39 / M ADM Date: 10/13/24 Loc: [facility] 468-[address]: Zackary Domingeuz MD Ordering Physician: Brenna Qureshi DNP, FNP-BC Date of Service: 10/14/24 Procedure(s): IR cvc insert non tunnel Accession Number(s): [id number] cc: [facility]; Brenna Qureshi DNP, FNP-BC PROCEDURE: [...] needle withdrawn. Over the guidewire a 5 Gambian dilator was inserted and guidewire removed. A 0.035 J-wire was inserted over the dilator under fluoroscopy and placed in IVC. The dilator was removed and tract was dilated with 8 Gambian and a 12 Gambian dilator. Dilator was removed and 12.5 Gambian debris dialysis catheter was inserted over the [...] widely patent right jugular vein. A 12.5 Gambian 20 cm long temporary dialysis catheter/Gustavokar was [...] by Matthew Tineo MD in OV> 10/19/24 0323 DD/ 1015 TD/TT: 10/14/24 1249 Political Science Professor: [facility] Procedure Note Donotuseinterpreter, Image - 10/19/2024 [place] [address] Interventional Radiology Rpt Signed Patient: Rogelio English#: [id number] 358 : 1985Acct:[id number] Age/Sex: 39 / MADM Date: 10/13/24 Loc: [facility] 468-[address]: Zackary Dominguez MD Ordering Physician: Brenna Qureshi DNP, FNP-BC Date of Service: 10/14/24 Procedure(s): IR cvc insert non tunnel Accession Number(s): [id number] cc: [facility]; Brenna Qureshi DNP, FNP-VINAY PROCEDURE: IR INSERTION OF CENTRAL VENOUS CATHETER [...] needle withdrawn. Over the guidewire a 5 Gambian dilator was inserted and guidewire removed. A 0.035 J-wire was inserted over the dilator under fluoroscopy and placed in IVC. The dilator was removed and tract was dilated with 8 Gambian and a 12 Gambian dilator. Dilator was removed and 12.5 Gambian debris dialysis catheter was inserted over the [...] widely patent right jugular vein. A 12.5 Gambian 20 cm long temporary dialysis catheter/Mahurkar was [...] 10/19/24 1709 DD/ 1015 TD/TT: 10/14/24 1249 Political Science Professor: SANDRO [facility] External Provider IMG IR PROCEDURES Final Result * (ABNORMAL) Urinalysis, Complete, with Reflex to Culture (10/13/2024 12:47 PM EDT) Color Urine Yellow [facility] Appearance Urine Clear [facility] PH 5.5 5.0 - 9.0 [facility] Glucose Urine UA 100(A) Negative mg/dL [facility] Urine Blood Large (3+)(A) Negative [facility] Specific [place] - Urine 1.015 1.005 - 1.025 [facility] Urine Protein 300 (3+)(A) Neg-Trace mg/dL [facility] Urine Ketones Trace Negative mg/dL [facility] Nitrite Urine Negative Negative [facility] Leukocyte Esterase Urine Negative Negative [facility] RBC Urine 0-2 0 - 2 /HPF [facility] Urine WBC 0-5 0 - 5 /HPF [facility] Urine Squamous Epithelial Cell 3-5 0 - 2 /HPF [facility] Urine Bacteria None Seen None Seen [facility] Hyaline Casts, Urine 0-2 0 - 2 /LPF [facility] 10/13/2024 12:4 7 PM EDT 10/13/2024 12:55 PM EDT Narrative [facility] - 10/13/2024 1:07 PM EDT [id number], Clean Catch us Generic External Data Provider LAB URINE ORDERAB LES Final Result [facility] [address] [place] [address] [phone] * (ABNORMAL) Drug Monitoring, Panel 1, Screen, Urine (10/13/2024 12:47 PM EDT) Opiate Screen Urine Not Detected [...] ORDERAB LES Final Result Performing Organization Address [facility] Co de Phone Number [facility] [address] [place] [phone] * Sodium Without creatinine, Random Urine (10/13/2024 12:47 PM EDT) Sodium Urine Random 64.0 mmol/L [facility] 10/13/2024 12:4 7 PM EDT 10/13/2024 12:55 PM EDT Generic External Data Provider LAB BLOOD ORDERAB LES Final Result Performing Organization Address [facility] Co de Phone Number [facility] [address] [place] [phone] * (ABNORMAL) Osmolality, Urine (10/13/2024 12:47 PM EDT) OSMOLALITY URINE 259(L) 373 - 1,093 mosm/kg [facility] 10/13/2024 12:4 7 PM EDT 10/13/2024 12:55 PM EDT us Generic External Data Provider LAB URINE ORDERAB LES Final Result Performing Organization Address [facility]/ZIP Co de Phone Number [facility] [address] [place] [phone] * Creatinine, Random Urine (10/13/2024 12:47 PM EDT) Creatinine, Urine 142.09 mg/dL [facility] 10/13/2024 12:4 7 PM EDT 10/13/2024 12:55 PM EDT us Generic External Data Provider LAB URINE ORDERAB LES Final Result Performing Organization Address [facility] Co de Phone Number [facility] [address] [place] [phone] * (ABNORMAL) VENOUS BLOOD GAS (10/13/2024 12:04 PM EDT) VBG pH 7.22(L) 7.32 - 7.43 [facility] Comment:METER #: [id number] additional_comment: Cb omoruna VBG PCO2 15 mmHg [facility] Comment:METER #: [id number] additional_comment: Cb omoruna VBG PO2 82 mmHg [facility] Comment:METER #: [id number] additional_comment: Cb omoruna VBG Base Excess -18.8 mmol/L [facility] Comment:METER #: [id number] additional_comment: Cb omoruna VBG HCO3 6(L) 22 - 26 mmol/L [facility] Comment:METER #: [id number] additional_comment: Cb omoruna O2 Sat, Gerald 96.0 % [facility] Comment:METER #: [id number] additional_comment: Cb omoruna 10/13/2024 12:0 4 PM EDT 10/13/2024 12:08 PM EDT us Generic External Data Provider LAB BLOOD ORDERAB LES Final Result Performing Organization Address [facility] Co de Phone Number [facility] [address] [place] [address] [phone] * Hepatitis Panel, General (10/13/2024 11:57 [...] ORDERAB LES Final Result Performing Organization Address [facility] Co de Phone Number [facility] [address] [place] [phone] * Lactic Acid (10/13/2024 11:57 AM EDT) Lactic Acid 0.6 0.5 - 2.0 mmol/L [facility] 10/13/2024 11:5 7 AM EDT 10/13/2024 12:02 PM EDT us Generic External Data Provider LAB BLOOD ORDERAB LES Final Result Performing Organization Address [facility] Co de Phone Number [facility] [address] [place] [phone] * CT Abdomen Pelvis w/o Contrast (10/13/2024 10:34 AM EDT) Anatomical Region Laterality Modality Body, Pelvis, Abdomen Computed T omography 10/13/2024 10:3 4 AM EDT Narrative 10/13/2024 11:59 AM EDT [address] [address] [address] Scan Report Signed Patient: Bert English MR#: [id number] 358 : 1985 Acct:[id number] Age/Sex: 39 / M ADM Date: 10/13/24 Loc: HO.ED Attending Dr: Ordering Physician: Maddie Nava Date of Service: 10/13/24 Procedure(s): CT abdomen pelvis wo IV con Accession Number(s): [id number] cc: [facility]; Maddie Nava Report Number: [id number]: Total DLP = 334.00 mGy-cm EXAMINATION: CT [...] Lebron Hernandez MD 10/13/2024 11:56 AM EDT RP Dictated By: Lebron Hernandez MD Signed By: <Electronically signed by Lebron Hernandez MD in OV> 10/13/24 1156 DD/ 1034 TD/TT: 10/13/24 1145 Political Science Professor: Procedure Note Donotuseinterpreter, Image - 10/13/[address] [place] [address] [address] Scan Report Signed Patient: Rogelio English#: [id number] 358 : 1985Acct:[id number] Age/Sex: 39 / MADM Date: 10/13/24 Loc: .ED Attending Dr: Ordering Physician: Maddie Nava Date of Service: 10/13/24 Procedure(s): CT abdomen pelvis wo IV con Accession Number(s): [id number] cc: [facility]; Maddie Nava Report Number: [id number]: Total DLP = 334.00 mGy-cm EXAMINATION: CT [...] 10/13/24 1156 DD/ 1034 TD/TT: 10/13/24 1145 Political Science Professor: [facility] External Provider IMG CT PROCEDURES Final Result * High Sensitivity Troponin I (10/13/2024 10:26 AM EDT) Pathologist [facility] TROPONIN I HIGH SENSITIVITY 32.2 <3.5 - 35.0 ng/L [facility] Comment:The Lee high sens itivity Troponin-I results should beused in conjunction with other diagnostic information suchas ECG, clinical observations and information, and patientsymptoms to aid in the diagnosis of [place]. 10/13/2024 10:2 6 AM EDT 10/13/2024 12:05 PM EDT Generic External Data Provider LAB BLOOD ORDERAB LES Final Result Performing Organization Address [facility]/ZIP Co de Phone Number [facility] [address] [place] [phone] * Ethanol (10/13/2024 10:26 AM EDT) [facility] ETHANOL (MG/DL) IN SER/PLAS <10 mg/dL [facility] Comment:Serum/plasma ethanol results are to be used formedical/treatment purposes only. 10/13/2024 10:2 6 AM EDT 10/13/2024 10:31 AM EDT Generic External Data Provider LAB BLOOD ORDERAB LES Final Result Performing Organization Address [facility]/ZIP Co de Phone Number [facility] [address] [place] [phone] * (ABNORMAL) CBC auto differential (10/13/2024 10:26 AM EDT) [facility] White Blood Count 11.9(H) 4.8 - 10.8 [...] ORDERAB LES Final Result [facility] [address] [place] [phone] * Sed Rate by Modified Adrienren [...] ORDERAB LES Final Result Performing Organization Address [facility] de Phone Number [facility] [address] [place] [phone] * (ABNORMAL) C-reactive Protein (10/13/2024 10:26 AM EDT) C Reactive Protein 2.84(H) < or = 0.50 mg/dL [facility] 10/13/2024 10:2 6 AM EDT 10/13/2024 10:31 AM EDT Generic External Data Provider LAB BLOOD ORDERAB LES Final Result Performing Organization Address [facility] de Phone Number [facility] [address] [place] [phone] * (ABNORMAL) Magnesium (10/13/2024 10:26 AM EDT) Magnesium 3.5(HH) 1.6 - 2.6 mg/dL [facility] Comment:Critical value for M AG: Results called to and read back by:LAKEISHA Person calling: CANDIDO Date: 10/13/24 Time: 1141 10/13/2024 10:2 6 AM EDT 10/13/2024 10:31 AM EDT us Generic External Data Provider LAB BLOOD ORDERAB LES Final Result Performing Organization Address [facility] Co de Phone Number [facility] [address] [place] [phone] * (ABNORMAL) Creatine Kinase, Total (10/13/2024 10:26 AM EDT) Creatine Kinase Total >42,670(H) 38 - 174 U/L [facility] Comment:Verified by dilution 10/13/2024 10:2 6 AM EDT 10/13/2024 10:31 AM EDT us Generic External Data Provider LAB BLOOD ORDERAB LES Final Result Performing Organization Address [facility] Phone Number [facility] [address] [place] [phone] * (ABNORMAL) Hepatic Function Panel (10/13/2024 10:26 AM EDT) Bilirubin, Total 0.2 0.0 - 1.0 mg/dL [...] ORDERAB LES Final Result Performing Organization Address [facility] Co de Phone Number [facility] [address] [place] [phone] * XR Sacrum Coccyx 2+ Views (10/13/2024 10:10 AM EDT) Anatomical Region Laterality Modality Sacrum, Coccyx Radiographic Mariya ging 10/13/2024 10:1 0 AM EDT Narrative 10/13/2024 11:22 AM EDT [address] [address] XRay Report Signed Patient: Bert English MR#: [id number] 358 : 1985 Acct:[id number] Age/Sex: 39 / M ADM Date: 10/13/24 Loc: HO.ED Attending Dr: Ordering Physician: Maddie Nava Date of Service: 10/13/24 Procedure(s): XR sacrum coccyx min 2V Accession Number(s): [id number] cc: [facility]; Maddie Nava EXAMINATION: XR SACRUM [...] 10/13/24 1119 DD/ 1010 TD/TT: 10/13/24 1115 Political Science Professor: Procedure Note Donotuseinterpreter, Image - 10/13/[address] [address] XRay Report Signed Patient: Rogelio English#: [id number] : 1985Acct:[id number] Age/Sex: 39 / MADM Date: 10/13/24 Loc: HO.ED Attending Dr: Ordering Physician: Maddie Nava Date of Service: 10/13/24 Procedure(s): XR sacrum coccyx min 2V Accession Number(s): [id number] cc: [facility]; Maddie Nava EXAMINATION: XR SACRUM [...] 10/13/24 1119 DD/ 1010 TD/TT: 10/13/24 1115 Political Science Professor: [facility] External Provider IMG XR PROCEDURES Final Result * XR Lumbar Spine 2-3 Views (10/13/2024 10:09 AM EDT) Anatomical Region Laterality Modality Spine, L-spine Radiographic Mariya ging 10/13/2024 10:0 9 AM EDT Narrative 10/13/2024 11:22 AM EDT [place] [address] XRay Report Signed Patient: Bert English MR#: [id number] : 1985 Acct:[id number] Age/Sex: 39 / M ADM Date: 10/13/24 Loc: HO.ED Attending Dr: Ordering Physician: Maddie Nava Date of Service: 10/13/24 Procedure(s): XR lumbar spine 2-3V Accession Number(s): [id number] cc: [facility]; Maddie Nava EXAMINATION: XR LUMBOSACRAL [...] OV> 10/13/24 1119 DD/ 1009 TD/TT: 10/13/24 111 Political Science Professor: Procedure Note Donotuseinterpreter, Image - 10/13/2024 [place] [address] XRay Report Signed Patient: Rogelio English#: [id number] : 1985Acct:[id number] Age/Sex: 39 / MADM Date: 10/13/24 Loc: .ED Attending Dr: Ordering Physician: Maddie Nava Date of Service: 10/13/24 Procedure(s): XR lumbar spine 2-3V Accession Number(s): [id number] cc: [facility]; Maddie Nava EXAMINATION: XR LUMBOSACRAL [...] MDin OV> 10/13/24 1119 DD/ 1009 TD/TT: 10/13/241114 Political Science Professor: us [facility] External Provider IMG XR PROCEDURES Final Result * Hemoglobin A1c (06/02/2024 11:46 AM EDT) Hemoglobin A1c 5.8 <6.0 % [facility] Comment:Hemoglobin A1C Refer ence Range Adults: [...] asaverage glucose, using the formula of the N0Y-KzudcglBpqycae Glucose study (ADAG), Diabetes Care, Vol.31,#8,Oct. 2007 Blood Venous blood specimen / Unknown 06/02/2024 11:46 AM EDT 06/02/2024 1:50 PM EDT us Viri Reyes MD LAB BLOOD ORDERABLES Final Res ult [facility] [address] [place] [address] [phone] * (ABNORMAL) Lipid Panel, Standard (06/02/2024 11:46 AM EDT) Triglycerides 100 <150 mg/dL [facility] Comment:Desirable Triglyceri de: less than 150 [...] 190 mg/dL HDL Cholesterol 51 >40 mg/dL [facility] Comment:Desirable HDL: great er than 40 mg/dL Note: This HDL assay may give artificially low results in patients with liver disease. Blood Venous blood specimen / Unknown 06/02/2024 11:46 AM EDT 06/02/2024 1:50 PM EDT us Viri Reyes MD LAB BLOOD ORDERABLES Final Res ult [facility] [address] [place] [phone] from Last 3 Months or Most Recently Relevant to Health Maintenance Insurance [facility] C3 DENTAL-[facility] MEDICAID STAND ADULT Care Teams Master Tax Advisor Relationship Specialty Start Date End Date Viri Reyes MD [address] [place] [phone] PCP - General Family Medicine 06/02/24
== END 2025-01-05 11:12 | disposition home or self-care (01) ==
LOC: HO.HGS 10:58
PROVIDERS: PCP General Practice; Visit Provider Surgery
DX: L90.5 Scar conditions and fibrosis of skin (principal)
CPT/HCPCS: 99203

== ENCOUNTER → 2025-01-05 10:58 | Outpatient (BNVA) | payer MEDICAID, SELFPAY | PROVIDERS: PCP General Practice; Visit Provider Surgery | DX: L90.5 Scar conditions and fibrosis of skin (principal) | CPT/HCPCS: 99202 ==

== ENCOUNTER 2025-01-07 15:16 | Outpatient (REF) | payer MEDICAID, SELFPAY ==
--- OUTSIDE RECORDS SUMMARY | 2025-01-06 08:00 | XMS_ITS | Encounter Summary ---
Author Organization [employer] Address [address] [place] [address] Care Team Providers Care Driftman Name Role Phone Viri Reyes MD Primary Care Provider [phone] Reason for Visit * Reason Comments Dental Exam Routine Cleaning Encounter Details Date Type Department Care Team ([facility] st Contact Info) Description 01/06/2025 8:00 AM EDT Office Visit [facility] [address] [place] [address] Melanie Lyons Abfraction (Primary Dx); Dental plaque; Dental calculus Social History Tobacco Use Types Packs/Day Years Used Date Smoking Tobacco: Some Days Cigarettes Smokeless Tobacco: Never Alcohol Use Standard [...] Answer Date Recorded Patient Health Questionnaire-9 Score 4 01/07/2025 Patient Health Questionnaire-9 Score 4 01/07/2025 Last PHQ-9: Questionnaire Data Not on file 1 Housing Stability Answer Date Recorded What is [...] Answer Date Recorded Patient Health Questionnaire-2 Score 1 01/07/2025 Internet Access Answer Date Recorded Internet Access [...] Reading Time Taken Comments Blood Pressure 116/68 01/06/2025 7:57 AM EDT Pulse 100 01/06/2025 7:57 AM EDT Temperature - - Respiratory Rate - - Oxygen Saturation - - Inhaled Oxygen Concentration - - Weight - - Height - - Body Mass Index - - documented in this encounter Functional Status * Over the past 2 weeks, how often have you been bothered by any of the following problems? Question Answer Date of Assessment Author Patient Health Questionnaire-2 Score 1 12/22 2:44 PM EDT Becki Stein MA * Little interest or pleasure in doing things Answer Date of Assessment Author Not at all 01/07/2025 2:44 PM EDT Becki Stein MA * Feeling down, depressed, or hopeless Answer Date of Assessment Author Several days 01/07/2025 2:44 PM EDT Becki Stein MA * Trouble falling or staying asleep, or sleeping too much Answer Date of Assessment Author Several days 01/07/2025 2:44 PM EDT Becki Stein MA * Feeling tired or having little energy Answer Date of Assessment Author Several days 01/07/2025 2:44 PM EDT Becki Stein MA * Poor appetite or overeating Answer Date of Assessment Author Several days 01/07/2025 2:44 PM EDT Becki Stein MA * Feeling bad about yourself - or that you are a failure or have let yourself or your family down Answer Date of Assessment Author Not at all 01/07/2025 2:44 PM EDT Becki Stein MA * Trouble concentrating on things, such as reading the newspaper or watching television Answer Date of Assessment Author Not at all 01/07/2025 2:44 PM EDT Becki Stein MA * Moving or speaking so slowly that other people could have noticed? Or the opposite - being so fidgety or restless that you have been moving around a lot more than usual. Answer Date of Assessment Author Not at all 01/07/2025 2:44 PM EDT Becki Stein MA * Thoughts that you would be better off or hurting yourself in some way Answer Date of Assessment Author Not at all 01/07/2025 2:44 PM EDT Becki Stein MA * Patient Health Questionnaire-9 Score Answer Date of Assessment Author 4 01/07/2025 2:44 PM EDT Becki Stein MA * How difficult have these problems made it for you to do your work, take care of things at home, or get along with other people? Answer Date of Assessment Author Not difficult at all 01/07/2025 2:44 PM EDT Becki Mims MA * Over the last 2 weeks, how often have you been bothered by any of the following problems? Question Answer Date of Assessment Author Feeling nervous, anxious, or on edge 1 12/22 2:44 PM EDT Becki Stein MA Not being able to stop or co ntrol worrying 0 01/07/2025 2:44 PM EDT Becki Stein M A Worrying too much about diff erent things 0 01/07/2025 2:44 PM EDT Becki Stein M A Trouble relaxing 0 01/07/2025 2:44 PM EDT Becki Shannon MA Being so restless that it is hard to sit still 0 01/07/2025 2:44 PM EDT Becki Stein M A Becoming easily annoyed or irritable 0 12/22 2:44 PM EDT Becki Stein MA Feeling afraid as if somethi ng awful might happen 0 01/07/2025 2:44 PM EDT Becki Stein M A PRATEEK-7 Total Score 1 01/07/2025 2:44 PM EDT Becki Stein MA documented as of this encounter Plan of Treatment Upcoming Encounters Date Type Department Care Team (Late st Contact Info) Description 02/08/2025 2:00 PM EST Office Visit [facility] [address] [place] [phone] Luis Chase DDS [address] [place] [phone] 07/14/2025 2:15 PM EDT Office Visit [facility] [address] [place] [address] Melanie Lyons Scheduled Orders Name Type Priority Associated Diagnoses Orde r Schedule 6 F(V) 6 F(V) RESIN-BASED COMPOSITE - 1 SURF, ANTERIOR Dental Routine 1 Occurrences s tarting 01/06/2025 13 B(V) 13 B(V) RESIN-BASED COMPOSITE - 1 SURF, POSTERIOR Dental Routine 1 Occurrences starting 01/06/2025 7 L 7 L RESIN-BASED COMPOSITE - 1 SURF, ANTERIOR Dental Routine [address] arting 01/06/2025 PROPHYLAXIS - ADULT Dental Routine 1 Occ urrences starting 01/06/2025 documented as of this encounter Procedures Procedure Name Priority Date/Time Associated Diagnosis Comments PROPHYLAXIS - ADULT Routine 01/06/2025 8 :00 AM EDT Dental plaque Dental calculus PERIODIC ORAL EVALUATION - ESTABLISHED PATIENT Routine 01/06/2025 8:00 AM EDT ORAL HYGIENE INSTRUCTIONS Routine 01/06/2025 8:00 AM EDT Dental plaque Dental calculus CASE PRESENTATION, DETAILED AND EXTENSIVE TREATMENT PLANNING Routine 01/06/2025 8:00 AM EDT 12 B(V) COMPOSITE FILLING Routine 01/06/2025 12:00 AM EDT 11 F(V) COMPOSITE FILLING Routine 01/06/2025 12:00 AM EDT 31 O AMALGAM FILLING Routine 01/06/2025 12:00 AM EDT 30 DO AMALGAM FILLING Routine 01/06/2025 12:00 AM EDT documented in this encounter Visit Diagnoses Diagnosis Abfraction- Primary Dental plaque Accretions on teeth Dental calculus Accretions on teeth documented in this encounter Additional Health Concerns Assessment Noted Time PHQ-9 Depression Total Score: 5 06/03/19 25 10:42 AM EDT documented as of this encounter Care Teams Driftman Relationship Specialty Start Date End Date Viri Reyes MD [address] [place] [phone] PCP - General Family Medicine 06/02/24 documented as of this encounter
--- OUTSIDE RECORDS SUMMARY | 2025-01-07 14:30 | XMS_ITS | Encounter Summary ---
Author Organization [employer] Address [address] [place] [address] Care Team Providers Care Assisted Living Associate Name Role Phone Viri Reyes MD Primary Care Provider [phone] Encounter Details Date Type Department Care Team (Latest Contact Info) Description 01/07/2025 2:30 PM EDT Office Visit [facility] [address] [place], [place] [phone] Viri Reyes MD [address] [place], [place] [phone] Phencyclidine (PCP) use disorder, mild, abuse (CMS/HCC) (HCC) (Primary Dx); Non-traumatic rhabdomyolysis; WILL (acute kidney injury); Depressive disorder Social History Tobacco Use Types Packs/Day Years [...] Sign Reading Time Taken Comments Blood Pressure 110/80 01/07/2025 2:42 PM EDT Pulse 68 01/07/2025 2:42 PM EDT Temperature 36.9 C (98.5 F) 01/07/2025 2:42 PM EDT Respiratory Rate 21 01/07/2025 2:42 PM EDT Oxygen Saturation - - Inhaled Oxygen Concentration - - Weight 71.7 kg (158 lb) 01/07/2025 2:42 PM EDT Height 175.3 cm (5' 9 ) 01/07/2025 2:42 PM EDT Body Mass Index 23.33 01/07/2025 2:42 PM EDT documented in this encounter Functional Status * [...] Trouble relaxing 0 01/07/2025 2:44 PM EDT M Becki reina MA Being so restless that it is [...] Description 02/08/2025 2:00 PM EST Office Visit [facility] [address] [place] [phone] Luis Chase DDS [address] [place] [address] 07/14/2025 2:15 PM EDT Office Visit [facility] [address] [place] [address] Melanie Lyons documented as of this encounter Procedures Procedure Name Priority Date/Time Associated Diagnosis Comments COMPREHENSIVE METABOLIC PANEL Routine 01/07/2025 3:25 PM EDT Phencyclidine (PCP) use disorder, mild, abuse (CMS/HCC) (HCC) Non-traumatic rhabdomyolysis WILL (acute kidney injury) documented in this encounter Results * (ABNORMAL) Comprehensive Metabolic Panel (01/07/2025 3:25 PM EDT) Sodium 141 135 - 145 mmol/L [facility] Potassium 4.1 3.3 - 5.1 mmol/L [facility] Chloride 106 96 - 108 mmol/L [facility] Carbon Dioxide 25 22 - 29 mmol/L [facility] Anion Gap 14 12 - 20 [facility] Urea Nitrogen (BUN) 14 9 - 16 mg/dL [facility] Creatinine, Serum 1.12 0.5 - 1.4 mg/dL [facility] Estimated Glomerular Filt Rate >60 [facility] Comment:Chronic Kidney Disea se: Estimated GFR < 60 mL/min/[id number] Kidney Disease: Estimated GFR < 15 mL/min/1.73m2 Glucose 131(H) 60 - 115 mg/dL [facility] Calcium 9.7 8.4 - 10.2 mg/dL [facility] Bilirubin, Total 0.4 0.0 - 1.0 mg/dL [facility] Aspartate Amino Transferase 30 5 - 37 U/L [facility] Alanine Aminotransferase 33 0 - 40 U/L [facility] Total Protein 7.9 6.5 - 8.0 g/dL [facility] Albumin Level 5.0 3.5 - 5.0 g/dL [facility] Alkaline Phosphatase 177(H) 39 - 117 U/L [facility] Blood Venous blood specimen / Unknown 01/07/2025 3:25 PM EDT 01/07/2025 4:02 PM EDT us Viri Reyes MD LAB BLOOD ORDERABLES Final Res ult [facility] [address] [place] [phone] documented in this encounter Visit Diagnoses Diagnosis Phencyclidine (PCP) use disorder, mild, abuse (CMS/HCC) (HCC)- Primary Non-traumatic rhabdomyolysis WILL (acute kidney injury) Depressive disorder Depressive disorder, not elsewhere classified documented in this encounter Additional Health Concerns Assessment Noted Time PHQ-9 Depression Total Score: 4 01/08/20 2:44 PM EDT documented as of this encounter Care Teams Assisted Living Associate Relationship Specialty Start Date End Date Viri Reyes MD [address] [place] [phone] PCP - General Family Medicine 06/02/24 documented as of this encounter
[2025-01-07 17:27] LABS: Alanine Aminotransferase 33 U/L (0-40); Albumin Level 5.0 g/dL (3.5-5.0); Alkaline Phosphatase 177 U/L (39-117); Anion Gap 14 (12-20); Aspartate Amino Transferase 30 U/L (5-37); Blood Urea Nitrogen 14 mg/dL (9-16); Calcium 9.7 mg/dL (8.4-10.2); Carbon Dioxide 25 mmol/L (22-29); Chloride 106 mmol/L (96-108); Estimated Glomerular Filt Rate > 60; Potassium 4.1 mmol/L (3.3-5.1); Sodium 141 mmol/L (135-145); Total Protein 7.9 g/dL (6.5-8.0)
--- OUTSIDE RECORDS SUMMARY | 2025-01-07 17:48 | XMS_ITS | Clinical Summary ---
Author Organization [email or web address] Address [address] [place] [address] Care Team Providers Care Teacher Hearing Impaired Name Role Phone Viri Reyes MD Primary Care Provider [phone] Allergies No known active allergies Medications * This document contains information received from the source organization and may not represent a complete record from that organization. famotidine (Pepcid) 20 MG tablet Take 1 tablet (20 mg) by mouth 2 times daily. 180 tablet 3 06/03/19 25 026 Active sertraline (Zoloft) 50 MG tablet Take 1 tablet (50 mg) by mouth Once per day. 90 tablet 3 01/08/20 25 026 Active traZODone (Desyrel) 50 MG tablet Take 1 tablet (50 mg) by mouth at bedtime. 90 tablet 3 01/08/20 25 Active clotrimazole (Lotrimin) 1 % cream Apply topically 2 times daily for 28 days. 30 g 5 01/08/20 25 025 Active Emollient (CeraVe Daily Moisturizing) lotion Apply 1 Application topically Once per day. 355 mL 01/08/20 25 Active Multiple Vitamins-Mine rals (ICAPS) tablet Take 1 tablet by mouth Once per day. 90 tablet 3 01/08/20 25 Active sertraline (Zoloft) 50 MG tablet Take 1 tablet (50 mg) by mouth Once per day. 90 tablet 1 06/03/19 25 025 Discontinued(Th erapy completed) Multiple Vitamins-Mine rals (PreserVision AREDS 2) capsule Take 1 capsule by mouth Once per day. 11/04/19 25 025 Discontinued nicotine polacrilex (Nicorette) 4 MG gum Chew 1 each (4 mg) if needed for smoking cessation. 100 each 11/09/19 025 Discontinued(Th erapy completed) traZODone (Desyrel) 50 MG tablet TAKE 1 TABLET BY MOUTH AT BEDTIME 60 tablet 12/02/19 025 Discontinued(Re order (will not trigger notification to Pharmacy)) Active Problems Problem Noted Date Diagnosed Date Abfraction 01/06/2025 WILL (acute kidney injury) 11/08/2024 Assessment & [...] substances. 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 at [facility] Cigarette nicotine dependenc e with nicotine-induced disorder 11/08/2024 Assessment & Plan (11/09/2024 2:47 PM EDT): Discussed importance of cutting down on cigarette smoking, he agreed to start on nicotine gum He will follow-up with PCP in 4 to 6 weeks Dental caries 08/20/2024 Tooth impaction 07/08/2024 Missing teeth, acquired 07/08/2024 Dental plaque 07/08/2024 Gingival recession, localized 07/08/2024 Backache 10/04/2011 Depressive disorder 09/11/2011 Assessment & Plan (11/09/2024 2:46 PM EDT): Doing well on sertraline during hospitalization, advised importance of taking medication daily. He wants to be seen at [facility] where he used to see his therapist [...] reflux disease 09/11/2011 Syncope and collapse 09/11/2011 Resolved Problems Problem Noted Date Diagnosed Date Resolved Date Overweight 06/02/2024 01/07/2025 Otitis media 09/11/2011 06/02/2024 Underweight 09/11/2011 01/07/2025 Encounters * This document contains information received from the source organization and may not represent a complete record from that organization. Date Type Department Care Team Description 01/07/2025 2:30 PM EDT Office Visit [facility] MEDICINE [address] [place] [phone] Viri Reyes MD Phencyclidine (PCP) use disorder, mild, abuse (CMS/HCC) (HCC) (Primary Dx); Non-traumatic rhabdomyolysis; WILL (acute kidney injury); Depressive disorder 01/07/2025 Travel 01/06/2025 8:00 AM EDT Office Visit [facility] ADULT DENTAL [address] [place] [address] [phone] Melanie Lyons Abfraction (Primary Dx); Dental plaque; Dental calculus 01/06/2025 Telephone [facility] MEDICINE [address] [place] [phone] Viri Reyes MD chart prep 12/01/2024 Refill [facility] MED[facility]INE [address] [place] [phone] Jody Malone MD 11/29/2024 3:40 PM EDT Office Visit [facility] WALK-IN CENTER [address] [place] [phone] Shelly Reyes FNP Extrusion of suture, subsequent encounter (Primary Dx) 11/29/2024 Travel 11/29/[address] [address] Viri Reyes MD suture removal 11/26/2024 Orders Only GENERIC EXTERNAL DATA DEPARTMENT Provider, Generic External Data 11/08/2024 1:30 PM EDT Office Visit [address] [address] Jody Malone MD WILL (acute kidney injury) (CMS/HCC) (Primary Dx); Non-traumatic rhabdomyolysis; Depressive disorder; Phencyclidine (PCP) use disorder, mild, abuse (CMS/HCC); Cigarette nicotine dependence with nicotine-induced disorder 11/08/2024 Travel 11/05/[address] [address] Viri Reyes MD Chart Prep 11/04/2024 Orders Only GENERIC EXTERNAL DATA DEPARTMENT Provider, Generic External Data 11/03/2024 Patient Outreach [facility] & PEDS [address] [place], [place] [phone] Viri Reyes MD Transition Of Care (Tcm) (HDF unscheduled) 11/03/[address] [phone] Viri Reyes MD Hospital Follow-up 10/13/2024 Orders Only [facility] External Provider, [facility] from Last 3 Months Immunizations Immunization [...] 21 01/07/2025 2:42 PM EDT Oxygen Saturation 98% 11/29/2024 3:11 PM EDT Inhaled Oxygen Concentration - - Weight 71.7 kg (158 lb) 01/07/2025 2:42 PM EDT Height 175.3 cm (5' 9 ) 01/07/2025 2:42 PM EDT Body Mass Index 23.33 01/07/2025 2:42 PM EDT Plan of Treatment Upcoming Encounters Date Type Department Care Team (Late st Contact Info) Description 02/08/2025 2:00 PM EST Office Visit [facility] ADULT DENTAL [address] [place] [address] Luis Chase, DDS [address] [place] [address] 07/14/2025 2:15 PM EDT Office Visit [facility] ADULT DENTAL [address] [place] [address] Melanie Lyons Health Maintenance Due Date Last Done Comments HIV Screening 1985 HPV Vaccines (1 - Male 3-dose series) 08/14/1999 Pneumococcal Vaccine: Pediatrics (0 to 5 Years) and At-Risk Patients (6 to 49) Years (1 of 2 - PCV) 08/14/2003 COVID-19 Vaccine ( - season) 2024 Influenza Vaccine (#1) 2024 8, 01/25/2016, 12/19/2011 Alcohol/Substance Use Screening 06/02/2025 06/02/2024 Diabetes: Hemoglobin A1C 06/02/2025 06/02/2024 Family Planning (PISQ) 06/02/2025 06/02/2024 SDOH Screening 06/02/2025 06/02/2024 Dental Oral Exam 07/08/2025 01/06/2025, 01/20/2013 Dental Prophylaxis 07/08/2025 01/06/2025, 03/07/2008 Dental X-Ray: Bitewings 07/09/2025 07/08/2024 Disability Screening 11/08/2025 11/08/2024 Depression Screening 01/07/2026 01/07/2025, 01/08/20 25 Tobacco Screening 01/07/2026 01/07/2025 Dental X-Ray: Full Mouth 07/10/2027 07/08/2024, 12/22 [...] (HCC) Non-traumatic rhabdomyolysis WILL (acute kidney injury) ORAL HYGIENE INSTRUCTIONS Routine 01/06/2025 8:00 AM EDT Dental plaque Dental calculus PROPHYLAXIS - ADULT Routine 01/06/2025 8 :00 AM EDT Dental plaque Dental calculus CASE PRESENTATION, DETAILED AND EXTENSIVE TREATMENT PLANNING Routine 01/06/2025 8:00 AM EDT PERIODIC ORAL EVALUATION - ESTABLISHED PATIENT Routine 01/06/2025 8:00 AM EDT 31 O AMALGAM FILLING Routine 01/06/2025 12:00 AM EDT 30 DO AMALGAM FILLING Routine 01/06/2025 12:00 AM EDT 12 B(V) COMPOSITE FILLING Routine 01/06/2025 12:00 AM EDT 11 F(V) COMPOSITE FILLING Routine 01/06/2025 12:00 AM EDT BASIC METABOLIC PANEL Routine 11/26/2024 12:39 PM EDT PHOSPHATE ( PHOSPHORUS) Routine 11/04/2024 11:33 AM EDT BASIC METABOLIC PANEL Routine 11/04/2024 11:33 AM EDT IR CVC REMOV TUNNEL WO PRT/CARD BRUSHER Routine 10/29/2024 1:30 PM EDT IR CVC [...] 10:34 AM EDT CREATINE KINASE, TOTAL Routine 10:26 AM EDT HIGH SENSITIVITY TROPONIN I Routine 10/13/2024 10:26 AM EDT ETHANOL Routine 10/13/2024 10:26 AM EDT MAGNESIUM Routine 10/13/2024 10:26 AM EDT SED RATE BY MODIFIED WESTERGREN Routine 10/13/2024 10:26 AM EDT C-REACTIVE PROTEIN Routine 10/13/2024 10 :26 AM EDT BASIC METABOLIC PANEL Routine 10/13/2024 10:26 AM EDT HEPATIC FUNCTION PANEL Routine 10:26 AM EDT CBC WITH AUTO DIFFERENTIAL Routine 10/13/2024 10:26 AM EDT XR SACRUM COCCYX 2+ VIEWS Routine 10/13/2024 10:10 AM EDT XR LUMBAR SPINE 2-3 VIEWS Routine 10/13/2024 10:09 AM EDT INTRAORAL - COMPLETE SERIES OF RADIOGRAPHIC IMAGES Routine 07/08/2024 1:30 PM EDT HEMOGLOBIN A1C Routine 06/02/2024 11:46 AM EDT Overweight LIPID PANEL, STANDARD Routine 06/02/2024 11:46 AM EDT Overweight from Last 3 Months or Most Recently Relevant to Health Maintenance Results * (ABNORMAL) Comprehensive Metabolic Panel (01/07/2025 3:25 PM EDT) Sodium 141 135 - 145 mmol/L [facility] Potassium 4.1 3.3 - 5.1 mmol/L [facility] Chloride 106 96 - 108 mmol/L [facility] Carbon Dioxide 25 22 - 29 mmol/L [facility] Anion Gap 14 12 - 20 [facility] Urea Nitrogen (BUN) 14 9 - 16 mg/dL [facility] Creatinine, Serum 1.12 0.5 - 1.4 mg/dL [facility] Estimated Glomerular Filt Rate >60 [facility] Comment:Chronic Kidney Disea se: Estimated GFR < 60 mL/min/[id number] Kidney Disease: Estimated GFR < 15 mL/min/1.73m2 Glucose 131(H) 60 - 115 mg/dL [facility] Calcium 9.7 8.4 - 10.2 mg/dL [facility] Bilirubin, Total 0.4 0.0 - 1.0 mg/dL [facility] Aspartate Amino Transferase 30 5 - 37 U/L [facility] Alanine Aminotransferase 33 0 - 40 U/L [facility] Total Protein 7.9 6.5 - 8.0 g/dL [facility] Albumin Level 5.0 3.5 - 5.0 g/dL [facility] Alkaline Phosphatase 177(H) 39 - 117 U/L [facility] Blood Venous blood specimen / Unknown 01/07/2025 3:25 PM EDT 01/07/2025 4:02 PM EDT us Viri Reyes MD LAB BLOOD ORDERABLES Final Res ult Performing Organization Address [facility] Co de Phone Number [facility] [address] [place] [phone] * (ABNORMAL) Basic Metabolic Panel (11/26/2024 12:39 PM EDT) Only the most recent of3 resultswithin the time period is included. Sodium 140 135 - 145 mmol/L [facility] Potassium 4.0 3.3 - 5.1 mmol/L [facility] Chloride 107 96 - 108 mmol/L [facility] Carbon Dioxide 25 22 - 29 mmol/L [facility] Anion Gap 12 12 - 20 [facility] Urea Nitrogen (BUN) 26(H) 9 - 16 mg/dL [facility] Creatinine, Serum 1.27 0.5 - 1.4 mg/dL [facility] Estimated Glomerular Filt Rate >60 [facility] Comment:Chronic Kidney Disea se: Estimated GFR < 60 mL/min/[id number] Kidney Disease: Estimated GFR < 15 mL/min/1.73m2 Glucose 92 60 - 115 mg/dL [facility] Calcium 9.1 8.4 - 10.2 mg/dL [facility] 11/26/2024 12:3 9 PM EDT 11/26/2024 12:39 PM EDT us Generic External Data Provider LAB BLOOD ORDERAB LES Final Result Performing Organization Address [facility] Co de Phone Number [facility] [address] [place] [address] [phone] * Phosphate (As Phosphorus) (11/04/2024 11:33 AM EDT) Phosphorus 3.5 2.7 - 4.5 mg/dL [facility] 11/04/2024 11:3 3 AM EDT 11/04/2024 11:33 AM EDT us Generic External Data Provider LAB BLOOD ORDERAB LES Final Result [facility] [address] [place] [phone] * IR CVC REMOV TUNNEL WO PRT/PM (10/29/2024 1:30 PM EDT) Anatomical Region Laterality Modality X-Ray Angiograph y 10/29/2024 1:30 PM EDT Narrative 11/10/2024 10:53 AM EDT [address] [address] Interventional Radiology Rpt Signed Patient: Bert English MR#: [id number] 358 : 1985 Acct:[id number] Age/Sex: 39 / M ADM Date: 10/13/24 Loc: .S3 351-[address]: Jennifer Luevano MD Ordering Physician: Brenna Qureshi DNP, BLEACH TESTER-BC Date of Service: 10/29/24 Procedure(s): IR cvc remov tunnel wo prt/speaking unit assembler Accession Number(s): [id number] cc: [facility]; Brenna Qureshi DNP, BLEACH TESTER-BC EXAMINATION: Removal of tunneled central line placement. CLINICAL INDICATION: Right permacatheter not needed anymore. FINDINGS/ IR/IR cvc remov tunnel wo prt/speaking unit assembler IMPRESSION: Following cleaning the entry site in [...] 11/10/24 1050 DD/ 1330 TD/TT: 10/29/24 1550 Line Therapist: [facility] Procedure Note Donotuseinterpreter, Image - 11/10/[address] [address] Interventional Radiology Rpt Signed Patient: Rogelio English#: [id number] 358 : 1985Acct:[id number] Age/Sex: 39 / MADM Date: 10/13/24 Loc: .S3 351-[address]: Jennifer Luevano MD Ordering Physician: Brenna Qureshi DNP, BLEACH TESTER-BC Date of Service: 10/29/24 Procedure(s): IR cvc remov tunnel wo prt/speaking unit assembler Accession Number(s): [id number] cc: [facility]; Brenna Qureshi DNP, BLEACH TESTER-BC EXAMINATION: Removal of tunneled central line placement. CLINICAL INDICATION: Right permacatheter not needed anymore. FINDINGS/ IR/IR cvc remov tunnel wo prt/speaking unit assembler IMPRESSION: Following cleaning the entry site in [...] 11/10/24 1050 DD/ 1330 TD/TT: 10/29/24 1550 Line Therapist: SANDRO us [facility] External Provider IMG IR PROCEDURES Final Result * IR CVC Insert Central Tunnel (10/25/2024 9:00 AM EDT) Anatomical Region Laterality Modality Body X-Ray Angiograph y 10/25/2024 9:00 AM EDT Narrative 10/27/2024 1:04 PM EDT [address] [address] Interventional Radiology Rpt Signed Patient: Bert English MR#: [id number] 358 : 1985 Acct:[id number] Age/Sex: 39 / M ADM Date: 10/13/24 Loc: HO.S3 351-[address]: Jennifer Luevano MD Ordering Physician: Brenna Qureshi DNP, FNP-BC Date of Service: 10/25/24 Procedure(s): IR cvc insert central tunnel Accession Number(s): [id number] cc: [facility]; Brenna Qureshi DNP, FNP-BC PROCEDURE: [...] 10/27/24 1302 DD/ 0900 TD/TT: 10/25/24 1047 Line Therapist: [facility] Procedure Note Donotshauninterpreter, Image - 10/27/2024 [place] [address] Interventional Radiology Rpt Signed Patient: Rogelio English#: [id number] 358 : 1985Acct:[id number] Age/Sex: 39 / MADM Date: 10/13/24 Loc: .S3 351-[address]: Jennifer Luevano MD Ordering Physician: Brenna Qureshi DNP, FNP- Date of Service: 10/25/24 Procedure(s): IR cvc insert central tunnel Accession Number(s): [id number] cc: [facility]; Brenna Qureshi DNP [facility] PROCEDURE: IR INSERTION OF TUNNEL CATHETER [...] 10/27/24 1302 DD/ 0900 TD/TT: 10/25/24 1047 Line Therapist: SANDRO us [facility] External Provider IMG IR PROCEDURES Final Result * US SCROTUM DOPPLER (10/18/2024 10:11 AM EDT) Anatomical Region Laterality Modality Abdomen Ultrasound 10/18/2024 10:1 1 AM EDT Narrative 10/18/2024 11:13 AM EDT [address] [address] Ultrasound Report Signed Patient: Bert English MR#: [id number] 358 : 1985 Acct:[id number] Age/Sex: 39 / M ADM Date: 10/13/24 Loc: [facility] 468-[address]: Zackary Dominguez MD Ordering Physician: Narayan Hyatt MD Date of Service: 10/18/24 Procedure(s): US scrotum doppler Accession Number(s): [id number] cc: Narayan Hyatt MD; [facility] EXAMINATION: US SCROTUM WITH DOPPLER [...] 10/22/24 1149 DD/ 1011 TD/TT: 10/18/24 1021 Line Therapist: Procedure Note Donotuseinterpreter, Image - 10/22/2024 [place] [address] Ultrasound Report Signed Patient: Rogelio English#: [id number] 358 : 1985Acct:[id number] Age/Sex: 39 / MADM Date: 10/13/24 Loc: [facility] 468-[address]: Zackary Dominguez MD Ordering Physician: Narayan Hyatt MD Date of Service: 10/18/24 Procedure(s): US scrotum doppler Accession Number(s): [id number] cc: Narayan Hyatt MD; [facility] EXAMINATION: US SCROTUM WITH DOPPLER [...] 10/22/24 1149 DD/ 1011 TD/TT: 10/18/24 1021 Line Therapist: us [facility] External Provider IMG US PROCEDURES Edited Result - Final * US Scrotum (10/18/2024 10:11 AM EDT) Anatomical Region Laterality Modality Body Ultrasound 10/18/2024 10:1 1 AM EDT Narrative 10/22/2024 11:52 AM EDT [place] [address] Ultrasound Report Signed Patient: Bert English MR#: [id number] 358 : 1985 Acct:[id number] Age/Sex: 39 / M ADM Date: 10/13/24 Loc: [facility] 468-[address]: Zackary Dominguez MD Ordering Physician: Narayan Hyatt MD Date of Service: 10/18/24 Procedure(s): US scrotum Accession Number(s): [id number] cc: Narayan Hyatt MD; [facility] EXAMINATION: US SCROTUM WITH DOPPLER [...] 10/22/24 1149 DD/ 1011 TD/TT: 10/18/24 1021 Line Therapist: Procedure Note Donotuseinterpreter, Image - 10/22/2024 [place] [address] Ultrasound Report Signed Patient: Rogelio English#: [id number] 358 : 1985Acct:[id number] Age/Sex: 39 / MADM Date: 10/13/24 Loc: [facility] 468-[address]: Zackary Dominguez MD Ordering Physician: Narayan Hyatt MD Date of Service: 10/18/24 Procedure(s): US scrotum Accession Number(s): [id number] cc: Narayan Hyatt MD; [facility] EXAMINATION: US SCROTUM WITH DOPPLER [...] Otherwise unremarkable scrotal ultrasound. Electronically signed by: Lerbon Hernandez MD 10/18/2024 11:11 AM EDT Dictated By: Lebron Hernandez MD Signed By: <Electronically signed by Lebron Hernandez MD in OV> 10/22/24 1149 DD/ 1011 TD/TT: 10/18/24 1021 Line Therapist: us [facility] External Provider IMG US PROCEDURES Final Result * IR cvc insert non tunnel (10/14/2024 10:15 AM EDT) Anatomical Region Laterality Modality X-Ray Angiograph y 10/14/2024 10:1 5 AM EDT Narrative 10/19/2024 5:12 PM EDT [place] [address] Interventional Radiology Rpt Signed Patient: Bert English MR#: [id number] 358 : 1985 Acct:[id number] Age/Sex: 39 / M ADM Date: 10/13/24 Loc: [facility] 468-[address]: Zackary Dominguez MD Ordering Physician: Brenna Qureshi BONI Villalobos DNP Date of Service: 10/14/24 Procedure(s): IR cvc insert non tunnel Accession Number(s): [id number] cc: [facility]; Brenna Qureshi BONI CHONG PROCEDURE: IR INSERTION [...] needle withdrawn. Over the guidewire a 5 Kazakh dilator was inserted and guidewire removed. A 0.035 J-wire was inserted over the dilator under fluoroscopy and placed in IVC. The dilator was removed and tract was dilated with 8 Kazakh and a 12 Kazakh dilator. Dilator was removed and 12.5 Kazakh debris dialysis catheter was inserted over the [...] widely patent right jugular vein. A 12.5 Kazakh 20 cm long temporary dialysis catheter/Mahurkar was [...] 10/19/24 1709 DD/ 1015 TD/TT: 10/14/24 1249 Line Therapist: [facility] Procedure Note Donotuseinterpreter, Image - 10/19/2024 [place] [address] Interventional Radiology Rpt Signed Patient: Rogelio English#: [id number] 358 : 1985Acct:[id number] Age/Sex: 39 / MADM Date: 10/13/24 Loc: [facility] 468-[address]: Zackary Dominguez MD Ordering Physician: Brenna Qureshi DNP, FNP-BC Date of Service: 10/14/24 Procedure(s): IR cvc insert non tunnel Accession Number(s): [id number] cc: [facility]; Brenna Qureshi DNP, FNP-BC PROCEDURE: [...] needle withdrawn. Over the guidewire a 5 Kazakh dilator was inserted and guidewire removed. A 0.035 J-wire was inserted over the dilator under fluoroscopy and placed in IVC. The dilator was removed and tract was dilated with 8 Kazakh and a 12 Kazakh dilator. Dilator was removed and 12.5 Kazakh debris dialysis catheter was inserted over the [...] widely patent right jugular vein. A 12.5 Kazakh 20 cm long temporary dialysis catheter/Mahurkar was [...] 10/19/24 1709 DD/ 1015 TD/TT: 10/14/24 1249 Line Therapist: SANDRO [facility] External Provider IMG IR PROCEDURES Final Result * (ABNORMAL) Urinalysis, Complete, with Reflex to Culture (10/13/2024 12:47 PM EDT) Color Urine Yellow [facility] Appearance Urine Clear [facility] PH 5.5 5.0 - 9.0 [facility] Glucose Urine UA 100(A) Negative mg/dL [facility] Urine Blood Large (3+)(A) Negative [facility] Specific [place] - Urine 1.015 1.005 - 1.025 [facility] Urine Protein 300 (3+)(A) Neg-Trace mg/dL [facility] Urine Ketones Trace Negative mg/dL [facility] Nitrite Urine Negative Negative [facility] Leukocyte Esterase Urine Negative Negative [facility] RBC Urine 0-2 0 - 2 /HPF [facility] Urine WBC 0-5 0 - 5 /HPF [facility] Urine Squamous Epithelial Cell 3-5 0 - 2 /HPF [facility] Urine Bacteria None Seen None Seen [facility] Hyaline Casts, Urine 0-2 0 - 2 /LPF [facility] 10/13/2024 12:4 7 PM EDT 10/13/2024 12:55 PM EDT Narrative [facility] - 10/13/2024 1:07 PM EDT [id number], [employer] us Generic External Data Provider LAB URINE ORDERAB LES Final Result [facility] [address] [place] [phone] * (ABNORMAL) Drug Monitoring, Panel 1, Screen, Urine (10/13/2024 12:47 PM EDT) Opiate Screen Urine Not Detected Not Detect [facility] Comment:Opiate cut-off is 30 0 ng/mL.Positive results are unconfirmed and should not be used fornon-medical purposes. Barbiturates, Urine Not Detected Not Detect [facility] Comment:Barbiturate cut-off is 200 ng/mL.Positive results are unconfirmed and should not be used fornon-medical purposes. Phencyclidine Screen Urine POSITIVE(A) Not Detect [facility] Comment:Phencyclidine cut-of f is 25 ng/mL.Positive results are unconfirmed and should not be used fornon-medical purposes. Amphetamine Screen Urine Not Detected Not Detect [facility] Comment:Amphetamine cut-off is 1000 ng/mL.Positive results are unconfirmed and should not be used fornon-medical purposes. Benzodiazepines Screen Urine Not Detected Not Detect [facility] Comment:Benzodiazepine cut-o ff is 200 ng/mL.Positive results are unconfirmed and should not be used fornon-medical purposes. Cocaine Screen Urine Not Detected Not Detect [facility] Comment:Cocaine cut-off is 3 00 ng/mL.Positive results are unconfirmed and should not be used fornon-medical purposes. Cannabinoid Screen Urine Not Detected Not Detect [facility] Comment:Cannabinoid cut-off is 50 ng/mL.Positive results are unconfirmed and should not be used fornon-medical purposes. Methadone Screen, Urine Not Detected Not Detect ng/mL [facility] Comment:Methadone cut-off is 300 ng/mL.Positive results are unconfirmed and should not be used fornon-medical purposes. FENTANYL URINE Not Detected Not Detect [facility] Comment:Fentanyl cut-off is 1 ng/mL.Positive results are unconfirmed and should not be used fornon-medical purposes. Oxycodone Urine Screen Not Detected Not Detect ng/mL [facility] Comment:Oxycodone cut-off is 100 ng/mL.Positive results are unconfirmed and should not be used fornon-medical purposes. Buprenorphine Screen Not Detected Not Detect ng/mL [facility] Comment:Buprenorphine cut-of f is 5 ng/mL.Positive results are unconfirmed and should not be used fornon-medical purposes. 10/13/2024 12:4 7 PM EDT 10/13/2024 12:55 PM EDT Generic External Data Provider LAB URINE ORDERAB LES Final Result Performing Organization Address [facility] Co de Phone Number [facility] [address] [place] [phone] * Sodium Without creatinine, Random Urine (10/13/2024 12:47 PM EDT) Sodium Urine Random 64.0 mmol/L [facility] 10/13/2024 12:4 7 PM EDT 10/13/2024 12:55 PM EDT Generic External Data Provider LAB BLOOD ORDERAB LES Final Result Performing Organization Address [place]/[facility] [facility] Co de Phone Number [facility] [address] [place] [address] [phone] * (ABNORMAL) Osmolality, Urine (10/13/2024 12:47 PM EDT) OSMOLALITY URINE 259(L) 373 - 1,093 mosm/kg [facility] 10/13/2024 12:4 7 PM EDT 10/13/2024 12:55 PM EDT Generic External Data Provider LAB URINE ORDERAB LES Final Result Performing Organization Address [facility] Co de Phone Number [facility] [address] [place] [address] [phone] * Creatinine, Random Urine (10/13/2024 12:47 PM EDT) Pathologist [facility] Creatinine, Urine 142.09 mg/dL [facility] 10/13/2024 12:4 7 PM EDT 10/13/2024 12:55 PM EDT Generic External Data Provider LAB URINE ORDERAB LES Final Result Performing Organization Address [facility] de Phone Number [facility] [address] [place] [address] [phone] * (ABNORMAL) VENOUS BLOOD GAS (10/13/2024 12:04 PM EDT) VBG pH 7.22(L) 7.32 - 7.43 [facility] Comment:METER #: [id number] additional_comment: Cb omoruna VBG PCO2 15 mmHg [facility] Comment:METER #: [id number] additional_comment: Cb omoruna VBG PO2 82 mmHg [facility] Comment:METER #: [id number] additional_comment: Cb omoruna VBG Base Excess -18.8 mmol/L [facility] Comment:METER #: [id number] additional_comment: Cb omoruna VBG HCO3 6(L) 22 - 26 mmol/L [facility] Comment:METER #: [id number] additional_comment: Cb omoruna O2 Sat, Gerald 96.0 % [facility] Comment:METER #: [id number] additional_comment: Cb omorrocío 10/13/2024 12:0 4 PM EDT 10/13/2024 12:08 PM EDT Generic External Data Provider LAB BLOOD ORDERAB LES Final Result Performing Organization Address [facility]/ZIP Co de Phone Number [facility] [address] [place] [phone] * Hepatitis Panel, General (10/13/2024 11:57 AM EDT) Hepatitis A IgM Nonreactive Nonreactive [facility] Comment:IgM antibodies to CHAPMAN V not detected; does not exclude earlyacute or recovered HAV infection. ~Hepatitis B Surface Antibody REACTIVE Nonreactive [facility] Comment:REACTIVE: > 11.99 mI U/mL Hepatitis B Core Antibody Nonreactive Nonreactive [facility] Hepatitis C Antibody Nonreactive Nonreactive [facility] Comment:Antibodies to HCV no t detected; does not exclude early acuteHCV infection. Hepatitis B Surface Ag Negative Negative [facility] 10/13/2024 11:5 7 AM EDT 10/13/2024 12:02 PM EDT Generic External Data Provider LAB BLOOD ORDERAB LES Final Result Performing Organization Address [facility]/ZIP Co de Phone Number [facility] [address] [place] [phone] * Lactic Acid (10/13/2024 11:57 AM EDT) Lactic Acid 0.6 0.5 - 2.0 mmol/L [facility] 10/13/2024 11:5 7 AM EDT 10/13/2024 12:02 PM EDT us Generic External Data Provider LAB BLOOD ORDERAB LES Final Result [facility] [address] [place] [phone] * CT Abdomen Pelvis w/o Contrast (10/13/2024 10:34 AM EDT) Anatomical Region Laterality Modality Body, Pelvis, Abdomen Computed T omography 10/13/2024 10:3 4 AM EDT Narrative 10/13/2024 11:59 AM EDT [address] [address] [address] Scan Report Signed Patient: Bert English MR#: [id number] 358 : 1985 Acct:[id number] Age/Sex: 39 / M ADM Date: 10/13/24 Loc: HO.ED Attending Dr: Ordering Physician: Maddie Nava Date of Service: 10/13/24 Procedure(s): CT abdomen pelvis wo IV con Accession Number(s): [id number] cc: [facility]; Maddie Nava Report Number: [id number]: Total DLP = 334.00 mGy-cm EXAMINATION: CT [...] 10/13/24 1156 DD/ 1034 TD/TT: 10/13/24 1145 Line Therapist: Procedure Note Donotuseinterpreter, Image - 10/13/[address] [address] [address] Scan Report Signed Patient: Rogelio English#: [id number] 358 : 1985Acct:[id number] Age/Sex: 39 / MADM Date: 10/13/24 Loc: .ED Attending Dr: Ordering Physician: Maddie Nava Date of Service: 10/13/24 Procedure(s): CT abdomen pelvis wo IV con Accession Number(s): [id number] cc: [facility]; Maddie Nava Report Number: [id number]: Total DLP = 334.00 mGy-cm EXAMINATION: CT [...] 10/13/24 1156 DD/ 1034 TD/TT: 10/13/24 1145 Line Therapist: [facility] External Provider IMG CT PROCEDURES Final Result * High Sensitivity Troponin I (10/13/2024 10:26 AM EDT) [facility] TROPONIN I HIGH SENSITIVITY 32.2 <3.5 - 35.0 ng/L [facility] Comment:The Lee high sens itivity Troponin-I results should beused in conjunction with other diagnostic information suchas ECG, clinical observations and information, and patientsymptoms to aid in the diagnosis of VA. 10/13/2024 10:2 6 AM EDT 10/13/2024 12:05 PM EDT Generic External Data Provider LAB BLOOD ORDERAB LES Final Result Performing Organization Address [facility]/ZIP Co de Phone Number [facility] [address] [place] [phone] * Ethanol (10/13/2024 10:26 AM EDT) [facility] ETHANOL (MG/DL) IN SER/PLAS <10 mg/dL [facility] Comment:Serum/plasma ethanol results are to be used formedical/treatment purposes only. 10/13/2024 10:2 6 AM EDT 10/13/2024 10:31 AM EDT Generic External Data Provider LAB BLOOD ORDERAB LES Final Result Performing Organization Address [facility] Co de Phone Number [facility] [address] [place] [phone] * (ABNORMAL) CBC auto differential (10/13/2024 10:26 AM EDT) [facility] White Blood Count 11.9(H) 4.8 - 10.8 X10*3/uL [facility] Red Blood Count 4.36(L) 4.60 - 5.80 X10*6/uL [facility] Hemoglobin 14.2 14.0 - 18.0 g/dl [facility] Hematocrit 40.5(L) 42.0 - 52.0 % [facility] Mean Corpuscular Volume 92.9 80.0 - 98.0 fL [facility] Mean Corpuscular Hemoglobin 32.6 27.0 - 33.0 pg [facility] Mean Corpuscular HGB Conc 35.1 31.0 - 36.0 g/dl [facility] Red Cell Distribution Width 13.2 11.0 - 16.0 % [facility] Platelet Count 182 160 - 400 X10*3/uL [facility] Mean Platelet Volume 10.5 9.4 - 12.4 fL [facility] Neutrophils Percent Auto 87.7(H) 45 - 73 % [facility] Imm Gran Pct Auto 0.5(H) 0.0 - 0.4 % [facility] Lymphocytes Percent Auto 6.3(L) 20 - 40 % [facility] Monocytes Percent Auto 5.0 2 - 11 % [facility] Eosinophils Percent Auto 0.2 0 - 4 % [facility] Basophils Percent Auto 0.3 0 - 2 % [facility] NRBC Pct Auto 0.0 0.0 - 0.2 /100WBC [facility] Neutrophils Absolute Auto 10.4(H) 2.0 - 8.3 x10*3/uL [facility] Imm Gran Abs Auto 0.06(H) 0.00 - 0.03 X10*3/uL [facility] Lymphocytes Absolute Auto 0.8(L) 1.2 - 4.9 X10*3/uL [facility] Monocytes Absolute Auto 0.6 0.1 - 1.2 X10*3/uL [facility] Eosinophils Absolute Auto 0.0 0.0 - 0.4 X10*3/uL [facility] Basophils Absolute Auto 0.0 0.0 - 0.2 X10*3/uL [facility] NRBC Abs Auto 0.000 0.0 - 0.012 X10*3/uL [facility] 10/13/2024 10:2 6 AM EDT 10/13/2024 10:31 AM EDT Generic External Data Provider LAB BLOOD ORDERAB LES Final Result Performing Organization Address [facility] Co de Phone Number [facility] [address] [place] [phone] * Sed Rate by Modified Westergren (10/13/2024 10:26 AM EDT) Erythrocyte Sedimentation Rate 14 0 - 15 MM/HR [facility] Comment:Patients with polycy themia and many hemoglobin abnormalitiesmay have depressed sed rates whereas patients with anemiamay have elevated sed rates. 10/13/2024 10:2 6 AM EDT 10/13/2024 10:31 AM EDT Generic External Data Provider LAB BLOOD ORDERAB LES Final Result Performing Organization Address [facility] Co de Phone Number [facility] [address] [place] [address] [phone] * (ABNORMAL) C-reactive Protein (10/13/2024 10:26 AM EDT) C Reactive Protein 2.84(H) < or = 0.50 mg/dL [facility] 10/13/2024 10:2 6 AM EDT 10/13/2024 10:31 AM EDT Generic External Data Provider LAB BLOOD ORDERAB LES Final Result Performing Organization Address [facility] de Phone Number [facility] [address] [place] [address] [phone] * (ABNORMAL) Magnesium (10/13/2024 10:26 AM EDT) Magnesium 3.5(HH) 1.6 - 2.6 mg/dL [facility] Comment:Critical value for M AG: Results called to and read back by:LAKEISHA Person calling: CANDIDO Date: 10/13/24 Time: 1141 10/13/2024 10:2 6 AM EDT 10/13/2024 10:31 AM EDT us Generic External Data Provider LAB BLOOD ORDERAB LES Final Result Performing Organization Address [facility]/ZIP Co de Phone Number [facility] [address] [place] [address] [phone] * (ABNORMAL) Creatine Kinase, Total (10/13/2024 10:26 AM EDT) Creatine Kinase Total >42,670(H) 38 - 174 U/L [facility] Comment:Verified by dilution 10/13/2024 10:2 6 AM EDT 10/13/2024 10:31 AM EDT us Generic External Data Provider LAB BLOOD ORDERAB LES Final Result Performing Organization Address [facility] Co de Phone Number [facility] [address] [place] [phone] * (ABNORMAL) Hepatic Function Panel (10/13/2024 10:26 AM EDT) Bilirubin, Total 0.2 0.0 - 1.0 mg/dL [facility] Bilirubin, Direct <0.2 0.0 - 0.5 mg/dL [facility] Aspartate Amino Transferase 647(H) 5 - 37 U/L [facility] Alanine Aminotransferase 175(H) 0 - 40 U/L [facility] Total Protein 6.3(L) 6.5 - 8.0 g/dL [facility] Albumin Level 3.8 3.5 - 5.0 g/dL [facility] Alkaline Phosphatase 124(H) 39 - 117 U/L [facility] 10/13/2024 10:2 6 AM EDT 10/13/2024 10:31 AM EDT us Generic External Data Provider LAB BLOOD ORDERAB LES Final Result [facility] [address] [place] [address] [phone] * XR Sacrum Coccyx 2+ Views (10/13/2024 10:10 AM EDT) Anatomical Region Laterality Modality Sacrum, Coccyx Radiographic Mariya ging 10/13/2024 10:1 0 AM EDT Narrative 10/13/2024 11:22 AM EDT [address] [address] XRay Report Signed Patient: Bert English MR#: [id number] 358 : 1985 Acct:[id number] Age/Sex: 39 / M ADM Date: 10/13/24 Loc: HO.ED Attending Dr: Ordering Physician: Maddie Nava Date of Service: 10/13/24 Procedure(s): XR sacrum coccyx min 2V Accession Number(s): [id number] cc: [facility]; Maddie Nava EXAMINATION: XR SACRUM [...] 10/13/24 1119 DD/ 1010 TD/TT: 10/13/24 1115 Line Therapist: Procedure Note Donotuseinterpreter, Image - 10/13/[address] [address] XRay Report Signed Patient: Rogelio English#: [id number] 358 : 1985Acct:[id number] Age/Sex: 39 / MADM Date: 10/13/24 Loc: HO.ED Attending Dr: Ordering Physician: Maddie Nava Date of Service: 10/13/24 Procedure(s): XR sacrum coccyx min 2V Accession Number(s): [id number] cc: [facility]; Maddie Nava EXAMINATION: XR SACRUM [...] 10/13/24 1119 DD/ 1010 TD/TT: 10/13/24 1115 Line Therapist: [facility] External Provider IMG XR PROCEDURES Final Result * XR Lumbar Spine 2-3 Views (10/13/2024 10:09 AM EDT) Anatomical Region Laterality Modality Spine, L-spine Radiographic Mariya ging 10/13/2024 10:0 9 AM EDT Narrative 10/13/2024 11:22 AM EDT [address] [address] XRay Report Signed Patient: Bert English MR#: [id number] 358 : 1985 Acct:[id number] Age/Sex: 39 / M ADM Date: 10/13/24 Loc: HO.ED Attending Dr: Ordering Physician: Maddie Nava Date of Service: 10/13/24 Procedure(s): XR lumbar spine 2-3V Accession Number(s): [id number] cc: [facility]; Maddie Nava EXAMINATION: XR LUMBOSACRAL [...] 10/13/24 1119 DD/ 1009 TD/TT: 10/13/24 1115 Line Therapist: Procedure Note Donotuseinterpreter, Image - 10/13/[address] [address] XRay Report Signed Patient: Rogelio English#: [id number] 358 : 1985Acct:[id number] Age/Sex: 39 / MADM Date: 10/13/24 Loc: .ED Attending Dr: Ordering Physician: Maddie Nava Date of Service: 10/13/24 Procedure(s): XR lumbar spine 2-3V Accession Number(s): [id number] cc: [facility]; Maddie Nava EXAMINATION: XR LUMBOSACRAL [...] 10/13/24 1119 DD/ 1009 TD/TT: 10/13/24 1115 Line Therapist: us [facility] External Provider IMG XR PROCEDURES Final Result * Hemoglobin A1c (06/02/2024 11:46 AM EDT) Hemoglobin A1c 5.8 <6.0 % [facility] Comment:Hemoglobin A1C Refer ence Range Adults: 4.8 - 6.0 % Non diabetic: < 6.0 % Goal: < 7.0 %Additional Action Suggested: > 8.0 %Note: Hemoglobin A1c results are invalid for patients with abnormal amounts of HbF. Blood transfusions may impact the HbA1c concentration in the patient sample. Estimated Average Glucose 120 mg/dL [facility] Comment:eAG = Estimated ave rage glucose which is %A1C expressed asaverage glucose, using the formula of the C5C-EbmjulnIvvvrhh Glucose study (ADAG), Diabetes Care, Vol.31,#8,Oct. 2007 Blood Venous blood specimen / Unknown 06/02/2024 11:46 AM EDT 06/02/2024 1:50 PM EDT us Viri Reyes MD LAB BLOOD ORDERABLES Final Res ult [facility] [address], [place] [phone] * (ABNORMAL) Lipid Panel, Standard (06/02/2024 11:46 AM EDT) Triglycerides 100 <150 mg/dL [facility] Comment:Desirable Triglyceri de: less than 150 mg/dLBorderline High Triglyceride 150-199 mg/dLHigh Triglyceride: 200-499 mg/dLVery High Triglyceride: greater than or equal to 5OO mg/dL Cholesterol 187 <200 mg/dL [facility] Comment:Desirable Cholestero l: less than 200 mg/dLBorderline High Cholesterol: 200-239 mg/dLHigh Cholesterol: greater than 239 mg/dL LDL Cholesterol Calculated 116(H) <100 mg/dL [facility] Comment:Desirable LDL: less than 100 mg/dLNear Optimal/Above Optimal LDL: 110- 129 mg/dLBorderline High LDL: 130-159 mg/dLHigh LDL: 160-189 mg/dLVery High LDL: greater than or equal to 190 mg/dL HDL Cholesterol 51 >40 mg/dL [facility] Comment:Desirable HDL: great er than 40 mg/dL Note: This HDL assay may give artificially low results in patients with liver disease. Blood Venous blood specimen / Unknown 06/02/2024 11:46 AM EDT 06/02/2024 1:50 PM EDT us Viri Reyes MD LAB BLOOD ORDERABLES Final Res ult [facility] [address], [place] [phone] from Last 3 Months or Most Recently Relevant to Health Maintenance Insurance [facility] C[facility] STAND ADULT Care Teams Teacher Hearing Impaired Relationship Specialty Start Date End Date Viri Reyes MD [address] [place] [phone] PCP - General Family Medicine 06/02/24
--- OUTSIDE RECORDS SUMMARY | 2025-01-07 17:48 | XMS_ITS | Encounter Summary ---
Author Organization [employer] Address [address] [facility] [address] [place] [address] Care Team Providers Care Material Handler Loader Name Role Phone Viri Reyes MD Primary Care Provider [phone] Reason for Visit * Reason Onset Date Comments chart prep 01/06/2025 Encounter Details Date Type Department Care Team ([facility] Contact Info) Description 01/06/[address] [facility] [address] [place], [place] [phone] Viri Reyes MD [address] [place] [phone] chart prep Social History Tobacco Use Types Packs/Day Years [...] PM EDT documented as of this encounter Miscellaneous Notes * Telephone Encounter - Jatinder Jacob MA - 01/06/2025 9:57 AM EDT Chart Prep Labs: done Images: done Referrals: appointment pending Vaccines due: Covid, Flu, PCV20, and HPV Screenings: not applicable Overdue care gaps: PHQ-9 and PRATEEK-7 documented in this encounter Plan of Treatment Upcoming Encounters Date Type Department Care Team (Late st Contact Info) Description 02/08/2025 2:00 PM EST Office Visit [facility] [address] [place] [address] Luis Chase DDS [address] [place] [phone] 07/14/2025 2:15 PM EDT Office [address] [facility] [address] [place] [address] Melanie Lyons documented as of this encounter Visit Diagnoses Not on filedocumented in this encounter Additional Health Concerns Assessment Noted Time PHQ-9 Depression Total Score: 5 06/03/19 25 10:42 AM EDT documented as of this encounter Care Teams Material Handler Loader Relationship Specialty Start Date End Date Viri Reyes MD [address] [place] [address] PCP - General Family Medicine 06/02/24 documented as of this encounter
--- OUTSIDE RECORDS SUMMARY | 2025-01-07 17:49 | XMS_ITS | Encounter Summary ---
Author Organization [employer] Address [address] [place] [address] Care Team Providers Care Jewel Supervisor Name Role Phone Viri Reyes MD Primary Care Provider [phone] Encounter Details Date Type Department Care Team (Latest Contact Info) Description 01/07/2025 Travel Social History Tobacco Use Types Packs/Day [...] PM EDT documented as of this encounter Functional Status * Over the [...] Description 02/08/2025 2:00 PM EST Office Visit [facility] [address] [place] [address] Luis Chase DDS [address] [place] [address] 07/14/2025 2:15 PM EDT Office Visit [facility] [address] [place] [address] Melanie Lyons documented as of this encounter Visit Diagnoses Not on filedocumented in this encounter Additional Health Concerns Assessment Noted Time PHQ-9 Depression Total Score: 4 01/08/20 2:44 PM EDT documented as of this encounter Care Teams Jewel Supervisor Relationship Specialty Start Date End Date Viri Reyes MD [address] [place] [address] PCP - General Family Medicine 06/02/24 documented as of this encounter
== END 2025-01-07 15:17 | disposition home or self-care (01) ==
LOC: HO.HHCL 15:16
PROVIDERS: PCP General Practice; Visit Provider General Practice
DX: M62.82 Rhabdomyolysis (principal); N17.9 Acute kidney failure, unspecified; F16.10 Hallucinogen abuse, uncomplicated
CPT/HCPCS: 36415; 80053